=== PATIENT | male | born 1975 | race Caucasian/White ===

== ENCOUNTER 2016-06-07 12:30 | Emergency (ER) | payer SELFPAY ==
[2016-06-07 12:59] VITALS: BP 191/122; PULSE 100; RESP 18; TEMP 98.3
[2016-06-07] MEDS ORDERED: SODIUM CHLORIDE 0.9% 1,000 ML IV STA (13:11)
[2016-06-07] MEDS ORDERED: RX INFO: IV CONTRAST WAS GIVEN 1 EACH MISC MISCELLANE PRN (13:11)
[2016-06-07] MEDS ORDERED: ONDANSETRON 4 MG/2 ML VIAL IVP STA (13:11)
[2016-06-07] MEDS ORDERED: DICYCLOMINE 10 MG/ML 2 ML AMP IM STA (13:11)
[2016-06-07] MEDS ORDERED: FAMOTIDINE 20 MG/2 ML VIAL IV STA (13:12)
--- NOTE | 2016-06-07 13:15 | ED ---
General Adult HPI - General Chief complaint: Abdominal Pain Stated complaint: Abd Pain/Vomiting Time Seen by Provider: 06/07/16 12:59 Source: patient, RN notes reviewed Mode of arrival: ambulatory Limitations: no limitations - History of Present Illness Initial comments: Patient is a pleasant 40-year-old male presenting to the emergency department complaining of abdominal discomfort. Onset of symptoms was last night. Patient has abdominal discomfort. Patient has had occasional loose stools. Patient has had some episodes of vomiting. Patient has chronic abdominal problems similar to this. No fevers. - Related Data Home Medications Medication Instructions Recorded Confirmed Metoprolol Tartrate [Lopressor] 50 mg PO BID 10/02/13 12/15/15 ALPRAZolam [Xanax] 1 mg PO Q8H 07/10/15 12/15/15 oxyCODONE HCL 30 mg PO Q6HR PRN 07/10/15 12/15/15 Dextroamphetamine/Amphetamine 30 mg PO DAILY 11/03/15 12/15/15 [Adderall] Diphenox-Atrop 2.5-0.025 mg 1 tab PO DAILY PRN 11/03/15 12/15/15 [Lomotil] Pregabalin [Lyrica] 50 mg PO BID 11/03/15 12/15/15 Morphine Sulfate ER [Ms Contin 60 mg PO Q12HR 11/11/15 12/15/15 60Mg] Allergies Allergy/AdvReac Type Severity Reaction Status Date / Time Penicillins Allergy Unknown Verified 06/07/16 12:58 Childhood Review of Systems ROS Statement: Those systems with pertinent positive or pertinent negative responses have been documented in the HPI. ROS Other: All systems not noted in ROS Statement are negative. Constitutional: Denies: fever Eyes: Denies: eye pain ENT: Denies: ear pain Respiratory: Denies: dyspnea Cardiovascular: Denies: chest pain Endocrine: Denies: fatigue Gastrointestinal: Reports: abdominal pain, nausea, vomiting, diarrhea Genitourinary: Denies: dysuria Musculoskeletal: Denies: back pain Skin: Denies: rash Past Medical History Past Medical History: Hypertension Additional Past Medical History / Comment(s): Partial bowel obstruction secondary to adhesions, Crohn's, ileorectal anastomotic stricture, cervical pain -ruptured disc., ileus, enteritis History of Any Multi-Drug Resistant Organisms: None Reported Past Surgical History: Appendectomy, Bowel Resection, Hernia Repair Additional Past Surgical History / Comment(s): Lucio. bowel resection in 1993, lysis of adhesions, partial omentectomy and repair of incisional hernia August [address] Calzada, decompressive colonoscopy in May [address] Calzada, EGD and multiple colonoscopies, Epidural injections to neck- last one on 04/2015. Past Anesthesia/Blood Transfusion Reactions: No Reported Reaction Additional Past Anesthesia/Blood Transfusion Reaction / Comment(s): Pt has never recieved blood. Past Psychological History: Anxiety, Depression Additional Psychological History / Comment(s): PT lives with HS MOM AND A 12 yr old son. Pt is independent. He drives a car. He is NOT CURRENTLY WORKING. Smoking Status: Never smoker Past Alcohol Use History: Rare Past Drug Use History: Marijuana Additional Drug Use History / Comment(s): SMOKED MARJIUANA DAILY- USES FOR CHRONS AND NECK PAIN-LAST USED 06-02-15 - Past Family History Father Family Medical History: Myocardial Infarction ([place]) Additional Family Medical History / Comment(s): AT AGGE 54- HIS 4TH [place] Mother Family Medical History: Coronary Artery Disease (CAD), Hypertension Additional Family Medical History / Comment(s): MOM IS AGE 63, HAS STENTS General Exam Limitations: no limitations General appearance: alert, in no apparent distress Head exam: Present: atraumatic Eye exam: Present: normal appearance, PERRL ENT exam: Present: normal oropharynx Neck exam: Present: normal inspection Respiratory exam: Present: normal lung sounds bilaterally Cardiovascular Exam: Present: regular rate, normal rhythm GI/Abdominal exam: Present: soft, tenderness (Mild tenderness lower abdomen). Absent: distended, guarding, rebound, rigid Extremities exam: Present: normal inspection Neurological exam: Present: alert Psychiatric exam: Present: normal affect, normal mood Skin exam: Absent: rash Course Vital Signs 06/07/16 12:56 Temperature 98.3 F Pulse Rate 100 Respiratory 18 Rate Blood Pressure 191/122 O2 Sat by Pulse 97 Oximetry Medical Decision Making - Medical Decision Making Patient states there was a family emergency and will leave AGAINST MEDICAL ADVICE. Disposition Clinical Impression: Abdominal pain Disposition: Left Against Medical Advice
== END 2016-06-07 13:18 | disposition left against medical advice (07) ==
LOC: EC 12:30
DX: R10.9 Unspecified abdominal pain (principal); R11.10 Vomiting, unspecified; I10 Essential (primary) hypertension; F41.9 Anxiety disorder, unspecified; Z79.899 Other long term (current) drug therapy; Z79.891 Long term (current) use of opiate analgesic; Z88.0 Allergy status to penicillin
CPT/HCPCS: 99283

== ENCOUNTER 2016-08-12 16:26 | Inpatient (IN) | payer OTHER ==
[2016-08-12] MEDS ORDERED: ONDANSETRON 4 MG/2 ML VIAL IVP STA (17:54)
[2016-08-12] MEDS ORDERED: LABETALOL 5 MG/ML VIAL MDV IVP STA (17:54)
[2016-08-12] MEDS ORDERED: KETOROLAC 30 MG/ML 1 ML VIAL IVP STA (17:55)
[2016-08-12] MEDS ORDERED: DIAZEPAM 5 MG/ML 2 ML SYRINGE IVP STA (17:56)
--- NOTE | 2016-08-12 17:59 | ED ---
Abdominal Pain HPI - General Chief Complaint: Abdominal Pain Stated Complaint: Abd Pain/Vomiting/Anxiety Time Seen by Provider: 08/12/16 17:36 Source: patient, RN notes reviewed Mode of arrival: ambulatory Limitations: no limitations - History of Present Illness Initial Comments: Patient is a 40-year-old male presents emergency room for evaluation of abdominal pain and anxiety. Patient states he has a history of Crohn's Disease. Patient has a history of colon resection, appendectomy and hernia repair. Patient states he began having worsening abdominal pain along with vomiting since Wednesday. Patient states he is no longer able to a take his medications or eat anything due to vomiting. Patient states that he takes Percocet at home for pain. Patient states he hasn't been able to take any of his medications due to vomiting. Patient also states his blood pressure has increased due to not being able to take his blood pressure medication. Patient denies diarrhea or constipation. Patient states been having on and off chills. Patient denies headache. Patient also states he is feeling very anxious. Patient denies dizziness. Patient states pain in the left lower quadrant. Patient does have a history of kidney stones. Patient denies pain or burning during urination, trouble urinating or blood in urine. - Related Data Home Medications Medication Instructions Recorded Confirmed Metoprolol Tartrate [Lopressor] 50 mg PO BID 10/02/13 08/12/16 ALPRAZolam [Xanax] 1 mg PO BID PRN 07/10/15 08/12/16 oxyCODONE HCL 30 mg PO Q8H PRN 07/10/15 08/12/16 Dextroamphetamine/Amphetamine 30 mg PO QAM 11/03/15 08/12/16 [Adderall] Pregabalin [Lyrica] 50 mg PO BID 11/03/15 08/12/16 Albuterol Sulfate [Proair Hfa] 2 puff INHALATION RT-Q6H PRN 08/12/16 08/12/16 Allergies Allergy/AdvReac Type Severity Reaction Status Date / Time Penicillins Allergy Unknown Verified 08/12/16 18:24 Childhood Review of Systems ROS Statement: Those systems with pertinent positive or pertinent negative responses have been documented in the HPI. ROS Other: All systems not noted in ROS Statement are negative. Past Medical History Past Medical History: Hypertension Additional Past Medical History / Comment(s): Partial bowel obstruction secondary to adhesions, Crohn's, ileorectal anastomotic stricture, cervical pain -ruptured disc., ileus, enteritis History of Any Multi-Drug Resistant Organisms: None Reported Past Surgical History: Appendectomy, Bowel Resection, Hernia Repair Additional Past Surgical History / Comment(s): Lucio. bowel resection in 1993, lysis of adhesions, partial omentectomy and repair of incisional hernia August [address] Calzada, decompressive colonoscopy in May [address] Calzada, EGD and multiple colonoscopies, Epidural injections to neck- last one on 04/2015. Past Anesthesia/Blood Transfusion Reactions: No Reported Reaction Additional Past Anesthesia/Blood Transfusion Reaction / Comment(s): Pt has never recieved blood. Past Psychological History: Anxiety, Depression Additional Psychological History / Comment(s): PT lives with HS MOM AND A 12 yr old son. Pt is independent. He drives a car. He is NOT CURRENTLY WORKING. Smoking Status: Never smoker Past Alcohol Use History: Rare Past Drug Use History: Marijuana Additional Drug Use History / Comment(s): SMOKED MARJIUANA DAILY- USES FOR CHRONS AND NECK PAIN-LAST USED 06-02-15 - Past Family History Father Family Medical History: Myocardial Infarction ([place]) Additional Family Medical History / Comment(s): AT AGGE 54- HIS 4TH [place] Mother Family Medical History: Coronary Artery Disease (CAD), Hypertension Additional Family Medical History / Comment(s): MOM IS AGE 63, HAS STENTS General Exam - General Exam Comments Initial Comments: Sitting in exam room, no acute distress Limitations: no limitations General appearance: alert, in no apparent distress Head exam: Present: atraumatic, normocephalic, normal inspection Eye exam: Present: normal appearance ENT exam: Present: normal exam Neck exam: Present: normal inspection Respiratory exam: Present: normal lung sounds bilaterally. Absent: respiratory distress Cardiovascular Exam: Present: regular rate, normal rhythm, normal heart sounds GI/Abdominal exam: Present: soft, tenderness (Left lower quadrant), normal bowel sounds. Absent: distended, guarding, rebound, rigid Extremities exam: Present: normal inspection Back exam: Present: normal inspection Neurological exam: Present: alert, oriented X3, CN II-XII intact, normal gait Psychiatric exam: Present: normal affect, normal mood Skin exam: Present: warm, dry, intact, normal color. Absent: rash Course Vital Signs 08/12/16 08/12/16 08/12/16 16:47 19:15 19:40 Temperature 97.5 F L Pulse Rate 90 87 Respiratory 20 16 Rate Blood Pressure 185/110 156/89 169/88 O2 Sat by Pulse 98 95 Oximetry 08/12/16 08/12/16 20:10 20:58 Temperature Pulse Rate 86 86 Respiratory 16 16 Rate Blood Pressure 166/89 156/90 O2 Sat by Pulse 96 96 Oximetry Medical Decision Making - Medical Decision Making Patient is a 40-year-old male presents emergency room for evaluation of intractable abdominal pain, nausea and vomiting. Urinalysis suspicious for hematuria. Patient most likely passing kidney stone. Case discussed with Dr. Allan. Given patient's history of intractable abdominal pain and possible kidney stone, will admit patient with fluid hydration. Dr. Allan discussed case with Dr. Aldana who agreed to admit patient. - Lab Data Result diagrams: 08/12/16 19:10 08/12/16 19:10 Lab Results 08/12/16 08/12/16 08/12/16 Range/Units 19:10 19:10 19:35 WBC 7.6 (3.8-10.6) k/uL RBC 5.06 (4.30-5.90) m/uL Hgb 16.0 (13.0-17.5) gm/dL Hct 44.7 (39.0-53.0) % MCV 88.4 (80.0-100.0) fL MCH 31.6 (25.0-35.0) pg MCHC 35.7 (31.0-37.0) g/dL RDW 13.1 (11.5-15.5) % Plt Count 229 (150-450) k/uL Neutrophils % 70 % Lymphocytes % 19 % Monocytes % 6 % Eosinophils % 2 % Basophils % 0 % Neutrophils # 5.4 (1.3-7.7) k/uL Lymphocytes # 1.5 (1.0-4.8) k/uL Monocytes # 0.5 (0-1.0) k/uL Eosinophils # 0.1 (0-0.7) k/uL Basophils # 0.0 (0-0.2) k/uL Sodium 136 L (137-145) mmol/L Potassium 4.6 (3.5-5.1) mmol/L Chloride 98 (98-107) mmol/L Carbon Dioxide 24 (22-30) mmol/L Anion Gap 14 mmol/L BUN 10 (9-20) mg/dL Creatinine 0.64 L (0.66-1.25) mg/dL Est GFR (MDRD) Af Amer >60 (>60 ml/min/1.73 sqM) Est GFR (MDRD) Non-Af >60 (>60 ml/min/1.73 sqM) Glucose 206 H (74-99) mg/dL Calcium 9.8 (8.4-10.2) mg/dL Total Bilirubin 0.7 (0.2-1.3) mg/dL AST 72 H (17-59) U/L ALT 65 (21-72) U/L Alkaline Phosphatase 76 (38-126) U/L Total Protein 8.0 (6.3-8.2) g/dL Albumin 4.6 (3.5-5.0) g/dL Amylase 64 (30-110) U/L Lipase 108 (23-300) U/L Urine Color Light Yellow Urine Appearance Clear (Clear) Urine pH 5.5 (5.0-8.0) Ur Specific [place] 1.007 (1.001-1.035) Urine Protein Negative (Negative) Urine Glucose (UA) 2+ H (Negative) Urine Ketones Negative (Negative) Urine Blood Moderate H (Negative) Urine Nitrite Negative (Negative) Urine Bilirubin Negative (Negative) Urine Urobilinogen <2.0 (<2.0) mg/dL Ur Leukocyte Esterase Trace H (Negative) Urine RBC 152 H (0-5) /hpf Ur Squamous Epith Cells <1 (0-4) /hpf Urine Mucus Rare H (None) /hpf - Radiology Data Radiology results: report reviewed, image reviewed Disposition Clinical Impression: Hematuria, Intractable abdominal pain Disposition: ADMITTED IP TO THIS [facility] Condition: Stable Referrals: Dayton Tim DO [Primary Care Provider] - 1-2 days Decision Date: 08/12/16
[2016-08-12 19:23] LABS: Basophils % (A) 0 %; CHCM 36.3; Eosinophils # (A) 0.1 k/uL (0-0.7); Eosinophils % (A) 2 %; HCT 44.7 % (39.0-53.0); HDW 2.84; Luc # (Auto) 0.22; Luc % (Auto) 3; Lymphocytes # (A) 1.5 k/uL (1.0-4.8); Lymphocytes % (A) 19 %; MCH 31.6 pg (25.0-35.0); MCHC 35.7 g/dL (31.0-37.0); MCV 88.4 fL (80.0-100.0); Mean Platelet Volume 7.4; Monocytes # (A) 0.5 k/uL (0-1.0); Monocytes % (A) 6 %; Neutrophils # (A) 5.4 k/uL (1.3-7.7); Neutrophils % (A) 70 %; RBC 5.06 m/uL (4.30-5.90); RDW 13.1 % (11.5-15.5); WBC 7.6 k/uL (3.8-10.6); WBC (Perox) 7.56
[2016-08-12 19:30] LABS: ALT 65 U/L (21-72); AST 72 U/L (17-59); Alkaline Phosphatase 76 U/L (38-126); Amylase 64 U/L (30-110); Anion Gap 14 mmol/L; Blood Urea Nitrogen 10 mg/dL (9-20); Calcium 9.8 mg/dL (8.4-10.2); Carbon Dioxide 24 mmol/L (22-30); Chloride 98 mmol/L (98-107); Glucose 206 mg/dL (74-99); Non-African American GFR(MDRD) >60 (>60 ml/min/1.73 sqM); Potassium 4.6 mmol/L (3.5-5.1); Sodium 136 mmol/L (137-145); Total Bilirubin 0.7 mg/dL (0.2-1.3)
--- NOTE | 2016-08-12 19:46 | XR ---
EXAMINATION TYPE: XR KUB DATE OF EXAM: 08/12/2016 7:29 PM CLINICAL HISTORY: Left-sided abdominal pain and vomiting. TECHNIQUE: 2 upright KUB images of the abdomen are obtained COMPARISON: CT abdomen and pelvis November 11, 2015 FINDINGS: There is some paucity of bowel gas. Scattered gas is seen in non-distended stomach and sma ll bowel loops. Gas and fecal material is seen in non-distended colon. Surgical sutures are seen in the pelvis at level of the sigmoid rectal colon. There is no visceromegaly, pneumoperitoneum, or abn ormal calcification appreciated. The lung bases are clear. Bilateral accessory L1 ribs are redemonst rated. IMPRESSION: Overall nonspecific strongly favor nonobstructive bowel gas pattern.
[2016-08-12 20:01] LABS: Appearance,Urine Clear (Clear); Bilirubin,Urine Negative (Negative); Glucose,Urine (UA) 2+ (Negative); Ketones,Urine Negative (Negative); Leukocyte Esterase,Urine Trace (Negative); Mucus,Urine Rare /hpf; Nitrite,Urine Negative (Negative); PH, Urine 5.5 (5.0-8.0); Particle Count 1206; Protein,Urine Negative (Negative); RBC,Urine 152 /hpf (0-5); Specific Gravity,Urine 1.007 (1.001-1.035); Squamous Epithelial Cell,Urine <1 /hpf (0-4); UA Billing (MACRO vs. MICRO) MICRO; Urobilinogen,Urine <2.0 mg/dL (<2.0)
[2016-08-12] MEDS ORDERED: HYDROmorphone 1 MG/ML 1 ML SYRINGE IVP STA (20:47)
[2016-08-12] MEDS ORDERED: NALOXONE 0.4 MG/ML 1 ML VIAL IV PRN (20:48)
[2016-08-12] MEDS ORDERED: ONDANSETRON 4 MG/2 ML VIAL IVP PRN (20:48)
[2016-08-12] MEDS ORDERED: NON-FORMULARY DRUG (Oxycodone Hcl [Oxycodone Hcl] 30 MG) PO PRN (20:49)
[2016-08-12] MEDS ORDERED: ALBUTEROL NEBULIZED 2.5 MG/3 ML INHALATION PRN (20:49)
[2016-08-12] MEDS: oxyCODONE ER 15 MG TAB.ER.12H PO SCH (22:03)
[2016-08-12] MEDS: ALPRAZolam 0.5 MG TAB PO PRN (22:04)
[2016-08-12] MEDS: PREGABALIN 50 MG CAP PO SCH (22:04)
[2016-08-12] MEDS: METOPROLOL TARTRATE 50 MG TAB PO SCH (22:04)
[2016-08-13] MEDS: HYDROmorphone 1 MG/ML 1 ML SYRINGE IVP PRN ×5 (02:42→21:24)
[2016-08-13] MEDS: SODIUM CHLORIDE 0.9% 1,000 ML IV SCH ×3 (02:44→17:18)
[2016-08-13] MEDS: KETOROLAC 30 MG/ML 1 ML VIAL IVP PRN ×2 (07:30→15:48)
[2016-08-13] MEDS: PREGABALIN 50 MG CAP PO SCH ×2 (07:35→20:16)
[2016-08-13] MEDS: METOPROLOL TARTRATE 50 MG TAB PO SCH ×2 (07:35→20:16)
[2016-08-13] MEDS: ALPRAZolam 0.5 MG TAB PO PRN ×2 (07:39→21:24)
[2016-08-13] MEDS: oxyCODONE ER 15 MG TAB.ER.12H PO SCH ×2 (07:39→20:15)
[2016-08-13] MEDS ORDERED: NON-FORMULARY DRUG (Dextroamphetamine/Amphetamine [Adderall] 30 MG) PO SCH (09:00)
[2016-08-13] MEDS ORDERED: CYCLOBENZAPRINE 10 MG TAB PO PRN (19:09)
[2016-08-13] MEDS ORDERED: RX INFO: IV CONTRAST WAS GIVEN 1 EACH MISC MISCELLANE PRN (19:11)
[2016-08-13] MEDS ORDERED: IOHEXOL 350 MG/ML 25 ML BOTTLE (ORAL USE) PO PRN (19:11)
--- NOTE | 2016-08-13 20:04 | CT ---
EXAMINATION TYPE: CT abdomen w con DATE OF EXAM: 08/13/2016 7:55 PM COMPARISON: 11/11/2015 HISTORY: Left sided abdominal swelling x 1 week[address] History of Crohn's. CT DLP: 1607.20 mGycm Automated exposure control for dose reduction was used. TECHNIQUE: Helical acquisition of images was performed from the lung bases through the top of iliac crest to include entire abdomen. CONTRAST: Performed with Oral Contrast and with IV Contrast, patient injected with 100 mL of Omnipaque 300. FINDINGS: There is some interstitial mild edema in the posterior lung bases. There is no pleural effusion. Ther e is fatty infiltration of the liver. Bile ducts are not dilated. Gallbladder is contracted. Spleen a nd pancreas appear normal. There is no adrenal mass. Kidneys show satisfactory contrast opacification. There is no hydronephrosi s. There is no retroperitoneal adenopathy. I see no intestinal wall thickening. There are no dilated loops. There are surgical clips in the mid abdomen apparently from bowel surgery. I see no bony destr uctive process. There is no sign of a bowel obstruction. IMPRESSION: FATTY INFILTRATION OF THE LIVER. THERE IS SOME INTERSTITIAL EDEMA OR INFILTRATE IN THE LOWER LOBES WI THOUT CHANGE COMPARED TO OLD EXAM. PREVIOUS BOWEL SURGERY. NO EVIDENCE OF A BOWEL OBSTRUCTION. THE ENTIRE BOWEL IS NOT INCLUDED ON THIS EXAM. I DO NOT SEE EVIDENCE OF CROHN'S DISEASE. THERE IS OVERALL NO ADVERSE CHANGE COMPARED TO OLD EX AM.
[2016-08-13] MEDS: amLODIPine 5 MG TAB PO SCH (20:14)
[2016-08-13] MEDS: ENOXAPARIN 40 MG/0.4 ML SYRINGE SQ SCH (20:16)
[2016-08-13] MEDS: SYMBICORT 160-4.5 MCG INHALER INHALATION SCH (20:39)
[2016-08-14] MEDS: HYDROmorphone 1 MG/ML 1 ML SYRINGE IVP PRN ×7 (01:24→23:16)
--- NOTE | 2016-08-14 06:55 | HP ---
DATE OF ADMISSION: 08/12/2016 PRESENTING COMPLAINT: Abdominal pain. History of presenting complaint: A pleasant 40-year-old patient of Dr. Tim with a rather extensive medical history. The patient has history of Crohn disease diagnosed about 27 years ago seen by Dr. Downey. Does not take any take meds. The patient having some abdominal pain for 4 days and yesterday and the day prior to presentation, started having vomiting. No fever. The patient bowel movements are normally regular. The patient has had a near total colectomy done. Patient felt the left side of the abdomen was actually rather bloated. Earlier today, patient was given some soup and patient again threw up. Patient has got chronic pain. The patient other medical conditions include hypertension. REVIEW OF SYSTEMS: CONSTITUTIONAL: Tired. HEENT: Chronic neck pain. RESPIRATORY: None. CARDIOVASCULAR: None. GASTROINTESTINAL: As above. GENITOURINARY: None. MUSCULOSKELETAL: Chronic neck pain. Dermatologic: None. HEMATOLOGIC: None. LYMPHATICS: None. PSYCHIATRY: None. NEUROLOGICAL: None. PAST HISTORY: Hypertension. Crohn's disease, ileorectal anastomosis, cervical pain from ruptured disc. PAST SURGICAL HISTORY: Appendectomy, bowel resection as above. Multiple colonoscopies, epidural injections. Past psych history: Anxiety, depression. SOCIAL HISTORY: Lives with his mother. 12-year-old son. Patient not working. No smoking. Uses marijuana for chronic pain. FAMILY HISTORY: Apparently father at age of 54 from heart attack. HOME MEDICATIONS: 1. Percocet 10, 1 tablet t.i.d. p.r.n. 2. Prilosec 40 mg p.o. daily. 3. Flexeril 10 mg p.o. t.i.d. p.r.n. 4. Norvasc 5 mg p.o. daily. 5. Ventolin HFA 1 to 2 puffs q.i.d. p.r.n. 6. Dulera 200/5, 2 puffs b.i.d. 7. Flonase 1 to 2 sprays each nostril daily p.r.n. 8. Claritin 10 mg p.o. daily p.r.n. 9. Lyrica 50 mg p.o. b.i.d. 10. ( ) 30 mg p.o. daily. 11. Xanax 1 mg p.o. b.i.d. p.r.n. ALLERGIES TO PENICILLIN. On examination, vital signs on presentation: Temperature 97.5, pulse 90, respiration 20, blood pressure 185/110, pulse ox 98% on room air. Repeat blood pressure down to 156/( ). GENERAL APPEARANCE: Well built, lying in bed, tired -appearing. EYES: Pupils equal. Conjunctivae normal. Oral cavity normal. NECK: JVD not raised. Mass not palpable. RESPIRATORY: Effort normal. LUNGS: Clear. CARDIOVASCULAR: First and second sounds normal. No edema. ABDOMEN: Diffuse tenderness. No guarding or rigidity. Liver and spleen not palpable. The patient has a midline incision scar. Bowel sounds are present. LYMPHATIC: No lymph nodes palpable in the neck or axillae. PSYCHIATRY: Alert and oriented times three. Mood and affect normal. NEUROLOGICAL: Pupils equal. Cranial nerves grossly intact. Power and sensation grossly intact. INVESTIGATIONS: White count 7.6, hemoglobin 16, potassium 4.6, BUN 10, creatinine 0.64. UA showed moderate blood. Trace leukocyte esterase. ( ) 152. Abdominal x-ray nonspecific gas pattern. ASSESSMENT: 1. This is a patient with ileorectal anastomosis, underlying Crohn's disease with abdominal pain, nausea, vomiting. There is no fever. No white count, I doubt this is Crohn's disease flare-up though still in the differential. This could be a partial bowel obstruction for which patient has been throwing. 2. Chronic Crohn's disease. 3. Essential hypertension. 4. Chronic neck pain from herniated disc. 5. Anxiety, not otherwise specified. PLAN: Home medications are resumed. Patient was put on ice chips. We will consult Dr. Calzada. Get a CT scan of the abdomen with contrast. Follow. Copy to Dr. Tim.
[2016-08-14] MEDS: SODIUM CHLORIDE 0.9% 1,000 ML IV SCH ×2 (08:04→14:23)
[2016-08-14] MEDS: oxyCODONE ER 15 MG TAB.ER.12H PO SCH ×2 (08:11→21:20)
[2016-08-14] MEDS: METOPROLOL TARTRATE 50 MG TAB PO SCH ×2 (08:11→21:23)
[2016-08-14] MEDS: ALPRAZolam 0.5 MG TAB PO PRN ×2 (08:11→23:16)
[2016-08-14] MEDS: amLODIPine 5 MG TAB PO SCH (08:11)
[2016-08-14] MEDS: PREGABALIN 50 MG CAP PO SCH ×2 (08:12→21:24)
[2016-08-14] MEDS: ENOXAPARIN 40 MG/0.4 ML SYRINGE SQ SCH (08:12)
[2016-08-14] MEDS: SYMBICORT 160-4.5 MCG INHALER INHALATION SCH ×2 (09:24→21:17)
--- NOTE | 2016-08-14 16:29 | P.GSCN ---
History of Present Illness Consult date: 08/14/16 Reason for Consult: Abdominal pain Requesting physician: Iraj Alba History of present illness: Patient is a 40-year-old white male, patient of Dr. Tim in the outpatient setting, with past medical history significant for bowel obstructions, Crohn's disease, ileus, enteritis, bowel syndrome. Surgical history significant for appendectomy, bowel resection, and anastomosis dilatation. Patient has had multiple hospitalizations for abdominal pain in the past. Patient presented to the emergency department with complaints of left-sided abdominal pain associated with some left-sided abdominal pain swelling with pain radiating to his back associated with nausea and vomiting. Patient states that he did have some diarrhea at the beginning of the week which is getting better. Patient denies chills, fevers, shortness of breath, or chest pain. No history of sick contacts. Patient denies melena or hematochezia. KUB with evidence of nonobstructive bowel gas pattern. CT of the abdomen and pelvis without evidence of bowel obstruction. No evidence of Crohn's disease. Urinalysis with moderate amount of blood. Past Medical History Past Medical History: Hypertension Additional Past Medical History / Comment(s): Partial bowel obstruction secondary to adhesions, Crohn's, ileorectal anastomotic stricture, cervical pain -ruptured disc., ileus, enteritis History of Any Multi-Drug Resistant Organisms: None Reported Past Surgical History: Appendectomy, Bowel Resection, Hernia Repair Additional Past Surgical History / Comment(s): Lucio. bowel resection in 1993, lysis of adhesions, partial omentectomy and repair of incisional hernia August [address] Calzada, decompressive colonoscopy in May [address] Calzada, EGD and multiple colonoscopies, Epidural injections to neck- last one on 04/2015. Past Anesthesia/Blood Transfusion Reactions: No Reported Reaction Additional Past Anesthesia/Blood Transfusion Reaction / Comm: Pt has never recieved blood. Past Psychological History: Anxiety, Depression Additional Psychological History / Comment(s): PT lives with HS MOM AND A 12 yr old son. Pt is independent. He drives a car. He is NOT CURRENTLY WORKING. Smoking Status: Never smoker Past Alcohol Use History: Rare Past Drug Use History: Marijuana Additional Drug Use History / Comment(s): SMOKED MARJIUANA DAILY- USES FOR CHRONS AND NECK PAIN-LAST USED 06-02-15 - Past Family History Father Family Medical History: Myocardial Infarction ([place]) Additional Family Medical History / Comment(s): AT AGGE 54- HIS 4TH [place] Mother Family Medical History: Coronary Artery Disease (CAD), Hypertension Additional Family Medical History / Comment(s): MOM IS AGE 63, HAS STENTS Medications and Allergies Home Medications Medication Instructions Recorded Confirmed Type ALPRAZolam [Xanax] 1 mg PO BID PRN 07/10/15 08/12/16 History Dextroamphetamine/Amphetamine 30 mg PO QAM 11/03/15 08/12/16 History [Adderall] Pregabalin [Lyrica] 50 mg PO BID 11/03/15 08/12/16 History Albuterol Inhaler [Ventolin Hfa 1 - 2 puff INHALATION RT-QID PRN 08/13/16 History Inhaler] Cyclobenzaprine [Flexeril] 10 mg PO TID PRN 08/13/16 08/13/16 History Fluticasone Nasal [place] [Flonase 1 - 2 spr EA NOSTRIL DAILY PRN 08/13/16 History Nasal [place]] Loratadine [Claritin] 10 mg PO DAILY PRN 08/13/16 08/13/16 History Mometasone/Formoterol [Dulera 200 2 puff INHALATION RT-BID 08/13/16 08/13/16 History Mcg/5 Mcg Inhaler] Omeprazole [PriLOSEC] 40 mg PO DAILY 08/13/16 08/13/16 History amLODIPine [Norvasc] 5 mg PO DAILY 08/13/16 08/13/16 History oxyCODONE-APAP 10-325MG [Percocet 1 tab PO TID PRN 08/13/16 08/13/16 History 10-325 mg] Allergies Allergy/AdvReac Type Severity Reaction Status Date / Time Penicillins Allergy Unknown Verified 08/12/16 18:24 Childhood Surgical - Exam Vital Signs Temp Pulse Resp BP Pulse Ox 97.5 F L 90 20 185/110 98 08/12/16 16:47 08/12/16 16:47 08/12/16 16:47 08/12/16 16:47 08/12/16 16:47 GENERAL: Pt awake and alert, well-appearing, well-nourished, and in no acute distress. HEAD: Atraumatic, normocephalic. EYES: Pupils equal, round, and reactive to light, extraocular movements intact, sclera anicteric, conjunctiva are normal. ENT: Moist mucous membranes. LUNGS: Breath sounds clear to auscultation bilaterally. No wheezes, rales, or rhonchi. HEART: Heart S1, S2, no S3 or S4. Regular rate and rhythm. No murmurs, rubs or gallops. ABDOMEN: Soft, mild generalized tenderness, mildly distended, normoactive bowel sounds. No guarding, no rebound. No masses or organomegaly appreciated. EXTREMITIES: 2+ peripheral pulses. NEUROLOGICAL: Pt oriented x 3. Results - Labs 08/12/16 19:10 08/12/16 19:10 - Imaging Abdominal x-ray: report reviewed CT scan - pelvis: report reviewed US - abdomen: report reviewed Assessment and Plan Plan: Impression: 1. Nausea, vomiting, diarrhea with acute on chronic abdominal pain. CT abdomen and pelvis negative for bowel obstruction. No evidence of Crohn's disease. 2. Hematuria. Will obtain urine culture. Plan: 1. Will start patient on a clear liquid diet. Continue IV hydration. Continue supportive treatment and pain management. Repeat CBC and BMP in a.m. Continue to follow with medical service. The above impression and plan have been discussed and directed by Dr. Calzada. Graham HUTCHISON acting as scribe for Dr. Calzada.
--- NOTE | 2016-08-14 22:05 | PN ---
DATE OF SERVICE: 08/14/2016 PRESENTING COMPLAINT: Abdominal pain. INTERVAL HISTORY: This is a patient with Crohn disease with ileorectal anastomosis, presented with abdominal bloating, pain, nausea, vomiting. CT scan is not remarkable. The patient did not tolerate much liquids yesterday and surgical consult was done. Patient's CT scan is not too remarkable. It is not sure if this is really a Crohn disease flare-up, just could be simply gastroenteritis. At this point, no diarrhea is present. Review of systems done for constitutional, cardiovascular, GI, pulmonary; relevant findings as above. Current medications are reviewed that include IV saline. On examination, temperature 98.5, pulse 95, respirations 16, blood pressure 148/96, pulse ox 95% on room air. GENERAL APPEARANCE: Lying in bed, comfortable. EYES: Pupils equal. Conjunctivae normal. NECK: JVD not raised. RESPIRATORY: Effort normal. LUNGS: Fair air entry. CARDIOVASCULAR: First and second sounds normal. No edema. ABDOMEN: Less distended, soft. Mild tenderness. No guarding or rigidity. Bowel sounds are present. PSYCHIATRY: Alert and oriented x3. Mood and affect were normal. INVESTIGATIONS: CT scan, nonspecific. ASSESSMENT: 1. This is a patient with known Crohn disease with ileorectal anastomosis, presents with acute abdominal distention, nausea, vomiting. CT scan is unremarkable. Patient may have underlying acute maybe ileitis that is actually getting better. No obvious surgical abdomen at this point. 2. Chronic Crohn disease. 3. Essential hypertension. 4. Chronic neck pain from herniated disk. 5. Anxiety, not otherwise specified. PLAN: At this point continue IV fluids, get a GI opinion. Care was discussed with patient, encouraged to be out of bed. Patient has been put on clear liquids. See how he tolerates the same.
[2016-08-15] MEDS: KETOROLAC 30 MG/ML 1 ML VIAL IVP PRN (00:55)
[2016-08-15] MEDS: HYDROmorphone 1 MG/ML 1 ML SYRINGE IVP PRN ×6 (03:15→23:46)
[2016-08-15 07:30] LABS: Basophils % (A) 0 %; CH 32.3; CHCM 36.8; Eosinophils # (A) 0.4 k/uL (0-0.7); Eosinophils % (A) 5 %; HCT 44.6 % (39.0-53.0); HDW 2.81; HGB 15.4 gm/dL (13.0-17.5); Luc # (Auto) 0.22; Luc % (Auto) 3; Lymphocytes # (A) 2.4 k/uL (1.0-4.8); Lymphocytes % (A) 32 %; MCH 30.6 pg (25.0-35.0); MCHC 34.6 g/dL (31.0-37.0); MCV 88.2 fL (80.0-100.0); Mean Platelet Volume 7.7; Monocytes # (A) 0.6 k/uL (0-1.0); Monocytes % (A) 7 %; Neutrophils % (A) 53 %; RBC 5.05 m/uL (4.30-5.90); RDW 13.1 % (11.5-15.5); WBC 7.6 k/uL (3.8-10.6); WBC (Perox) 7.14
[2016-08-15] MEDS: oxyCODONE ER 15 MG TAB.ER.12H PO SCH ×2 (07:41→21:32)
[2016-08-15] MEDS: PREGABALIN 50 MG CAP PO SCH ×2 (07:42→21:33)
[2016-08-15] MEDS: amLODIPine 5 MG TAB PO SCH (07:42)
[2016-08-15] MEDS: METOPROLOL TARTRATE 50 MG TAB PO SCH ×2 (07:42→21:32)
[2016-08-15] MEDS: ENOXAPARIN 40 MG/0.4 ML SYRINGE SQ SCH (07:42)
[2016-08-15] MEDS: SODIUM CHLORIDE 0.9% 1,000 ML IV SCH ×2 (07:43→11:39)
[2016-08-15] MEDS: ALPRAZolam 0.5 MG TAB PO PRN ×2 (07:47→21:33)
[2016-08-15 09:10] LABS: Anion Gap 10 mmol/L; Blood Urea Nitrogen 10 mg/dL (9-20); Carbon Dioxide 25 mmol/L (22-30); Chloride 104 mmol/L (98-107); Glucose 101 mg/dL (74-99); Non-African American GFR(MDRD) >60 (>60 ml/min/1.73 sqM); Potassium 3.9 mmol/L (3.5-5.1); Sodium 139 mmol/L (137-145)
[2016-08-15] MEDS: SYMBICORT 160-4.5 MCG INHALER INHALATION SCH ×2 (09:30→19:50)
[2016-08-15 09:37] LABS: RBC Morphology Normal
--- NOTE | 2016-08-15 12:21 | P.PN ---
Progress Note - Text The patient states he had some flatus. He is requesting more to eat. He had a small liquid bowel movement this morning. On exam his vital signs are stable. His abdomen is soft. It. Patient will start on full liquid diet. Hopefully be discharged home the next 24-48 hours
--- NOTE | 2016-08-15 18:58 | PN ---
DATE OF SERVICE: 08/15/2016 HISTORY OF PRESENT ILLNESS: This 40-year-old gentleman who was admitted with significant abdominal pain. The patient has significant complicated history of Crohn's disease and surgery also. Dr. Calzada is following the patient closely. The blood sugars are also elevated. The patient also had hematuria in the urine. PAST MEDICAL HISTORY: Reviewed. REVIEW OF SYSTEMS: CARDIOVASCULAR: No angina, palpitations. RESPIRATORY: No cough. GI: As mentioned earlier. : No dysuria. NERVOUS SYSTEM: No numbness or weakness. Current medications are reviewed and include: 1. Ventolin 2.5 q.i.d. 2. Xanax 1 mg b.i.d. 3. Norvasc 5 mg. 4. Symbicort 160/4.5, 2 puffs b.i.d. 5. Flexeril. 6. Lovenox. 7. Dilaudid. 8. Toradol. 9. Lopressor. 10. TPN. 11. Narcan. 12. OxyContin. 13. P.r.n. medications. PHYSICAL EXAMINATION: Patient is alert and oriented x3. Pulse 69, blood pressure 152/72, respiration 18, temperature 97.7, pulse ox 96% on room air. HEENT: Conjunctivae normal. Oral mucosa moist. NECK: No jugular venous distention. No carotid bruit. No lymph node enlargement. CARDIOVASCULAR: S1 and S2, muffled. No S3, no S4. RESPIRATORY: Breath sounds diminished at the bases. A few scattered rhonchi, no crackles. ABDOMEN: Soft, obese, status post surgery. Mild diffuse distention. Mild diffuse tenderness also present. No guarding, no rigidity. No mass palpable. Bowel sounds diminished. LEGS: No edema, no swelling. NERVOUS SYSTEM: Higher function as mentioned. Moves all four limbs. No focal motor deficits. LYMPHATIC: No lymphadenopathy in the neck, axillae or groin. SKIN: No ulcer, rash or bleeding. Labs at this time shows CBC within normal limits. Otherwise, sodium is 136 and glucose is 206, AST is 72. UA noted. ASSESSMENT: 1. Severe abdominal pain for evaluation, possibly Crohn's disease acute exacerbation. 2. History of Crohn's disease with ileorectal anastomosis. 3. Chronic hypertension, essential. 4. Chronic neck pain, herniated disc. 5. Chronic pain syndrome. 6. Anxiety, not otherwise specified. 7. Increased random blood sugar. 8. History of multiple episodes of partial small bowel obstruction secondary to Crohn's disease. 9. History of subtotal colectomy. 10. History of gastroesophageal reflux disease. 11. History of esophageal stricture and dilatation. 12. Degenerative joint disease. 13. History of tetrahydrocannabinol. 14. History of asthma. 15. History of anxiety, not otherwise specified. 16. History of depression. 17. History of irritable bowel syndrome. 18. FULL CODE. RECOMMENDATIONS AND DISCUSSION: I recommend to continue the current medications, continue monitoring and symptomatic treatment. Otherwise at this time I recommend to continue with current medications, continue symptomatic treatment. Otherwise, repeat labs. Other than that, continue the current medications. I also recommend CRP and ESR also. See orders for further details. Prognosis guarded. Further recommendations to follow. Surgical input appreciated. Closely follow with Surgery. Discussed with the patient who understands and agrees.
[2016-08-16] MEDS: SODIUM CHLORIDE 0.9% 1,000 ML IV SCH ×3 (03:47→17:03)
[2016-08-16] MEDS: HYDROmorphone 1 MG/ML 1 ML SYRINGE IVP PRN ×5 (03:48→20:59)
[2016-08-16] MEDS: SYMBICORT 160-4.5 MCG INHALER INHALATION SCH ×2 (07:38→19:23)
[2016-08-16 08:19] LABS: Basophils % (A) 0 %; CH 32.3; CHCM 36.2; Eosinophils # (A) 0.3 k/uL (0-0.7); Eosinophils % (A) 4 %; HCT 45.9 % (39.0-53.0); HDW 2.72; HGB 16.1 gm/dL (13.0-17.5); Luc # (Auto) 0.23; Luc % (Auto) 4; Lymphocytes % (A) 30 %; MCH 31.3 pg (25.0-35.0); MCV 89.4 fL (80.0-100.0); Mean Platelet Volume 6.4; Monocytes # (A) 0.5 k/uL (0-1.0); Monocytes % (A) 8 %; Neutrophils # (A) 3.7 k/uL (1.3-7.7); Neutrophils % (A) 55 %; RBC 5.13 m/uL (4.30-5.90); RDW 13.1 % (11.5-15.5); WBC 6.8 k/uL (3.8-10.6); WBC (Perox) 7.18
[2016-08-16 08:31] LABS: Anion Gap 11 mmol/L; Blood Urea Nitrogen 7 mg/dL (9-20); Calcium 9.2 mg/dL (8.4-10.2); Carbon Dioxide 23 mmol/L (22-30); Chloride 106 mmol/L (98-107); Glucose 111 mg/dL (74-99); Non-African American GFR(MDRD) >60 (>60 ml/min/1.73 sqM); Sodium 140 mmol/L (137-145)
--- NOTE | 2016-08-16 08:38 | P.CONS ---
History of Present Illness - Reason for Consult Consult date: 08/15/16 - History of Present Illness 40-year-old male patient with a past medical history of Crohn's colitis status post total proctocolectomy with ileoanal anastomosis at [facility] in 1993 , exploratory laparotomy with lysis of adhesions and partial omentectomy for small bowel obstruction August 2014, asthma, GERD, hypertension and medicinal marijuana for chronic neck pain. Admitted with abdominal pain, nausea and vomiting that stated on Wednesday, 5 days [employer]. Pain is more pronounced across the mid abdomen greater on the left. Has been having nausea and emesis unable to keep his medications down resulting in BP control issues. Multiple small nonbloody loose stools essentially unchanged. No recent antibiotics. Denies fever, chills, gross hematochezia, melena, or hematemesis. CT abdomen and pelvis showed fatty infltration of the liver with no bowel obstruction present. Was at [facility] in May for abdominal pains. Had EGD and colonoscopy evaluation December 2014 at [facility] for acute gastrointestinal bleeding and epistaxis. Patient is admitted for intestinal obstruction and we are asked to see in consultation. Review of Systems Constitutional: Denied fever, chills or unintentional weight loss Neurologic: No headaches, double vision or other sensory or motor changes Cardiopulmonary: No chest pains, shortness of breath or palpitations. Has history of HTN Gastrointestinal: See present illness above Genitourinary: No hematuria, dysuria or frequency Musculoskeletal: History of neck pain Endocrine: No diabetes or thyroid disease Skin: No rashes Psychiatric: No anxiety or depression Past Medical History Past Medical History: Hypertension Additional Past Medical History / Comment(s): Partial bowel obstruction secondary to adhesions, Crohn's, ileorectal anastomotic stricture, cervical pain -ruptured disc., ileus, enteritis History of Any Multi-Drug Resistant Organisms: None Reported Past Surgical History: Appendectomy, Bowel Resection, Hernia Repair Additional Past Surgical History / Comment(s): Lucio. bowel resection in 1993, lysis of adhesions, partial omentectomy and repair of incisional hernia [address] Calzada, decompressive colonoscopy in May [address] Calzada, EGD and multiple colonoscopies, Epidural injections to neck- last one on 04/2015. Past Anesthesia/Blood Transfusion Reactions: No Reported Reaction Additional Past Anesthesia/Blood Transfusion Reaction / Comm: Pt has never recieved blood. Past Psychological History: Anxiety, Depression Additional Psychological History / Comment(s): PT lives with HS MOM AND A 12 yr old son. Pt is independent. He drives a car. He is NOT CURRENTLY WORKING. Smoking Status: Never smoker Past Alcohol Use History: Rare Past Drug Use History: Marijuana Additional Drug Use History / Comment(s): SMOKED MARJIUANA DAILY- USES FOR CHRONS AND NECK PAIN-LAST USED 06-02-15 - Past Family History Father Family Medical History: Myocardial Infarction ([place]) Additional Family Medical History / Comment(s): AT AGGE 54- HIS 4TH [place] Mother Family Medical History: Coronary Artery Disease (CAD), Hypertension Additional Family Medical History / Comment(s): MOM IS AGE 63, HAS STENTS Medications and Allergies Home Medications Medication Instructions Recorded Confirmed Type ALPRAZolam [Xanax] 1 mg PO BID PRN 07/10/15 08/12/16 History Dextroamphetamine/Amphetamine 30 mg PO QAM 11/03/15 08/12/16 History [Adderall] Pregabalin [Lyrica] 50 mg PO BID 11/03/15 08/12/16 History Albuterol Inhaler [Ventolin Hfa 1 - 2 puff INHALATION RT-QID PRN 08/13/16 History Inhaler] Cyclobenzaprine [Flexeril] 10 mg PO TID PRN 08/13/16 08/13/16 History Fluticasone Nasal [place] [Flonase 1 - 2 spr EA NOSTRIL DAILY PRN 08/13/16 History Nasal [place]] Loratadine [Claritin] 10 mg PO DAILY PRN 08/13/16 08/13/16 History Mometasone/Formoterol [Dulera 200 2 puff INHALATION RT-BID 08/13/16 08/13/16 History Mcg/5 Mcg Inhaler] Omeprazole [PriLOSEC] 40 mg PO DAILY 08/13/16 08/13/16 History amLODIPine [Norvasc] 5 mg PO DAILY 08/13/16 08/13/16 History oxyCODONE-APAP 10-325MG [Percocet 1 tab PO TID PRN 08/13/16 08/13/16 History 10-325 mg] Allergies Allergy/AdvReac Type Severity Reaction Status Date / Time Penicillins Allergy Unknown Verified 08/12/16 18:24 Childhood Physical Exam Vitals: Vital Signs Temp Pulse Resp BP Pulse Ox 08/15/16 07:36 74 16 08/15/16 07:00 97.7 F 69 18 154/72 96 08/15/16 00:00 74 16 08/14/16 21:10 98.2 F 74 16 186/90 98 08/14/16 15:58 98.5 F 95 16 149/96 08/14/16 15:27 67 16 Intake and Output 08/14/16 08/15/16 08/15/16 22:59 06:59 14:59 Intake Total 400 800 Balance 400 800 Intake: IV 400 Sodium Chloride 0.9% 1, 400 000 ml @ 100 mls/hr IV . Q10H LOUIE Rx#:[id number] Intake, IV Titration 800 Amount Sodium Chloride 0.9% 1, 800 000 ml @ 100 mls/hr IV . Q10H LOUIE Rx#:[id number] Other: Voiding Method Toilet Toilet Toilet # Voids 4 Weight 117.934 kg General: Appeared stated age, very pleasant in no acute distress Head and neck: Normocephalic and atraumatic, conjunctivae pink and sclerae not icteric, no masses in the neck or tracheal shifts. No adenopathy or thyromegaly Lungs: Clear to auscultation with no dullness to percussion Heart: Regular Ammann no abnormal sounds, murmurs, gallops or friction rubs Abdomen: Soft no masses or organomegalies or tenderness. Bowel sounds present. Mid-line scar from prior surgeries Extremities: No clubbing cyanosis or edema Neurologic: Alert and oriented 3. Cranial nerves grossly intact, no gross sensory or motor abnormalities. Results CBC & Chem 7: 08/15/16 06:47 08/15/16 06:47 Labs: Abnormal Lab Results - Last 24 Hours (Table) 08/15/16 Range/Units 06:47 Glucose 101 H (74-99) mg/dL Microbiology - Last 24 Hours (Table) 08/14/16 18:15 Urine Culture - Preliminary Urine,Clean Catch Assessment and Plan Plan: 40-year old male with abdominal pains, nausea and vomiting could be related to partial intestinal obstruction in light of his history. Resolving gastroenteritis is a possibility too. No suggestion on CT of recurrent IBD. Patient appears to be improving and has been allowed clear liquids which he is tolerating. Agree with current management. Will follow with you. Consider advancing diet based on his progress. No repeat endoscopy is recommended at this time.
[2016-08-16] MEDS: ALPRAZolam 0.5 MG TAB PO PRN ×2 (09:06→22:39)
[2016-08-16] MEDS: oxyCODONE ER 15 MG TAB.ER.12H PO SCH ×2 (09:06→20:57)
[2016-08-16] MEDS: PREGABALIN 50 MG CAP PO SCH ×2 (09:07→20:58)
[2016-08-16] MEDS: ENOXAPARIN 40 MG/0.4 ML SYRINGE SQ SCH (09:07)
[2016-08-16] MEDS: amLODIPine 5 MG TAB PO SCH (09:07)
[2016-08-16] MEDS: METOPROLOL TARTRATE 50 MG TAB PO SCH ×2 (09:07→20:57)
--- NOTE | 2016-08-16 10:25 | P.PN ---
Progress Note - Text The patient states he's had multiple bowel movements. He is requesting more solid food. On exam his vital signs are stable. His abdomen is soft. There is no significant tenderness. Resolving ileus. Patient will have his diet increased to regular diet. He'll be discharged home per medicine.
--- NOTE | 2016-08-16 17:57 | PN ---
DATE OF SERVICE: 08/16/2016 This is a 40-year-old gentleman who was admitted with severe abdominal pain, possibly Crohn's acute exacerbation, being treated symptomatically. The patient is being closely monitored at this time. Diet is being advanced. No chest pain or palpitation, no fever. On exam, alert and oriented x3. Pulse 74, blood pressure 136/99, respirations 18, temperature 97.2, pulse ox 94% on room air. HEENT: Conjunctivae normal. NECK: No jugular venous distension. CARDIOVASCULAR SYSTEM: S1, S2, muffled. RESPIRATORY: Breath sounds diminished at the bases. No rhonchi. No crackles. Abdomen is soft, nontender. No mass palpable. EXTREMITIES: Legs no edema. No swelling. NERVOUS SYSTEM: No focal deficits. Labs are AST is 72, sodium 140, CBC within normal limits. ASSESSMENT: 1. Severe abdominal pain for evaluation, possibly Crohn's disease acute exacerbation. 2. History of Crohn's disease with ileorectal anastomosis. 3. Chronic hypertension, essential. 4. Chronic neck pain, herniated disc and degenerative joint disease. 5. Chronic pain syndrome. 6. Anxiety, not otherwise specified. 7. Increased random blood sugar. 8. History of multiple episodes of partial small bowel obstruction secondary to Crohn's disease. 9. History of subtotal colectomy. 10. History of gastroesophageal reflux disease. 11. History of esophageal stricture and dilatation. 12. History of degenerative joint disease. 13. History of THC. 14. History of asthma, chronic intermittent. 15. History of anxiety, not otherwise specified. 16. History of depression, history of irritable bowel syndrome. 17. FULL CODE. RECOMMENDATION: Continue with the current medication and symptomatic treatment. Advance diet, increase ambulation. Continue with the rest of the medications. Prognosis guarded. Further recommendations to follow.
[2016-08-16] MEDS: KETOROLAC 30 MG/ML 1 ML VIAL IVP PRN (18:28)
[2016-08-17] MEDS: HYDROmorphone 1 MG/ML 1 ML SYRINGE IVP PRN ×3 (00:51→08:09)
[2016-08-17] MEDS: KETOROLAC 30 MG/ML 1 ML VIAL IVP PRN (02:12)
[2016-08-17 07:16] LABS: Glucose,Whole Blood 140 mg/dL (75-99)
[2016-08-17 07:47] LABS: Basophils % (A) 1 %; CH 32.3; Eosinophils # (A) 0.3 k/uL (0-0.7); Eosinophils % (A) 5 %; HCT 46.5 % (39.0-53.0); HDW 2.75; HGB 16.2 gm/dL (13.0-17.5); Luc # (Auto) 0.23; Luc % (Auto) 4; Lymphocytes # (A) 1.9 k/uL (1.0-4.8); Lymphocytes % (A) 30 %; MCH 31.3 pg (25.0-35.0); MCHC 34.8 g/dL (31.0-37.0); MCV 90.1 fL (80.0-100.0); Mean Platelet Volume 6.3; Monocytes # (A) 0.6 k/uL (0-1.0); Monocytes % (A) 10 %; Neutrophils # (A) 3.3 k/uL (1.3-7.7); Neutrophils % (A) 51 %; RBC 5.16 m/uL (4.30-5.90); RDW 13.2 % (11.5-15.5); WBC 6.5 k/uL (3.8-10.6); WBC (Perox) 6.84
[2016-08-17 07:58] LABS: Anion Gap 12 mmol/L; Blood Urea Nitrogen 12 mg/dL (9-20); Calcium 9.5 mg/dL (8.4-10.2); Carbon Dioxide 22 mmol/L (22-30); Chloride 105 mmol/L (98-107); Glucose 126 mg/dL (74-99); Non-African American GFR(MDRD) >60 (>60 ml/min/1.73 sqM); Potassium 4.2 mmol/L (3.5-5.1); Sodium 139 mmol/L (137-145)
[2016-08-17] MEDS: ENOXAPARIN 40 MG/0.4 ML SYRINGE SQ SCH (08:00)
[2016-08-17] MEDS: METOPROLOL TARTRATE 50 MG TAB PO SCH (08:01)
[2016-08-17] MEDS: oxyCODONE ER 15 MG TAB.ER.12H PO SCH (08:01)
[2016-08-17] MEDS: amLODIPine 5 MG TAB PO SCH (08:01)
[2016-08-17] MEDS: PREGABALIN 50 MG CAP PO SCH (08:02)
[2016-08-17] MEDS: ALPRAZolam 0.5 MG TAB PO PRN (08:02)
[2016-08-17 08:03] VITALS: BP 134/73; PULSE 76; RESP 16; TEMP 97.9
--- NOTE | 2016-08-17 14:17 | P.PN ---
Progress Note - Text The patient has tolerated his regular diet. He states he is ready to be discharged. On exam his vital signs are stable. His abdomen soft. His ileus has resolved. Patient will be discharged home. He'll follow-up as needed.
--- NOTE | 2016-08-18 10:38 | DS ---
DATE OF ADMISSION: 08/12/2016 DATE OF DISCHARGE: 08/17/2016 FINAL DIAGNOSES: 1. Severe abdominal pain and possible Crohn disease acute exacerbation. 2. History of Crohn disease with ileorectal anastomosis. 3. Chronic hypertension, essential. 4. Chronic neck pain, herniated disc and degenerative joint disease. 5. Chronic pain syndrome. 6. Anxiety, not otherwise specified. 7. Increased random blood sugar. 8. History of multiple episodes of partial small bowel obstructions secondary to Crohn disease. 9. History of subtotal colectomy. 10. History of gastroesophageal reflux disease. 11. History of esophageal stricture and dilatation. 12. History of degenerative joint disease. 13. History of THC. 14. History of asthma, chronic intermittent. 15. Anxiety, not otherwise specified. 16. Anxiety and depression, not otherwise specified. 17. History of irritable bowel syndrome. 18. FULL CODE. DISCHARGE DISPOSITION: The patient will be discharged in stable condition with guarded prognosis. Discharge cleared by multiple consultants. HISTORY OF PRESENT ILLNESS: This 40-year-old gentleman being followed by Dr. Tim in the outpatient setting was admitted with abdominal pain treated symptomatically and patient improved significantly. On exam, vitals are stable. CARDIOVASCULAR SYSTEM: S1, S2 muffled. ABDOMEN: Soft. NERVOUS SYSTEM: No focal deficits. CBC within normal limits. The patient will be discharged in stable condition with guarded prognosis. Diet is cardiac. Activity limited until followup. Follow up with Dr. Tim in 2 to 3 days. Follow up with surgery as advised. MEDICATIONS: 1. Xanax 1 mg p.o. b.i.d. p.r.n. 2. Ventolin HFA 1 to 2 puffs q.i.d. p.r.n. 3. Flexeril 10 mg t.i.d. p.r.n. 4. Dextroamphetamine/amphetamine 30 mg p.o. q.a.m. 5. Fluticasone nasal spray 1 to 2 sprays daily. 6. Claritin 10 mg p.o. daily. 7. Mometasone formoterol, Dulera, 2 puffs b.i.d. 8. Prilosec 40 mg p.o. daily. 9. Lyrica 50 mg p.o. b.i.d. 10. Norvasc 5 mg p.o. daily. 11. Oxycodone 10 mg p.o. t.i.d. p.r.n.
--- NOTE | 2016-08-18 12:01 | DS ---
DATE OF ADMISSION: 08/12/2016 DATE OF DISCHARGE: 08/17/2016 DATE OF SERVICE: 08/17/2016 FINAL DIAGNOSES: 1. Severe abdominal pain for evaluation, possibly Crohn disease, acute exacerbation. 2. History of Crohn disease with ileorectal anastomosis. 3. Chronic hypertension, essential. 4. Chronic neck pain, herniated disc and degenerative joint disease. 5. Chronic pain syndrome. 6. Anxiety, not otherwise specified. 7. Increased random blood sugar. 8. History of multiple episodes of partial small bowel obstruction secondary to Crohn disease. 9. History of subtotal colectomy. 10. History of gastroesophageal reflux disease. 11. History of esophageal stricture and dilatation. 12. History of degenerative joint disease. 13. History of THC. 14. History of asthma chronic intermittent. 15. History of depression. 16. History of irritable bowel syndrome. 17. FULL CODE. DISCHARGE DISPOSITION: The patient will be discharged in stable condition with guarded prognosis. HISTORY OF PRESENT ILLNESS: This 40-year-old gentleman with a past medical history of multiple medical problems admitted with abdominal pain. The patient also had features of Crohn's with acute exacerbation. Treated symptomatically. The patient improved significantly. Dr. Calzada saw the patient during the hospital stay. On exam, vitals are stable. CARDIOVASCULAR SYSTEM: S1, S2. ABDOMEN: Soft. NERVOUS SYSTEM: No focal deficits. DISCHARGE ADVICE: 1. Diet is cardiac. 2. Activity limited until followup. 3. Follow up with Dr. Tim in 2 to 3 days. 4. Follow up with Dr. Calzada as recommended. Medications are; 1. Xanax 1 mg p.o. b.i.d. p.r.n. 2. Ventolin 1 to 2 puffs q.6 p.r.n. 3. Flexeril 10 mg t.i.d. p.r.n. 4. Dextroamphetamine amphetamine 30 mg p.o. q.a.m. 5. Fluticasone nasal spray 1 to 2 sprays in each nostril. 6. Claritin 10 mg daily. 7. Mometasone formoterol, Dulera, 2 puffs b.i.d. 8. Prilosec 40 mg p.o. daily. 9. Lyrica 50 mg p.o. b.i.d. 10. Norvasc 5 mg p.o. daily. 11. Oxycodone 10 mg t.i.d. p.r.n. Once again, the patient will be discharged in stable condition with guarded prognosis. Attend the pain clinic with Dr. Adam for continued ongoing management of the chronic pain syndrome.
== END 2016-08-17 14:12 | disposition home or self-care (01) | DRG 387 ==
LOC: EC 16:26 → OBSVTOIN 20:40 → 5MS5E 20:40
PROVIDERS: ADMIT Hospitalist; ATTEND Hospitalist
DX: K50.90 Crohn's disease, unspecified, without complications (principal); K76.0 Fatty (change of) liver, not elsewhere classified; M50.20 Other cervical disc displacement, unspecified cervical region; I10 Essential (primary) hypertension; K58.0 Irritable bowel syndrome with diarrhea; J45.20 Mild intermittent asthma, uncomplicated; R73.09 Other abnormal glucose; R11.2 Nausea with vomiting, unspecified; R31.9 Hematuria, unspecified; M47.812 Spondylosis without myelopathy or radiculopathy, cervical region; R68.83 Chills (without fever); G89.4 Chronic pain syndrome; K21.9 Gastro-esophageal reflux disease without esophagitis; F41.9 Anxiety disorder, unspecified; F12.90 Cannabis use, unspecified, uncomplicated; F32.9 Major depressive disorder, single episode, unspecified; Z82.49 Family history of ischemic heart disease and other diseases of the circulatory system; Z88.0 Allergy status to penicillin; Z90.49 Acquired absence of other specified parts of digestive tract; Z79.899 Other long term (current) drug therapy; Z87.442 Personal history of urinary calculi; Z79.891 Long term (current) use of opiate analgesic; Z87.19 Personal history of other diseases of the digestive system; Z98.0 Intestinal bypass and anastomosis status
CPT/HCPCS: 36415; 74000; 74160; 80048; 80053; 81001; 82150; 83690; 84443; 85025; 85652; 86140; 87077; 87086; 87186; 94640; 96374; 96375; 99285

== ENCOUNTER 2016-10-14 12:54 | Inpatient (IN) | payer OTHER ==
[2016-10-14] MEDS ORDERED: HYDROmorphone 1 MG/ML 1 ML SYRINGE IVP STA (14:24)
[2016-10-14] MEDS ORDERED: SODIUM CHLORIDE 0.9% 1,000 ML IV ONE (14:24)
[2016-10-14] MEDS ORDERED: ONDANSETRON 4 MG/2 ML VIAL IVP STA (14:24)
--- NOTE | 2016-10-14 14:25 | ED ---
Abdominal Pain HPI - General Chief Complaint: Abdominal Pain Stated Complaint: Abd Pain Time Seen by Provider: 10/14/16 13:51 Source: patient, RN notes reviewed Mode of arrival: ambulatory Limitations: no limitations - History of Present Illness Initial Comments: Patient is a 41-year-old male states he was here for evaluation of abdominal pain, nausea and rectal bleeding. Patient has a history of Crohn's. Patient states he feels like he is having a Crohn's flareup. Patient states he had his large intestine removed as a result of Crohn's. Patient states he began with left lower quadrant abdominal pain and rectal bleeding about 4 days ago. Patient states he is passing bright red blood with also dark tarry stools. Patient states he went to see his primary care provider today, Dr. Beckwith and was sent here for direct admit. Patient states that because of the rectal bleeding they decided to have him come to the emergency room first to be evaluated before admission. Patient states he is very nauseous. Patient states he has not had anything to eat in 4 days. Patient denies recent travel outside the country. Patient denies fevers or chills. Patient denies pain or burning during urination, trouble urinating or blood in urine. Patient does admit he feels very weak. Patient denies headache or dizziness. Patient denies chest pain or shortness of breath. - Related Data Home Medications Medication Instructions Recorded Confirmed ALPRAZolam [Xanax] 1 mg PO BID PRN 07/10/15 10/14/16 Dextroamphetamine/Amphetamine 30 mg PO QAM 11/03/15 10/14/16 [Adderall] Albuterol Inhaler [Ventolin Hfa 1 - 2 puff INHALATION RT-QID PRN 08/13/16 Inhaler] Fluticasone Nasal [place] [Flonase 1 - 2 spr EA NOSTRIL DAILY PRN 08/13/16 Nasal [place]] Loratadine [Claritin] 10 mg PO DAILY PRN 08/13/16 10/14/16 amLODIPine [Norvasc] 5 mg PO DAILY 08/13/16 10/14/16 oxyCODONE-APAP 10-325MG [Percocet 1 tab PO TID PRN 08/13/16 10/14/16 10-325 mg] Pregabalin [Lyrica] 100 mg PO BID 10/14/16 10/14/16 Allergies Allergy/AdvReac Type Severity Reaction Status Date / Time Penicillins Allergy Unknown Verified 10/14/16 14:28 Childhood Review of Systems ROS Statement: Those systems with pertinent positive or pertinent negative responses have been documented in the HPI. ROS Other: All systems not noted in ROS Statement are negative. Past Medical History Past Medical History: GERD/Reflux, GI Bleed, Hypertension Additional Past Medical History / Comment(s): Partial bowel obstruction secondary to adhesions, Crohn's, ileorectal anastomotic stricture, cervical pain -ruptured disc., ileus, enteritis History of Any Multi-Drug Resistant Organisms: None Reported Past Surgical History: Appendectomy, Bowel Resection, Hernia Repair Additional Past Surgical History / Comment(s): Lucio. bowel resection in 1993, lysis of adhesions, partial omentectomy and repair of incisional hernia August [address] Calzada, decompressive colonoscopy in May [address] Calzada, EGD and multiple colonoscopies, Epidural injections to neck- last one on 04/2015. Past Anesthesia/Blood Transfusion Reactions: No Reported Reaction Additional Past Anesthesia/Blood Transfusion Reaction / Comment(s): Pt has never recieved blood. Past Psychological History: Anxiety, Depression Additional Psychological History / Comment(s): PT lives with HS MOM AND A 12 yr old son. Pt is independent. He drives a car. He is NOT CURRENTLY WORKING. Smoking Status: Never smoker Past Alcohol Use History: Rare Past Drug Use History: Marijuana Additional Drug Use History / Comment(s): SMOKED MARJIUANA DAILY- USES FOR CHRONS AND NECK PAIN-LAST USED 06-02-15 - Past Family History Father Family Medical History: Myocardial Infarction ([place]) Additional Family Medical History / Comment(s): AT [age]GGE 54- HIS 4TH [place] Mother Family Medical History: Coronary Artery Disease (CAD), Hypertension Additional Family Medical History / Comment(s): MOM IS AGE 63, HAS STENTS General Exam - General Exam Comments Initial Comments: sitting in exam room, no acute distress. Limitations: no limitations General appearance: alert, in no apparent distress Head exam: Present: atraumatic, normocephalic, normal inspection Eye exam: Present: normal appearance ENT exam: Present: normal exam Neck exam: Present: normal inspection Respiratory exam: Present: normal lung sounds bilaterally. Absent: respiratory distress Cardiovascular Exam: Present: regular rate, normal rhythm, normal heart sounds GI/Abdominal exam: Present: soft, tenderness (Left lower quadrant), normal bowel sounds. Absent: distended, guarding, rebound, rigid Rectal exam: Present: normal inspection, normal rectal tone, heme (+) stool Extremities exam: Present: normal inspection Back exam: Present: normal inspection Neurological exam: Present: alert, oriented X3, CN II-XII intact, normal gait Psychiatric exam: Present: normal affect, normal mood Skin exam: Present: warm, dry, intact, normal color. Absent: rash Course Vital Signs 10/14/16 10/14/16 13:39 14:48 Temperature 97.9 F 98.1 F Pulse Rate 73 83 Respiratory 20 16 Rate Blood Pressure 200/116 172/104 O2 Sat by Pulse 98 97 Oximetry Medical Decision Making - Medical Decision Making Patient is a 41-year-old male presents to the emergency room for evaluation of abdominal pain, rectal bleeding and nausea. Patient states he feels like he is having a Crohn's flareup. Patient was sent here by Dr. Beckwith. Case discussed Dr. Allan. Dr. Allan discussed case with Dr. Beckwith who agreed to admit patient. Patient was will be started on steroids, fluid hydration and pain medications. - Lab Data Result diagrams: 10/14/16 14:50 10/14/16 14:50 Lab Results 10/14/16 10/14/16 10/14/16 Range/Units 14:29 14:29 14:50 WBC (3.8-10.6) k/uL RBC (4.30-5.90) m/uL Hgb (13.0-17.5) gm/dL Hct (39.0-53.0) % MCV (80.0-100.0) fL MCH (25.0-35.0) pg MCHC (31.0-37.0) g/dL RDW (11.5-15.5) % Plt Count (150-450) k/uL Neutrophils % % Lymphocytes % % Monocytes % % Eosinophils % % Basophils % % Neutrophils # (1.3-7.7) k/uL Lymphocytes # (1.0-4.8) k/uL Monocytes # (0-1.0) k/uL Eosinophils # (0-0.7) k/uL Basophils # (0-0.2) k/uL Sodium 139 (137-145) mmol/L Potassium 4.4 (3.5-5.1) mmol/L Chloride 108 H (98-107) mmol/L Carbon Dioxide 19 L (22-30) mmol/L Anion Gap 12 mmol/L BUN 14 (9-20) mg/dL Creatinine 0.76 (0.66-1.25) mg/dL Est GFR (MDRD) Af Amer >60 (>60 ml/min/1.73 sqM) Est GFR (MDRD) Non-Af >60 (>60 ml/min/1.73 sqM) Glucose 133 H (74-99) mg/dL Plasma Lactic Acid Baldo (0.7-2.0) mmol/L Calcium 9.7 (8.4-10.2) mg/dL Total Bilirubin 0.8 (0.2-1.3) mg/dL AST 60 H (17-59) U/L ALT 68 (21-72) U/L Alkaline Phosphatase 87 (38-126) U/L Total Protein 8.0 (6.3-8.2) g/dL Albumin 4.7 (3.5-5.0) g/dL Amylase 89 (30-110) U/L Lipase 127 (23-300) U/L Urine Color Light Yellow Urine Appearance Clear (Clear) Urine pH 5.0 (5.0-8.0) Ur Specific [place] 1.010 (1.001-1.035) Urine Protein Negative (Negative) Urine Glucose (UA) Negative (Negative) Urine Ketones Negative (Negative) Urine Blood Negative (Negative) Urine Nitrite Negative (Negative) Urine Bilirubin Negative (Negative) Urine Urobilinogen <2.0 (<2.0) mg/dL Ur Leukocyte Esterase Negative (Negative) Stool Occult Blood Positive (Negative) 10/14/16 10/14/16 Range/Units 14:50 14:50 WBC 7.1 (3.8-10.6) k/uL RBC 5.24 (4.30-5.90) m/uL Hgb 16.4 (13.0-17.5) gm/dL Hct 46.5 (39.0-53.0) % MCV 88.8 (80.0-100.0) fL MCH 31.4 (25.0-35.0) pg MCHC 35.4 (31.0-37.0) g/dL RDW 12.8 (11.5-15.5) % Plt Count 225 (150-450) k/uL Neutrophils % 60 % Lymphocytes % 26 % Monocytes % 6 % Eosinophils % 3 % Basophils % 0 % Neutrophils # 4.3 (1.3-7.7) k/uL Lymphocytes # 1.9 (1.0-4.8) k/uL Monocytes # 0.4 (0-1.0) k/uL Eosinophils # 0.3 (0-0.7) k/uL Basophils # 0.0 (0-0.2) k/uL Sodium (137-145) mmol/L Potassium (3.5-5.1) mmol/L Chloride (98-107) mmol/L Carbon Dioxide (22-30) mmol/L Anion Gap mmol/L BUN (9-20) mg/dL Creatinine (0.66-1.25) mg/dL Est GFR (MDRD) Af Amer (>60 ml/min/1.73 sqM) Est GFR (MDRD) Non-Af (>60 ml/min/1.73 sqM) Glucose (74-99) mg/dL Plasma Lactic Acid Bal[place] 1.4 (0.7-2.0) mmol/L Calcium (8.4-10.2) mg/dL Total Bilirubin (0.2-1.3) mg/dL AST (17-59) U/L ALT (21-72) U/L Alkaline Phosphatase (38-126) U/L Total Protein (6.3-8.2) g/dL Albumin (3.5-5.0) g/dL Amylase (30-110) U/L Lipase (23-300) U/L Urine Color Urine Appearance (Clear) Urine pH (5.0-8.0) Ur Specific [place] (1.001-1.035) Urine Protein (Negative) Urine Glucose (UA) (Negative) Urine Ketones (Negative) Urine Blood (Negative) Urine Nitrite (Negative) Urine Bilirubin (Negative) Urine Urobilinogen (<2.0) mg/dL Ur Leukocyte Esterase (Negative) Stool Occult Blood (Negative) Disposition Clinical Impression: Exacerbation of Crohn's disease Disposition: ADMITTED IP TO THIS [facility] Condition: Stable Decision Date: 10/14/16
[2016-10-14 14:53] LABS: Appearance,Urine Clear (Clear); Bilirubin,Urine Negative (Negative); Glucose,Urine (UA) Negative (Negative); Ketones,Urine Negative (Negative); Leukocyte Esterase,Urine Negative (Negative); Nitrite,Urine Negative (Negative); Protein,Urine Negative (Negative); UA Billing (MACRO vs. MICRO) CHEM; Urobilinogen,Urine <2.0 mg/dL (<2.0)
[2016-10-14 15:15] LABS: Basophils % (A) 0 %; CH 32.2; CHCM 36.4; Eosinophils # (A) 0.3 k/uL (0-0.7); Eosinophils % (A) 3 %; HCT 46.5 % (39.0-53.0); HDW 2.88; HGB 16.4 gm/dL (13.0-17.5); Luc # (Auto) 0.25; Luc % (Auto) 4; Lymphocytes # (A) 1.9 k/uL (1.0-4.8); Lymphocytes % (A) 26 %; MCH 31.4 pg (25.0-35.0); MCHC 35.4 g/dL (31.0-37.0); MCV 88.8 fL (80.0-100.0); Mean Platelet Volume 6.6; Monocytes # (A) 0.4 k/uL (0-1.0); Monocytes % (A) 6 %; Neutrophils # (A) 4.3 k/uL (1.3-7.7); Neutrophils % (A) 60 %; RBC 5.24 m/uL (4.30-5.90); RDW 12.8 % (11.5-15.5); WBC 7.1 k/uL (3.8-10.6); WBC (Perox) 7.79
[2016-10-14 15:18] LABS: ALT 68 U/L (21-72); AST 60 U/L (17-59); Alkaline Phosphatase 87 U/L (38-126); Amylase 89 U/L (30-110); Anion Gap 12 mmol/L; Blood Urea Nitrogen 14 mg/dL (9-20); Calcium 9.7 mg/dL (8.4-10.2); Carbon Dioxide 19 mmol/L (22-30); Chloride 108 mmol/L (98-107); Glucose 133 mg/dL (74-99); Non-African American GFR(MDRD) >60 (>60 ml/min/1.73 sqM); Potassium 4.4 mmol/L (3.5-5.1); Sodium 139 mmol/L (137-145); Total Bilirubin 0.8 mg/dL (0.2-1.3)
[2016-10-14] MEDS ORDERED: NALOXONE 0.4 MG/ML 1 ML VIAL IV PRN (15:52)
[2016-10-14] MEDS ORDERED: ONDANSETRON 4 MG/2 ML VIAL IVP PRN (15:52)
[2016-10-14] MEDS ORDERED: methylPREDNISolone SOD SUCCI 125 MG/2 ML VIAL IV STA (16:05)
[2016-10-14] MEDS: SODIUM CHLORIDE 0.9% 1,000 ML IV SCH (16:09)
[2016-10-14] MEDS ORDERED: hydrALAZINE HCL 20 MG/ML 1 ML VIAL IVP STA ×2 (16:10→17:32)
[2016-10-14] MEDS: HYDROmorphone 1 MG/ML 1 ML SYRINGE IV PRN ×3 (17:38→23:32)
[2016-10-14 18:45] VITALS: BMI 34.5
[2016-10-14] MEDS ORDERED: LORATADINE 10 MG TAB PO PRN (18:45)
[2016-10-14] MEDS ORDERED: oxyCODONE-APAP 10-325MG 1 EACH TAB PO PRN (18:45)
[2016-10-14] MEDS ORDERED: ALBUTEROL NEBULIZED 2.5 MG/3 ML INHALATION PRN (18:45)
[2016-10-14] MEDS ORDERED: FLUTICASONE 50MCG/SPRAY NASAL 16GM EA NOSTRIL PRN (18:45)
[2016-10-14] MEDS: METOPROLOL TARTRATE 50 MG TAB PO SCH (20:24)
[2016-10-14] MEDS: PREGABALIN 100 MG CAP PO SCH (20:24)
[2016-10-14] MEDS: ALPRAZolam 0.5 MG TAB PO PRN (23:32)
[2016-10-14] MEDS: ACETAMINOPHEN TAB 325 MG TAB PO PRN (23:38)
[2016-10-15] MEDS: SODIUM CHLORIDE 0.9% 1,000 ML IV SCH ×2 (02:28→12:43)
[2016-10-15] MEDS: HYDROmorphone 1 MG/ML 1 ML SYRINGE IV PRN ×7 (02:28→21:26)
[2016-10-15] MEDS: METOPROLOL TARTRATE 50 MG TAB PO SCH ×2 (08:32→20:09)
[2016-10-15] MEDS: methylPREDNISolone SOD SUCCI 125 MG/2 ML VIAL IV SCH (08:33)
[2016-10-15] MEDS ORDERED: NON-FORMULARY DRUG (Dextroamphetamine/Amphetamine [Adderall] 30 MG) PO SCH (09:00)
[2016-10-15 09:29] LABS: Basophils % (A) 0 %; CH 32.3; CHCM 35.8; Eosinophils % (A) 0 %; HCT 43.9 % (39.0-53.0); HDW 2.75; HGB 15.2 gm/dL (13.0-17.5); Luc % (Auto) 2; Lymphocytes # (A) 1.9 k/uL (1.0-4.8); Lymphocytes % (A) 15 %; MCH 31.3 pg (25.0-35.0); MCHC 34.6 g/dL (31.0-37.0); MCV 90.5 fL (80.0-100.0); Mean Platelet Volume 6.9; Monocytes # (A) 0.6 k/uL (0-1.0); Monocytes % (A) 5 %; Neutrophils # (A) 10.2 k/uL (1.3-7.7); Neutrophils % (A) 79 %; RBC 4.85 m/uL (4.30-5.90); WBC (Perox) 13.25
[2016-10-15 09:37] LABS: ALT 50 U/L (21-72); AST 36 U/L (17-59); Alkaline Phosphatase 72 U/L (38-126); Anion Gap 12 mmol/L; Blood Urea Nitrogen 14 mg/dL (9-20); Calcium 9.3 mg/dL (8.4-10.2); Carbon Dioxide 20 mmol/L (22-30); Chloride 106 mmol/L (98-107); Glucose 245 mg/dL (74-99); Non-African American GFR(MDRD) >60 (>60 ml/min/1.73 sqM); Potassium 4.1 mmol/L (3.5-5.1); Sodium 138 mmol/L (137-145); Total Bilirubin 0.8 mg/dL (0.2-1.3); Total Protein 7.1 g/dL (6.3-8.2)
--- NOTE | 2016-10-15 10:36 | P.CONS ---
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 Admitted with generalized abdominal pain bright red rectal bleeding 5 days. Heme positive stool. Hemoglobin 16.4. White count 7.1. BUN 14. Creatinine 0.7. EGD/colonoscopy within the last few years at [facility] with no evidence of Crohn's. No fever. Denies hematemesis or melena. 2 small bowel movements last night blood-tinged. No aspirin and antiplatelet or NSAIDs. Does not follow-up regularly with a data systems analyst. No Biologics her maintenance medications for his history of Crohn's. Review of Systems Constitutional: Denies fever, chills, sweats, weight gain, or loss. HEENT: Negative for migraines, blurred vision or loss, earaches, drainage, tinnitus, oral mucosal lesions, dysphagia, or odynophagia. Cardiac: Negative for chest pain, arrhythmias, or palpitation. Respiratory: Negative for shortness of breath, hemoptysis, cough, or sputum production. Gastrointestinal: See HPI for pertinent findings. Genitourinary: Negative for hematuria, urgency, frequency, polyuria, dysuria, or penile discharge. Musculoskeletal: Negative for muscle aches, swelling, arthritis, and arthralgias. Neurologic: Negative for stroke or TIA. Endocrine: Negative for thyroid problems. Skin: Negative for rash or itching. Psychiatric: History of depression and anxiety All systems: negative (See HPI) Past Medical History Past Medical History: GERD/Reflux, GI Bleed, Hypertension Additional Past Medical History / Comment(s): Partial bowel obstruction secondary to adhesions, Crohn's, ileorectal anastomotic stricture, cervical pain -ruptured disc., ileus, enteritis History of Any Multi-Drug Resistant Organisms: None Reported Past Surgical History: Appendectomy, Bowel Resection, Hernia Repair Additional Past Surgical History / Comment(s): Lucio. bowel resection in 1993, lysis of adhesions, partial omentectomy and repair of incisional hernia August [address] Calzada, decompressive colonoscopy in May [address] Calzada, EGD and multiple colonoscopies, Epidural injections to neck- last one on 04/2015. Past Anesthesia/Blood Transfusion Reactions: No Reported Reaction Additional Past Anesthesia/Blood Transfusion Reaction / Comm: Pt has never recieved blood. Past Psychological History: Anxiety, Depression Additional Psychological History / Comment(s): PT lives with HS MOM AND A 12 yr old son. Pt is independent. He drives a car. He is NOT CURRENTLY WORKING. Smoking Status: Never smoker Past Alcohol Use History: Rare Past Drug Use History: Marijuana Additional Drug Use History / Comment(s): SMOKED MARJIUANA DAILY- USES FOR CHRONS AND NECK PAIN - Past Family History Father Family Medical History: Myocardial Infarction ([place]) Additional Family Medical History / Comment(s): AT AGGE 54- HIS 4TH [place] Mother Family Medical History: Coronary Artery Disease (CAD), Hypertension Additional Family Medical History / Comment(s): MOM IS AGE 63, HAS STENTS Medications and Allergies Home Medications Medication Instructions Recorded Confirmed Type ALPRAZolam [Xanax] 1 mg PO BID PRN 07/10/15 10/14/16 History Dextroamphetamine/Amphetamine 30 mg PO QAM 11/03/15 10/14/16 History [Adderall] Albuterol Inhaler [Ventolin Hfa 1 - 2 puff INHALATION RT-QID PRN 08/13/16 History Inhaler] Fluticasone Nasal [place] [Flonase 1 - 2 spr EA NOSTRIL DAILY PRN 08/13/16 History Nasal [place]] Loratadine [Claritin] 10 mg PO DAILY PRN 08/13/16 10/14/16 History oxyCODONE-APAP 10-325MG [Percocet 1 tab PO TID PRN 08/13/16 10/14/16 History 10-325 mg] Metoprolol Tartrate [Lopressor] 50 mg PO BID 10/14/16 10/14/16 History Pregabalin [Lyrica] 100 mg PO BID 10/14/16 10/14/16 History Allergies Allergy/AdvReac Type Severity Reaction Status Date / Time Penicillins Allergy Unknown Verified 10/14/16 14:28 Childhood Physical Exam Vitals: Vital Signs Temp Pulse Pulse Resp BP BP Pulse Ox 10/15/16 07:00 97.2 F L 75 16 121/55 92 L 10/14/16 23:00 98.2 F 87 16 156/90 93 L 10/14/16 19:22 97.6 F 94 18 174/104 92 L 10/14/16 18:16 98.1 F 84 18 158/89 96 10/14/16 18:14 18 158/89 10/14/16 17:50 84 16 160/90 10/14/16 17:12 82 16 153/106 96 10/14/16 14:48 98.1 F 83 16 172/104 97 10/14/16 13:39 97.9 F 73 20 200/116 98 Intake and Output 10/14/16 10/15/16 10/15/16 22:59 06:59 14:59 Intake Total 1300 240 Balance 1300 240 Intake: Amount of Fluid Infused ( 1100 ml) Oral 200 240 Other: # Voids 2 1 Weight 115.666 kg General appearance: The patient is alert, oriented, in no acute distress. HET: Head is normocephalic and atraumatic. Pupils are equal and reactive. Oropharynx is clear without lesions. Neck: Supple without lymphadenopathy. Trachea midline. Heart: S1 S2. Regular rate and rhythm. Lungs: No crackles or wheezes are heard. Abdomen: Soft, mild bilateral lower abdominal tenderness, nondistended with bowel sounds. No peritoneal signs. No palpable organomegaly or masses. Extremities: Normal skin color and turgor. No cyanosis, rash, ulceration, clubbing, or edema. Radial and pedal pulses are 2/4 bilaterally. Neurological: No focal deficits. Strength and sensation are grossly intact. Rectal: Mix of yellow stool and pink tinged mucus. No palpable masses. Internal hemorrhoid palpated. Results CBC & Chem 7: 10/15/16 08:36 10/15/16 08:36 Labs: Abnormal Lab Results - Last 24 Hours (Table) 10/14/16 Range/Units 14:50 Chloride 108 H (98-107) mmol/L Carbon Dioxide 19 L (22-30) mmol/L Glucose 133 H (74-99) mg/dL AST 60 H (17-59) U/L Assessment and Plan (1) Rectal bleeding Narrative/Plan: History of Crohn's colitis status post total proctocolectomy IPAA 1993 presents with bright red blood per rectum 5 days possible pouchitis. Status: Acute (2) Abdominal pain Status: Acute (3) Hx of Crohn's disease Status: Acute Plan: 1. Sed rate CRP. 2. Continue steroids. 3. We'll proceed with exam under anesthesia tomorrow to evaluate bleeding. 4. Clear liquid diet. Nothing by mouth after midnight. The data systems analyst has discussed the risks, benefits and alternative therapies for the above-mentioned procedure and for both sedation/analgesia as well as necessary blood product administration, if indicated, as they pertain to this patient. The patient has indicated understanding and acceptance of the risks and procedures discussed. Thank you for this kind referral and the opportunity to participate in the care of your patient. This consultation was discussed with Dr. Downey. The impression and plan of care have been directed as dictated.
[2016-10-15] MEDS: ALPRAZolam 0.5 MG TAB PO PRN ×2 (13:25→23:38)
--- NOTE | 2016-10-15 15:24 | P.HPIM ---
History of Present Illness H&P Date: 10/15/16 41-year-old male who presented on the day of admission to the emergency room with a chief complaint of developing abdominal pain associated with nausea. Patient additionally stated he had been noted to be having rectal bleeding bright red blood. Patient has a history of Crohn's disease. Patient stated he felt like he was having a flareup of his Crohn's disease. Patient stated he was experiencing left lower quadrant abdominal pain. He stated he been ongoing for 4 days. Patient stated that he did see his primary care provider on the day of admission was advised to come into the hospital to be admitted. Patient stated that he is new to Dr. Albrecht service started seeing him about 6 weeks ago. Patient's last admission was on August 17 at that time the patient was treated for abdominal pain suspect due to acute exacerbation of Crohn's disease last admission patient was seen by surgical service and conservative supportive treatment with no intervention at that time. At that time the patient had a CAT scan of the abdomen pelvis that showed no acute findings was no indication of a bowel obstruction with no evidence of any Crohn's disease this admission the patient is being seen by gastroenterology service. Review of Systems Essentially unremarkable except as mentioned in the present illness Past Medical History Past Medical History: GERD/Reflux, GI Bleed, Hypertension Additional Past Medical History / Comment(s): Partial bowel obstruction secondary to adhesions, Crohn's, ileorectal anastomotic stricture, cervical pain -ruptured disc., ileus, enteritis History of Any Multi-Drug Resistant Organisms: None Reported Past Surgical History: Appendectomy, Bowel Resection, Hernia Repair Additional Past Surgical History / Comment(s): Lucio. bowel resection in 1993, lysis of adhesions, partial omentectomy and repair of incisional hernia August [address] Calzada, decompressive colonoscopy in May [address] Calzada, EGD and multiple colonoscopies, Epidural injections to neck- last one on 04/2015. Past Anesthesia/Blood Transfusion Reactions: No Reported Reaction Additional Past Anesthesia/Blood Transfusion Reaction / Comment(s): Pt has never recieved blood. Past Psychological History: Anxiety, Depression Additional Psychological History / Comment(s): PT lives with HS MOM AND A 12 yr old son. Pt is independent. He drives a car. He is NOT CURRENTLY WORKING. Smoking Status: Never smoker Past Alcohol Use History: Rare Past Drug Use History: Marijuana Additional Drug Use History / Comment(s): SMOKED ZULMAA DAILY- USES FOR CHRONS AND NECK PAIN - Past Family History Father Family Medical History: Myocardial Infarction ([place]) Additional Family Medical History / Comment(s): AT AGGE 54- HIS 4TH [place] Mother Family Medical History: Coronary Artery Disease (CAD), Hypertension Additional Family Medical History / Comment(s): MOM IS AGE 63, HAS STENTS Medications and Allergies Home Medications Medication Instructions Recorded Confirmed Type ALPRAZolam [Xanax] 1 mg PO BID PRN 07/10/15 10/14/16 History Dextroamphetamine/Amphetamine 30 mg PO QAM 11/03/15 10/14/16 History [Adderall] Albuterol Inhaler [Ventolin Hfa 1 - 2 puff INHALATION RT-QID PRN 08/13/16 History Inhaler] Fluticasone Nasal [place] [Flonase 1 - 2 spr EA NOSTRIL DAILY PRN 08/13/16 History Nasal [place]] Loratadine [Claritin] 10 mg PO DAILY PRN 08/13/16 10/14/16 History oxyCODONE-APAP 10-325MG [Percocet 1 tab PO TID PRN 08/13/16 10/14/16 History 10-325 mg] Metoprolol Tartrate [Lopressor] 50 mg PO BID 10/14/16 10/14/16 History Pregabalin [Lyrica] 100 mg PO BID 10/14/16 10/14/16 History Allergies Allergy/AdvReac Type Severity Reaction Status Date / Time Penicillins Allergy Unknown Verified 10/14/16 14:28 Childhood Physical Exam Vitals: Vital Signs Temp Pulse Pulse Resp BP BP Pulse Ox 10/15/16 07:00 97.2 F L 75 16 121/55 92 L 10/14/16 23:00 98.2 F 87 16 156/90 93 L 10/14/16 19:22 97.6 F 94 18 174/104 92 L 10/14/16 18:16 98.1 F 84 18 158/89 96 10/14/16 18:14 18 158/89 10/14/16 17:50 84 16 160/90 10/14/16 17:12 82 16 153/106 96 Intake and Output 10/15/16 10/15/16 10/15/16 06:59 14:59 22:59 Intake Total 240 Balance 240 Intake: Oral 240 Other: # Voids 1 1 GENERAL APPEARANCE: 41-year-old male patient is alert, oriented, in no acute distress. Resting comfortably in the bed VITAL SIGNS: Reviewed HEENT: Head is normocephalic and atraumatic. Pupils are equal and reactive. The nares are patent. Oropharynx is clear without lesions. NECK: Supple without lymphadenopathy. Traches midline. HEART: S1, S2. Regular rate and rhythm. No murmur noted LUNGS: No crackles or wheezes are heard. Adequate air movement bilaterally on room air ABDOMEN: Soft, bilateral slight tenderness to the lower quadrant nondistended with good bowel sounds. No peritoneal signs. No palpable organomegaly or masses. EXTREMITIES: Normal skin color and turgor. No cyanosis, rash, ulceration, clubbing or edema. Radial pedal pulses are 2/4 bilaterally. NEUROLOGICAL: No focal deficits. Strength and sensation are grossly intact. Results CBC & Chem 7: 10/15/16 08:36 10/15/16 08:36 Labs: Abnormal Lab Results - Last 24 Hours (Table) 10/14/16 10/15/16 10/15/16 Range/Units 14:50 08:36 08:36 WBC 13.0 H (3.8-10.6) k/uL Neutrophils # 10.2 H (1.3-7.7) k/uL Chloride 108 H (98-107) mmol/L Carbon Dioxide 19 L 20 L (22-30) mmol/L Creatinine 0.62 L (0.66-1.25) mg/dL Glucose 133 H 245 H (74-99) mg/dL AST 60 H (17-59) U/L C-Reactive Protein (<10.0) mg/L 10/15/16 Range/Units 08:36 WBC (3.8-10.6) k/uL Neutrophils # (1.3-7.7) k/uL Chloride (98-107) mmol/L Carbon Dioxide (22-30) mmol/L Creatinine (0.66-1.25) mg/dL Glucose (74-99) mg/dL AST (17-59) U/L C-Reactive Protein 10.6 H (<10.0) mg/L Thrombosis Risk Factor Assmnt - Choose All That Apply Each Factor Represents 1 point: Age 41-60 years Thrombosis Risk Factor Assessment Total Risk Factor Score: 1 Thrombosis Risk Factor Assessment Level: Low Risk Assessment and Plan Plan: Impression Present on admission bilateral lower abdominal pain unclear etiology History of Crohn's colitis status post total proctectomy done in 1993 Present on admission history of bright red blood per rectum possible pouchitis Chronic neck pain degenerative disc disease Chronic pain syndrome Anxiety nonspecified History of multiple episodes of partial small bowel obstruction secondary to Crohn's disease Depressive disorder nonspecified History of irritable bowel syndrome Asthma chronic intermediate hypertension essential Leukocytosis suspect reactive Plan Resume home meds as appropriate Pain control Nothing by mouth after midnight per GIs recommendations Continue recommendations by GI service DVT and GI prophylaxis Dehydration Further recommendations pending The above dictated assessment and findings were discussed with dr albrecht . Impression and the plan of care have been dictated as directed. Viviane Valdez nurse practitioner acting as a scribe for dr albrecht
[2016-10-15] MEDS: ACETAMINOPHEN TAB 325 MG TAB PO PRN (17:32)
[2016-10-15] MEDS: PREGABALIN 100 MG CAP PO SCH (20:09)
[2016-10-15] MEDS: FAMOTIDINE 20 MG/2 ML VIAL IV SCH (20:10)
[2016-10-16] MEDS: HYDROmorphone 1 MG/ML 1 ML SYRINGE IV PRN ×4 (00:28→10:11)
[2016-10-16] MEDS: SODIUM CHLORIDE 0.9% 1,000 ML IV SCH ×2 (01:00→10:14)
[2016-10-16] MEDS ORDERED: NA PHOS,M-B/NA PHOS,DI-BA 133 ML ENEMA RECTAL ONE (06:00)
[2016-10-16 07:27] VITALS: BP 133/78; PULSE 57; RESP 16; TEMP 97
[2016-10-16] MEDS: methylPREDNISolone SOD SUCCI 125 MG/2 ML VIAL IV SCH (07:53)
[2016-10-16] MEDS: PREGABALIN 100 MG CAP PO SCH (07:53)
[2016-10-16] MEDS: FAMOTIDINE 20 MG/2 ML VIAL IV SCH (07:53)
[2016-10-16] MEDS: METOPROLOL TARTRATE 50 MG TAB PO SCH (07:54)
[2016-10-16] MEDS ORDERED: LIDOCAINE 1% INJ 10MG/ML (20 ML MDV) ONE (12:16)
[2016-10-16] MEDS ORDERED: PROPOFOL 10 MG/ML 20 ML VIAL IV ONE (12:16)
[2016-10-16] MEDS ORDERED: LACTATED RINGERS 1,000 ML IV ONE (12:23)
--- NOTE | 2016-10-16 12:45 | P.PCN ---
Date of Procedure: 10/16/16 Preoperative Diagnosis: Postoperative Diagnosis: Procedure(s) Performed: BRIEF HISTORY: Patient is a 41-year-old pleasant white male, scheduled for an ileoscopy as a part of evaluation of intermittent rectal bleeding for the last 3 days' duration. The patient has long-standing history of Crohn's disease for which she underwent total proctocolectomy with ileal pouch anal anastomosis in [facility] approximately 20 years ago. Lately has been having 6-7 loose watery bowel movements daily. He is presently on no medications for maintenance. He started having rectal bleeding for the last 3 days at least 5- 6 times daily and was bright red blood. His and scheduled for an ileoscopy to evaluate for pouchitis. PROCEDURE PERFORMED: Ileoscopy with biopsy PREOPERATIVE DIAGNOSIS: Intermittent rectal bleeding for 3 days' duration. IV sedation per Anesthesia. PROCEDURE: After informed consent was obtained, the patient, was brought into the endoscopy unit. IV sedation was administered by Anesthesia under continuous monitoring. Digital rectal examination was normal. Initially the Olympus CF- 160 flexible video colonoscope was then inserted in the anus and the ileal pouch was visualized immediately. The scope was advanced into the distal ileum to approximately 60 cm and at this time careful examination was performed as the scope was gradually being withdrawn. The vitreous portions of the distal ileum appeared completely normal. In the ileal pouch there were scattered small erosions identified but the intervening mucosa appeared normal. Biopsies were done from these areas of erosions. The patient tolerated the procedure well. IMPRESSION: Scattered erosions in the ileal pouch consistent with mild pouchitis Distal ileum appeared normal with no evidence of recurrent Crohn's disease. RECOMMENDATIONS: Findings of this examination were discussed with the patient. He was advised to follow with the biopsy results. He is presently on IV steroids which can be discontinued. He will be given mesalamine enemas at bedtime for 1 month. Implants: Indications for Procedure: Operative Findings: Description of Procedure:
--- NOTE | 2016-10-16 13:12 | P.DS ---
Providers Date of admission: 10/14/16 15:55 Expected date of discharge: 10/16/16 Attending physician: Ascencion Albrecht Consults: 10/14/16 22:54 Consult Physician Urgent Consulting Provider: Kate Downey Consult Reason/Comments: colonoscopy Do you want consulting provider notified?: Yes Primary care physician: [facility] Course: 41-year-old male presented on the day of admission with a chief history of having intermittent rectal pain onset 3 days prior. Patient has a history of Crohn's disease. Patient did undergo an total proctocolectomy with ileal pouch anal anastomosis in [facility] approximately 20 years ago. Lately has been having 6-7 loose watery bowel movements daily. He is presently on no medications for maintenance. He started having rectal bleeding for the last 3 days at least 5-6 times daily and was bright red blood. scheduled for an ileoscopy to evaluate for pouchitis. Which was done on October [address] Pizano. Findings showed Scattered erosions in the ileal pouch consistent with mild pouchitis Distal ileum appeared normal with no evidence of recurrent Crohn's disease. Recommendations by GI service were to follow up on biopsy results And to be started on mesalamine enemas at bedtime for 1 month. IV steroids to be discontinued Impression discharge diagnosis Present on admission intermittent rectal bleeding onset 3 days prior Long-standing history of Crohn's disease on no therapy History of undergoing total proctocolectomy with ileal pouch anal anastomosis in [facility] approximately 20 years ago. Present on admission bilateral lower abdominal pain unclear etiology History of Crohn's colitis status post total proctectomy done in 1993 Present on admission history of bright red blood per rectum possible pouchitis Chronic neck pain degenerative disc disease Chronic pain syndrome Anxiety nonspecified History of multiple episodes of partial small bowel obstruction secondary to Crohn's disease Depressive disorder nonspecified History of irritable bowel syndrome Asthma chronic intermediate hypertension essential Leukocytosis suspect reactive Ileoscopy with biopsy done on October 16 for intermittent rectal bleeding episodes it showed scattered erosive in the ileal pouch consistent with mild pouchitis with the distal ileum appeared normal with no evidence of reoccurring Crohn's disease . The above dictated assessment and findings were discussed with dr albrecht . Impression and the plan of care have been dictated as directed. Viviane Valdez nurse practitioner acting as a scribe for dr albrecht Patient Condition at Discharge: Stable Plan - Discharge Summary New Discharge Prescriptions: New Mesalamine [Rowasa] 4 gm RECTAL HS #30 ml Continue ALPRAZolam [Xanax] 1 mg PO BID PRN PRN Reason: Anxiety Dextroamphetamine/Amphetamine [Adderall] 30 mg PO QAM oxyCODONE-APAP 10-325MG [Percocet 10-325 mg] 1 tab PO TID PRN PRN Reason: Pain Albuterol Inhaler [Ventolin Hfa Inhaler] 1 - 2 puff INHALATION RT-QID PRN PRN Reason: Shortness Of Breath Fluticasone Nasal [place] [Flonase Nasal [place]] 1 - 2 spr EA NOSTRIL DAILY PRN PRN Reason: Allergy Symptoms Loratadine [Claritin] 10 mg PO DAILY PRN PRN Reason: Allergy Symptoms Pregabalin [Lyrica] 100 mg PO BID Metoprolol Tartrate [Lopressor] 50 mg PO BID Discharge Medication List ALPRAZolam [Xanax] 1 mg PO BID PRN 07/10/15 [History] Dextroamphetamine/Amphetamine [Adderall] 30 mg PO QAM 11/03/15 [History] Albuterol Inhaler [Ventolin Hfa Inhaler] 1 - 2 puff INHALATION RT-QID PRN [History] Fluticasone Nasal [place] [Flonase Nasal [place]] 1 - 2 spr EA NOSTRIL DAILY PRN [History] Loratadine [Claritin] 10 mg PO DAILY PRN 08/13/16 [History] oxyCODONE-APAP 10-325MG [Percocet 10-325 mg] 1 tab PO TID PRN 08/13/16 [History] Metoprolol Tartrate [Lopressor] 50 mg PO BID 10/14/16 [History] Pregabalin [Lyrica] 100 mg PO BID 10/14/16 [History] Mesalamine [[place]] 4 gm RECTAL HS #30 ml 10/16/16 [Rx] Follow up Appointment(s)/Referral(s): Ascencion Albrecht MD [Primary Care Provider] - 1-2 days Kate Downey MD [STAFF PHYSICIAN] - 1 Week Activity/Diet/Wound Care/Special Instructions: Follow-up with Dr. Pizano for the biopsy reports Discharge Disposition: HOME SELF-CARE
[2016-10-16] MEDS: ALPRAZolam 0.5 MG TAB PO PRN (13:19)
[2016-10-16] MEDS ORDERED: MESALAMINE 4 GM/60 ML ENEMA RECTAL SCH (21:00)
[2016-10-16] MEDS ORDERED: FAMOTIDINE 20 MG TAB PO SCH (21:00)
== END 2016-10-16 15:32 | disposition home or self-care (01) | DRG 394 ==
LOC: EC 12:54 → 4MS4W 15:55
PROVIDERS: ADMIT Family Medicine; ATTEND Family Medicine
PROC: 0DBB8ZX Excision of Ileum, Via Natural or Artificial Opening Endoscopic, Diagnostic (ICD-10-PCS; principal; 2016-10-16 12:25)
DX: K91.850 Pouchitis (principal); K50.90 Crohn's disease, unspecified, without complications; I10 Essential (primary) hypertension; F32.9 Major depressive disorder, single episode, unspecified; E86.0 Dehydration; F41.9 Anxiety disorder, unspecified; G89.4 Chronic pain syndrome; K21.9 Gastro-esophageal reflux disease without esophagitis; F12.90 Cannabis use, unspecified, uncomplicated; M50.30 Other cervical disc degeneration, unspecified cervical region; J45.20 Mild intermittent asthma, uncomplicated; Z79.899 Other long term (current) drug therapy; Z88.0 Allergy status to penicillin; Z82.49 Family history of ischemic heart disease and other diseases of the circulatory system
CPT/HCPCS: 36415; 44382; 80053; 81003; 82150; 82272; 83605; 83690; 85025; 85652; 86140; 88305; 96361; 96374; 96375; 96376; 99284

== ENCOUNTER 2016-10-29 15:28 | Emergency (ER) | payer OTHER ==
[2016-10-29 15:34] VITALS: PULSE 89
[2016-10-29] MEDS ORDERED: SODIUM CHLORIDE 0.9% 1,000 ML IV STA ×2 (16:12)
[2016-10-29] MEDS ORDERED: ONDANSETRON 4 MG/2 ML VIAL IVP STA (16:12)
[2016-10-29] MEDS ORDERED: HYDROmorphone 1 MG/ML 1 ML SYRINGE IVP STA (16:18)
--- NOTE | 2016-10-29 16:22 | ED ---
Abdominal Pain HPI - General Chief Complaint: Abdominal Pain Stated Complaint: Abd Pain Time Seen by Provider: 10/29/16 16:10 Source: patient, RN notes reviewed, old records reviewed Mode of arrival: ambulatory Limitations: no limitations - History of Present Illness Initial Comments: This is a 41-year-old male presenting to the emergency Department chief complaint of diffuse abdominal pain for the past 4 days. Patient reports that he has history of Crohn's disease. He reports that he was recently admitted to the hospital needed a biopsy which showed no significant changes in within his chest. Patient's surgical history includes total colectomy in 1993, with 2 hernia repairs and this surgical scar revision in 2014. Patient reports that he 's had diffuse diarrhea and vomiting. Patient reports that he's noticed some blood within his vomit and diarrhea intermittently. Patient states that he called his primary care physician Dr. Jauregui who told him to come to the emergency department. Patient states that he usually takes Percocet for pain. Patient reports is not able to hold down any of his medications. Patient states that the pain occasionally will radiate to his back.Patient denies any recent fever, chills, shortness of breath, chest pain, back pain, numbness or tingling, dysuria or hematuria, headaches or visual changes, or any other current symptoms - Related Data Home Medications Medication Instructions Recorded Confirmed ALPRAZolam [Xanax] 1 mg PO BID PRN 07/10/15 10/29/16 Dextroamphetamine/Amphetamine 30 mg PO QAM 11/03/15 10/29/16 [Adderall] Albuterol Inhaler [Ventolin Hfa 1 - 2 puff INHALATION RT-QID PRN 08/13/16 Inhaler] Fluticasone Nasal [place] [Flonase 1 - 2 spr EA NOSTRIL DAILY PRN 08/13/16 Nasal [place]] Loratadine [Claritin] 10 mg PO DAILY PRN 08/13/16 10/29/16 oxyCODONE-APAP 10-325MG [Percocet 1 tab PO TID PRN 08/13/16 10/29/16 10-325 mg] Metoprolol Tartrate [Lopressor] 50 mg PO BID 10/14/16 10/29/16 Pregabalin [Lyrica] 100 mg PO BID 10/14/16 10/29/16 Previous Rx's Medication Instructions Recorded Mesalamine [Rowasa] 4 gm RECTAL HS #30 ml 10/16/16 HYDROcodone/APAP 5-325MG [[place] 1 tab PO Q6HR PRN #8 tab 10/29/16 5-325] Allergies Allergy/AdvReac Type Severity Reaction Status Date / Time Penicillins Allergy Unknown Verified 10/29/16 16:22 Childhood Review of Systems ROS Statement: Those systems with pertinent positive or pertinent negative responses have been documented in the HPI. ROS Other: All systems not noted in ROS Statement are negative. Past Medical History Past Medical History: GERD/Reflux, GI Bleed, Hypertension Additional Past Medical History / Comment(s): Partial bowel obstruction secondary to adhesions, Crohn's, ileorectal anastomotic stricture, cervical pain -ruptured disc., ileus, enteritis History of Any Multi-Drug Resistant Organisms: None Reported Past Surgical History: Appendectomy, Bowel Resection, Hernia Repair Additional Past Surgical History / Comment(s): Lucio. bowel resection in 1993, lysis of adhesions, partial omentectomy and repair of incisional hernia August [address] Calzada, decompressive colonoscopy in May [address] Calzada, EGD and multiple colonoscopies, Epidural injections to neck- last one on 04/2015. Past Anesthesia/Blood Transfusion Reactions: No Reported Reaction Additional Past Anesthesia/Blood Transfusion Reaction / Comment(s): Pt has never recieved blood. Past Psychological History: Anxiety, Depression Smoking Status: Never smoker Past Alcohol Use History: Rare Past Drug Use History: Marijuana - Past Family History Father Family Medical History: Myocardial Infarction ([place]) Additional Family Medical History / Comment(s): AT [age]GGE 54- HIS 4TH [place] Mother Family Medical History: Coronary Artery Disease (CAD), Hypertension Additional Family Medical History / Comment(s): MOM IS AGE 63, HAS STENTS General Exam - General Exam Comments Initial Comments: Is a 41-year-old male. No acute distress. Limitations: no limitations General appearance: alert, in no apparent distress Head exam: Present: atraumatic, normocephalic, normal inspection Eye exam: Present: normal appearance, PERRL, EOMI. Absent: scleral icterus, conjunctival injection, periorbital swelling ENT exam: Present: normal exam, mucous membranes moist Neck exam: Present: normal inspection. Absent: tenderness, meningismus, lymphadenopathy Respiratory exam: Present: normal lung sounds bilaterally. Absent: respiratory distress, wheezes, rales, rhonchi, stridor Cardiovascular Exam: Present: regular rate, normal rhythm, normal heart sounds. Absent: systolic murmur, diastolic murmur, rubs, gallop, clicks GI/Abdominal exam: Present: soft, normal bowel sounds. Absent: distended, tenderness, guarding, rebound, rigid Extremities exam: Present: normal inspection, full ROM, normal capillary refill. Absent: tenderness, pedal edema, joint swelling, calf tenderness Back exam: Present: normal inspection Neurological exam: Present: alert, oriented X3, CN II-XII intact Psychiatric exam: Present: normal affect, normal mood Skin exam: Present: warm, dry, intact, normal color. Absent: rash Course Vital Signs 10/29/16 10/29/16 15:32 18:21 Temperature 99.1 F 99.0 F Pulse Rate 89 89 Respiratory 20 17 Rate Blood Pressure 181/116 162/91 O2 Sat by Pulse 97 95 Oximetry Medical Decision Making - Medical Decision Making This is a 41-year-old male presenting to the emergency Department chief complaint of diffuse abdominal pain for the past 4 days. Patient reports that he has history of Crohn's disease. He reports that he was recently admitted to the hospital needed a biopsy which showed no significant changes in within his chest. Patient's surgical history includes total colectomy in 1993, with 2 hernia repairs and this surgical scar revision in 2014. Patient reports that he 's had diffuse diarrhea and vomiting. Patient reports that he's noticed some blood within his vomit and diarrhea intermittently. Patient states that he called his primary care physician Dr. Jauregui who told him to come to the emergency department. Patient states that he usually takes Percocet for pain. Patient reports is not able to hold down any of his medications. His lab work was reviewed and negative for any acute process. Patient is likely having an acute exacerbation of Crohn's. Fecal occult was negative. Discussed the case with . We'll have the patient follow-up with Dr. Jauregui. Patient discharged with pain medication. - Lab Data Result diagrams: 10/29/16 16:20 10/29/16 16:20 Lab Results 10/29/16 10/29/16 10/29/16 Range/Units 16:20 16:20 16:20 WBC 8.5 (3.8-10.6) k/uL RBC 5.61 (4.30-5.90) m/uL Hgb 17.3 (13.0-17.5) gm/dL Hct 50.1 (39.0-53.0) % MCV 89.2 (80.0-100.0) fL MCH 30.8 (25.0-35.0) pg MCHC 34.5 (31.0-37.0) g/dL RDW 13.5 (11.5-15.5) % Plt Count 283 (150-450) k/uL Neutrophils % 63 % Lymphocytes % 26 % Monocytes % 6 % Eosinophils % 3 % Basophils % 0 % Neutrophils # 5.4 (1.3-7.7) k/uL Lymphocytes # 2.2 (1.0-4.8) k/uL Monocytes # 0.5 (0-1.0) k/uL Eosinophils # 0.3 (0-0.7) k/uL Basophils # 0.0 (0-0.2) k/uL Sodium 139 (137-145) mmol/L Potassium 4.4 (3.5-5.1) mmol/L Chloride 101 (98-107) mmol/L Carbon Dioxide 25 (22-30) mmol/L Anion Gap 13 mmol/L BUN 13 (9-20) mg/dL Creatinine 0.69 (0.66-1.25) mg/dL Est GFR (MDRD) Af Amer >60 (>60 ml/min/1.73 sqM) Est GFR (MDRD) Non-Af >60 (>60 ml/min/1.73 sqM) Glucose 169 H (74-99) mg/dL Calcium 10.0 (8.4-10.2) mg/dL Total Bilirubin 0.8 (0.2-1.3) mg/dL AST 37 (17-59) U/L ALT 54 (21-72) U/L Alkaline Phosphatase 88 (38-126) U/L Total Protein 8.4 H (6.3-8.2) g/dL Albumin 4.8 (3.5-5.0) g/dL Amylase 65 (30-110) U/L Lipase 113 (23-300) U/L Urine Color Light Yellow Urine Appearance Clear (Clear) Urine pH 5.5 (5.0-8.0) Ur Specific [place] 1.011 (1.001-1.035) Urine Protein Negative (Negative) Urine Glucose (UA) Negative (Negative) Urine Ketones Negative (Negative) Urine Blood Negative (Negative) Urine Nitrite Negative (Negative) Urine Bilirubin Negative (Negative) Urine Urobilinogen <2.0 (<2.0) mg/dL Ur Leukocyte Esterase Negative (Negative) Stool Occult Blood (Negative) 10/29/16 Range/Units 17:00 WBC (3.8-10.6) k/uL RBC (4.30-5.90) m/uL Hgb (13.0-17.5) gm/dL Hct (39.0-53.0) % MCV (80.0-100.0) fL MCH (25.0-35.0) pg MCHC (31.0-37.0) g/dL RDW (11.5-15.5) % Plt Count (150-450) k/uL Neutrophils % % Lymphocytes % % Monocytes % % Eosinophils % % Basophils % % Neutrophils # (1.3-7.7) k/uL Lymphocytes # (1.0-4.8) k/uL Monocytes # (0-1.0) k/uL Eosinophils # (0-0.7) k/uL Basophils # (0-0.2) k/uL Sodium (137-145) mmol/L Potassium (3.5-5.1) mmol/L Chloride (98-107) mmol/L Carbon Dioxide (22-30) mmol/L Anion Gap mmol/L BUN (9-20) mg/dL Creatinine (0.66-1.25) mg/dL Est GFR (MDRD) Af Amer (>60 ml/min/1.73 sqM) Est GFR (MDRD) Non-Af (>60 ml/min/1.73 sqM) Glucose (74-99) mg/dL Calcium (8.4-10.2) mg/dL Total Bilirubin (0.2-1.3) mg/dL AST (17-59) U/L ALT (21-72) U/L Alkaline Phosphatase (38-126) U/L Total Protein (6.3-8.2) g/dL Albumin (3.5-5.0) g/dL Amylase (30-110) U/L Lipase (23-300) U/L Urine Color Urine Appearance (Clear) Urine pH (5.0-8.0) Ur Specific [place] (1.001-1.035) Urine Protein (Negative) Urine Glucose (UA) (Negative) Urine Ketones (Negative) Urine Blood (Negative) Urine Nitrite (Negative) Urine Bilirubin (Negative) Urine Urobilinogen (<2.0) mg/dL Ur Leukocyte Esterase (Negative) Stool Occult Blood Negative (Negative) - Radiology Data Radiology results: report reviewed An obstructive bowel gas pattern. Disposition Clinical Impression: Abdominal pain, Crohns disease Disposition: HOME SELF-CARE Condition: Good Instructions: Abdominal Pain (ED) Additional Instructions: Follow-up tomorrow morning with her primary care provider. Rest, increase fluids. Return to the emergency department if any alarming signs or symptoms occur. Prescriptions: HYDROcodone/APAP 5-325MG [[place] 5-325] 1 tab PO Q6HR PRN #8 tab PRN Reason: Pain Referrals: Ascencion Beckwith MD [Primary Care Provider] - 1-2 days Time of Disposition: 18:06
[2016-10-29 16:48] LABS: Appearance,Urine Clear (Clear); Basophils % (A) 0 %; Bilirubin,Urine Negative (Negative); CH 32.3; CHCM 36.3; Eosinophils # (A) 0.3 k/uL (0-0.7); Eosinophils % (A) 3 %; Glucose,Urine (UA) Negative (Negative); HCT 50.1 % (39.0-53.0); HDW 2.69; HGB 17.3 gm/dL (13.0-17.5); Ketones,Urine Negative (Negative); Leukocyte Esterase,Urine Negative (Negative); Luc # (Auto) 0.18; Luc % (Auto) 2; Lymphocytes # (A) 2.2 k/uL (1.0-4.8); Lymphocytes % (A) 26 %; MCH 30.8 pg (25.0-35.0); MCHC 34.5 g/dL (31.0-37.0); MCV 89.2 fL (80.0-100.0); Mean Platelet Volume 6.7; Monocytes # (A) 0.5 k/uL (0-1.0); Monocytes % (A) 6 %; Neutrophils # (A) 5.4 k/uL (1.3-7.7); Neutrophils % (A) 63 %; Nitrite,Urine Negative (Negative); PH, Urine 5.5 (5.0-8.0); Protein,Urine Negative (Negative); RBC 5.61 m/uL (4.30-5.90); RDW 13.5 % (11.5-15.5); Specific Gravity,Urine 1.011 (1.001-1.035); UA Billing (MACRO vs. MICRO) CHEM; Urobilinogen,Urine <2.0 mg/dL (<2.0); WBC 8.5 k/uL (3.8-10.6); WBC (Perox) 8.27
[2016-10-29 16:59] LABS: ALT 54 U/L (21-72); AST 37 U/L (17-59); Alkaline Phosphatase 88 U/L (38-126); Amylase 65 U/L (30-110); Anion Gap 13 mmol/L; Blood Urea Nitrogen 13 mg/dL (9-20); Carbon Dioxide 25 mmol/L (22-30); Chloride 101 mmol/L (98-107); Glucose 169 mg/dL (74-99); Non-African American GFR(MDRD) >60 (>60 ml/min/1.73 sqM); Potassium 4.4 mmol/L (3.5-5.1); Sodium 139 mmol/L (137-145); Total Bilirubin 0.8 mg/dL (0.2-1.3); Total Protein 8.4 g/dL (6.3-8.2)
--- NOTE | 2016-10-29 17:00 | XR ---
EXAMINATION TYPE: XR KUB DATE OF EXAM: 10/29/2016 4:54 PM CLINICAL HISTORY: Vomiting and abdominal pain for 5 days TECHNIQUE: 2 upright KUB images of the abdomen are obtained. COMPARISON: CT abdomen August 13, 2016. Abdominal x-ray August 12, 2016.. FINDINGS: Paucity of bowel gas is redemonstrated. Visualized gas is seen in nondistended small and la rge bowel loops throughout the abdomen and pelvis. Air-fluid level is seen in mildly prominent stomac h. Surgical sutures at level of rectum are redemonstrated. No pneumoperitoneum is appreciated. Visual ized osseous structures are intact. IMPRESSION: Overall nonspecific but favor nonobstructive bowel gas pattern.
[2016-10-29] MEDS ORDERED: METOCLOPRAMIDE 5 MG/ML 2 ML VIAL IVP STA (18:19)
[2016-10-29] MEDS ORDERED: KETOROLAC 30 MG/ML 1 ML VIAL IVP STA (18:19)
[2016-10-29] MEDS ORDERED: diphenhydrAMINE 50 MG/ML 1 ML VIAL IVP STA (18:19)
[2016-10-29 18:23] VITALS: BP 162/91; RESP 17; TEMP 99
== END 2016-10-29 18:39 | disposition home or self-care (01) ==
LOC: EC 15:28
DX: K50.90 Crohn's disease, unspecified, without complications (principal); I10 Essential (primary) hypertension; F32.9 Major depressive disorder, single episode, unspecified; F41.9 Anxiety disorder, unspecified; Z79.899 Other long term (current) drug therapy; Z88.0 Allergy status to penicillin; Z98.890 Other specified postprocedural states
CPT/HCPCS: 36415; 80053; 82150; 83690; 85025; 82272; 81003; 74000; 99284; 96374; 96375 ×4; 96361 ×2; J1200; J2765; J2405; J1885; J1170

== ENCOUNTER → 2016-11-25 | Outpatient (CLI) | payer OTHER ==
--- NOTE | 2016-11-25 20:07 | MR ---
EXAMINATION TYPE: MR cspine/lspine wo con DATE OF EXAM: 11/25/2016 COMPARISON: 02/11/2011 HISTORY: 41-year-old male with neck pain and low back pain, cervicalgia lumbago TECHNIQUE: Multiplanar, multisequence imaging of the cervical spine followed by the lumbar spine is p erformed without IV contrast. FINDINGS: CERVICAL SPINE: No craniocervical junction abnormality, predental space widening, or prevertebral soft tissue swellin g. There is normal alignment of the cervical spine. Mild diffuse low marrow signal intensity likely representing red marrow hyperplasia. This can be seen in setting of anemia, obesity, smoking, and chronic disease. A fatty matrix hemangioma is seen withi n the C6 vertebral body. There is minimal posterior disc bulge at C3-C4, C4-C5, C5-C6 and larger left paracentral disc protrus ion at C6/C7 as seen previously. At C2-C3, there is mild facet degenerative change without canal or foraminal stenosis. At C3-C4, there is mild bilateral facet and uncovertebral joint degenerative change without significa nt canal or foraminal stenosis. At C4-C5, minimal posterior bulging disc and mild uncovertebral joint and facet degenerative change w ithout significant canal or foraminal stenosis. At C5-C6, mild diffuse disc bulge with facet degenerative change. No significant canal or foraminal s tenosis. At C6/C7, there is posterior disc bulge with superimposed left paracentral protrusion. This contribut es to a moderate spinal canal stenosis with abutment of both the dorsal and ventral cord worsened fro m prior. No jeremy cord compression. There is uncovertebral joint and facet degenerative change partic ularly towards the left which results in a moderate left and mild right neuroforaminal stenosis, also worsened from prior. At C7-T1, no significant canal or foraminal stenosis. Normal T2 cord signal intensity. Incidental 8 mm T2 hyperintense nodule within the left lobe of the thyroid gland. Otherwise, no preve rtebral or paravertebral soft tissue abnormality seen. LUMBAR SPINE: There is a transitional lumbosacral segment again noted as a sacralized L5. Vertebral body heights are preserved and alignment is maintained. Conus medullaris is normal. Mild diffuse low marrow signal is seen within the cervical spine. There is some [place]ic type II fatty endplate change anteriorly at both L3-L4 and L4-L5. Mild disc desiccation at L3-L4 and mild bulging disc. Facet arthropathy particularly at L4-L5. At T12-L1, no spinal canal or neuroforaminal stenosis. At L1-L2, no spinal canal or neuroforaminal stenosis. At L2-L3, no spinal canal or foraminal stenosis. At L2-L4, there is mild diffuse disc bulge and facet degenerative change. Changes minimally narrow th e inferior right neural foramen. No significant spinal canal stenosis. At L4-L5, there is facet degenerative change without significant spinal canal or neural foraminal mira nosis. At L5-S1, no significant spinal canal or neuroforaminal stenosis. No prevertebral or paravertebral soft tissue abnormality seen. COMBINED IMPRESSION: CERVICAL SPINE: 1. Degenerative disc disease particularly at C6-C7 with diffuse disc bulge and superimposed left para central disc herniation. As compared 2011, there is worsening, now moderate spinal canal stenosis wit h abutment of both the dorsum and ventral cord but no jeremy cord compression. 2. Scattered uncovertebral joint and facet arthropathy. There is also worsening moderate left and mil d right neuroforaminal stenosis at C6-C7. LUMBAR SPINE: 1. Transitional lumbosacral segment with a sacralized L5. 2. Mild degenerative disc disease at L3-L4 with associated fatty Mod[place] type II endplate change. Addit ional mild facet arthropathy lower lumbar spine. 3. Changes result in minimal inferior right-sided foraminal narrowing at L3-L4. 4. No significant spinal canal or neuroforaminal stenosis.
== END | disposition home or self-care (01) ==
LOC: RADMRIMAIN 10:21
PROVIDERS: ATTEND Psychiatry & Neurology Neurology
DX: M48.02 Spinal stenosis, cervical region (principal); M99.71 Connective tissue and disc stenosis of intervertebral foramina of cervical region; M99.73 Connective tissue and disc stenosis of intervertebral foramina of lumbar region; M50.223 Other cervical disc displacement at C6-C7 level; M50.323 Other cervical disc degeneration at C6-C7 level; M51.36 Other intervertebral disc degeneration, lumbar region; M46.82 Other specified inflammatory spondylopathies, cervical region; M46.86 Other specified inflammatory spondylopathies, lumbar region
CPT/HCPCS: 72141; 72148

== ENCOUNTER 2017-04-04 16:37 | Emergency (ER) | payer OTHER ==
[2017-04-04] MEDS ORDERED: ONDANSETRON 4 MG/2 ML VIAL IVP STA (17:18)
[2017-04-04] MEDS ORDERED: SODIUM CHLORIDE 0.9% 1,000 ML IV STA (17:18)
[2017-04-04] MEDS ORDERED: FAMOTIDINE 20 MG/2 ML VIAL IV STA (17:19)
[2017-04-04] MEDS ORDERED: RX INFO: IV CONTRAST WAS GIVEN 1 EACH MISC MISCELLANE PRN (17:19)
--- NOTE | 2017-04-04 17:27 | ED ---
General Adult HPI - General Chief complaint: Abdominal Pain Stated complaint: Abd Pain/Vomiting Time Seen by Provider: 04/04/17 17:10 Source: patient, RN notes reviewed Mode of arrival: ambulatory Limitations: no limitations - History of Present Illness Initial comments: 41 yo male presents to the ER with cc of upper abdominal pain. Patient does have chronic abdominal pain. Patient states it's more lower this is. He is also had nausea vomiting with this. There is no radiation of the pain. He states about 8 or 9 out of 10. Patient denies any diarrhea with this. He states that he has not been passing gas is normal. He was concerned due to the pains without that he should be evaluated. Patient denies any other symptoms at this time. Patient denies any recent fever, chills, shortness of breath, chest pain, back pain, numbness or tingling, dysuria or hematuria, constipation or diarrhea, headaches or visual changes, or any other current symptoms. - Related Data Home Medications Medication Instructions Recorded Confirmed ALPRAZolam [Xanax] 1 mg PO BID 07/10/15 04/04/17 Metoprolol Tartrate [Lopressor] 50 mg PO BID 10/14/16 04/04/17 Pregabalin [Lyrica] 100 mg PO BID 10/14/16 04/04/17 HYDROcodone/APAP 7.5-325MG [[place] 1 tab PO QID PRN 04/04/17 04/04/17 7.5-325] Previous Rx's Medication Instructions Recorded Ondansetron Odt [Zofran ODT] 4 mg PO Q8HR PRN #20 tab 04/04/17 Allergies Allergy/AdvReac Type Severity Reaction Status Date / Time Penicillins Allergy Unknown Verified 04/04/17 16:49 Childhood Review of Systems ROS Statement: Those systems with pertinent positive or pertinent negative responses have been documented in the HPI. ROS Other: All systems not noted in ROS Statement are negative. Past Medical History Past Medical History: GERD/Reflux, GI Bleed, Hypertension Additional Past Medical History / Comment(s): Partial bowel obstruction secondary to adhesions, Crohn's, ileorectal anastomotic stricture, cervical pain -ruptured disc., ileus, enteritis History of Any Multi-Drug Resistant Organisms: None Reported Past Surgical History: Appendectomy, Bowel Resection, Hernia Repair Additional Past Surgical History / Comment(s): Lucio. bowel resection in 1993, lysis of adhesions, partial omentectomy and repair of incisional hernia August [address] Calzada, decompressive colonoscopy in May [address] Calzada, EGD and multiple colonoscopies, Epidural injections to neck- last one on 04/2015. Past Anesthesia/Blood Transfusion Reactions: No Reported Reaction Additional Past Anesthesia/Blood Transfusion Reaction / Comment(s): Pt has never recieved blood. Past Psychological History: Anxiety, Depression Smoking Status: Never smoker Past Alcohol Use History: Rare Past Drug Use History: Marijuana - Past Family History Father Family Medical History: Myocardial Infarction ([place]) Additional Family Medical History / Comment(s): AT AGGE 54- HIS 4TH [place] Mother Family Medical History: Coronary Artery Disease (CAD), Hypertension Additional Family Medical History / Comment(s): MOM IS AGE 63, HAS STENTS General Exam - General Exam Comments Initial Comments: General: The patient is awake and alert, in no distress, and does not appear acutely ill. Eye: Pupils are equal, round and reactive to light, extra-ocular movements are intact; there is normal conjunctiva bilaterally. No signs of icterus. Ears, nose, mouth and throat: There are moist mucous membranes. Neck: The neck is supple, there is no tenderness. Cardiovascular: There is a regular rate and rhythm. No murmur, rub or gallop is appreciated. Respiratory: Lungs are clear to auscultation, respirations are non-labored, breath sounds are equal. No wheezes, stridor, rales, or rhonchi. Gastrointestinal: Soft, non-distended, non-tender abdomen without masses or organomegaly noted. There is no rebound or guarding present. No CVA tenderness. Bowel sounds are unremarkable. Back: There is no tenderness to palpation in the midline. There is no obvious deformity. No rashes noted. Musculoskeletal: Normal ROM, no tenderness, There is no pedal edema. There is no calf tenderness or swelling. Sensation intact. Pulses equal bilaterally 2+. Neurological: CN II-XII intact, There are no obvious motor or sensory deficits. Coordination appears grossly intact. Speech is normal. Skin: Skin is warm and dry and no rashes or lesions are noted. Psychiatric: Cooperative, appropriate mood & affect, normal judgment. Limitations: no limitations Course Vital Signs 04/04/17 16:41 Temperature 97.1 F L Pulse Rate 104 H Respiratory 20 Rate Blood Pressure 198/108 O2 Sat by Pulse 98 Oximetry Medical Decision Making - Medical Decision Making 41-year-old male presents emergency Department chief complaint abdominal pain. This and patient's lab work is reviewed. This time CAT scan is showing an ileus. At this time patient was informed with the results. He stated he understood he does agreement with the plan. All questions have been answered. He will be discharged. - Lab Data Result diagrams: 04/04/17 17:26 04/04/17 17:26 Lab Results 04/04/17 04/04/17 Range/Units 17:26 17:26 WBC 12.1 H (3.8-10.6) k/uL RBC 6.02 H (4.30-5.90) m/uL Hgb 17.8 H (13.0-17.5) gm/dL Hct 53.8 H (39.0-53.0) % MCV 89.3 (80.0-100.0) fL MCH 29.6 (25.0-35.0) pg MCHC 33.2 (31.0-37.0) g/dL RDW 14.6 (11.5-15.5) % Plt Count 296 (150-450) k/uL Neutrophils % 70 % Lymphocytes % 19 % Monocytes % 7 % Eosinophils % 2 % Basophils % 0 % Neutrophils # 8.4 H (1.3-7.7) k/uL Lymphocytes # 2.3 (1.0-4.8) k/uL Monocytes # 0.9 (0-1.0) k/uL Eosinophils # 0.3 (0-0.7) k/uL Basophils # 0.1 (0-0.2) k/uL Sodium 139 (137-145) mmol/L Potassium 4.4 (3.5-5.1) mmol/L Chloride 104 (98-107) mmol/L Carbon Dioxide 22 (22-30) mmol/L Anion Gap 13 mmol/L BUN 13 (9-20) mg/dL Creatinine 0.75 (0.66-1.25) mg/dL Est GFR (MDRD) Af Amer >60 (>60 ml/min/1.73 sqM) Est GFR (MDRD) Non-Af >60 (>60 ml/min/1.73 sqM) Glucose 120 H (74-99) mg/dL Calcium 10.1 (8.4-10.2) mg/dL Total Bilirubin 0.7 (0.2-1.3) mg/dL AST 28 (17-59) U/L ALT 45 (21-72) U/L Alkaline Phosphatase 94 (38-126) U/L Total Protein 8.5 H (6.3-8.2) g/dL Albumin 4.6 (3.5-5.0) g/dL Amylase 111 H (30-110) U/L Lipase 245 (23-300) U/L Disposition Clinical Impression: Ileus, Nausea Disposition: HOME SELF-CARE Condition: Stable Instructions: Ileus (ED) Additional Instructions: Please use medication as discussed. Please follow up with family doctor if symptoms have not improved over the next two days. Please return to the emergency room if your symptoms increase or worsen or for any other concerns. Prescriptions: Ondansetron Odt [Zofran ODT] 4 mg PO Q8HR PRN #20 tab PRN Reason: Nausea Referrals: Ascencion Beckwith MD [Primary Care Provider] - 1-2 days Time of Disposition: 18:49
[2017-04-04 17:34] LABS: Basophils # (A) 0.1 k/uL (0-0.2); Basophils % (A) 0 %; CH 30.4; CHCM 34.2; Eosinophils # (A) 0.3 k/uL (0-0.7); Eosinophils % (A) 2 %; HCT 53.8 % (39.0-53.0); HDW 2.61; HGB 17.8 gm/dL (13.0-17.5); Luc # (Auto) 0.14; Luc % (Auto) 1; Lymphocytes # (A) 2.3 k/uL (1.0-4.8); Lymphocytes % (A) 19 %; MCH 29.6 pg (25.0-35.0); MCHC 33.2 g/dL (31.0-37.0); MCV 89.3 fL (80.0-100.0); Mean Platelet Volume 7.2; Monocytes # (A) 0.9 k/uL (0-1.0); Monocytes % (A) 7 %; Neutrophils # (A) 8.4 k/uL (1.3-7.7); Neutrophils % (A) 70 %; RBC 6.02 m/uL (4.30-5.90); RDW 14.6 % (11.5-15.5); WBC 12.1 k/uL (3.8-10.6); WBC (Perox) 12.24
[2017-04-04 17:45] LABS: ALT 45 U/L (21-72); AST 28 U/L (17-59); Alkaline Phosphatase 94 U/L (38-126); Amylase 111 U/L (30-110); Anion Gap 13 mmol/L; Blood Urea Nitrogen 13 mg/dL (9-20); Calcium 10.1 mg/dL (8.4-10.2); Carbon Dioxide 22 mmol/L (22-30); Chloride 104 mmol/L (98-107); Glucose 120 mg/dL (74-99); Non-African American GFR(MDRD) >60 (>60 ml/min/1.73 sqM); Potassium 4.4 mmol/L (3.5-5.1); Sodium 139 mmol/L (137-145); Total Bilirubin 0.7 mg/dL (0.2-1.3); Total Protein 8.5 g/dL (6.3-8.2)
--- NOTE | 2017-04-04 18:22 | CT ---
EXAMINATION TYPE: CT abdomen pelvis w con DATE OF EXAM: 04/04/2017 COMPARISON: NONE HISTORY: nausea/vomiting. hx Crohns/bowel resection CT DLP: 1557.6 mGycm Automated exposure control for dose reduction was used. TECHNIQUE: Helical acquisition of images was performed from the lung bases through the pelvis. CONTRAST: Performed without Oral Contrast and with IV Contrast, patient injected with 100 mL of Omnipaque 300. FINDINGS: Lung bases are clear of consolidation. There is some groundglass interstitial density at the lung bas es. There is no pleural effusion. Liver spleen pancreas gallbladder appear normal. Bile ducts are not dilated. There is no adrenal mass . Kidneys show satisfactory contrast opacification. There is no hydronephrosis. There are surgical cl ips involving multiple loops of bowel. There are multiple distended fluid-filled loops of bowel. Ther e are small bowel loops with fluid in the left mid abdomen that measure up to 3.4 cm in diameter. The re is apparent resection of the colon. Bladder distends smoothly. I see no pelvic mass. There is no a scites. There is no retroperitoneal adenopathy. I see no bony destructive process. IMPRESSION: THERE IS APPARENT TOTAL COLECTOMY. DISTENDED FLUID-FILLED LOOPS OF SMALL BOWEL CONSISTENT WITH ILEUS. I DO NOT SEE EVIDENCE FOR MECHANICAL OBSTRUCTION. THE SMALL BOWEL FLUID DISTENTION IS NEW COMPARED T O OLD EXAM.
[2017-04-04 18:57] VITALS: BP 170/90; PULSE 90; RESP 18; TEMP 98.4
== END 2017-04-04 18:57 | disposition home or self-care (01) ==
LOC: EC 16:37
DX: K56.7 Ileus, unspecified (principal); R11.0 Nausea; I10 Essential (primary) hypertension; F32.9 Major depressive disorder, single episode, unspecified; F41.9 Anxiety disorder, unspecified; Z79.899 Other long term (current) drug therapy; Z88.0 Allergy status to penicillin; Z90.49 Acquired absence of other specified parts of digestive tract
CPT/HCPCS: 36415; 80053; 82150; 83690; 85025; 74177; 99284; 96374; 96375; 96361; J2405; Q9967

== ENCOUNTER 2018-02-06 12:16 | Emergency (ER) | payer OTHER ==
[2018-02-06 12:19] VITALS: RESP 18; TEMP 98.6
[2018-02-06] MEDS ORDERED: PROPARACAINE 0.5% OPHTH DROPS 15 ML BTL RIGHT EYE STA (12:26)
[2018-02-06 13:11] VITALS: BP 173/98; PULSE 87
[2018-02-06] MEDS ORDERED: MOXIFLOXACIN HCL 0.5% DROPS 3 ML BTL RIGHT EYE ONE (13:11)
[2018-02-06] MEDS ORDERED: acetaZOLAMIDE 250 MG TAB PO STA (13:31)
--- NOTE | 2018-02-06 13:45 | ED ---
General Adult HPI - General Chief complaint: Eye Problems Stated complaint: Something in eye Time Seen by Provider: 02/06/18 12:24 Source: patient, RN notes reviewed Mode of arrival: wheelchair Limitations: no limitations - History of Present Illness Initial comments: Patient 42-year-old male presented to the emergency room today with chief complaint of increased redness and irritation to the right eye. He does admit that yesterday he felt that something had gone into the right eye. He states that he rolled the right eye can't get something out He states he was irrigated throughout the day he tried to sleep. Patient states he woke up this morning with increased redness and irritation from the right eye. He has been to blurred vision out of his eye. Admits to photosensitivity. Patient denies any other complaints or symptoms. He states his tetanus is up-to-date. - Related Data Previous Rx's Medication Instructions Recorded Moxifloxacin [Vigamox 0.3%] 1 drop RIGHT EYE QID 10 Days ml 02/06/18 acetaZOLAMIDE [Diamox] 250 mg PO BID #3 tablet 02/06/18 Allergies Allergy/AdvReac Type Severity Reaction Status Date / Time Penicillins Allergy Unknown Verified 02/06/18 12:20 Childhood Review of Systems ROS Statement: Those systems with pertinent positive or pertinent negative responses have been documented in the HPI. ROS Other: All systems not noted in ROS Statement are negative. Past Medical History Past Medical History: GERD/Reflux, GI Bleed, Hypertension Additional Past Medical History / Comment(s): Partial bowel obstruction secondary to adhesions, Crohn's, ileorectal anastomotic stricture, cervical pain -ruptured disc., ileus, enteritis History of Any Multi-Drug Resistant Organisms: None Reported Past Surgical History: Appendectomy, Bowel Resection, Hernia Repair Additional Past Surgical History / Comment(s): Lucio. bowel resection in 1993, lysis of adhesions, partial omentectomy and repair of incisional hernia August [address] Calzada, decompressive colonoscopy in May [address] Calzada, EGD and multiple colonoscopies, Epidural injections to neck- last one on 04/2015. Past Anesthesia/Blood Transfusion Reactions: No Reported Reaction Additional Past Anesthesia/Blood Transfusion Reaction / Comment(s): Pt has never recieved blood. Past Psychological History: Anxiety, Depression Smoking Status: Never smoker Past Alcohol Use History: Rare Past Drug Use History: Marijuana - Past Family History Father Family Medical History: Myocardial Infarction ([place]) Additional Family Medical History / Comment(s): AT AGGE 54- HIS 4TH [place] Mother Family Medical History: Coronary Artery Disease (CAD), Hypertension Additional Family Medical History / Comment(s): MOM IS AGE 63, HAS STENTS General Exam - General Exam Comments Initial Comments: General: The patient is awake and alert, in no distress, and does not appear acutely ill. Eye: Pupils are round reactive. Vision does have increased redness to the right temporal with watery discharge. Extraocular eye movements are intact. Pressure on the right was 42. Pressure on the left is 16. Visual acuity on the right was 20/200. Visual acuity on the left 20/30. Bilateral visual acuity was 20/70. Neck: The neck is supple, there is no tenderness or JVD. Musculoskeletal: Normal ROM, no tenderness. Sensation intact. Strength 5/5. Pulses equal bilaterally 2+. Neurological: A&O x 3. CN II-XII intact, There are no obvious motor or sensory deficits. Coordination appears grossly intact. Speech is normal. Skin: Skin is warm and dry and no rashes or lesions are noted. Psychiatric: Cooperative, appropriate mood & affect, normal judgment. Limitations: no limitations Course Vital Signs 02/06/18 02/06/18 12:18 13:11 Temperature 98.6 F Pulse Rate 89 87 Respiratory 18 18 Rate Blood Pressure 174/114 173/98 O2 Sat by Pulse 99 99 Oximetry Medical Decision Making - Medical Decision Making Case was discussed and seen) physician Dr. Junior. Slit-lamp exam performed. The emergency room no evidence for a Snellen flare. Patient's pressure in the right is elevated compared to left. Slit lamp exam does reveal a corneal ulcer at the 6 o'clock position. Patient did have relief with proparacaine drops. Case was discussed with heavy duty diesel mechanic economic forecaster Dr. Beebe he will see the patient in his office at 5:30 PM today. He recommends starting Vigamox drops and Diamox. Patient given first doses here in the emergency room and will be given prescriptions to continue. Disposition Clinical Impression: Corneal ulcer, Increased pressure in the eye Disposition: HOME SELF-CARE Condition: Good Additional Instructions: Please proceed to heavy duty diesel mechanic Dr. Beebe office for appointment at 5:30 PM today. Please use medications as prescribed and return here to the emergency room for any other concerns. Prescriptions: acetaZOLAMIDE [Diamox] 250 mg PO BID #3 tablet Moxifloxacin [Vigamox 0.3%] 1 drop RIGHT EYE QID 10 Days ml Is patient prescribed a controlled substance at d/c from ED?: No Referrals: Ascencion Beckwith MD [Primary Care Provider] - 1-2 days Gene Angeles MD [STAFF PHYSICIAN] - 1-2 days Time of Disposition: 13:49
[2018-02-06] MEDS ORDERED: acetaZOLAMIDE 250 MG TAB PO SCH (21:00)
== END 2018-02-06 14:00 | disposition home or self-care (01) ==
LOC: EC 12:16
DX: H16.001 Unspecified corneal ulcer, right eye (principal); Z88.0 Allergy status to penicillin
CPT/HCPCS: 99283

== ENCOUNTER 2018-08-30 12:44 | Inpatient (IN) | payer OTHER ==
--- NOTE | 2018-08-30 13:25 | ED ---
General Adult HPI - General Chief complaint: Shortness of Breath Stated complaint: WILLI Time Seen by Provider: 08/30/18 13:12 Source: patient, RN notes reviewed Mode of arrival: ambulatory Limitations: no limitations - History of Present Illness Initial comments: 42-year-old male presents for evaluation of dyspnea. Symptoms have progressed over the past 4 days. He does report some chest tightness associated with his dyspnea. No history of CAD, no history of COPD or asthma. No history of congestive heart failure. He does report he is had a positional component to his dyspnea as well as exertional dyspnea. Positive orthopnea. Patient also reports bilateral lower extremity swelling. Denies melena or rectal bleeding. Denies fever or chills. Denies cough. Denies abdominal pain nausea vomiting. - Related Data Home Medications Medication Instructions Recorded Confirmed No Known Home Medications 08/30/18 08/30/18 Allergies Allergy/AdvReac Type Severity Reaction Status Date / Time Penicillins Allergy Unknown Verified 08/30/18 13:58 Childhood Review of Systems ROS Statement: Those systems with pertinent positive or pertinent negative responses have been documented in the HPI. ROS Other: All systems not noted in ROS Statement are negative. Past Medical History Past Medical History: GERD/Reflux, GI Bleed, Hypertension Additional Past Medical History / Comment(s): Partial bowel obstruction secondary to adhesions, Crohn's, ileorectal anastomotic stricture, cervical pain-ruptured disc., ileus, enteritis History of Any Multi-Drug Resistant Organisms: None Reported Past Surgical History: Appendectomy, Bowel Resection, Hernia Repair Additional Past Surgical History / Comment(s): Lucio. bowel resection in 1993, lysis of adhesions, partial omentectomy and repair of incisional hernia August [address] Calzada, decompressive colonoscopy in May [address] Calzada, EGD and multiple colonoscopies, Epidural injections to neck- last one on 04/2015. Past Anesthesia/Blood Transfusion Reactions: No Reported Reaction Additional Past Anesthesia/Blood Transfusion Reaction / Comment(s): Pt has never recieved blood. Past Psychological History: Anxiety, Depression Smoking Status: Never smoker Past Alcohol Use History: Rare Past Drug Use History: None Reported - Past Family History Father Family Medical History: Myocardial Infarction ([place]) Additional Family Medical History / Comment(s): AT AGGE 54- HIS 4TH [place] Mother Family Medical History: Coronary Artery Disease (CAD), Hypertension Additional Family Medical History / Comment(s): MOM IS AGE 63, HAS STENTS General Exam Limitations: no limitations General appearance: alert, in no apparent distress Head exam: Present: atraumatic, normocephalic Eye exam: Present: normal appearance, PERRL ENT exam: Present: normal exam Respiratory exam: Present: rales, decreased breath sounds. Absent: respiratory distress Cardiovascular Exam: Present: regular rate, normal rhythm GI/Abdominal exam: Present: soft. Absent: distended, tenderness, guarding, rebound Extremities exam: Present: normal capillary refill, pedal edema (2+ pitting edema bilaterally), other (Ulcer, base of the great toe, no surrounding cellulitis or erythema) Neurological exam: Present: alert, oriented X3 Psychiatric exam: Present: normal affect, normal mood Skin exam: Present: warm, dry. Absent: cyanosis Course Vital Signs 08/30/18 13:05 Temperature 98.4 F Pulse Rate 110 H Respiratory 20 Rate Blood Pressure 153/103 O2 Sat by Pulse 96 Oximetry EKG Findings - EKG Comments: EKG Findings:: EKG: Sinus tachycardia, left atrial enlargement, left axis deviation, T-wave inversion in lateral precordium, and fluids. No ST segment elevation. Rate 109, OR interval 156, QRS duration 102, QTC 476. Medical Decision Making - Medical Decision Making 42-year-old male presenting with dyspnea, orthopnea, symptoms initially began with lower extremity swelling which progressed to dyspnea. He has had some associated chest tightness minimal pain. No history of CAD. Previous history of hypertension. Patient states he is not a current drinker. No history of tobacco use. No history diabetes. On exam patient has bilateral lower extr emity edema, he has decreased air entry and rales on lung exam. Chest x-ray shows concern for pulmonary vascular congestion and CHF. Echo was obtained, preliminary report indicates reduce the left with right heart strain. There is concern for pulmonary embolism, CT angiography is obtained which shows bilateral pleural effusion, central pulmonary vascular congestion, cardiomegaly, no pulmonary embolism. Patient has normal CBC, normal CMP, troponin minimally elevated 0.039, BNP is elevated 2470. Case is discussed with cardiology, Dr. Downey, recommends treatment with beta john, lisinopril, Lasix. Patient was initially placed on high-dose heparin drip awaiting CT angiography results, this is reduced to low-dose heparin. Urinalysis, urine drug screen, alcohol level are pending. Case discussed with admitting physician Dr. Beckwith - Lab Data Result diagrams: 08/30/18 14:17 08/30/18 14:17 Lab Results 08/30/18 08/30/18 08/30/18 Range/Units 14:17 14:17 14:17 WBC 10.6 (3.8-10.6) k/uL RBC 5.31 (4.30-5.90) m/uL Hgb 15.4 (13.0-17.5) gm/dL Hct 47.4 (39.0-53.0) % MCV 89.2 (80.0-100.0) fL MCH 29.0 (25.0-35.0) pg MCHC 32.5 (31.0-37.0) g/dL RDW 13.8 (11.5-15.5) % Plt Count 280 (150-450) k/uL Neutrophils % 68 % Lymphocytes % 20 % Monocytes % 8 % Eosinophils % 2 % Basophils % 0 % Neutrophils # 7.2 (1.3-7.7) k/uL Lymphocytes # 2.1 (1.0-4.8) k/uL Monocytes # 0.9 (0-1.0) k/uL Eosinophils # 0.2 (0-0.7) k/uL Basophils # 0.0 (0-0.2) k/uL PT (9.0-12.0) sec INR (<1.2) APTT (22.0-30.0) sec D-Dimer (<0.60) mg/L FEU Sodium 138 (137-145) mmol/L Potassium 4.3 (3.5-5.1) mmol/L Chloride 105 (98-107) mmol/L Carbon Dioxide 24 (22-30) mmol/L Anion Gap 9 mmol/L BUN 16 (9-20) mg/dL Creatinine 0.90 (0.66-1.25) mg/dL Est GFR (CKD-EPI)AfAm >90 (>60 ml/min/1.73 sqM) Est GFR (CKD-EPI)NonAf >90 (>60 ml/min/1.73 sqM) Glucose 177 H (74-99) mg/dL Calcium 9.3 (8.4-10.2) mg/dL Magnesium 2.0 (1.6-2.3) mg/dL Total Bilirubin 0.7 (0.2-1.3) mg/dL AST 26 (17-59) U/L ALT 30 (21-72) U/L Alkaline Phosphatase 75 (38-126) U/L Troponin I (0.000-0.034) ng/mL NT-Pro-B Natriuret Pep 2470 pg/mL Total Protein 6.5 (6.3-8.2) g/dL Albumin 3.6 (3.5-5.0) g/dL TSH 1.690 (0.465-4.680) mIU/L 08/30/18 08/30/18 Range/Units 14:17 14:17 WBC (3.8-10.6) k/uL RBC (4.30-5.90) m/uL Hgb (13.0-17.5) gm/dL Hct (39.0-53.0) % MCV (80.0-100.0) fL MCH (25.0-35.0) pg MCHC (31.0-37.0) g/dL RDW (11.5-15.5) % Plt Count (150-450) k/uL Neutrophils % % Lymphocytes % % Monocytes % % Eosinophils % % Basophils % % Neutrophils # (1.3-7.7) k/uL Lymphocytes # (1.0-4.8) k/uL Monocytes # (0-1.0) k/uL Eosinophils # (0-0.7) k/uL Basophils # (0-0.2) k/uL PT 11.0 (9.0-12.0) sec INR 1.0 (<1.2) APTT 24.6 (22.0-30.0) sec D-Dimer 0.53 (<0.60) mg/L FEU Sodium (137-145) mmol/L Potassium (3.5-5.1) mmol/L Chloride (98-107) mmol/L Carbon Dioxide (22-30) mmol/L Anion Gap mmol/L BUN (9-20) mg/dL Creatinine (0.66-1.25) mg/dL Est GFR (CKD-EPI)AfAm (>60 ml/min/1.73 sqM) Est GFR (CKD-EPI)NonAf (>60 ml/min/1.73 sqM) Glucose (74-99) mg/dL Calcium (8.4-10.2) mg/dL Magnesium (1.6-2.3) mg/dL Total Bilirubin (0.2-1.3) mg/dL AST (17-59) U/L ALT (21-72) U/L Alkaline Phosphatase (38-126) U/L Troponin I 0.039 H* (0.000-0.034) ng/mL NT-Pro-B Natriuret Pep pg/mL Total Protein (6.3-8.2) g/dL Albumin (3.5-5.0) g/dL TSH (0.465-4.680) mIU/L Critical Care Time Critical Care Time: Yes Total Critical Care Time: 35 Disposition Clinical Impression: Congestive heart failure Disposition: ADMITTED IP TO THIS [facility] Condition: Serious Is patient prescribed a controlled substance at d/c from ED?: No Referrals: Ascencion Beckwith MD [Primary Care Provider] - 1-2 days Decision to Admit Reason: Admit from EC Decision Date: 08/30/18 Decision Time: 16:31
[2018-08-30 14:36] LABS: Basophils % (A) 0 %; Eosinophils # (A) 0.2 k/uL (0-0.7); Eosinophils % (A) 2 %; HCT 47.4 % (39.0-53.0); HGB 15.4 gm/dL (13.0-17.5); Lymphocytes # (A) 2.1 k/uL (1.0-4.8); Lymphocytes % (A) 20 %; MCHC 32.5 g/dL (31.0-37.0); MCV 89.2 fL (80.0-100.0); Mean Platelet Volume 6.9; Monocytes # (A) 0.9 k/uL (0-1.0); Monocytes % (A) 8 %; Neutrophils # (A) 7.2 k/uL (1.3-7.7); Neutrophils % (A) 68 %; Platelet Count 280 k/uL (150-450); RBC 5.31 m/uL (4.30-5.90); RDW 13.8 % (11.5-15.5); WBC 10.6 k/uL (3.8-10.6)
--- NOTE | 2018-08-30 14:42 | XR ---
EXAMINATION TYPE: XR chest 2V DATE OF EXAM: 08/30/2018 COMPARISON: 03/19/2015 HISTORY: Difficulty breathing TECHNIQUE: Frontal and lateral views of the chest are obtained. FINDINGS: Interstitial prominence is seen throughout, new from the prior. There is no focal air spac e opacity, pleural effusion, or pneumothorax seen. The cardiac silhouette size is mildly enlarged. The osseous structures are intact. IMPRESSION: No focal consolidation, however there is diffuse interstitial prominence that is new fro m the prior that may be on the basis of atypical pneumonia or mild interstitial pulmonary edema.
[2018-08-30 14:50] LABS: D-Dimer 0.53 mg/L FEU (<0.60); Partial Thromboplastin Time 24.6 sec (22.0-30.0)
[2018-08-30] MEDS ORDERED: HEPARIN SODIUM,PORCINE 5,000 UNIT/ML 1 ML VIAL IV PRN ×2 (14:50→16:15)
[2018-08-30] MEDS ORDERED: HEPARIN SODIUM,PORCINE 10,000 UNIT/ML 1 ML VIAL IV ONE (14:50)
[2018-08-30] MEDS ORDERED: HEPARIN SOD,PORK IN 0.45% NACL 25,000 UNIT in 0.45% NACL 1 250ML.BAG IV SCH ×2 (15:00→16:15)
[2018-08-30 15:11] LABS: ALT 30 U/L (21-72); AST 26 U/L (17-59); Albumin 3.6 g/dL (3.5-5.0); Alkaline Phosphatase 75 U/L (38-126); Anion Gap 9 mmol/L; Blood Urea Nitrogen 16 mg/dL (9-20); Calcium 9.3 mg/dL (8.4-10.2); Carbon Dioxide 24 mmol/L (22-30); Chloride 105 mmol/L (98-107); Glucose 177 mg/dL (74-99); Potassium 4.3 mmol/L (3.5-5.1); Sodium 138 mmol/L (137-145); Total Bilirubin 0.7 mg/dL (0.2-1.3); Total Protein 6.5 g/dL (6.3-8.2)
--- NOTE | 2018-08-30 16:09 | CT ---
EXAMINATION TYPE: CT angio chest DATE OF EXAM: 08/30/2018 COMPARISON: NONE HISTORY: Difficulty breathing CT DLP: 539.7 mGycm. Automated Exposure Control for Dose Reduction was Utilized. CONTRAST: CTA scan of the thorax is performed with IV Contrast, patient injected with 100 mL of Isovue 370, pul monary embolism protocol. MIP Images are created on CT scanner and reviewed. FINDINGS: LUNGS: There is a large right pleural effusion and moderate left pleural effusion that are layering. There is associated bibasilar compressive atelectasis. Diffuse ground glass opacities are seen throug hout the lungs with interlobular septal thickening. Peribronchial cuffing is also seen bilaterally. MEDIASTINUM: The heart is markedly enlarged. Benign calcified hilar granulomas are seen. There is sat isfactory enhancement of the pulmonary artery and its branches, there is no CT evidence for pulmonary embolism. There are no greater than 1 cm hilar or mediastinal lymph nodes. 1 cm short axis prevascu lar lymph nodes and ill-defined prominent subcarinal lymph node as well as 1 cm short axis right para tracheal lymph node are seen. Trace amount of pericardial fluid. Reflux of contrast into the inferior vena cava and hepatic veins is seen. Minimal periportal edema is present. OTHER: Upper abdomen is suboptimally evaluated. Benign splenic granulomas are seen. Minimal periporta l edema. IMPRESSION: 1. No evidence of pulmonary embolus. 2. Large right and moderate left pleural effusion as well as diffuse interstitial pulmonary edema are seen with evidence of right heart failure and cardiomegaly. Findings all are likely on the basis of decompensated heart failure. 3. Subsegmental multifocal atelectasis limiting evaluation for underlying pulmonary nodule/mass.
[2018-08-30] MEDS ORDERED: LISINOPRIL 5 MG TAB PO STA (16:13)
[2018-08-30] MEDS ORDERED: METOPROLOL TARTRATE 25 MG TAB PO STA (16:13)
[2018-08-30] MEDS ORDERED: FUROSEMIDE 10 MG/ML 2 ML VIAL IV STA (16:14)
[2018-08-30] MEDS ORDERED: NALOXONE 0.4 MG/ML 1 ML VIAL IV PRN (16:25)
[2018-08-30] MEDS ORDERED: FUROSEMIDE 10 MG/ML 4 ML VIAL IV STA (16:36)
[2018-08-30] MEDS ORDERED: NITROGLYCERIN OINT 1 INCH/GM PACKET TOPICAL STA (16:36)
[2018-08-30 16:53] LABS: Appearance,Urine Clear (Clear); Bilirubin,Urine Negative (Negative); Blood,Urine Negative (Negative); Color,Urine Yellow; Glucose,Urine (UA) Negative (Negative); Ketones,Urine Negative (Negative); Leukocyte Esterase,Urine Negative (Negative); Nitrite,Urine Negative (Negative); Protein,Urine Negative (Negative); Specific Gravity,Urine 1.011 (1.001-1.035); Urobilinogen,Urine <2.0 mg/dL (<2.0)
[2018-08-30 17:02] LABS: Amphetamine Screen,Urine Detected (NotDetected); Barbiturate Screen,Urine Not Detected (NotDetected); Benzodiazepines Screen,Urine Detected (NotDetected); Cocaine Screen,Urine Not Detected (NotDetected); Methadone Screen, Urine Not Detected (NotDetected); Opiate Screen,Urine Not Detected (NotDetected); Oxycodone Screen, Urine Not Detected (NotDetected); Phencyclidine Screen,Urine Not Detected (NotDetected); Tricyclic Antidepressant,Urine Not Detected (NotDetected); Urn Cannabinoid Scrn Not Detected (NotDetected)
--- NOTE | 2018-08-30 18:00 | CONS ---
CONSULTATION CHIEF COMPLAINT: Shortness of breath and leg edema. 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 He is found to be in new onset congestive heart failure and Cardiology has been consulted for the same. His blood pressures are extremely elevated at 160/130. EKG shows sinus tachycardia with evidence of biatrial enlargement. The patient had an echo and I am told that he has severe LV dysfunction. He has mild troponin elevation. Had a CT scan of the chest, which apparently did not reveal any pulmonary embolism. He is currently on IV heparin. The patient's clinical presentation is consistent with hypertensive heart disease with congestive heart failure secondary to dilated cardiomyopathy. FAMILY HISTORY: Significant for premature coronary artery disease. His father suddenly and mother has CAD. Plan at this stage is to optimally and aggressively control his blood pressure with beta blockers, MIKO inhibitors and treat his heart failure with IV diuretics. I am also going to put an inch of nitro paste on him. Will obtain further sets of troponins and see if there is any pattern to them and decide on further course of action. PAST MEDICAL HISTORY: Significant for hypertension. There is prior history of drug abuse, but he has stopped using the drugs in a long time. MEDICATIONS: He was not taking any. ALLERGIES: As charted. FAMILY HISTORY: Significant for CAD. SOCIAL HISTORY: Denies current smoking, EtOH abuse, or drug abuse. REVIEW OF SYSTEMS: HEENT is unremarkable. Cardiac as described above. Respiratory as described above. GI negative. negative. ALLERGY/IMMUNOLOGY: Negative. SKIN: Negative. MUSCULOSKELETAL: Significant for arthritis. PSYCHOSOCIAL: Negative. ENDOCRINE: Negative. DERM: Negative. CONSTITUTIONAL negative. Oncological negative. Rest of the system review is not relevant. EXAM: Patient is comfortable. Heart rate is around 90 to 100 beats per minute. Blood pressure is 160/130, respiratory rate 18, there is no jugular venous distention. Carotid upstroke is normal. There is no bruit. Chest exam reveals good air entry bilaterally. Heart exam reveals first and second heart sounds. No gallop. No murmur. No rub. Abdomen is soft, nontender. Exam of extremities revealed bilateral pitting edema. Peripheral pulses are palpable. LAB: Show that hemoglobin is 15.4, creatinine is 0.9. BNP is 2470. TSH is normal. ASSESSMENT: 1. Acute onset congestive heart failure secondary to LV systolic dysfunction. 2. Dilated cardiomyopathy with severe LV dysfunction. 3. Hypertensive heart disease. PLAN: The patient will have optimal blood pressure control with beta blockers, MIKO inhibitors. We will assess the need for IV heparin in the morning after we have had some sets of troponins and once the blood pressure is well controlled, heart failure is well controlled, we may consider invasive angiography to rule out ischemic heart disease. MMODL / IJN: [id number] /
--- NOTE | 2018-08-30 22:42 | HP ---
HISTORY AND PHYSICAL CHIEF COMPLAINT: Gol[age]ey[age]-old white male was admitted with shortness of breath for the last 4 days with tightness in the chest. No prior history of any difficulties with heart failure or chest pain or orthopnea or PND. He had some bilateral lower extremity edema. No melena or rectal bleeding. No fever or chills. No cough or congestion. Echo in the ER showed a low ejection fraction of 20% to 25% with pleural effusions. A CT scan negative for pulmonary embolus. ALLERGIES: PENICILLIN. HOME MEDICATIONS: None. REVIEW OF SYSTEMS: Fourteen-point review of systems negative except for mentioned in HPI. PAST MEDICAL HISTORY: 1. GERD. 2. GI bleed. 3. Hypertension. 4. Partial bowel obstruction due to Crohn's. 5. Ileorectal anastomotic stricture. 6. Cervical ruptured disc. 7. Ileus. 8. Enteritis. PAST SURGICAL HISTORY: 1. Appendectomy. 2. Bowel surgery. 3. Hernia repair. 4. Major bowel resection in 1993, lysis of adhesions. 5. Partial omentectomy in 2014. 6. Decompressive colonoscopy in May [address] Calzada. 7. Epidural injections 04/2005. 8. Anxiety. 9. Depression. FAMILY HISTORY: Father with myocardial infarction, at age 54. It was his fourth DE. Mother with hypertension, coronary artery disease, 63, had stents. PHYSICAL EXAMINATION: White male. No acute distress. Ambulating. BMI is over 30. CARDIOVASCULAR: S1, S2. LUNGS: Decreased breath sounds at the bases HEMATOLOGY: Two plus edema bilaterally. NEUROLOGIC: Alert and oriented x3. PSYCH: Fair mood and affect. ABDOMEN: Soft. Pulse rate is 110. Temperature 98.4, respiratory rate 18-22, blood pressure 153/103, oxygen saturation 96%. EKG reviewed. Labs were reviewed. Echo reviewed. ASSESSMENT: 1. Congestive heart failure. 2. Cardiomyopathy. 3. Pleural effusion secondary to congestive heart failure. Please see further orders and cardiology consult, pulmonary consult. MMODL / IJN: [id number] /
[2018-08-31] MEDS: NITROGLYCERIN SL TABS 0.4 MG TAB SUBLINGUAL STA ×3 (01:32→03:44)
[2018-08-31] MEDS: ACETAMINOPHEN TAB 325 MG TAB PO PRN ×2 (01:59→13:12)
[2018-08-31 02:35] LABS: Hemoglobin A1C 6.1 % (4.0-6.0)
[2018-08-31 06:59] LABS: Basophils # (A) 0.1 k/uL (0-0.2); Basophils % (A) 1 %; Eosinophils # (A) 0.2 k/uL (0-0.7); Eosinophils % (A) 2 %; HCT 46.4 % (39.0-53.0); Lymphocytes # (A) 2.8 k/uL (1.0-4.8); Lymphocytes % (A) 27 %; MCHC 32.3 g/dL (31.0-37.0); MCV 89.7 fL (80.0-100.0); Mean Platelet Volume 6.8; Monocytes # (A) 0.7 k/uL (0-1.0); Monocytes % (A) 7 %; Neutrophils % (A) 60 %; Platelet Count 271 k/uL (150-450); RBC 5.18 m/uL (4.30-5.90); RDW 13.9 % (11.5-15.5); WBC 10.1 k/uL (3.8-10.6)
[2018-08-31] MEDS: LISINOPRIL 5 MG TAB PO SCH (08:34)
[2018-08-31] MEDS ORDERED: FUROSEMIDE 10 MG/ML 2 ML VIAL IV SCH (09:00)
[2018-08-31] MEDS ORDERED: METOPROLOL TARTRATE 25 MG TAB PO SCH (09:00)
[2018-08-31 09:54] VITALS: BMI 30.2
--- NOTE | 2018-08-31 10:10 | PN ---
PROGRESS NOTE Zhang is a 42-year-old gentleman whom I evaluated for the first time yesterday in the emergency room when he presented with new onset congestive heart failure. He has severe LV systolic dysfunction. EKG shows sinus tachycardia with biatrial enlargement. He is being treated with IV diuretics. His blood pressures are much better controlled this morning. His troponins are in the castillo zone at 0.03, 0.03 and 0.038. BNP was elevated. His clinical presentation was consistent with dilated cardiomyopathy secondary to long-standing uncontrolled hypertension. This morning he still appears somewhat short of breath at rest. Still has significant leg edema. I will increase his diuretic dose to 40 mg q.8, change his metoprolol to Coreg 3.25 b.i.d. and increase the dose of MIKO inhibitors as tolerated. I am going to stop the IV heparin and start him on the subcu heparin. When heart failure is better controlled and he is more stable, I will do cardiac catheterization on him to rule out ischemic heart disease. Depending upon how he progresses and how his LV function improves down the road, he is someone who may may need device therapy. PHYSICAL EXAM: Today, he is comfortable at rest. Heart rate is 100 beats per minute, blood pressure is 130/78, respiratory rate is 18, O2 sat is 95% on 2 L. There is no jugular venous distention. Carotid upstroke is diminished. There is no bruit. Chest exam reveals diminished air entry at the bases. Heart exam reveals first and second heart sounds and a systolic murmur at the left lower sternal border. Abdomen is soft. Exam of extremities reveals bilateral pitting edema. LABS: This morning include hemoglobin of 15, platelet count of 270. I do not have renal functions on him. ASSESSMENT: 1. Acute onset systolic heart failure. 2. Mild troponin elevation of unclear clinical significance. 3. Severe uncontrolled hypertension. PLAN: I will increase the dose of Lasix. Check the electrolytes on patient and decide on further course of action based on how he progresses from here. MMODL / IJN: [id number] /
--- NOTE | 2018-08-31 10:26 | ECHOF ---
Referral Reason:jonas MEASUREMENTS -------- HEIGHT: 182.9 cm WEIGHT: 108.9 kg BP: 153/103 RVIDd: 4.1 cm (< 3.3) IVSd: 1.5 cm (0.6 - 1.1) LVIDd: 5.4 cm (3.9 - 5.3) LVPWd: 1.4 cm (0.6 - 1.1) IVSs: 1.6 cm LVIDs: 5.0 cm LVPWs: 1.8 cm LA Diam: 4.2 cm (2.7 - 3.8) LAESV Index (A-L): 20.23 ml/m Ao Diam: 3.3 cm (2.0 - 3.7) AV Cusp: 2.3 cm (1.5 - 2.6) MV EXCURSION: 20.824 mm (> 18.000) MV EF SLOPE: 203 mm/s (70 - 150) EPSS: 1.5 cm RAP: 15.00 mmHg RVSP: 55.35 mmHg FINDINGS -------- Resting tachycardia (HR>100bpm). This was a technically good study. The left ventricular size is normal. There is moderate concentric left ventricular hypertrophy. O verall left ventricular systolic function is severely impaired with, an EF between 20 - 25 %. The right ventricle is moderately enlarged. The left atrium is mildly dilated. The right atrium is normal in size. Aortic valve is trileaflet and is mildly thickened. The mitral valve leaflets are mildly thickened. Mild mitral regurgitation is present. Moderate tricuspid regurgitation present. There is moderate to severe pulmonary hypertension. The right ventricular systolic pressure, as measured by Doppler, is 55.35mmHg. There is no pulmonic regurgitation present. The aortic root size is normal. The inferior vena cava is dilated with poor inspiratory collapse which is consistent with estimated r ight atrial pressure of 15 mmHg. There is a small pericardial effusion located near the left ventricle. CONCLUSIONS -------- 1. Resting tachycardia (HR>100bpm). 2. This was a technically good study. 3. The left ventricular size is normal. 4. There is moderate concentric left ventricular hypertrophy. 5. Overall left ventricular systolic function is severely impaired with, an EF between 20 - 25 %. 6. The right ventricle is moderately enlarged. 7. The left atrium is mildly dilated. 8. The right atrium is normal in size. 9. Aortic valve is trileaflet and is mildly thickened. 10. The mitral valve leaflets are mildly thickened. 11. Mild mitral regurgitation is present. 12. Moderate tricuspid regurgitation present. 13. There is moderate to severe pulmonary hypertension. 14. The right ventricular systolic pressure, as measured by Doppler, is 55.35mmHg. 15. There is no pulmonic regurgitation present. 16. The aortic root size is normal. 17. The inferior vena cava is dilated with poor inspiratory collapse which is consistent with estimat ed right atrial pressure of 15 mmHg. 18. There is a small pericardial effusion located near the left ventricle. RADIO[employer] PRODUCTION OPERATOR: Shanika Latif RDCS
--- NOTE | 2018-08-31 12:04 | CDI ---
Documentation Clarification Form Date: 08/31/2018 11:33:50 AM From: Christine Zapata RN, CCDS Admit Date: 08/30/2018 4:25:00 PM Patient Name: Zhang Marin Visit Number: [id number] Discharge Date: ATTENTION: The Clinical Documentation Specialists (CDI) and [facility] Coding Staff appreciate your assistance in clarifying documentation. Please respond to the clarification below the line at the bottom and electronically sign. The CDI & [facility] Coding staff will review the response and follow-up if needed. Please note: Queries are made part of the Legal Health Record. If you have any questions, please contact the author of this message via ITS. Dr. Ascencion Beckwith The patient presented with complaints of shortness of breath, dyspnea over past 4 days. History/Risk Factors: Hypertension, GERD, Crohn's, Family history of CAD Clinical Indicators: 42-year-old male reports some chest tightness associated with dyspnea, positional and exertional. Positive orthopnea. Patient also reports bilateral lower extremity swelling with 2+ pitting edema. Lab findings: Radiology findings: Vital Signs: 153/103 110 20 172/137 111 24, [id number] 113 22, 181/124 Treatment: Nitro bid oint Lopressor PO (now dc) Coreg PO Zestril PO Lasix IV Consults: Dr. Downey (Cardiology) The patient's clinical presentation is consistent with hypertensive heart disease with congestive heart failure secondary to dilated cardiomyopathy. 08/31/18 ... dilated cardiomyopathy secondary to long-standing uncontrolled hypertension. In your professional opinion, can you please further clarify severe, uncontrolled hypertension? Hypertension Urgency Hypertensive Emergency Other, please specify Unable to determine (Last Revision: August 2017) MTDD
[2018-08-31] MEDS: FUROSEMIDE 10 MG/ML 4 ML VIAL IV SCH ×2 (13:12→20:30)
[2018-08-31] MEDS: SPIRONOLACTONE 25 MG TAB PO SCH (13:13)
--- NOTE | 2018-08-31 15:38 | XR ---
EXAMINATION TYPE: XR foot complete LT DATE OF EXAM: 08/31/2018 COMPARISON: NONE HISTORY: Pain and swelling TECHNIQUE: Three views are submitted. FINDINGS: The osseous structures are intact. There is no acute fracture or dislocation. There is arthropathy . Diffuse soft tissue edema first digit. No destructive changes. Spurring involving the calcaneus not ed. IMPRESSION: 1. Diffuse soft tissue edema. Small ulceration under the base of the first toe plantar surface sugges vanessa. No destructive changes seen to confirm osteomyelitis.
[2018-08-31] MEDS ORDERED: ceFAZolin 2 GM in SODIUM CHLORIDE 0.9% 100 ML IVPB SCH (17:15)
[2018-08-31] MEDS: CARVEDILOL 3.125 MG TAB PO SCH (17:21)
--- NOTE | 2018-08-31 17:36 | P.PN ---
Subjective Progress Note Date: 08/31/18 This is a 42-year-old gentleman admitted with acute congestive heart failure, cardiomyopathy, pleural effusion, left great toe nonhealing wound and multiple other medical issues. EF 20-25%. Troponin 0.03, 0.03, 0.038. Drug screen tested positive for amphetamines, methamphetamines, benzodiazepines. Complaining of leg spasms possibly secondary to withdrawal. Evaluated by cardiology with recommendations noted. Cardiology discussing cardiac catheterization once heart failure improves. Continued to have significant shortness of breath this morning, beta john adjusted to Coreg, Lasix and MIKO inhibitor increased. Heparin drip being discontinued and converted to heparin subcu. Objective - Vital Signs Vital signs: Vital Signs Temp 97.4 F L 08/31/18 08:00 Pulse 100 08/31/18 14:35 Resp 20 08/31/18 14:35 BP 129/72 08/31/18 14:35 Pulse Ox 92 L 08/31/18 14:35 Intake & Output 08/30/18 08/31/18 08/31/18 18:59 06:59 18:59 Intake Total 93.618 1196.438 Balance 93.618 1196.438 Weight 104.553 kg 101 kg 101 kg Intake: Intake, IV Titration 93.618 118.438 Amount Heparin Sod,Pork in 0.45% 93.618 118.438 NaCl 25,000 unit In 0.45 % NaCl 1 250ml.bag @ 9. 186 UNITS/KG/HR 10 mls/hr IV .Q24H [facility] Rx#: [id number] Oral 1078 Other: Voiding Method Toilet # Voids 0 - Exam PHYSICAL EXAM: VITAL SIGNS: As above GENERAL: Sitting up in bed, no acute distress HEENT: Conjunctivae normal. eyes normal. Oral mucosa moist NECK: No JVD. No thyroid enlargement. No LNs CARDIOVASCULAR: S1, S2 regular. Systolic murmur, no rubs, no gallops. RESPIRATION: Breath sounds diminished in the bases. No rhonchi or crackles. ABDOMEN: Soft, nontender . No guarding. no masses palpable. No guarding or rigidity.Bowel sounds heard. LEGS: Bilateral lower extremity edema. PSYCHIATRY: Alert and oriented -3, mood and affect normal. NERVOUS SYSTEM: Cranial N 2-12 grossly normal. Moves all 4 limbs. Diffuse weakness No focal deficits. Skin: Left foot great toe, nonhealing wound on posterior aspect, nondraining, positive edema. Mild "cut appearance" on posterior right great toe posterior. - Labs CBC & Chem 7: 08/31/18 06:41 08/30/18 14:17 Labs: Abnormal Lab Results - Last 24 Hours (Table) 08/30/18 08/30/18 08/30/18 Range/Units 14:17 16:40 22:33 APTT 49.2 H (22.0-30.0) sec Hemoglobin A1c (4.0-6.0) % Troponin I 0.039 H* (0.000-0.034) ng/mL Ur Amphetamines Screen Detected H (NotDetected) U Methamphetamines Scrn Detected H (NotDetected) U Benzodiazepines Scrn Detected H (NotDetected) 08/30/18 08/31/18 08/31/18 Range/Units 22:33 06:41 06:41 APTT 35.7 H (22.0-30.0) sec Hemoglobin A1c 6.1 H (4.0-6.0) % Troponin I 0.038 H* (0.000-0.034) ng/mL Ur Amphetamines Screen (NotDetected) U Methamphetamines Scrn (NotDetected) U Benzodiazepines Scrn (NotDetected) Assessment and Plan Assessment: -Acute CHF exacerbation, systolic dysfunction, EF 20-25%, new-onset. Etiology unclear, possibly related to drug abuse. -Cardiomyopathy -Mild troponin elevation -Pleural effusions secondary to congestive heart failure -Left great toe nonhealing wound, rule out osteomyelitis. Hemoglobin A1c 6.1. -Hypertension Plan: Continue on current medication regime ,monitoring and symptomatic treatment. Continue on IV heparin drip protocol. X-ray of left foot, sed rate ordered. Infectious disease consulted for evaluation and wound care of left foot. Follow closely with cardiology. Further recommendations to follow. Prognosis guarded. The impression and plan of care has been dictated as directed. : I performed a history and examination of this patient, discussed the same with the dictator. I agree with the dictator's note ,documented as a scribe. Any additional findings or plans will be noted.
[2018-08-31] MEDS: ceFAZolin IN SWFI 2 GM/20 ML SYRINGE IVP SCH (18:59)
[2018-08-31] MEDS: HEPARIN SODIUM,PORCINE 5,000 UNIT/ML 1 ML VIAL SQ SCH (21:17)
[2018-09-01] MEDS: ACETAMINOPHEN TAB 325 MG TAB PO PRN ×3 (00:14→17:42)
[2018-09-01] MEDS: ceFAZolin IN SWFI 2 GM/20 ML SYRINGE IVP SCH ×4 (00:14→23:14)
--- NOTE | 2018-09-01 00:19 | CONS ---
CONSULTATION DATE OF SERVICE: 08/31/2018. REASON FOR CONSULTATION: Bilateral big toe plantar wounds. HISTORY OF PRESENT ILLNESS: The patient is a 42-year-old, male presenting to the ER at [facility] with chief complaints of increasing shortness of breath and chest pain has been mostly tightness. Denies significant cough or sputum production. No nausea, vomiting, or abdominal pain. With these symptoms, the patient has been evaluated by the ER physician. The patient did have a CT angiogram that has been negative for PE, large right left pleural effusion with diffuse interstitial pulmonary edema for which the patient currently being managed by the Cardiology team. The patient also noticed to have a bilateral big toe wounds most marked on the left foot that prompted this infectious disease consultation. Patient did mention that he did have a callus on the plantar aspect of his left big toe that he cut it off afterwards. He has this wound that has been there for more than a month now. The patient did have occasional dull aching pain 2 to 3 out of 10, and no radiation. The patient says it is worse at the end of the day after work and sometime it smells like raw meat with some drainage. The patient did have a swelling of his left big toe more with some erythema, but denies any high-grade fever rigors and chills. No abdominal pain or any diarrhea. The patient did have x-rays of his foot and left foot completed, which shows diffuse soft tissue edema with small laceration on the base of the 4th toe plantar surface . No destructive changes to suggest osteomyelitis. Infectious disease has been consulted for further recommendations regarding local wound care and antibiotic therapy. REVIEW OF SYSTEMS: Positive points have been mentioned in HPI. Other systems negative. PAST MEDICAL HISTORY: Hypertension, GI bleed, CAD, gastroesophageal reflux disease, history of Crohn's disease. PAST SURGICAL HISTORY: Appendectomy, bowel resection, hernia repair. SOCIAL HISTORY: No history of smoking. Rarely drinks. No drug use. FAMILY HISTORY: Father history of ND, at age of 54; mother history of coronary artery disease and hypertension. ALLERGIES: TO PENICILLIN childhood reaction. No clear history of anaphylaxis. MEDICATION: Medications include the patient is currently on Aldactone, Narcan, Zestril, heparin, Lasix, Coreg and Tylenol. PHYSICAL EXAMINATION: Blood pressure is 144/97 with a pulse of 99, temperature 98.4. He is 96% on room air. General description is a middle-aged male lying in bed in no distress. No tachypnea or accessory muscle of respiration use. HEENT: Shows no pallor or scleral icterus. Oral mucosa membranes is dry. No pharyngeal erythema or thrush. Neck: Trachea central. No thyromegaly. Lungs unlabored breathing. Clear to auscultation anteriorly. Heart S1, S2. Regular rate and rhythm. Abdomen soft. No tenderness. Extremities: No edema of the feet. Examination of the left big toe and the plantar aspect did have a chronic ulceration with some callus formation around the surrounding area with swelling and minimal redness to the dorsum of the left big toe. No foul smelling drainage. The wound base was clean. Culture was obtained. He did have similar wound on the plantar aspect of right big toe, however, not as severe deep breath left big toe. Neurological: Patient is awake, alert, oriented times three. Mood and affect normal. LABS: Hemoglobin is 15, white count 10.1, BUN of 16, creatinine 0.90. Electrolytes have been normal. Troponin has been elevated. UA is negative. Urine drug screen positive for amphetamines and benzos. DIAGNOSTIC IMPRESSION/PLAN: 1. Patient with chronic nonhealing wound on the plantar aspect of his left big toe with associated swelling and minimal redness of the dorsum of the left big toe. The left big toe is swollen and right big toe with concern for possible underlying deep infection or osteomyelitis, likely from a gram-positive skin andrew as this wound has been chronic there for more than a month. 2. Patient with wound on the plantar aspect of the right big toe with deep. No slough tissue or any cellulitis. 3. PENICILLIN ALLERGY that will limit the number of antibiotics that can be safe to use. PLAN: 1. We will obtain a bone scan left big toe to rule out underlying osteomyelitis. 2. Wound culture has been obtained, those will be followed to guide antibiotic therapy. 3. We will check CRP and sed rate. 4. We empirically add cefazolin 2 g q.8 hours. 5. We will follow up on clinical condition and culture to further adjust medication if needed. Thank you for this consultation. We will follow this patient along with you. MMODL / IJN: [id number] /
[2018-09-01] MEDS: FUROSEMIDE 10 MG/ML 4 ML VIAL IV SCH ×3 (04:30→20:05)
[2018-09-01] MEDS: CARVEDILOL 3.125 MG TAB PO SCH ×2 (06:44→17:42)
[2018-09-01 07:15] LABS: Basophils # (A) 0.1 k/uL (0-0.2); Basophils % (A) 1 %; Eosinophils # (A) 0.3 k/uL (0-0.7); Eosinophils % (A) 2 %; HCT 53.4 % (39.0-53.0); HGB 17.4 gm/dL (13.0-17.5); Lymphocytes # (A) 2.3 k/uL (1.0-4.8); Lymphocytes % (A) 19 %; MCH 28.8 pg (25.0-35.0); MCHC 32.7 g/dL (31.0-37.0); MCV 88.2 fL (80.0-100.0); Mean Platelet Volume 6.7; Monocytes % (A) 8 %; Neutrophils # (A) 8.6 k/uL (1.3-7.7); Neutrophils % (A) 69 %; Platelet Count 343 k/uL (150-450); RBC 6.05 m/uL (4.30-5.90); RDW 13.7 % (11.5-15.5); WBC 12.5 k/uL (3.8-10.6)
[2018-09-01 07:37] LABS: ALT 39 U/L (21-72); AST 32 U/L (17-59); Albumin 4.4 g/dL (3.5-5.0); Alkaline Phosphatase 95 U/L (38-126); Anion Gap 12 mmol/L; Blood Urea Nitrogen 19 mg/dL (9-20); Carbon Dioxide 29 mmol/L (22-30); Chloride 99 mmol/L (98-107); Glucose 131 mg/dL (74-99); Potassium 4.3 mmol/L (3.5-5.1); Sodium 140 mmol/L (137-145); Total Bilirubin 0.9 mg/dL (0.2-1.3)
[2018-09-01] MEDS: HEPARIN SODIUM,PORCINE 5,000 UNIT/ML 1 ML VIAL SQ SCH ×2 (08:29→20:05)
[2018-09-01] MEDS: SPIRONOLACTONE 25 MG TAB PO SCH (08:29)
[2018-09-01] MEDS: LISINOPRIL 5 MG TAB PO SCH (08:29)
[2018-09-01 09:02] LABS: C Reactive Protein 16.1 mg/L (<10.0)
[2018-09-01] MEDS ORDERED: ATORVASTATIN 80 MG TAB PO STA (09:51)
[2018-09-01] MEDS ORDERED: ALPRAZolam 0.5 MG TAB PO PRN (09:51)
[2018-09-01] MEDS ORDERED: SODIUM CHLORIDE 0.9% 1,000 ML in EMPTY BAG 1 BAG IV ONE (09:51)
[2018-09-01] MEDS ORDERED: ALPRAZolam 0.25 MG TAB PO PRN (09:51)
[2018-09-01] MEDS ORDERED: NITROGLYCERIN SL TABS 0.4 MG TAB SUBLINGUAL PRN (09:51)
[2018-09-01] MEDS ORDERED: ASPIRIN 325 MG TAB PO STA (09:51)
--- NOTE | 2018-09-01 10:36 | XR ---
EXAMINATION TYPE: XR chest 1V portable DATE OF EXAM: 09/01/2018 COMPARISON: 08/30/2018 HISTORY: Chest pain TECHNIQUE: Single frontal view of the chest is obtained. FINDINGS: Patchy right lower lobe infiltrate noted. Chronic elevation right hemidiaphragm. The cardiac silhouette size is within normal limits. The osseous structures are intact. IMPRESSION: 1. Patchy right lower lobe infiltrate noted. Chronic elevation right hemidiaphragm.
--- NOTE | 2018-09-01 11:36 | NM ---
EXAMINATION TYPE: NM bone 3 phase DATE OF EXAM: 09/01/2018 COMPARISON: X-ray 08/31/2018 HISTORY: Wound left great toe Triple phase bone scintigraphy was performed following the injection of 21.3 mCi Tc 99m MDP. Immedia te images and 3.5 hours post injection images acquired. FINDINGS: There is increased perfusion to the left great toe. There is increased soft tissue uptake. There is increased uptake in the distal phalanx of the left toe. Abnormal uptake involving the right first digit also incidentally noted which is nonspecific. IMPRESSION: 1. Cellulitis left first digit with findings suggestive of osteomyelitis distal phalanx left first di git.
[2018-09-01] MEDS ORDERED: IV FLUID CONTINUATION 950 ML IV ONE (13:30)
[2018-09-01] MEDS ORDERED: fentaNYL (PF) 50 MCG/ML 2 ML AMP IV ONE (13:47)
[2018-09-01] MEDS ORDERED: MIDAZOLAM 2 MG/2 ML VIAL IV ONE (13:47)
[2018-09-01] MEDS ORDERED: LIDOCAINE 1% INJ 10MG/ML (20 ML MDV) SQ ONE (13:51)
[2018-09-01] MEDS ORDERED: IOPAMIDOL-370 100ML BTL INJ ONE (14:03)
[2018-09-01] MEDS ORDERED: IOPAMIDOL-370 50ML BTL INJ ONE (14:03)
--- NOTE | 2018-09-01 14:07 | P.PN ---
Subjective Progress Note Date: 09/01/18 This is a 42-year-old gentleman with history of hypertension who presented to the hospital initially with symptoms of shortness of breath with associated leg edema. He had not been feeling well for at least 2 weeks, actually upon speaking with him he states that he has not been feeling well for several mo nths. He was found to be in congestive heart failure and was treated with IV Lasix. The patient had an echocardiogram with Doppler study performed which revealed an ejection fraction of 20-25%, moderate tricuspid regurg and moderate to severe pulmonary hypertension. He has diuresed well over the past couple of days. It was explained to the patient that he would need a cardiac catheterization to rule out underlying coronary artery disease, the risks and the benefits were explained to the patient, and he is willing to proceed. This will be performed today by Dr. Downey. Objective - Vital Signs Vital signs: Vital Signs Temp 97.9 F 09/01/18 12:00 Pulse 100 09/01/18 12:00 Resp 20 09/01/18 12:00 BP 135/89 09/01/18 12:00 Pulse Ox 96 09/01/18 12:00 Intake & Output 08/31/18 09/01/18 09/01/18 18:59 06:59 18:59 Intake Total 1418.438 750 Output Total 2600 700 Balance 1418.438 -1850 -700 Weight 101 kg 96.7 kg Intake: Intake, IV Titration 118.438 Amount Heparin Sod,Pork in 0.45% 118.438 NaCl 25,000 unit In 0.45 % NaCl 1 250ml.bag @ 9. 186 UNITS/KG/HR 10 mls/hr IV .Q24H [facility] Rx#: [id number] Oral 1300 750 Output: Urine 2600 700 Other: Voiding Method Toilet Toilet # Voids 2 - Exam PHYSICAL EXAMINATION: GENERAL: 42-year-old gentleman in no acute distress at the time of my examination HEENT: Head is atraumatic, normocephalic. Pupils equal, round. Sclera anicteric. Conjunctiva are clear. Mucous membranes of the mouth are moist. Neck is supple. There is no elevated jugular venous pressure. No carotid bruit is heard. HEART EXAMINATION: Heart S1, S2 normal. No murmur or gallop heard. CHEST EXAMINATION: Lungs are clear to auscultation and precussion. No chest wall tenderness is noted on palpation or with deep breathing. ABDOMEN: Soft, nontender. Bowel sounds are heard. No organomegaly noted. EXTREMITIES: 2+ peripheral pulses with no evidence of peripheral edema and no calf tenderness noted. NEUROLOGIC patient is awake, alert and oriented 3. . - Labs CBC & Chem 7: 09/01/18 06:52 09/01/18 06:52 Labs: Abnormal Lab Results - Last 24 Hours (Table) 09/01/18 09/01/18 Range/Units 06:52 06:52 WBC 12.5 H (3.8-10.6) k/uL RBC 6.05 H (4.30-5.90) m/uL Hct 53.4 H (39.0-53.0) % Neutrophils # 8.6 H (1.3-7.7) k/uL Glucose 131 H (74-99) mg/dL C-Reactive Protein 16.1 H (<10.0) mg/L Microbiology - Last 24 Hours (Table) 08/31/18 17:12 Gram Stain - Preliminary Toe - Left First Wound Culture - Preliminary Assessment and Plan Plan: Assessment and plan #1 systolic congestive heart failure acute on chronic #2 hypertension Plan Patient will undergo cardiac catheterization today, risks and benefits were explained to him in detail, further recommendations will be made depending on the findings. DNP note has been reviewed, I agree with a documented findings and plan of care. Patient was seen and examined.
[2018-09-01] MEDS ORDERED: RX INFO: IV CONTRAST WAS GIVEN 1 EACH MISC MISCELLANE PRN (14:16)
--- NOTE | 2018-09-01 15:03 | P.CNPUL ---
History of Present Illness Consult date: 08/31/18 (Late entry note) Reason for consult: dyspnea, pleural effusion, obstructive sleep apnea Chief complaint: Increasing shortness of breath History of present illness: This is a 42-year-old male who was admitted into the hospital with increased shortness of breath off acute of chronic duration she is been short of breath for relatively long time but it comes to appointment that in last 3 or 4 days breathing has been difficult he has component orthopnea and PND came into the hospital for further evaluation and echocardiogram revealed ejection fraction only 20-25% he was hypertensive on arrival his chest computed tomography scan was negative for pulmonary embolism but however did reveal bilateral moderate right pleural effusion and a small left pleural effusion Review of Systems All systems: negative Past Medical History Past Medical History: GERD/Reflux, GI Bleed, Hypertension Additional Past Medical History / Comment(s): Partial bowel obstruction secondary to adhesions, Crohn's, ileorectal anastomotic stricture, cervical pain-ruptured disc., ileus, enteritis History of Any Multi-Drug Resistant Organisms: None Reported Past Surgical History: Appendectomy, Bowel Resection, Hernia Repair Additional Past Surgical History / Comment(s): Lucio. bowel resection in 1993, lysis of adhesions, partial omentectomy and repair of incisional hernia August [address] Calzada, decompressive colonoscopy in May [address] Calzada, EGD and multiple colonoscopies, Epidural injections to neck- last one on 04/2015. Past Anesthesia/Blood Transfusion Reactions: No Reported Reaction Additional Past Anesthesia/Blood Transfusion Reaction / Comment(s): Pt has never recieved blood. Past Psychological History: Anxiety, Depression Additional Psychological History / Comment(s): PT lives with HS MOM AND A 12 yr old son. Pt is independent. He drives a car. He is NOT CURRENTLY WORKING. Smoking Status: Never smoker Past Alcohol Use History: Rare Past Drug Use History: None Reported Additional Drug Use History / Comment(s): SMOKED MARJIUANA DAILY- USES FOR CHRONS AND NECK PAIN - Past Family History Father Family Medical History: Myocardial Infarction ([place]) Additional Family Medical History / Comment(s): AT [age]GGE 54- HIS 4TH [place] Mother Family Medical History: Coronary Artery Disease (CAD), Hypertension Additional Family Medical History / Comment(s): MOM IS AGE 63, HAS STENTS Medications and Allergies Home Medications Medication Instructions Recorded Confirmed Type No Known Home Medications 08/30/18 08/30/18 History Allergies Allergy/AdvReac Type Severity Reaction Status Date / Time Penicillins Allergy Unknown Verified 08/30/18 13:58 Childhood Physical Exam Vitals: Vital Signs Temp Pulse Resp BP BP BP Pulse Ox 09/01/18 12:00 97.9 F 100 20 135/89 96 09/01/18 08:20 98.3 F 103 H 20 151/103 96 09/01/18 04:00 98.5 F 106 H 20 157/99 96 09/01/18 00:00 98.3 F 102 H 20 146/89 95 08/31/18 20:00 98.4 F 99 20 144/97 96 Intake and Output 08/31/18 09/01/18 09/01/18 22:59 06:59 14:59 Intake Total 372 600 100 Output Total 2600 700 Balance 372 -2000 -600 Intake: IV 100 Oral 372 600 Output: Urine 2600 700 Other: Voiding Method Toilet Toilet Toilet # Voids 2 2 Weight 96.7 kg - Constitutional General appearance: average body habitus, mild distress - EENT Eyes: anicteric sclerae, PERRLA, normal appearance ENT: normal oropharynx - Neck Neck: normal ROM Carotids: bilateral: upstroke diminished, bruit absent Thyroid: bilateral: normal size - Respiratory Respiratory: bilateral: CTA, diminished, rales, negative: dullness, rhonchi, wheezing, prolonged expiration, prolonged inspiration - Cardiovascular Rhythm: regular Heart sounds: normal: S1, S2 - Gastrointestinal General gastrointestinal: decreased bowel sounds, soft - Neurologic Neurologic: CNII-XII intact - Musculoskeletal Musculoskeletal: gait normal, generalized weakness, strength equal bilaterally - Psychiatric Psychiatric: A&O x's 3, appropriate affect, intact judgment & insight Nonhealing wound in the left toe Results - Laboratory Findings CBC and BMP: 09/01/18 06:52 09/01/18 06:52 PT/INR, D-dimer PT 11.0 sec (9.0-12.0) 08/30/18 14:17 INR 1.0 (<1.2) 08/30/18 14:17 D-Dimer 0.53 mg/L FEU (<0.60) 08/30/18 14:17 Abnormal lab findings: Abnormal Labs 08/30/18 08/30/18 08/30/18 14:17 14:17 16:40 WBC RBC Hct Neutrophils # APTT Glucose 177 H Hemoglobin A1c Troponin I 0.039 H* C-Reactive Protein Ur Amphetamines Screen Detected H U Methamphetamines Scrn Detected H U Benzodiazepines Scrn Detected H 08/30/18 08/30/18 08/31/18 22:33 22:33 06:41 WBC RBC Hct Neutrophils # APTT 49.2 H 35.7 H Glucose Hemoglobin A1c 6.1 H Troponin I C-Reactive Protein Ur Amphetamines Screen U Methamphetamines Scrn U Benzodiazepines Scrn 08/31/18 09/01/18 09/01/18 06:41 06:52 06:52 WBC 12.5 H RBC 6.05 H Hct 53.4 H Neutrophils # 8.6 H APTT Glucose 131 H Hemoglobin A1c Troponin I 0.038 H* C-Reactive Protein 16.1 H Ur Amphetamines Screen U Methamphetamines Scrn U Benzodiazepines Scrn - Diagnostic Findings Chest x-ray: report reviewed, image reviewed CT scan - chest: report reviewed, image reviewed (Finding as noted above) Assessment and Plan Assessment: Acute exacerbation of heart failure acute on chronic systolic heart failure Shortness of breath related to above Bilateral pleural effusion right more than left Hypertension hypertensive cardiovascular disease Doubt pneumonia Left toe nonhealing infection agree with infectious disease evaluation Plan: Optimize cardiac therapy Will observe pleural effusion No plans for thoracentesis Patient will get a sleep study on outpatient Broad-spectrum antibiotics for big toe left side Time with Patient: Greater than 30
--- NOTE | 2018-09-01 15:07 | P.PN ---
Subjective Progress Note Date: 09/01/18 Principal diagnosis: Bilateral pleural effusion, nonhealing left big toe infection, cardiomyopathy ischemic, sleep disorder breathing and sleep apnea 09/01/2018, patient seen and evaluated during the rounds shortness of breath is stable but is still present on exertion and activity, today's x-ray reviewed pleural effusion has improved significantly, patient has history of snoring and sleep apnea This is a 42-year-old male who was admitted into the hospital with increased sh ortness of breath off acute of chronic duration she is been short of breath for relatively long time but it comes to appointment that in last 3 or 4 days breathing has been difficult he has component orthopnea and PND came into the hospital for further evaluation and echocardiogram revealed ejection fraction only 20-25% he was hypertensive on arrival his chest computed tomography scan was negative for pulmonary embolism but however did reveal bilateral moderate right pleural effusion and a small left pleural effusion Objective - Vital Signs Vital signs: Vital Signs Temp 97.9 F 09/01/18 12:00 Pulse 100 09/01/18 12:00 Resp 20 09/01/18 12:00 BP 135/89 09/01/18 12:00 Pulse Ox 96 09/01/18 12:00 Intake & Output 08/31/18 09/01/18 09/01/18 18:59 06:59 18:59 Intake Total 1418.438 750 100 Output Total 2600 700 Balance 1418.438 -1850 -600 Weight 101 kg 96.7 kg Intake: IV 100 Intake, IV Titration 118.438 Amount Heparin Sod,Pork in 0.45% 118.438 NaCl 25,000 unit In 0.45 % NaCl 1 250ml.bag @ 9. 186 UNITS/KG/HR 10 mls/hr IV .Q24H [facility] Rx#: [id number] Oral 1300 750 Output: Urine 2600 700 Other: Voiding Method Toilet Toilet # Voids 2 - Exam - Constitutional General appearance: average body habitus, mild distress - EENT Eyes: anicteric sclerae, PERRLA, normal appearance ENT: normal oropharynx - Neck Neck: normal ROM Carotids: bilateral: upstroke diminished, bruit absent Thyroid: bilateral: normal size - Respiratory Respiratory: bilateral: CTA, diminished, rales, negative: dullness, rhonchi, wheezing, prolonged expiration, prolonged inspiration - Cardiovascular Rhythm: regular Heart sounds: normal: S1, S2 - Gastrointestinal General gastrointestinal: decreased bowel sounds, soft - Neurologic Neurologic: CNII-XII intact - Musculoskeletal Musculoskeletal: gait normal, generalized weakness, strength equal bilaterally - Psychiatric Psychiatric: A&O x's 3, appropriate affect, intact judgment & insight Nonhealing wound in the left toe - Labs CBC & Chem 7: 09/01/18 06:52 09/01/18 06:52 Labs: Abnormal Lab Results - Last 24 Hours (Table) 09/01/18 09/01/18 Range/Units 06:52 06:52 WBC 12.5 H (3.8-10.6) k/uL RBC 6.05 H (4.30-5.90) m/uL Hct 53.4 H (39.0-53.0) % Neutrophils # 8.6 H (1.3-7.7) k/uL Glucose 131 H (74-99) mg/dL C-Reactive Protein 16.1 H (<10.0) mg/L Microbiology - Last 24 Hours (Table) 08/31/18 17:12 Gram Stain - Preliminary Toe - Left First Wound Culture - Preliminary Assessment and Plan Assessment: Acute exacerbation of heart failure acute on chronic systolic heart failure Shortness of breath related to above Bilateral pleural effusion right more than left Hypertension hypertensive cardiovascular disease Doubt pneumonia Sleep disorder breathing and sleep apnea Left toe nonhealing infection agree with infectious disease evaluation Plan: Optimize cardiac therapy Will observe pleural effusion No plans for thoracentesis Patient will get a sleep study on outpatient Broad-spectrum antibiotics for big toe left side Time with Patient: Greater than 30
--- NOTE | 2018-09-01 17:22 | P.GSCN ---
History of Present Illness Consult date: 09/01/18 Reason for Consult: Ulcers bilateral great toes Requesting physician: Ascencion Beckwith History of present illness: This patient has had progressive ulcerations mainly the left great toe for weeks. He has a neuropathy which he states is related to some neck issue. He is a nondiabetic and a nonsmoker. Review of Systems All systems: negative - Constitutional Denies fever, Denies weight loss - EENT Eyes: denies blurred vision Ears, nose, mouth and throat: Denies dysphagia - Cardiovascular Reports decreased exercise tolerance, Reports dyspnea on exertion, Denies chest pain, Denies orthopnea, Denies paroxysmal nocturnal dyspnea, Denies shortness of breath - Respiratory Reports dyspnea, Denies cough - Gastrointestinal Reports as per HPI - Genitourinary Denies dysuria, Denies hematuria - Integumentary Denies rash, Denies unusual bruising - Neurological Denies headaches, Denies syncope - Hematologic/Lymphatic Denies easy bleeding, Denies easy bruising Past Medical History Past Medical History: GERD/Reflux, GI Bleed, Hypertension Additional Past Medical History / Comment(s): Partial bowel obstruction secondary to adhesions, Crohn's, ileorectal anastomotic stricture, cervical pain-ruptured disc., ileus, enteritis History of Any Multi-Drug Resistant Organisms: None Reported Past Surgical History: Appendectomy, Bowel Resection, Hernia Repair Additional Past Surgical History / Comment(s): Lucio. bowel resection in 1993, lysis of adhesions, partial omentectomy and repair of incisional hernia August [address] Calzada, decompressive colonoscopy in May [address] Calzada, EGD and multiple colonoscopies, Epidural injections to neck- last one on 04/2015. Past Anesthesia/Blood Transfusion Reactions: No Reported Reaction Additional Past Anesthesia/Blood Transfusion Reaction / Comm: Pt has never re cieved blood. Past Psychological History: Anxiety, Depression Additional Psychological History / Comment(s): PT lives with HS MOM AND A 12 yr old son. Pt is independent. He drives a car. He is NOT CURRENTLY WORKING. Smoking Status: Never smoker Past Alcohol Use History: Rare Past Drug Use History: None Reported Additional Drug Use History / Comment(s): SMOKED MARJIUANA DAILY- USES FOR CHRONS AND NECK PAIN - Past Family History Father Family Medical History: Myocardial Infarction ([place]) Additional Family Medical History / Comment(s): AT [age]GGE 54- HIS 4TH [place] Mother Family Medical History: Coronary Artery Disease (CAD), Hypertension Additional Family Medical History / Comment(s): MOM IS AGE 63, HAS STENTS Medications and Allergies Home Medications Medication Instructions Recorded Confirmed Type No Known Home Medications 08/30/18 08/30/18 History Allergies Allergy/AdvReac Type Severity Reaction Status Date / Time Penicillins Allergy Unknown Verified 08/30/18 13:58 Childhood Surgical - Exam Osteopathic Statement: *. No significant issues noted on an osteopathic s tructural exam other than those noted in the History and Physical/Consult. Vital Signs Temp Pulse Resp BP Pulse Ox 98.4 F 110 H 20 153/103 96 08/30/18 13:05 08/30/18 13:05 08/30/18 13:05 08/30/18 13:05 08/30/18 13:05 - General well developed, well nourished, no distress - Eyes normal ocular movement, no icteric - ENT no hearing loss, no congestion - Neck no masses, trachea midline - Respiratory Decreased breath sounds right base normal respiratory effort, clear to auscultation - Abdomen Abdomen: soft, non tender, no guarding, no rigid, no rebound - Integumentary 1.3 x 1.2 cm ulcer at the base of the plantar aspect of the right great toe. There are rolled skin edges and a necrotic base. no rash, no abnormal pigmentation - Neurologic no disoriented, no combative - Psychiatric oriented to time, oriented to person, oriented to place, speech is normal, memory intact Results - Labs 09/01/18 06:52 09/01/18 06:52 Abnormal Lab Results - Last 24 Hours (Table) 09/01/18 09/01/18 Range/Units 06:52 06:52 WBC 12.5 H (3.8-10.6) k/uL RBC 6.05 H (4.30-5.90) m/uL Hct 53.4 H (39.0-53.0) % Neutrophils # 8.6 H (1.3-7.7) k/uL Glucose 131 H (74-99) mg/dL C-Reactive Protein 16.1 H (<10.0) mg/L Microbiology - Last 24 Hours (Table) 08/31/18 17:12 Gram Stain - Preliminary Toe - Left First Wound Culture - Preliminary Diabetes panel 09/01/18 Range/Units 06:52 Sodium 140 (137-145) mmol/L Potassium 4.3 (3.5-5.1) mmol/L Chloride 99 (98-107) mmol/L Carbon Dioxide 29 (22-30) mmol/L BUN 19 (9-20) mg/dL Creatinine 1.16 (0.66-1.25) mg/dL Glucose 131 H (74-99) mg/dL Calcium 10.0 (8.4-10.2) mg/dL AST 32 (17-59) U/L ALT 39 (21-72) U/L Alkaline Phosphatase 95 (38-126) U/L Total Protein 8.0 (6.3-8.2) g/dL Albumin 4.4 (3.5-5.0) g/dL Calcium panel 09/01/18 Range/Units 06:52 Calcium 10.0 (8.4-10.2) mg/dL Albumin 4.4 (3.5-5.0) g/dL Pituitary panel 09/01/18 Range/Units 06:52 Sodium 140 (137-145) mmol/L Potassium 4.3 (3.5-5.1) mmol/L Chloride 99 (98-107) mmol/L Carbon Dioxide 29 (22-30) mmol/L BUN 19 (9-20) mg/dL Creatinine 1.16 (0.66-1.25) mg/dL Glucose 131 H (74-99) mg/dL Calcium 10.0 (8.4-10.2) mg/dL Adrenal panel 09/01/18 Range/Units 06:52 Sodium 140 (137-145) mmol/L Potassium 4.3 (3.5-5.1) mmol/L Chloride 99 (98-107) mmol/L Carbon Dioxide 29 (22-30) mmol/L BUN 19 (9-20) mg/dL Creatinine 1.16 (0.66-1.25) mg/dL Glucose 131 H (74-99) mg/dL Calcium 10.0 (8.4-10.2) mg/dL Total Bilirubin 0.9 (0.2-1.3) mg/dL AST 32 (17-59) U/L ALT 39 (21-72) U/L Alkaline Phosphatase 95 (38-126) U/L Total Protein 8.0 (6.3-8.2) g/dL Albumin 4.4 (3.5-5.0) g/dL Assessment and Plan (1) Neuropathic ulcer of toe of left foot with fat layer exposed Current Visit: Yes Status: Acute Code(s): L97.522 - NON-PRS CHRONIC ULCER OTH PRT LEFT FOOT W FAT LAYER EXPOSED SNOMED Code(s): 13197783 (2) Osteomyelitis of toe of left foot Current Visit: Yes Status: Acute Code(s): M86.9 - OSTEOMYELITIS, UNSPECIFIED SNOMED Code(s): 2026585576452131 Plan: This patient has a chronic neuropathic ulcer on the plantar left great toe. He has a fairly mild decrease of an ulcer on the right great toe. The patient has bounding bilateral pedal pulses. Recommendation: I discussed with the patient need for debridement. We will then recommend Santyl as a wound treatment. I will leave antibiotics to internal medicine. His bone scan suggests osteomyelitis. Physically the bone does not appear to be dramatically involved. With progressive debridements and the use of Santyl we will either get a granulating bed or at some point we may require amputation of the great toe. From this point forward he must be absolutely nonweightbearing on that left foot. I have discussed this with him. If he does not comply he will certainly require amputation of the left great toe. I appreciate 3 ports position was care.
--- NOTE | 2018-09-01 17:32 | PCM.SQDEBR ---
Subcutaneous Debridement - Subcutaneous Debridement Subcutaneous Debridement: Date of service: 09/01/2018 Surgeon: [place] Pre-and postop diagnosis: Neuropathic ulcer left great toe Type of debridement: Excisional surgical subcutaneous Chief complaint: ulcer of plantar left great toe Anesthesia: None required due to neuropathy Signs of infection: Nonviable tissue Other material in the wound that is expected to inhibit healing or promote adjacent tissue breakdown: As noted below Degree of epithelialization: % Method and instrument: Surgical debridement with scalpel Character of the wound after debridement: Clean bloody subcutaneous bed with smooth surrounding skin edges Description of necrotic material present: Rolled skin edges, nonviable soft tissue Description of tissue removed: Same Pre-debridement measurement: 1.6 x 1.5 cm and 0.1 cm in depth Postoperative debridement measurement: 2.2 x 2.1 cm and 0.3 cm in depth Specimens none sent Control of bleeding:Bleeding was easily controlled with saline moistened gauze and light pressure Post debridement dressing: Aquasol silver Patient tolerated procedure well
--- NOTE | 2018-09-01 17:56 | PN ---
PROGRESS NOTE DATE OF SERVICE: 09/01/2018. REASON FOR FOLLOWUP: Left big toe wound and a question of osteomyelitis. INTERVAL HISTORY: The patient is currently afebrile. The patient is breathing comfortably. Denies having any chest pain. No cough. No abdominal pain. No pain to the left big toe wound area. PHYSICAL EXAMINATION: Blood pressure is 124/83 with a pulse of 87. Temperature is 97.6. He is 95% on room air. General description is a middle-aged male lying in bed in no distress. Respiratory system: Unlabored breathing, clear to auscultation anteriorly. Heart S1, S2. Regular rate and rhythm. Abdomen soft, no tenderness. Left big toe is currently dressed up. No obvious drainage on the dressing. LABS: Hemoglobin 13.4, white count 12.5, . CRP 16.1. The bone scan has been suspicious for osteomyelitis. Wound cultures currently pending. DIAGNOSTIC IMPRESSION AND PLAN: Patient with chronic non-healing wound to the left big toe plantar aspect with cellulitis, now with evidence of secondary osteomyelitis. We will wait for the wound culture to finalize. The patient likely will need a PICC line, IV antibiotic therapy with underlying osteomyelitis. Local wound care with Aquacel Silver packing of the wound and re-evaluate the patient tomorrow. Continue supportive care. MMODL / IJN: [id number] /
--- NOTE | 2018-09-01 18:35 | P.PN ---
Subjective Progress Note Date: 09/01/18 This is a 42-year-old gentleman admitted with acute congestive heart failure, cardiomyopathy, pleural effusion, left great toe nonhealing wound and multiple other medical issues. EF 20-25%. Troponin 0.03, 0.03, 0.038. Drug screen tested positive for amphetamines, methamphetamines, benzodiazepines. Complaining of leg spasms possibly secondary to withdrawal. Evaluated by cardiology with recommendations noted. Cardiology discussing cardiac catheterization once heart failure improves. Continued to have significant shortness of breath this morning, beta john adjusted to Coreg, Lasix and MIKO inhibitor increased. Heparin drip being discontinued and converted to heparin subcu. 09/01/2018 diuresing well on Lasix IVP with 24-hour I&O reflecting a negative fluid balance. Breathing significantly improved and patient is scheduled for cardiac catheterization today. Maintained on IV antibiotics as per infectious disease. Bone scan suggestive of osteomyelitis. Wound cultures pending. Vascular surgery consulted for potential debridement .Denies pain of left toe wound site. Afebrile. Chest x-ray noted. Evaluated by pulmonary, no plans for thoracentesis. Objective - Vital Signs Vital signs: Vital Signs Temp 97.6 F 09/01/18 15:10 Pulse 94 09/01/18 18:03 Resp 20 09/01/18 18:03 BP 120/76 09/01/18 18:03 Pulse Ox 93 L 09/01/18 18:03 Intake & Output 08/31/18 09/01/18 09/01/18 18:59 06:59 18:59 Intake Total 1418.438 750 460 Output Total 2600 2300 Balance 1418.438 -1850 -1840 Weight 101 kg 96.7 kg Intake: IV 100 Intake, IV Titration 118.438 Amount Heparin Sod,Pork in 0.45% 118.438 NaCl 25,000 unit In 0.45 % NaCl 1 250ml.bag @ 9. 186 UNITS/KG/HR 10 mls/hr IV .Q24H LOUIE Rx#: [id number] Oral 1300 750 360 Output: Urine 2600 2300 Other: Voiding Method Toilet Urinal # Voids 2 - Exam PHYSICAL EXAM: VITAL SIGNS: As above GENERAL: Sitting up in bed, no acute distress HEENT: Conjunctivae normal. eyes normal. Oral mucosa moist NECK: No JVD. No thyroid enlargement. No LNs CARDIOVASCULAR: S1, S2 regular. Systolic murmur, no rubs, no gallops. RESPIRATION: Unlabored, Breath sounds diminished in the bases. No rhonchi or crackles. ABDOMEN: Soft, nontender . No guarding. no masses palpable. No guarding or rigidity.Bowel sounds heard. LEGS: No edema, no swelling, PSYCHIATRY: Alert and oriented -3, mood and affect normal. NERVOUS SYSTEM: Cranial N 2-12 grossly normal. Moves all 4 limbs. Diffuse weakness, No focal deficits. Skin: Left foot great toe, dressing clean dry and intact. - Labs CBC & Chem 7: 09/01/18 06:52 09/01/18 06:52 Labs: Abnormal Lab Results - Last 24 Hours (Table) 09/01/18 09/01/18 Range/Units 06:52 06:52 WBC 12.5 H (3.8-10.6) k/uL RBC 6.05 H (4.30-5.90) m/uL Hct 53.4 H (39.0-53.0) % Neutrophils # 8.6 H (1.3-7.7) k/uL Glucose 131 H (74-99) mg/dL C-Reactive Protein 16.1 H (<10.0) mg/L Microbiology - Last 24 Hours (Table) 08/31/18 17:12 Gram Stain - Preliminary Toe - Left First Wound Culture - Preliminary Assessment and Plan Assessment: -Acute CHF exacerbation, systolic dysfunction, EF 20-25%, new-onset. Etiology unclear, possibly related to drug abuse. -Cardiomyopathy -Mild troponin elevation -Pleural effusions secondary to congestive heart failure, right greater than left -Left great toe nonhealing wound, bone scan and suggests osteomyelitis. Hemoglobin A1c 6.1. -Hypertension -Probably obstructive sleep apnea, recommend outpatient sleep study. Plan: Continue on current medication regime ,monitoring and symptomatic treatment. Cardiac catheterization pending. Antibiotics as per infectious disease. Potential debridement by vascular surgery. Probably will need a PICC line,.staff to check with infectious disease and arrange for PICC line placement tomorrow if needed. Drug abuse cessation rediscussed. Outpatient sleep study rediscussed .Prognosis guarded. The impression and plan of care has been dictated as directed. : I performed a history and examination of this patient, discussed the same with the dictator. I agree with the dictator's note ,documented as a scribe. Any additional findings or plans will be noted.
--- NOTE | 2018-09-01 19:41 | CC ---
CARDIAC CATHETERIZATION REPORT CARDIAC CATHETERIZATION: INDICATION: Cardiomyopathy with congestive heart failure. PROCEDURE NOTE: After obtaining informed consent, left heart catheterization and coronary angiogram were performed via the right femoral artery using standard [place] catheters. Patient tolerated the procedure well without any obvious immediate complications. He received moderate conscious sedation. Total sedation time was 12 minutes. Patient underwent a femoral angiogram and Angio-Seal was deployed for hemostasis. FINDINGS: HEMODYNAMICS: Left ventricular end-diastolic pressure is 16 mm. There is no significant gradient across the aortic valve. LEFT VENTRICULOGRAM: Left angiogram was performed in PEREZ position and shows a dilated left ventricle with severe LV dysfunction with an ejection fraction of 25-30 percent. There is 1 to 2+ mitral regurgitation noted. ANGIOGRAPHIC DATA: LEFT MAIN CORONARY ARTERY: Left main coronary artery is a normal-sized vessel and is free of stenosis. Divides into left anterior descending coronary artery and circumflex coronary artery. LEFT ANTERIOR DESCENDING CORONARY ARTERY: LAD and its branches, circumflex coronary artery and its branches are free of significant stenosis. RIGHT CORONARY ARTERY: Right coronary artery is a dominant vessel and is free of significant disease. CONCLUSIONS: 1. Dilated cardiomyopathy with severe LV dysfunction. 2. Normal coronaries. PLAN: I reviewed angiographic data with the patient and told him that his cardiomyopathy probably related to uncontrolled hypertension. We will treat him with optimal medical therapy, reassess the LV function over the next several months. If he continues to have LV systolic dysfunction, he may need prophylactic AICD. HAMMAD / BRYAN: [id number] /
[2018-09-02] MEDS: ACETAMINOPHEN TAB 325 MG TAB PO PRN ×3 (00:24→23:22)
[2018-09-02] MEDS: FUROSEMIDE 10 MG/ML 4 ML VIAL IV SCH ×3 (03:19→20:07)
[2018-09-02] MEDS: CARVEDILOL 3.125 MG TAB PO SCH ×2 (06:26→17:01)
[2018-09-02 07:25] LABS: Basophils # (A) 0.1 k/uL (0-0.2); Basophils % (A) 1 %; Eosinophils # (A) 0.3 k/uL (0-0.7); Eosinophils % (A) 3 %; HCT 54.5 % (39.0-53.0); HGB 17.6 gm/dL (13.0-17.5); Lymphocytes # (A) 2.3 k/uL (1.0-4.8); Lymphocytes % (A) 21 %; MCH 28.8 pg (25.0-35.0); MCHC 32.3 g/dL (31.0-37.0); MCV 88.9 fL (80.0-100.0); Mean Platelet Volume 6.9; Monocytes # (A) 0.9 k/uL (0-1.0); Monocytes % (A) 8 %; Neutrophils # (A) 7.1 k/uL (1.3-7.7); Neutrophils % (A) 64 %; Platelet Count 343 k/uL (150-450); RBC 6.13 m/uL (4.30-5.90); RDW 13.7 % (11.5-15.5)
[2018-09-02 07:52] LABS: Calcium 9.7 mg/dL (8.4-10.2)
[2018-09-02] MEDS: LISINOPRIL 5 MG TAB PO SCH (08:34)
[2018-09-02] MEDS: HEPARIN SODIUM,PORCINE 5,000 UNIT/ML 1 ML VIAL SQ SCH ×2 (08:34→20:07)
[2018-09-02] MEDS: SPIRONOLACTONE 25 MG TAB PO SCH (08:34)
[2018-09-02] MEDS: ceFAZolin IN SWFI 2 GM/20 ML SYRINGE IVP SCH ×3 (09:03→23:20)
--- NOTE | 2018-09-02 10:33 | P.PN ---
Subjective Progress Note Date: 09/02/18 Principal diagnosis: Bilateral pleural effusion, nonhealing left big toe infection, cardiomyopathy ischemic, sleep disorder breathing and sleep apnea 09/02/2018, patient seen and evaluated examined during the rounds clinically doing much better shortness of breath improved he is status post cardiac cath angiogram for his heart failure noted to have normal coronaries dilated car diomyopathy is noted, patient is currently waiting for a PICC line for long-term antibiotics for foot infection 09/01/2018, patient seen and evaluated during the rounds shortness of breath is stable but is still present on exertion and activity, today's x-ray reviewed pleural effusion has improved significantly, patient has history of snoring and sleep apnea This is a 42-year-old male who was admitted into the hospital with increased shortness of breath off acute of chronic duration she is been short of breath for relatively long time but it comes to appointment that in last 3 or 4 days breathing has been difficult he has component orthopnea and PND came into the hospital for further evaluation and echocardiogram revealed ejection fraction only 20-25% he was hypertensive on arrival his chest computed tomography scan was negative for pulmonary embolism but however did reveal bilateral moderate right pleural effusion and a small left pleural effusion Objective - Vital Signs Vital signs: Vital Signs Temp 98.5 F 09/02/18 08:00 Pulse 103 H 09/02/18 08:00 Resp 16 09/02/18 08:00 BP 141/89 09/02/18 08:00 Pulse Ox 94 L 09/02/18 08:00 Intake & Output 09/01/18 09/02/18 09/02/18 18:59 06:59 18:59 Intake Total 460 400 Output Total 2300 Balance -1840 400 Intake: IV 100 160 Sodium Chloride 0.9% 1, 160 000 ml In Empty Bag 1 bag @ 20 mls/hr IV .Q24H ONE Rx#:[id number] Oral 360 240 Output: Urine 2300 Other: Voiding Method Urinal Urinal Toilet Urinal # Voids 1 # Bowel Movements 1 - Exam - Constitutional General appearance: average body habitus, mild distress - EENT Eyes: anicteric sclerae, PERRLA, normal appearance ENT: normal oropharynx - Neck Neck: normal ROM Carotids: bilateral: upstroke diminished, bruit absent Thyroid: bilateral: normal size - Respiratory Respiratory: bilateral: CTA, diminished, rales, negative: dullness, rhonchi, wheezing, prolonged expiration, prolonged inspiration - Cardiovascular Rhythm: regular Heart sounds: normal: S1, S2 - Gastrointestinal General gastrointestinal: decreased bowel sounds, soft - Neurologic Neurologic: CNII-XII intact - Musculoskeletal Musculoskeletal: gait normal, generalized weakness, strength equal bilaterally - Psychiatric Psychiatric: A&O x's 3, appropriate affect, intact judgment & insight Nonhealing wound in the left toe - Labs CBC & Chem 7: 09/02/18 06:44 09/02/18 06:44 Labs: Abnormal Lab Results - Last 24 Hours (Table) 09/02/18 09/02/18 Range/Units 06:44 06:44 WBC 11.0 H (3.8-10.6) k/uL RBC 6.13 H (4.30-5.90) m/uL Hgb 17.6 H (13.0-17.5) gm/dL Hct 54.5 H (39.0-53.0) % BUN 26 H (9-20) mg/dL Creatinine 1.26 H (0.66-1.25) mg/dL Glucose 156 H (74-99) mg/dL Microbiology - Last 24 Hours (Table) 08/31/18 17:12 Gram Stain - Preliminary Toe - Left First Wound Culture - Preliminary Presumptive Staph aureus Assessment and Plan Assessment: Acute exacerbation of heart failure acute on chronic systolic heart failure Shortness of breath related to above Bilateral pleural effusion right more than left Hypertension hypertensive cardiovascular disease Doubt pneumonia Sleep disorder breathing and sleep apnea Left toe nonhealing infection agree with infectious disease evaluation Cardiomyopathy nonischemic in nature Plan: Optimize cardiac therapy Will observe pleural effusion No plans for thoracentesis Patient will get a sleep study on outpatient Broad-spectrum antibiotics for big toe left side, PICC line with 6 weeks of antibiotics Time with Patient: Greater than 30
--- NOTE | 2018-09-02 13:00 | P.PN ---
Subjective Progress Note Date: 09/02/18 This is a 42-year-old gentleman with history of hypertension who presented to the hospital initially with symptoms of shortness of breath with associated leg edema. He had not been feeling well for at least 2 weeks, actually upon speaking with him he states that he has not been feeling well for several mo nths. He was found to be in congestive heart failure and was treated with IV Lasix. The patient had an echocardiogram with Doppler study performed which revealed an ejection fraction of 20-25%, moderate tricuspid regurg and moderate to severe pulmonary hypertension. He has diuresed well over the past couple of days. It was explained to the patient that he would need a cardiac catheterization to rule out underlying coronary artery disease, the risks and the benefits were explained to the patient, and he is willing to proceed. This will be performed today by Dr. Downey. 09/02/2018 Patient underwent a cardiac catheterization yesterday which revealed normal coronary arteries with a dilated cardiomyopathy and severe LV dysfunction. He was seen and examined this morning, complaining of a headache, denied any chest pain or difficulty in breathing. 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 Patient does have evidence of secondary osteomyelitis. He will require antibiotic therapy. Blood pressure 128/80 with a heart rate in the 90s, 95% on room air. White blood cell count 11.0, hemoglobin 17.6, platelet count 343. Sodium 137, potassium 4.0, BUN 26 and creatinine 1.2. Objective - Vital Signs Vital signs: Vital Signs Temp 98.3 F 09/02/18 11:50 Pulse 105 H 09/02/18 11:50 Resp 20 09/02/18 11:50 BP 143/92 09/02/18 11:50 Pulse Ox 96 09/02/18 11:50 Intake & Output 09/01/18 09/02/18 09/02/18 18:59 06:59 18:59 Intake Total 460 400 Output Total 2300 Balance -1840 400 Intake: IV 100 160 Sodium Chloride 0.9% 1, 160 000 ml In Empty Bag 1 bag @ 20 mls/hr IV .Q24H ONE Rx#:[id number] Oral 360 240 Output: Urine 2300 Other: Voiding Method Urinal Urinal Toilet Urinal # Voids 1 # Bowel Movements 1 - Exam PHYSICAL EXAMINATION: GENERAL: 42-year-old gentleman in no acute distress at the time of my examination HEENT: Head is atraumatic, normocephalic. Pupils equal, round. Sclera anicteric. Conjunctiva are clear. Mucous membranes of the mouth are moist. Neck is supple. There is no elevated jugular venous pressure. No carotid bruit is heard. HEART EXAMINATION: Heart S1, S2 normal. No murmur or gallop heard. CHEST EXAMINATION: Lungs are clear to auscultation and precussion. No chest wall tenderness is noted on palpation or with deep breathing. ABDOMEN: Soft, nontender. Bowel sounds are heard. No organomegaly noted. EXTREMITIES: 2+ peripheral pulses with no evidence of peripheral edema and no calf tenderness noted. Right groin is soft, no evidence of any hematoma. Dressing in place to the right great NEUROLOGIC patient is awake, alert and oriented 3. . - Labs CBC & Chem 7: 09/02/18 06:44 09/02/18 06:44 Labs: Abnormal Lab Results - Last 24 Hours (Table) 09/02/18 09/02/18 Range/Units 06:44 06:44 WBC 11.0 H (3.8-10.6) k/uL RBC 6.13 H (4.30-5.90) m/uL Hgb 17.6 H (13.0-17.5) gm/dL Hct 54.5 H (39.0-53.0) % BUN 26 H (9-20) mg/dL Creatinine 1.26 H (0.66-1.25) mg/dL Glucose 156 H (74-99) mg/dL Microbiology - Last 24 Hours (Table) 08/31/18 17:12 Gram Stain - Preliminary Toe - Left First Wound Culture - Preliminary Presumptive Staph aureus Assessment and Plan Plan: Assessment and plan #1 systolic congestive heart failure acute on chronic #2 hypertension #3 status post cardiac catheterization which revealed normal coronary arteries with severely impaired left ventricular systolic function. #4 osteomyelitis Plan Discontinue the IV Lasix and start the patient on oral diuretics. Discontinue aspirin. Continue Coreg, lisinopril, and Aldactone. Antibiotics as per ID. DNP note has been reviewed, I agree with a documented findings and plan of care. Patient was seen and examined.
--- NOTE | 2018-09-02 16:12 | PN ---
PROGRESS NOTE DATE OF SERVICE: 09/02/2018 REASON FOR VISIT: Left big toe osteomyelitis. INTERVAL HISTORY: The patient is currently afebrile. The patient id breathing comfortably. Denies having any chest pain, shortness of breath. No cough. Denies any chest pain. No nausea or vomiting. No diarrhea. PHYSICAL EXAMINATION: Blood pressure 143/92 with a pulse of 105, temperature 98.3. She is 96% on room air. General description is a middle-aged male lying in bed in no distress. Respiratory system: Unlabored breathing. Clear to auscultation anteriorly heart S1, S2. Regular rate and rhythm. Abdomen soft, no tenderness. Left big toe currently dressed up. No obvious drainage on the dressing. LABS: Hemoglobin 13.1, white count 11,000. Wound culture with presumptive Staph aureus with sensitivities pending. DIAGNOSTIC IMPRESSION AND PLAN: Patient with left big toe osteomyelitis. Local culture with Staph aureus, sensitivities pending. Bone scan was suspicious for osteomyelitis. The patient will need a PICC line for outpatient IV antibiotic therapy for a total of 6 weeks. The patient categorically denies ever using any IV drugs and knows the risk of injecting anything other than his prescribed medication as that can lead to . We are waiting for the sensitivity to determine discharge antibiotic. That was discussed in detail with the patient's nurse. Continue supportive care. MMODL / IJN: [id number] / MTDD
[2018-09-02] MEDS: COLLAGENASE 250 UNIT/GM OINTMENT 30 GM TUBE TOPICAL SCH (16:59)
--- NOTE | 2018-09-02 21:33 | P.PN ---
Subjective Progress Note Date: 09/02/18 This is a 42-year-old gentleman admitted with acute congestive heart failure, cardiomyopathy, pleural effusion, left great toe nonhealing wound and multiple other medical issues. EF 20-25%. Troponin 0.03, 0.03, 0.038. Drug screen tested positive for amphetamines, methamphetamines, benzodiazepines. Complaining of leg spasms possibly secondary to withdrawal. Evaluated by cardiology with recommendations noted. Cardiology discussing cardiac catheterization once heart failure improves. Continued to have significant shortness of breath this morning, beta john adjusted to Coreg, Lasix and MIKO inhibitor increased. Heparin drip being discontinued and converted to heparin subcu. 09/01/2018 diuresing well on Lasix IVP with 24-hour I&O reflecting a negative fluid balance. Breathing significantly improved and patient is scheduled for cardiac catheterization today. Maintained on IV antibiotics as per infectious disease. Bone scan suggestive of osteomyelitis. Wound cultures pending. Vascular surgery consulted for potential debridement .Denies pain of left toe wound site. Afebrile. Chest x-ray noted. Evaluated by pulmonary, no plans for thoracentesis. 09/02/2018 yesterday he underwent cardiac catheterization reporting normal coronary arteries with dilated cardiomyopathy, severe LV dysfunction, EF 25-30%, 1-2+ mitral regurgitation. Cardiomyopathy attributed to uncontrolled hyperten geoff as per cardiology. Maximizing medical treatment. Denies chest pain, palpitations or increased shortness of breath. Patient also underwent debridement of left great toe ulcer with vascular surgery. Tolerated procedure well. Cultures reporting staph aureus, sensitivities pending. Maintained on IV antibiotics as per infectious disease. Afebrile. Objective - Vital Signs Vital signs: Vital Signs Temp 98.3 F 09/02/18 11:50 Pulse 105 H 09/02/18 11:50 Resp 20 09/02/18 11:50 BP 143/92 09/02/18 11:50 Pulse Ox 96 09/02/18 11:50 Intake & Output 09/01/18 09/02/18 09/02/18 18:59 06:59 18:59 Intake Total 460 400 Output Total 2300 Balance -1840 400 Intake: IV 100 160 Sodium Chloride 0.9% 1, 160 000 ml In Empty Bag 1 bag @ 20 mls/hr IV .Q24H ONE Rx#:[id number] Oral 360 240 Output: Urine 2300 Other: Voiding Method Urinal Urinal Toilet Urinal # Voids 1 # Bowel Movements 1 - Exam PHYSICAL EXAM: VITAL SIGNS: As above GENERAL: Sitting up in bed, no acute distress HEENT: Conjunctivae normal. eyes normal. Oral mucosa moist NECK: No JVD. No thyroid enlargement. No LNs CARDIOVASCULAR: S1, S2 regular. Systolic murmur, no rubs, no gallops. RESPIRATION: Unlabored, Breath sounds diminished in the bases. No rhonchi or crackles. ABDOMEN: Soft, nontender . No guarding. no masses palpable. No guarding or rigidity.Bowel sounds heard. LEGS: No edema, no swelling, PSYCHIATRY: Alert and oriented -3, mood and affect normal. NERVOUS SYSTEM: Cranial N 2-12 grossly normal. Moves all 4 limbs. Diffuse weakness, No focal deficits. Skin: Left foot great toe, dressing clean dry and intact. - Labs CBC & Chem 7: 09/02/18 06:44 09/02/18 06:44 Labs: Abnormal Lab Results - Last 24 Hours (Table) 09/02/18 09/02/18 Range/Units 06:44 06:44 WBC 11.0 H (3.8-10.6) k/uL RBC 6.13 H (4.30-5.90) m/uL Hgb 17.6 H (13.0-17.5) gm/dL Hct 54.5 H (39.0-53.0) % BUN 26 H (9-20) mg/dL Creatinine 1.26 H (0.66-1.25) mg/dL Glucose 156 H (74-99) mg/dL Microbiology - Last 24 Hours (Table) 08/31/18 17:12 Gram Stain - Preliminary Toe - Left First Wound Culture - Preliminary Presumptive Staph aureus Assessment and Plan Assessment: -Acute on chronic CHF exacerbation, systolic dysfunction, EF 20-25%, new-onset. Etiology unclear, possibly related to dilated cardiomyopathy, possibly drug ab use. Maximizing medical therapy -Cardiomyopathy, dilated secondary to uncontrolled hypertension -Status post cardiac catheterization reporting normal coronaries with severely impaired LV function, EF 20-25% -Mild troponin elevation -Pleural effusions secondary to congestive heart failure, right greater than left -Left great toe neuropathic ulcer, bone scan and suggests osteomyelitis. Status post excisional debridement. Hemoglobin A1c 6.1. -Hypertension -Probably obstructive sleep apnea, recommend outpatient sleep study. -Acute renal failure Plan: Continue on current medication regime ,monitoring and symptomatic treatment. Diuretics adjusted to oral .Antibiotics as per infectious disease. Culture sensitivities pending. Potential PICC line as per ID. Social work assisting with subacute rehab at discharge .Drug abuse cessation rediscussed. Outpatient sleep study rediscussed .Prognosis guarded. The impression and plan of care has been dictated as directed. : I performed a history and examination of this patient, discussed the same with the dictator. I agree with the dictator's note ,documented as a scribe. Any additional findings or plans will be noted.
[2018-09-03] MEDS: FUROSEMIDE 10 MG/ML 4 ML VIAL IV SCH ×3 (03:20→19:56)
[2018-09-03] MEDS: CARVEDILOL 3.125 MG TAB PO SCH (06:28)
[2018-09-03] MEDS: ACETAMINOPHEN TAB 325 MG TAB PO PRN ×2 (06:39→19:56)
[2018-09-03] MEDS: ceFAZolin IN SWFI 2 GM/20 ML SYRINGE IVP SCH ×3 (08:07→23:05)
[2018-09-03 08:12] LABS: Anion Gap 14 mmol/L; Blood Urea Nitrogen 25 mg/dL (9-20); Carbon Dioxide 23 mmol/L (22-30); Chloride 100 mmol/L (98-107); Glucose 191 mg/dL (74-99); Potassium 4.4 mmol/L (3.5-5.1); Sodium 137 mmol/L (137-145)
[2018-09-03 08:25] LABS: Basophils # (A) 0.1 k/uL (0-0.2); Basophils % (A) 1 %; Eosinophils # (A) 0.3 k/uL (0-0.7); Eosinophils % (A) 2 %; HGB 18.7 gm/dL (13.0-17.5); Lymphocytes # (A) 2.5 k/uL (1.0-4.8); Lymphocytes % (A) 19 %; MCH 29.4 pg (25.0-35.0); MCHC 32.7 g/dL (31.0-37.0); Mean Platelet Volume 6.6; Monocytes % (A) 8 %; Neutrophils # (A) 8.5 k/uL (1.3-7.7); Neutrophils % (A) 66 %; Platelet Count 341 k/uL (150-450); RBC 6.35 m/uL (4.30-5.90); RDW 13.6 % (11.5-15.5); WBC 12.8 k/uL (3.8-10.6)
[2018-09-03 08:28] LABS: HCT 57.2 % (39.0-53.0)
[2018-09-03] MEDS: HEPARIN SODIUM,PORCINE 5,000 UNIT/ML 1 ML VIAL SQ SCH ×2 (10:00→19:56)
[2018-09-03] MEDS: LISINOPRIL 5 MG TAB PO SCH (10:01)
[2018-09-03] MEDS: SPIRONOLACTONE 25 MG TAB PO SCH (10:01)
--- NOTE | 2018-09-03 11:13 | PN ---
PROGRESS NOTE He is followed up for cardiomyopathy, polysubstance abuse, osteomyelitis in the foot, status post debridement with Dr. Quinn. He remains on Kefzol 2 grams IV piggyback q.[address] Zavala. Awaiting cultures for possible PICC line placement. Cardiology is treating him for cardiomyopathy of unclear etiology, possible drug- related or viral related. He will follow up as outpatient for this. He has a bone scan shows osteomyelitis. PICC line for 6 weeks. He denies any IV drug use. Waiting for sensitivity. Possible discharge once that is back. He has polycythemia showed up on the blood work today, which is worsening for which Dr. Sandoval will be consulted, [employer] senior [employer]. Cardiology has seen the patient. He underwent a cardiac catheterization, showed normal cardiac arteries, dilated cardiomyopathy, severe LV dysfunction. Complaining of a headache, possibly due to nitroglycerin or drug withdrawal. Blood pressures have been stable. White count is normal. Hemoglobin is 17.6 up to 18.6 today. BUN and creatinine are normal. White count 11.1. Vital signs reviewed. ASSESSMENT: 1. Systolic congestive heart failure acute on chronic. 2. Hypertension. 3. Status post cardiac catheterization. 4. Osteomyelitis. He is switched off IV Lasix and he is on oral diuretics, Coreg, lisinopril, Aldactone. Antibiotics per Infectious Disease. Once antibiotics are reviewed and completed and Hematology sees him for polycythemia, he can be discharged on IV antibiotics once they are arranged by Dr. Zavala. MMODL / MICHELN: [id number] /
--- NOTE | 2018-09-03 11:22 | DS ---
DISCHARGE SUMMARY ADDENDUM: Hypertension secondary to polysubstance abuse as an outpatient is the most likely cause versus essential hypertension unable to determine at this time. MMODL / IJN: [id number] /
--- NOTE | 2018-09-03 11:26 | P.PN ---
Subjective Progress Note Date: 09/03/18 This is a 42-year-old gentleman with history of hypertension who presented to the hospital initially with symptoms of shortness of breath with associated leg edema. He had not been feeling well for at least 2 weeks, actually upon speaking with him he states that he has not been feeling well for several mo nths. He was found to be in congestive heart failure and was treated with IV Lasix. The patient had an echocardiogram with Doppler study performed which revealed an ejection fraction of 20-25%, moderate tricuspid regurg and moderate to severe pulmonary hypertension. He has diuresed well over the past couple of days. It was explained to the patient that he would need a cardiac catheterization to rule out underlying coronary artery disease, the risks and the benefits were explained to the patient, and he is willing to proceed. This will be performed today by Dr. Downey. 09/02/2018 Patient underwent a cardiac catheterization yesterday which revealed normal coronary arteries with a dilated cardiomyopathy and severe LV dysfunction. He was seen and examined this morning, complaining of a headache, denied any chest pain or difficulty in breathing. 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 Patient does have evidence of secondary osteomyelitis. He will require antibiotic therapy. Blood pressure 128/80 with a heart rate in the 90s, 95% on room air. White blood cell count 11.0, hemoglobin 17.6, platelet count 343. Sodium 137, potassium 4.0, BUN 26 and creatinine 1.2. 09/03/2018 Patient was seen and examined this morning, still awaiting cultures for PICC line placement. I pressure 122/80 with a heart rate in the 90s, 92% on room air. White blood cell count 12.8, hemoglobin 18.7, platelet count 341. Sodium 137, potassium 4.4, BUN 25 and creatinine 1.0. Objective - Vital Signs Vital signs: Vital Signs Temp 98.6 F 09/03/18 08:05 Pulse 108 H 09/03/18 08:05 Resp 18 09/03/18 08:05 BP 123/80 09/03/18 08:05 Pulse Ox 92 L 09/03/18 08:05 Intake & Output 09/02/18 09/03/18 09/03/18 18:59 06:59 18:59 Intake Total 1000 Balance 1000 Weight 94.7 kg Intake: IV 160 Sodium Chloride 0.9% 1, 160 000 ml In Empty Bag 1 bag @ 20 mls/hr IV .Q24H ONE Rx#:[id number] Oral 840 Other: Voiding Method Toilet Toilet Urinal Urinal # Voids 1 1 # Bowel Movements 1 1 - Exam PHYSICAL EXAMINATION: GENERAL: 42-year-old gentleman in no acute distress at the time of my examination HEENT: Head is atraumatic, normocephalic. Pupils equal, round. Sclera anicteric. Conjunctiva are clear. Mucous membranes of the mouth are moist. Neck is supple. There is no elevated jugular venous pressure. No carotid bruit is heard. HEART EXAMINATION: Heart S1, S2 normal. No murmur or gallop heard. CHEST EXAMINATION: Lungs are clear to auscultation and precussion. No chest wall tenderness is noted on palpation or with deep breathing. ABDOMEN: Soft, nontender. Bowel sounds are heard. No organomegaly noted. EXTREMITIES: 2+ peripheral pulses with no evidence of peripheral edema and no calf tenderness noted. Right groin is soft, no evidence of any hematoma. Dressing in place to the right great NEUROLOGIC patient is awake, alert and oriented 3. . - Labs CBC & Chem 7: 09/03/18 07:17 09/03/18 07:17 Labs: Abnormal Lab Results - Last 24 Hours (Table) 09/03/18 09/03/18 Range/Units 07:17 07:17 WBC 12.8 H (3.8-10.6) k/uL RBC 6.35 H (4.30-5.90) m/uL Hgb 18.7 H (13.0-17.5) gm/dL Hct 57.2 H* (39.0-53.0) % Neutrophils # 8.5 H (1.3-7.7) k/uL BUN 25 H (9-20) mg/dL Glucose 191 H (74-99) mg/dL Microbiology - Last 24 Hours (Table) 08/31/18 17:12 Gram Stain - Final Toe - Left First Wound Culture - Final Staphylococcus aureus Assessment and Plan Plan: Assessment and plan #1 systolic congestive heart failure acute on chronic #2 hypertension #3 status post cardiac catheterization which revealed normal coronary arteries with severely impaired left ventricular systolic function. #4 osteomyelitis Plan We will increase the patient's dose of Coreg for more optimal blood pressure and heart rate control. Await cultures for PICC line placement. DNP note has been reviewed, I agree with a documented findings and plan of care. Patient was seen and examined.
--- NOTE | 2018-09-03 12:24 | P.PN ---
Subjective Progress Note Date: 09/03/18 09/03/2017: Patient seen and examined covering for Dr. Gomes. The patient denies chest pain and shortness of breath. He denies cough, fevers, chills. He states he does not know if he has obstructive sleep apnea. The patient has no needs or complaints at this time. He is lying in bed on room air. O2 saturations 94%. Objective - Vital Signs Vital signs: Vital Signs Temp 98.6 F 09/03/18 08:05 Pulse 108 H 09/03/18 08:05 Resp 18 09/03/18 08:05 BP 123/80 09/03/18 08:05 Pulse Ox 92 L 09/03/18 08:05 Intake & Output 09/02/18 09/03/18 09/03/18 18:59 06:59 18:59 Intake Total 1000 230 Balance 1000 230 Weight 94.7 kg Intake: IV 160 Sodium Chloride 0.9% 1, 160 000 ml In Empty Bag 1 bag @ 20 mls/hr IV .Q24H ONE Rx#:[id number] Oral 840 230 Other: Voiding Method Toilet Toilet Urinal Urinal # Voids 1 1 # Bowel Movements 1 1 - Exam Gen.: Patient is alert and oriented 3, no acute distress Cardiovascular: Regular rate and rhythm, S1/S2 Lungs: Diminished breath sounds bilaterally otherwise clear Abdomen: Soft nontender nondistended positive bowel sounds Extremities: No edema - Labs CBC & Chem 7: 09/03/18 07:17 09/03/18 07:17 Labs: Abnormal Lab Results - Last 24 Hours (Table) 09/03/18 09/03/18 Range/Units 07:17 07:17 WBC 12.8 H (3.8-10.6) k/uL RBC 6.35 H (4.30-5.90) m/uL Hgb 18.7 H (13.0-17.5) gm/dL Hct 57.2 H* (39.0-53.0) % Neutrophils # 8.5 H (1.3-7.7) k/uL BUN 25 H (9-20) mg/dL Glucose 191 H (74-99) mg/dL Microbiology - Last 24 Hours (Table) 08/31/18 17:12 Gram Stain - Final Toe - Left First Wound Culture - Final Staphylococcus aureus Assessment and Plan Assessment: Acute exacerbation of heart failure acute on chronic systolic heart failure, EF 20-25% Shortness of breath related to above Bilateral pleural effusion right more than left Hypertension and hypertensive cardiovascular disease Doubt pneumonia Sleep disorder breathing and sleep apnea Left toe nonhealing infection agree with infectious disease evaluation Cardiomyopathy nonischemic in nature Plan: Optimize cardiac therapy - cardiology increasing Coreg for BP and HR control Will observe pleural effusion - continue diuresis, outpatient CXR in 1 week to assess effusions No plans for thoracentesis Patient will get a sleep study on outpatient Broad-spectrum antibiotics for big toe left side, PICC line with 6 weeks of antibiotics Respiratory status is stable. Ok to DC from pulmonary standpoint. Follow up with Dr. Gomes in 1 week.
[2018-09-03] MEDS: COLLAGENASE 250 UNIT/GM OINTMENT 30 GM TUBE TOPICAL SCH (13:10)
--- NOTE | 2018-09-03 15:55 | P.PN ---
Progress Note - Text Consult dictated Impression: Secondary chronic erythrocytosis ; present for years and likely 2nd to chronic hypoxemia Hematologic disorders not suspected Rec: 1- Your management 2- Monitor only, no intervention required, no phlebotomy advised D/W patient, thank you
--- NOTE | 2018-09-03 16:58 | CONS ---
CONSULTATION REASON FOR CONSULTATION: Erythrocytosis. HISTORY OF ILLNESS: Zhang is a 42-year-old gentleman who was hospitalized with shortness of breath. He was found to have acute on chronic congestive heart failure with systolic dysfunction, ejection fraction found to be 25%. Coronary angiography did not reveal significant coronary disease. He was found to have obstructive sleep apnea as well as bilateral pleural effusion. No definitive pulmonary disease. The patient who is a lifetime nonsmoker denies any use of alcohol. Denies any actual prior lung disease or industrial and mining exposure. The patient had no prior hematologic process. His hemoglobin was 15.0 upon admission that had risen to 18.7 today with a hematocrit of 57.2. Reviewing of the patient hematology study and chronic medical record revealed chronic erythrocytosis his hemoglobin was 20.3 in June of 2015, was 18.8 in November of 2014, 18.0 in April 2014. The patient reported being told intermittently of having "too much blood", but he denies being evaluated by Hematology. When the patient was seen today he reported feeling better with decreased shortness of breath, no specific discomfort. PAST MEDICAL HISTORY: Past medical history including hypertension, history of GI bleed and history of GERD as well as Crohn disease. PAST SURGICAL HISTORY: Past surgical history including partial small bowel obstruction, cervical fusion. SOCIAL HISTORY: The patient denies any smoking. FAMILY HISTORY: Family history is unremarkable for hematologic disorder. PHYSICAL EXAMINATION: On examination, the patient was alert and oriented and drowsy but arousable. Skin is warm and dry. Hair distribution is normal for age and gender. No pathologic lymphadenopathy. Trachea was in midline. Chest was clear with good air exchange bilaterally. Heart sounds are normal. Abdomen was soft. No organomegaly or tenderness. Mild peripheral edema was noted. Neurologic examination showed no focal motor or sensory deficits. Cranial nerves II through XII unremarkable. IMPRESSION: 1. Erythrocytosis, chronic and isolated, present as far back as 2013 and rather intermittent. This is suspected to be chronic due to hypoxemia, possibly related to congestive heart failure as well as obstructive sleep apnea. 2. Primary hematologic disorder is not suspected. 3. Suspected obstructive sleep apnea. 4. Nonischemic systolic cardiomyopathy. RECOMMENDATIONS: 1. Discussed chronicity of erythrocytosis with the patient today. 2. No specific hematology studies needed. 3. No therapeutic intervention, I would not recommend phlebotomy at this point. 4. Agree with current management and consider management of obstructive sleep apnea. We will follow the patient along with you. Thank you for asking us the privilege to participate in the care of Zhang. HAMMAD / BRYAN: [id number] /
[2018-09-03] MEDS: CARVEDILOL 6.25 MG TAB PO SCH (17:34)
[2018-09-04] MEDS: FUROSEMIDE 10 MG/ML 4 ML VIAL IV SCH ×3 (03:29→21:33)
[2018-09-04] MEDS: CARVEDILOL 6.25 MG TAB PO SCH ×2 (06:26→17:26)
[2018-09-04] MEDS: ACETAMINOPHEN TAB 325 MG TAB PO PRN (06:26)
[2018-09-04 07:03] LABS: Anion Gap 13 mmol/L; Blood Urea Nitrogen 29 mg/dL (9-20); Carbon Dioxide 22 mmol/L (22-30); Chloride 100 mmol/L (98-107); Glucose 138 mg/dL (74-99); Magnesium 2.2 mg/dL (1.6-2.3); Potassium 4.8 mmol/L (3.5-5.1); Sodium 135 mmol/L (137-145)
[2018-09-04 07:27] LABS: MCH 28.8 pg (25.0-35.0); MCHC 32.7 g/dL (31.0-37.0); MCV 88.1 fL (80.0-100.0); Mean Platelet Volume 7.4; Platelet Count 383 k/uL (150-450); RBC 6.61 m/uL (4.30-5.90); RDW 15.1 % (11.5-15.5); WBC 12.5 k/uL (3.8-10.6)
[2018-09-04 07:32] LABS: HCT 58.2 % (39.0-53.0)
[2018-09-04 08:23] LABS: Eosinophils # (M) 0.38 k/uL (0-0.7); Lymphocytes # (M) 2.75 k/uL (1.0-4.8); Neutrophils # (M) 7.38 k/uL (1.3-7.7); Neutrophils % (M) 59 %; Nucleated Red Blood Cells 0 /100 WBC (0-0); Total Cells Counted 100
[2018-09-04] MEDS: LISINOPRIL 5 MG TAB PO SCH (08:58)
[2018-09-04] MEDS: SPIRONOLACTONE 25 MG TAB PO SCH (08:59)
[2018-09-04] MEDS: HEPARIN SODIUM,PORCINE 5,000 UNIT/ML 1 ML VIAL SQ SCH ×2 (08:59→21:33)
[2018-09-04] MEDS: ceFAZolin IN SWFI 2 GM/20 ML SYRINGE IVP SCH ×2 (09:01→17:27)
--- NOTE | 2018-09-04 10:53 | P.PN ---
Subjective Progress Note Date: 09/04/18 This is a 42-year-old gentleman with history of hypertension who presented to the hospital initially with symptoms of shortness of breath with associated leg edema. He had not been feeling well for at least 2 weeks, actually upon speaking with him he states that he has not been feeling well for several mo nths. He was found to be in congestive heart failure and was treated with IV Lasix. The patient had an echocardiogram with Doppler study performed which revealed an ejection fraction of 20-25%, moderate tricuspid regurg and moderate to severe pulmonary hypertension. He has diuresed well over the past couple of days. It was explained to the patient that he would need a cardiac catheterization to rule out underlying coronary artery disease, the risks and the benefits were explained to the patient, and he is willing to proceed. This will be performed today by Dr. Downey. 09/02/2018 Patient underwent a cardiac catheterization yesterday which revealed normal coronary arteries with a dilated cardiomyopathy and severe LV dysfunction. He was seen and examined this morning, complaining of a headache, denied any chest pain or difficulty in breathing. 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 Patient does have evidence of secondary osteomyelitis. He will require antibiotic therapy. Blood pressure 128/80 with a heart rate in the 90s, 95% on room air. White blood cell count 11.0, hemoglobin 17.6, platelet count 343. Sodium 137, potassium 4.0, BUN 26 and creatinine 1.2. 09/03/2018 Patient was seen and examined this morning, still awaiting cultures for PICC line placement. I pressure 122/80 with a heart rate in the 90s, 92% on room air. White blood cell count 12.8, hemoglobin 18.7, platelet count 341. Sodium 137, potassium 4.4, BUN 25 and creatinine 1.0. 09/04/2018Patient seen and examined this morning, no new complaints. I pressure 136/70 with a heart rate in the 90s, 97% on room air. White blood cell count 12.5, hemoglobin 19, platelet count 383. Sodium 135, potassium 4.8, BUN 29 and creatinine 1.1. Wound culture came back positive for moderate gram-positive cocci and rare gram-positive bacilli. Objective - Vital Signs Vital signs: Vital Signs Temp 98.3 F 09/04/18 03:45 Pulse 100 09/04/18 03:45 Resp 18 09/04/18 03:45 BP 136/77 09/04/18 03:45 Pulse Ox 97 09/04/18 03:45 Intake & Output 09/03/18 09/04/18 09/04/18 18:59 06:59 18:59 Intake Total 452 240 Output Total 400 Balance 52 240 Weight 94.6 kg Intake: Oral 452 240 Output: Urine 400 Other: Voiding Method Toilet Urinal # Voids 1 2 # Bowel Movements 0 - Exam PHYSICAL EXAMINATION: GENERAL: 42-year-old gentleman in no acute distress at the time of my examination HEENT: Head is atraumatic, normocephalic. Pupils equal, round. Sclera anicteric. Conjunctiva are clear. Mucous membranes of the mouth are moist. Neck is supple. There is no elevated jugular venous pressure. No carotid bruit is heard. HEART EXAMINATION: Heart S1, S2 normal. No murmur or gallop heard. CHEST EXAMINATION: Lungs are clear to auscultation and precussion. No chest wall tenderness is noted on palpation or with deep breathing. ABDOMEN: Soft, nontender. Bowel sounds are heard. No organomegaly noted. EXTREMITIES: 2+ peripheral pulses with no evidence of peripheral edema and no calf tenderness noted. Right groin is soft, no evidence of any hematoma. Dressing in place to the right great NEUROLOGIC patient is awake, alert and oriented 3. . - Labs CBC & Chem 7: 09/04/18 06:23 09/04/18 06:23 Labs: Abnormal Lab Results - Last 24 Hours (Table) 09/04/18 09/04/18 Range/Units 06:23 06:23 WBC 12.5 H (3.8-10.6) k/uL RBC 6.61 H (4.30-5.90) m/uL Hgb 19.0 H (13.0-17.5) gm/dL Hct 58.2 H* (39.0-53.0) % Monocytes # (Manual) 2.00 H (0-1.0) k/uL Sodium 135 L (137-145) mmol/L BUN 29 H (9-20) mg/dL Glucose 138 H (74-99) mg/dL Assessment and Plan Plan: Assessment and plan #1 systolic congestive heart failure acute on chronic #2 hypertension #3 status post cardiac catheterization which revealed normal coronary arteries with severely impaired left ventricular systolic function. #4 osteomyelitis Plan Cardiology's perspective, we'll continue current medications. Patient is waiting for PICC line placement tomorrow. DNP note has been reviewed, I agree with a documented findings and plan of care. Patient was seen and examined.
--- NOTE | 2018-09-04 12:26 | PN ---
PROGRESS NOTE SUBJECTIVE: This is a white male with osteomyelitis of the toe. He has got a PICC line. Awaiting for IV antibiotics. Cultures and set up IV antibiotics as an outpatient for 6 weeks. He has been recovering from polysubstance abuse and symptoms are very lethargic the last 2 days. Vitals are good. CARDIOVASCULAR: S1, S2. LUNGS: Clear. GI: Soft. HEMATOLOGY: Negative Homans. ASSESSMENT: 1. Osteomyelitis of the great toe. 2. Cardiomyopathy. 3. Systolic congestive heart failure. 4. Polysubstance abuse. Continue current medicines. Await for cultures. PICC line with IV antibiotics. Discharge in the morning. MMODL / IJN: [id number] /
[2018-09-04] MEDS: COLLAGENASE 250 UNIT/GM OINTMENT 30 GM TUBE TOPICAL SCH (17:26)
--- NOTE | 2018-09-04 18:44 | PN ---
PROGRESS NOTE DATE OF SERVICE: September 04, 2018. He is lying flat in bed. He denies any chest pain or shortness of breath today. On physical examination, his respiratory rate is 16, pulse rate 92, temperature 98.1, blood pressure 127/85, O2 saturation on room air is 97%. HEENT reveals pupils equal. Chest is clear. Cardiovascular system is S1, S2. Abdomen is soft. There is no edema. White count is 12.6, hemoglobin of 19, hematocrit of 58.2. Sodium 135, potassium 4.8, chloride 100, bicarb 22. IMPRESSION: At this time is: 1. Acute exacerbation of congestive heart failure with congestive cardiomyopathy. 2. Polycythemia secondary to chronic hypoxemia is likely. 3. Bilateral pleural effusions. 4. Obesity. Continue to optimize his fluid status. Continue antibiotics for toe infection. His prognosis is fair. MMMARIAMAL / IJN: [id number] /
[2018-09-05] MEDS: ceFAZolin IN SWFI 2 GM/20 ML SYRINGE IVP SCH ×4 (00:30→21:46)
[2018-09-05] MEDS: FUROSEMIDE 10 MG/ML 4 ML VIAL IV SCH ×2 (03:16→11:10)
[2018-09-05 06:35] LABS: Anion Gap 11 mmol/L; Blood Urea Nitrogen 31 mg/dL (9-20); Calcium 10.1 mg/dL (8.4-10.2); Carbon Dioxide 24 mmol/L (22-30); Chloride 99 mmol/L (98-107); Glucose 168 mg/dL (74-99); Potassium 4.6 mmol/L (3.5-5.1); Sodium 134 mmol/L (137-145)
[2018-09-05 06:39] LABS: Basophils # (A) 0.1 k/uL (0-0.2); Basophils % (A) 1 %; Eosinophils # (A) 0.3 k/uL (0-0.7); Eosinophils % (A) 2 %; HGB 18.6 gm/dL (13.0-17.5); Lymphocytes # (A) 3.6 k/uL (1.0-4.8); Lymphocytes % (A) 29 %; MCH 29.2 pg (25.0-35.0); MCHC 33.1 g/dL (31.0-37.0); MCV 88.2 fL (80.0-100.0); Mean Platelet Volume 7.2; Monocytes # (A) 1.1 k/uL (0-1.0); Monocytes % (A) 9 %; Neutrophils # (A) 6.7 k/uL (1.3-7.7); Neutrophils % (A) 53 %; Platelet Count 331 k/uL (150-450); RBC 6.39 m/uL (4.30-5.90); RDW 14.6 % (11.5-15.5); WBC 12.6 k/uL (3.8-10.6)
[2018-09-05 06:42] LABS: HCT 56.3 % (39.0-53.0)
[2018-09-05] MEDS: HEPARIN SODIUM,PORCINE 5,000 UNIT/ML 1 ML VIAL SQ SCH ×2 (08:54→21:46)
[2018-09-05] MEDS: LISINOPRIL 5 MG TAB PO SCH (08:57)
[2018-09-05] MEDS: SPIRONOLACTONE 25 MG TAB PO SCH (08:57)
[2018-09-05] MEDS: CARVEDILOL 6.25 MG TAB PO SCH (08:57)
--- NOTE | 2018-09-05 09:24 | P.PN ---
Subjective Progress Note Date: 09/05/18 Principal diagnosis: Bilateral pleural effusion, nonhealing left big toe infection, cardiomyopathy ischemic, sleep disorder breathing and sleep apnea 09/02/2018, patient seen and evaluated examined during the rounds clinically doing much better shortness of breath improved he is status post cardiac cath angiogram for his heart failure noted to have normal coronaries dilated car diomyopathy is noted, patient is currently waiting for a PICC line for long-term antibiotics for foot infection 09/01/2018, patient seen and evaluated during the rounds shortness of breath is stable but is still present on exertion and activity, today's x-ray reviewed pleural effusion has improved significantly, patient has history of snoring and sleep apnea This is a 42-year-old male who was admitted into the hospital with increased shortness of breath off acute of chronic duration she is been short of breath for relatively long time but it comes to appointment that in last 3 or 4 days breathing has been difficult he has component orthopnea and PND came into the hospital for further evaluation and echocardiogram revealed ejection fraction only 20-25% he was hypertensive on arrival his chest computed tomography scan was negative for pulmonary embolism but however did reveal bilateral moderate right pleural effusion and a small left pleural effusion Objective - Vital Signs Vital signs: Vital Signs Temp 98.4 F 09/05/18 03:50 Pulse 101 H 09/05/18 03:50 Resp 18 09/05/18 03:50 BP 124/86 09/05/18 03:50 Pulse Ox 98 09/05/18 03:50 Intake & Output 09/04/18 09/05/18 09/05/18 18:59 06:59 18:59 Intake Total 720 740 222 Output Total 450 Balance 270 740 222 Weight 96.4 kg Intake: IV 20 0.9 20 Oral 720 720 222 Output: Urine 450 Other: Voiding Method Toilet Toilet Urinal Urinal # Voids 2 - Exam - Constitutional General appearance: average body habitus, mild distress - EENT Eyes: anicteric sclerae, PERRLA, normal appearance ENT: normal oropharynx - Neck Neck: normal ROM Carotids: bilateral: upstroke diminished, bruit absent Thyroid: bilateral: normal size - Respiratory Respiratory: bilateral: CTA, diminished, rales, negative: dullness, rhonchi, wheezing, prolonged expiration, prolonged inspiration - Cardiovascular Rhythm: regular Heart sounds: normal: S1, S2 - Gastrointestinal General gastrointestinal: decreased bowel sounds, soft - Neurologic Neurologic: CNII-XII intact - Musculoskeletal Musculoskeletal: gait normal, generalized weakness, strength equal bilaterally - Psychiatric Psychiatric: A&O x's 3, appropriate affect, intact judgment & insight Nonhealing wound in the left toe - Labs CBC & Chem 7: 09/05/18 06:02 09/05/18 06:02 Labs: Abnormal Lab Results - Last 24 Hours (Table) 09/05/18 09/05/18 Range/Units 06:02 06:02 WBC 12.6 H (3.8-10.6) k/uL RBC 6.39 H (4.30-5.90) m/uL Hgb 18.6 H (13.0-17.5) gm/dL Hct 56.3 H (39.0-53.0) % Monocytes # 1.1 H (0-1.0) k/uL Sodium 134 L (137-145) mmol/L BUN 31 H (9-20) mg/dL Glucose 168 H (74-99) mg/dL Assessment and Plan Assessment: Acute exacerbation of heart failure acute on chronic systolic heart failure Shortness of breath related to above Bilateral pleural effusion right more than left Hypertension hypertensive cardiovascular disease Doubt pneumonia Sleep disorder breathing and sleep apnea Left toe nonhealing infection agree with infectious disease evaluation Cardiomyopathy nonischemic in nature Plan: Optimize cardiac therapy Will observe pleural effusion No plans for thoracentesis Patient will get a sleep study on outpatient Broad-spectrum antibiotics for big toe left side, status post PICC line with 6 weeks of antibiotics Agree with discharge planning Time with Patient: Greater than 30
--- NOTE | 2018-09-05 11:43 | P.PN ---
Subjective Progress Note Date: 09/05/18 This is a 42-year-old gentleman with history of hypertension who presented to the hospital initially with symptoms of shortness of breath with associated leg edema. He had not been feeling well for at least 2 weeks, actually upon speaking with him he states that he has not been feeling well for several mo nths. He was found to be in congestive heart failure and was treated with IV Lasix. The patient had an echocardiogram with Doppler study performed which revealed an ejection fraction of 20-25%, moderate tricuspid regurg and moderate to severe pulmonary hypertension. He has diuresed well over the past couple of days. It was explained to the patient that he would need a cardiac catheterization to rule out underlying coronary artery disease, the risks and the benefits were explained to the patient, and he is willing to proceed. This will be performed today by Dr. Downey. 09/02/2018 Patient underwent a cardiac catheterization yesterday which revealed normal coronary arteries with a dilated cardiomyopathy and severe LV dysfunction. He was seen and examined this morning, complaining of a headache, denied any chest pain or difficulty in breathing. 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 Patient does have evidence of secondary osteomyelitis. He will require antibiotic therapy. Blood pressure 128/80 with a heart rate in the 90s, 95% on room air. White blood cell count 11.0, hemoglobin 17.6, platelet count 343. Sodium 137, potassium 4.0, BUN 26 and creatinine 1.2. 09/03/2018 Patient was seen and examined this morning, still awaiting cultures for PICC line placement. I pressure 122/80 with a heart rate in the 90s, 92% on room air. White blood cell count 12.8, hemoglobin 18.7, platelet count 341. Sodium 137, potassium 4.4, BUN 25 and creatinine 1.0. 09/04/2018 Patient seen and examined this morning, no new complaints. Blood pressure 136/70 with a heart rate in the 90s, 97% on room air. White blood cell count 12.5, hemoglobin 19, platelet count 383. Sodium 135, potassium 4.8, BUN 29 and creatinine 1.1. Wound culture came back positive for moderate gram-positive cocci and rare gram-positive bacilli. 09/05/2018 Patient was seen and examined this morning, he is scheduled to undergo PICC line placement today and the plan is for him to be discharged home later in the afternoon. Blood pressure 124/80 with a heart rate in the 90s, 98% on room air. We will increase the dose of Coreg to 12-1/2 mg one tablet by mouth twice a day today. Objective - Vital Signs Vital signs: Vital Signs Temp 98.4 F 09/05/18 03:50 Pulse 101 H 09/05/18 03:50 Resp 18 09/05/18 03:50 BP 124/86 09/05/18 03:50 Pulse Ox 98 09/05/18 03:50 Intake & Output 09/04/18 09/05/18 09/05/18 18:59 06:59 18:59 Intake Total 720 740 222 Output Total 450 Balance 270 740 222 Weight 96.4 kg Intake: IV 20 0.9 20 Oral 720 720 222 Output: Urine 450 Other: Voiding Method Toilet Toilet Urinal Urinal # Voids 2 - Exam PHYSICAL EXAMINATION: GENERAL: 42-year-old gentleman in no acute distress at the time of my examination HEENT: Head is atraumatic, normocephalic. Pupils equal, round. Sclera anicteric. Conjunctiva are clear. Mucous membranes of the mouth are moist. Neck is supple. There is no elevated jugular venous pressure. No carotid bruit is heard. HEART EXAMINATION: Heart S1, S2 normal. No murmur or gallop heard. CHEST EXAMINATION: Lungs are clear to auscultation and precussion. No chest wall tenderness is noted on palpation or with deep breathing. ABDOMEN: Soft, nontender. Bowel sounds are heard. No organomegaly noted. EXTREMITIES: 2+ peripheral pulses with no evidence of peripheral edema and no calf tenderness noted. Right groin is soft, no evidence of any hematoma. Dressing in place to the right great NEUROLOGIC patient is awake, alert and oriented 3. . - Labs CBC & Chem 7: 09/05/18 06:02 09/05/18 06:02 Labs: Abnormal Lab Results - Last 24 Hours (Table) 09/05/18 09/05/18 Range/Units 06:02 06:02 WBC 12.6 H (3.8-10.6) k/uL RBC 6.39 H (4.30-5.90) m/uL Hgb 18.6 H (13.0-17.5) gm/dL Hct 56.3 H (39.0-53.0) % Monocytes # 1.1 H (0-1.0) k/uL Sodium 134 L (137-145) mmol/L BUN 31 H (9-20) mg/dL Glucose 168 H (74-99) mg/dL Assessment and Plan Plan: Assessment and plan #1 systolic congestive heart failure acute on chronic #2 hypertension #3 status post cardiac catheterization which revealed normal coronary arteries with severely impaired left ventricular systolic function. #4 osteomyelitis Plan From cardiology's perspective, we will increase the Coreg to 12-1/2 mg one tablet by mouth twice a day for more optimal blood pressure and heart rate control. Continue the rest of the patient's medications. He is scheduled today to have a PICC line placed and following that he should be discharged home, we will make a follow-up appointment in the office post discharge. DNP note has been reviewed, I agree with a documented findings and plan of care. Patient was seen and examined.
[2018-09-05] MEDS: FUROSEMIDE 40 MG TAB PO SCH (12:07)
--- NOTE | 2018-09-05 12:39 | P.PN ---
Progress Note - Text Progress Note Date: 09/04/18 DATE OF SERVICE: 09/04/2018 REASON FOR VISIT: Left big toe osteomyelitis MSSA . INTERVAL HISTORY: The patient denies any fever or chills. The patient is breathing comfortably. Denies having any chest pain, shortness of breath. No cough. Denies any chest pain. No nausea or vomiting. No diarrhea. PHYSICAL EXAMINATION: Blood pressure 145/90 with a pulse of 90, temperature 98.3. She is 96% on room air. General description is a middle-aged male lying in bed in no distress. Respiratory system: Unlabored breathing. Clear to auscultation anteriorly heart S1, S2. Regular rate and rhythm. Abdomen soft, no tenderness. Left big toe currently dressed up. No obvious drainage on the dressing. LABS: Wound culture with MSSA. DIAGNOSTIC IMPRESSION AND PLAN: Patient with left big toe osteomyelitis. Local culture with MSSA. Bone scan was suspicious for osteomyelitis. The patient will need a PICC line for outpatient IV antibiotic therapy for a total of 6 weeks. With weekly monitoring of CBC BMP and a sed rate.
[2018-09-05] MEDS ORDERED: LIDOCAINE 1% INJ 10MG/ML (20 ML MDV) SQ ONE (15:44)
--- NOTE | 2018-09-05 16:04 | P.PN ---
Subjective Progress Note Date: 09/05/18 This is a 42-year-old gentleman admitted with acute congestive heart failure, cardiomyopathy, pleural effusion, left great toe nonhealing wound and multiple other medical issues. EF 20-25%. Troponin 0.03, 0.03, 0.038. Drug screen tested positive for amphetamines, methamphetamines, benzodiazepines. Complaining of leg spasms possibly secondary to withdrawal. Evaluated by cardiology with recommendations noted. Cardiology discussing cardiac catheterization once heart failure improves. Continued to have significant shortness of breath this morning, beta john adjusted to Coreg, Lasix and MIKO inhibitor increased. Heparin drip being discontinued and converted to heparin subcu. 09/01/2018 diuresing well on Lasix IVP with 24-hour I&O reflecting a negative fluid balance. Breathing significantly improved and patient is scheduled for cardiac catheterization today. Maintained on IV antibiotics as per infectious disease. Bone scan suggestive of osteomyelitis. Wound cultures pending. Vascular surgery consulted for potential debridement .Denies pain of left toe wound site. Afebrile. Chest x-ray noted. Evaluated by pulmonary, no plans for thoracentesis. 09/02/2018 yesterday he underwent cardiac catheterization reporting normal coronary arteries with dilated cardiomyopathy, severe LV dysfunction, EF 25-30%, 1-2+ mitral regurgitation. Cardiomyopathy attributed to uncontrolled hyperten geoff as per cardiology. Maximizing medical treatment. Denies chest pain, palpitations or increased shortness of breath. Patient also underwent debridement of left great toe ulcer with vascular surgery. Tolerated procedure well. Cultures reporting staph aureus, sensitivities pending. Maintained on IV antibiotics as per infectious disease. Afebrile. 09/05/2018 PICC line placement pending. Pain controlled. Afebrile, WBC 12.6. Maintained on cefazolin as per ID. anticipate discharge home later today. Objective - Vital Signs Vital signs: Vital Signs Temp 97.6 F 09/05/18 08:10 Pulse 94 09/05/18 11:05 Resp 16 09/05/18 11:05 BP 125/75 09/05/18 11:05 Pulse Ox 95 09/05/18 11:05 Intake & Output 09/04/18 09/05/18 09/05/18 18:59 06:59 18:59 Intake Total 038 561 1926 Output Total 450 Balance 101 701 6659 Weight 96.4 kg Intake: IV 20 0.9 20 Oral 622 381 9771 Output: Urine 450 Other: Voiding Method Toilet Toilet Toilet Urinal Urinal Urinal # Voids 2 - Exam PHYSICAL EXAM: VITAL SIGNS: As above GENERAL: Sitting up in bed, no acute distress HEENT: Conjunctivae normal. eyes normal. Oral mucosa moist NECK: No JVD. No thyroid enlargement. No LNs CARDIOVASCULAR: S1, S2 regular. Systolic murmur, no rubs, no gallops. RESPIRATION: Unlabored, Breath sounds diminished in the bases. No rhonchi or crackles. ABDOMEN: Soft, nontender . no masses palpable. No guarding or rigidity.Bowel sounds heard. LEGS: No edema, no swelling, PSYCHIATRY: Alert and oriented -3, mood and affect normal. NERVOUS SYSTEM: Cranial N 2-12 grossly normal. Moves all 4 limbs. Diffuse weakness, No focal deficits. Skin: Left foot great toe, dressing clean dry and intact. - Labs CBC & Chem 7: 09/05/18 06:02 09/05/18 06:02 Labs: Abnormal Lab Results - Last 24 Hours (Table) 09/05/18 09/05/18 Range/Units 06:02 06:02 WBC 12.6 H (3.8-10.6) k/uL RBC 6.39 H (4.30-5.90) m/uL Hgb 18.6 H (13.0-17.5) gm/dL Hct 56.3 H (39.0-53.0) % Monocytes # 1.1 H (0-1.0) k/uL Sodium 134 L (137-145) mmol/L BUN 31 H (9-20) mg/dL Glucose 168 H (74-99) mg/dL Assessment and Plan Assessment: -Acute on chronic CHF exacerbation, systolic dysfunction, EF 20-25%, new-onset. Etiology unclear, possibly related to dilated cardiomyopathy, possibly drug abuse. Maximizing medical therapy -Cardiomyopathy, dilated secondary to uncontrolled hypertension -Status post cardiac catheterization reporting normal coronaries with severely impaired LV function, EF 20-25% -Mild troponin elevation -Pleural effusions secondary to congestive heart failure, right greater than lef t -Left great toe neuropathic ulcer, bone scan and suggests osteomyelitis. Status post excisional debridement. Hemoglobin A1c 6.1. -Hypertension -Probably obstructive sleep apnea, recommend outpatient sleep study. -Acute renal failure Plan: Continue on current medication regime ,monitoring and symptomatic treatment. PICC line placement pending.Drug abuse cessation rediscussed. Declining subacute rehab. Nonweightbearing on the affected extremity , case management ordering offloading boot/walker .Outpatient sleep study rediscussed .Prognosis guarded. Discharge planning in progress for today or in a.m. The impression and plan of care has been dictated as directed. : I performed a history and examination of this patient, discussed the same with the dictator. I agree with the dictator's note ,documented as a scribe. Any additional findings or plans will be noted.
--- NOTE | 2018-09-05 16:05 | IR ---
EXAMINATION TYPE: IR cvc insert >=5 years DATE OF EXAM: 09/05/2018 COMPARISON: NONE CLINICAL HISTORY: Nonhealing wound Needs long-term intravenous access for antibiotics. PROCEDURE: After informed consent, the skin overlying the left basilic vein was localized with ultrasound and no vanessa to be compressible and patent. An ultrasound image was obtained and submitted on the patient's c henderson. The overlying skin was prepped and draped and Lidocaine was used for local anesthesia. A skin mitch was made with a scalpel. Access was gained to the vein under ultrasound guidance with a 21 gau ge needle and a 0.018 inch wire was advanced. Access site was dilated with Peel-Away sheath and cath eter tailored to the appropriate length and advanced such that the distal tip is at the cavoatrial ju nction. Spot image was obtained verifying placement. Catheter was fixed to the skin and a sterile d ressing was placed following hemostasis. Catheter was aspirated and flushed with saline. Patient wa s discharged in stable condition without complication. Maximal barrier technique is utilized. Ultras ound image is documented on the chart. Ultrasound used with sterile technique. Fluoro time and fluoroscopic images submitted to document procedure: 43 intraoperative images documen t the procedure, 0.2 minutes fluoroscopy time IMPRESSION: STATUS POST ULTRASOUND AND FLUOROSCOPIC GUIDED PICC LINE PLACEMENT, READY FOR USE. THIS PROCEDURE WAS PERFORMED BY THE UNDERSIGNED.
[2018-09-05] MEDS: CARVEDILOL 12.5 MG TAB PO SCH (18:06)
[2018-09-05] MEDS: COLLAGENASE 250 UNIT/GM OINTMENT 30 GM TUBE TOPICAL SCH (18:10)
--- NOTE | 2018-09-05 20:26 | P.PN ---
Progress Note - Text Progress Note Date: 09/05/18 DATE OF SERVICE: 09/05/2018 REASON FOR VISIT: Left big toe osteomyelitis MSSA . INTERVAL HISTORY: The patient is afebrile. The patient is breathing comfortably. The patient denies having any chest pain, shortness of breath. No cough. Denies any chest pain. No nausea or vomiting. No diarrhea. Currently waiting for PICC line placement and outpatient IV antibiotic regimen PHYSICAL EXAMINATION: Blood pressure 122/80 with a pulse of 90, temperature 98.3. he is 96% on room air. General description is a middle-aged male lying in bed in no distress. Respiratory system: Unlabored breathing. Clear to auscultation anteriorly heart S1, S2. Regular rate and rhythm. Abdomen soft, no tenderness. Left big toe wound with obvious drainage on the dressing. LABS: Wound culture with MSSA. DIAGNOSTIC IMPRESSION AND PLAN: Patient with left big toe osteomyelitis. Local culture with MSSA. Bone scan was suspicious for osteomyelitis. The patient to get a PICC line today for outpatient IV antibiotic therapy for a total of 6 weeks. With weekly monitoring of CBC BMP and a sed rate. Prescription was provided to the therapeutic case manager who is working on discharge
[2018-09-06 05:13] VITALS: BP 131/93; PULSE 76; RESP 17; TEMP 98.5
[2018-09-06] MEDS: FUROSEMIDE 40 MG TAB PO SCH (08:47)
[2018-09-06] MEDS: HEPARIN SODIUM,PORCINE 5,000 UNIT/ML 1 ML VIAL SQ SCH (08:47)
[2018-09-06] MEDS: CARVEDILOL 12.5 MG TAB PO SCH (08:47)
[2018-09-06] MEDS: SPIRONOLACTONE 25 MG TAB PO SCH (08:47)
[2018-09-06] MEDS: ceFAZolin IN SWFI 2 GM/20 ML SYRINGE IVP SCH (08:47)
[2018-09-06] MEDS: LISINOPRIL 5 MG TAB PO SCH (08:47)
--- NOTE | 2018-09-06 12:32 | P.DS ---
Providers Date of admission: 08/30/18 16:25 Expected date of discharge: 09/06/18 Attending physician: Ascencion Beckwith Consults: 08/30/18 16:25 Consult Physician Urgent Consulting Provider: Papo Downey Consult Reason/Comments: New CHF Do you want consulting provider notified?: Yes 08/30/18 22:03 Consult Physician Routine Consulting Provider: Roque Gomes Consult Reason/Comments: pleuraL EFFUSION Do you want consulting provider notified?: Yes 08/31/18 15:09 Consult Physician Routine Consulting Provider: Aidee Zavala Consult Reason/Comments: L great toe wound Do you want consulting provider notified?: Yes 09/01/18 12:51 Consult Physician Routine Consulting Provider: Denton Quinn Consult Reason/Comments: wound debridement Do you want consulting provider notified?: Yes 09/03/18 10:29 Consult Physician Routine Consulting Provider: Jair Sandoval Consult Reason/Comments: polycythemia Do you want consulting provider notified?: Yes Primary care physician: Ascencion Beckwith [facility] Course: Final Diagnoses: -Acute on chronic CHF exacerbation, systolic dysfunction, EF 20-25%, new-onset. Etiology unclear, possibly related to dilated cardiomyopathy,Maximizing medical therapy -Cardiomyopathy, dilated secondary to uncontrolled hypertension. -Status post cardiac catheterization reporting normal coronaries with severely impaired LV function, EF 20-25% -Left great toe- neuropathic ulcer, bone scan suggests osteomyelitis, MSSA. Status post excisional debridement. Hemoglobin A1c 6.1. -Mild troponin elevation -Pleural effusions secondary to congestive heart failure, right greater than left -Hypertension -Probably obstructive sleep apnea, recommend outpatient sleep study. -Acute renal failure - Hospital course:This is a 42-year-old gentleman admitted with acute congestive heart failure, cardiomyopathy, pleural effusion, left great toe nonhealing wound and multiple other medical issues. EF 20-25%. Troponin 0.03, 0.03, 0.038. Drug screen tested positive for amphetamines, methamphetamines, benzodiazepines. Complaining of leg spasms possibly secondary to withdrawal. Evaluated by cardiology with recommendations noted. Cardiology discussing cardiac c atheterization once heart failure improves. Continued to have significant shortness of breath this morning, beta john adjusted to Coreg, Lasix and MIKO inhibitor increased. Heparin drip being discontinued and converted to heparin subcu. 09/01/2018 diuresing well on Lasix IVP with 24-hour I&O reflecting a negative fluid balance. Breathing significantly improved and patient is scheduled for cardiac catheterization today. Maintained on IV antibiotics as per infectious disease. Bone scan suggestive of osteomyelitis. Wound cultures pending. Vascular surgery consulted for potential debridement .Denies pain of left toe wound site. Afebrile. Chest x-ray noted. Evaluated by pulmonary, no plans for thoracentesis. 09/02/2018 yesterday he underwent cardiac catheterization reporting normal co ronary arteries with dilated cardiomyopathy, severe LV dysfunction, EF 25-30%, 1-2+ mitral regurgitation. Cardiomyopathy attributed to uncontrolled hypertension as per cardiology. Maximizing medical treatment. Denies chest pain, palpitations or increased shortness of breath. Patient also underwent debridement of left great toe ulcer with vascular surgery. Tolerated procedure well. Cultures reporting staph aureus, sensitivities pending. Maintained on IV antibiotics as per infectious disease. Afebrile. Cultures reporting MSSA .PICC line placed, pain controlled.Declined rehab. Nonweightbearing on the affected extremity , case management to arranging offloading boot/walker .Outpatient sleep study rediscussed . Cleared by all Consults for discharge. Patient is being discharged home in a stable condition with guarded prognosis. EXAM: GENERAL: Alert and oriented 3, no acute distress CARDIOVASCULAR: S1, S2 regular. Systolic murmur, no rubs, no gallops. RESPIRATION: Unlabored, Breath sounds diminished in the bases. No rhonchi or crackles. ABDOMEN: Soft, nontender . no masses palpable. No guarding or rigidity.Bowel sounds heard. NERVOUS SYSTEM: No focal deficits. Skin: Left foot great toe, dressing clean dry and intact. The impression and plan of care has been dictated as directed. : I performed a history and examination of this patient, discussed the same with the dictator. I agree with the dictator's note ,documented as a scribe. Any additional findings or plans will be noted. Time taken: 35 minutes Patient Condition at Discharge: Stable Plan - Discharge Summary Discharge Rx Participant: Yes New Discharge Prescriptions: New ceFAZolin [Kefzol] 2 gm IVP Q8HR #120 vial Spironolactone [Aldactone] 25 mg PO DAILY #30 tab Carvedilol [Coreg*] 12.5 mg PO BID-W/MEALS #60 tab Furosemide [Lasix] 40 mg PO DAILY #30 tab Collagenase [Santyl] 1 applic TOPICAL DAILY applic Lisinopril [Zestril] 5 mg PO DAILY #30 tab Discharge Medication List Carvedilol [Coreg*] 12.5 mg PO BID-W/MEALS #60 tab 09/05/18 [Rx] Collagenase [Santyl] 1 applic TOPICAL DAILY applic 09/05/18 [Rx] Furosemide [Lasix] 40 mg PO DAILY #30 tab 09/05/18 [Rx] Lisinopril [Zestril] 5 mg PO DAILY #30 tab 09/05/18 [Rx] Spironolactone [Aldactone] 25 mg PO DAILY #30 tab 09/05/18 [Rx] ceFAZolin [Kefzol] 2 gm IVP Q8HR #120 vial 09/05/18 [Rx] Follow up Appointment(s)/Referral(s): Ascencion Beckwith MD [Primary Care Provider] - 3 Days (Please call office to make follow up appointment after discharge. ) [facility], [NON-STAFF] - [facility],. [NON-STAFF] - 09/14/18 (Dr Quinn ) Aidee Zavala MD [STAFF PHYSICIAN] - 09/13/18 1:30 pm Papo Downey MD [STAFF PHYSICIAN] - 09/12/18 1:00 pm Cinthya Tracy [NON-STAFF] - Ambulatory/Diagnostic Orders: Complete Blood Count w/diff [LAB.AMB] Time Frame: 3 Days, Location: None Selected Patient Instructions/Handouts: *Surgery [facility] - After Heart Catheterization - Weapons Officer Instructions, Spironolactone (By mouth), Lisinopril (By mouth), Cefazolin (By injection), Carvedilol (By mouth), Heart Failure (DC), Low-Sodium Diet (DC), Acute Wounds (DC) Activity/Diet/Wound Care/Special Instructions: PICC line pending, weekly CBC, BMP, sed rate with results to PCP and infectious disease Dr. Zavala. Sita dressing changes daily to left great toe. Needs to be non weight-bearing to left foot. Patient to follow with Dr. Quinn in wound care center on Wednesdays. Active infusion [phone] pts ABX will be delivered to his home 09-06-18 around noon-pt to be dc'd from hospital after his 08:00 dose of ABX Pts to go to [place] to get his boot. Discharge Disposition: HOME WITH HOME HEALTH SERVICES
== END 2018-09-06 09:25 | disposition home health service (06) | DRG 264 ==
LOC: EC 12:44 → 3SCARD 16:25 → 3NMEDONC 09-06 04:45
PROVIDERS: ADMIT Family Medicine; ATTEND Family Medicine
PROC: 0JBR0ZZ Excision of Left Foot Subcutaneous Tissue and Fascia, Open Approach (ICD-10-PCS; 2018-09-01)
PROC: B2111ZZ Fluoroscopy of Multiple Coronary Arteries using Low Osmolar Contrast (ICD-10-PCS; 2018-09-01)
PROC: B2151ZZ Fluoroscopy of Left Heart using Low Osmolar Contrast (ICD-10-PCS; 2018-09-01)
PROC: 4A023N7 Measurement of Cardiac Sampling and Pressure, Left Heart, Percutaneous Approach (ICD-10-PCS; principal; 2018-09-01 13:30)
PROC: 02HV33Z Insertion of Infusion Device into Superior Vena Cava, Percutaneous Approach (ICD-10-PCS; 2018-09-05)
DX: I11.0 Hypertensive heart disease with heart failure (principal); N17.9 Acute kidney failure, unspecified; K50.90 Crohn's disease, unspecified, without complications; M86.9 Osteomyelitis, unspecified; L03.90 Cellulitis, unspecified; I42.0 Dilated cardiomyopathy; I27.20 Pulmonary hypertension, unspecified; I08.1 Rheumatic disorders of both mitral and tricuspid valves; G62.9 Polyneuropathy, unspecified; D75.1 Secondary polycythemia; L97.522 Non-pressure chronic ulcer of other part of left foot with fat layer exposed; I50.23 Acute on chronic systolic (congestive) heart failure; K21.9 Gastro-esophageal reflux disease without esophagitis; F41.9 Anxiety disorder, unspecified; F32.9 Major depressive disorder, single episode, unspecified; R00.0 Tachycardia, unspecified; R74.8 Abnormal levels of other serum enzymes; G47.33 Obstructive sleep apnea (adult) (pediatric); F15.10 Other stimulant abuse, uncomplicated; R51 Headache; R09.02 Hypoxemia; E66.9 Obesity, unspecified; Z68.28 Body mass index [BMI] 28.0-28.9, adult; B95.61 Methicillin susceptible Staphylococcus aureus infection as the cause of diseases classified elsewhere; R25.2 Cramp and spasm; Z90.49 Acquired absence of other specified parts of digestive tract; Z88.0 Allergy status to penicillin; Z82.49 Family history of ischemic heart disease and other diseases of the circulatory system
CPT/HCPCS: 36415; 36573; 71045; 71046; 71275; 78315; 80048; 80053; 80306; 80320; 81003; 83036; 83735; 83880; 84443; 84484; 85025; 85379; 85610; 85652; 85730; 86140; 87070; 87077; 87186; 87205; 93005; 93306; 93458; 96365; 96366; 96375; 96376; 99291

== ENCOUNTER 2019-02-04 20:52 | Inpatient (IN) | payer OTHER ==
[2019-02-04] MEDS ORDERED: ASPIRIN 81 MG PO STA (21:18)
--- NOTE | 2019-02-04 21:27 | ED ---
General Adult HPI - General Chief complaint: Chest Pain Stated complaint: Chest pain,sob Time Seen by Provider: 02/04/19 21:05 Source: patient Mode of arrival: ambulatory Limitations: no limitations - History of Present Illness Initial comments: Dictation was produced using [employer] dictation software. please excuse any grammatical, word or spelling errors. Chief Complaint: 43-year-old male with past medical history of chronic CHF, cardiomyopathy, neuropathic ulcer presents with chest pain and shortness of breath. History of Present Illness: She is a 43-year-old male presents with chest pain and shortness of breath. Patient states his symptoms have been ongoing for approximately 3 days. [id number] patient has a lot of comorbidities. Patient has history of cardiomyopathy with reduced ejection fraction. He had a cardiac cath performed in August of this year showing no significant coronary artery disease. He also complains today of chest pain. He states the pain is left lower chest pain. He states that sharp. States it radiates to his jaw. Does not radiate down his extremities. He does report some diaphoresis along with his chest pain. Reports that his symptoms have been persistent for the last 3 d ays. Denies any radiation to the back. No upper extremity paresthesias. Patient also has shortness of breath. He states that it's worse when lying flat. He also does complain of lower extremity swelling. He was is still his symptoms are consistent with his congestive heart failure. Denies any fever, chills or night sweats. Denies exacerbation of chest pain with deep inspiration. The ROS documented in this emergency department record has been reviewed and confirmed by me. Those systems with pertinent positive or negative responses have been documented in the HPI. All other systems are other negative and/or noncontributory. PHYSICAL EXAM: General Impression: Alert and oriented x3, not in acute distress, malodorous HEENT: Normocephalic atraumatic, extra-ocular movements intact, pupils equal and reactive to light bilaterally, mucous membranes moist. Cardiovascular: Heart regular rate and rhythm, S1&S2 audible, no murmurs, rubs or gallops Chest: Lungs clear to auscultation bilaterally, no rhonchi, no wheeze, no rales Abdomen: Bowel sounds present, abdomen soft, non-tender, non-distended, no organomegaly, midline abdominal scar, no tympany to percussion Musculoskeletal: Pulses present and equal in all extremities, plus pitting edema bilaterally Motor: no focal deficits noted Neurological: CN II-XII grossly intact, no focal motor or sensory deficits noted Skin: Bilateral plantar surface foot ulcers, ulcers were probed without any tracking to the bones, no surrounding erythema Psych: Normal affect and mood ED course: 43-year-old male presents with chest pain, shortness of breath signs upon arrival shows heart rate of 112, respiratory signs within acceptable limits . Patient's well-appearing at bedside. EKG shows sinus tachycardia. Chart was reviewed patient had a cardiac catheterization performed in August of this year showing no significant coronary artery stenosis.A cardiogram was reviewed from August of this year showing ejection fraction of 20-25%. Laboratory evaluation obtained. CBC unremarkable. Coag panel negative. D- dimer 0.33, metabolic panel shows hyper by CO2 31 no other metabolic abnormalities. Prematurity peptide elevated at 2850. She has slightly elevated troponin at 0.027. His prematurity peptide is elevated from his usual. Tropon in is likely secondary to week. Chest x-ray is suggestive of cardiomegaly with mild pulmonary congestion no overt heart failure. Patient reevaluated at bedside after administration of 40 mg of IV Lasix. Patient not showing any signs of respiratory distress. Patient's shortness of breath likely secondary to mild acute decompensated heart failure. No concerns for myocardial infarction at this time given benign EKG and negative troponins. He also has recent negative cardiac catheterization. Discussed patient case with Dr. Garibay/Gee salas who is on-call for Dr. Ascencion Beckwith was willing to accept patients care. He request that patient be admitted to Dr. Ascencion Beckwith. Cardiology to be on consult. Patient is given aspirin. At this point is unclear what is causing patient's chest pain. Patient however is otherwise well-appearing at bedside currently. EKG interpretation: Ventricular rate 110, sinus tachycardia, AR interval 150, QS 104, QTC 487. No AR prolongation, no QTC prolongation, no ST or T-wave changes noted. EKG compared to 08/30/2018 showing no changes. Overall, this EKG is unremarkable - Related Data Home Medications Medication Instructions Recorded Confirmed No Known Home Medications 02/04/19 02/04/19 Allergies Allergy/AdvReac Type Severity Reaction Status Date / Time Penicillins Allergy Unknown Verified 02/04/19 21:24 Childhood Review of Systems ROS Statement: Those systems with pertinent positive or pertinent negative responses have been documented in the HPI. ROS Other: All systems not noted in ROS Statement are negative. Past Medical History Past Medical History: GERD/Reflux, GI Bleed, Hypertension Additional Past Medical History / Comment(s): Partial bowel obstruction secondary to adhesions, Crohn's, ileorectal anastomotic stricture, cervical pain-ruptured disc., ileus, enteritis History of Any Multi-Drug Resistant Organisms: None Reported Past Surgical History: Appendectomy, Bowel Resection, Hernia Repair Additional Past Surgical History / Comment(s): Lucio. bowel resection in 1993, lysis of adhesions, partial omentectomy and repair of incisional hernia August [address] Calzada, decompressive colonoscopy in May [address] Calzada, EGD and multiple colonoscopies, Epidural injections to neck- last one on 04/2015. Past Anesthesia/Blood Transfusion Reactions: No Reported Reaction Additional Past Anesthesia/Blood Transfusion Reaction / Comment(s): Pt has never recieved blood. 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 ] Respiratory 20 Rate Blood Pressure 157/110 O2 Sat by Pulse 98 Oximetry Medical Decision Making - Lab Data Result diagrams: 02/04/19 21:27 02/04/19 21:27 Lab Results 02/04/19 02/04/19 02/04/19 Range/Units 21:27 21:27 21:27 WBC 9.3 (3.8-10.6) k/uL RBC 5.13 (4.30-5.90) m/uL Hgb 15.3 (13.0-17.5) gm/dL Hct 46.7 (39.0-53.0) % MCV 91.1 (80.0-100.0) fL MCH 29.9 (25.0-35.0) pg MCHC 32.8 (31.0-37.0) g/dL RDW 13.9 (11.5-15.5) % Plt Count 291 (150-450) k/uL Neutrophils % 68 % Lymphocytes % 18 % Monocytes % 7 % Eosinophils % 2 % Basophils % 3 % Neutrophils # 6.4 (1.3-7.7) k/uL Lymphocytes # 1.7 (1.0-4.8) k/uL Monocytes # 0.6 (0-1.0) k/uL Eosinophils # 0.2 (0-0.7) k/uL Basophils # 0.3 H (0-0.2) k/uL PT 11.4 (9.0-12.0) sec INR 1.1 (<1.2) APTT 25.1 (22.0-30.0) sec D-Dimer 0.33 (<0.60) mg/L FEU Sodium 138 (137-145) mmol/L Potassium 4.0 (3.5-5.1) mmol/L Chloride 103 (98-107) mmol/L Carbon Dioxide 24 (22-30) mmol/L Anion Gap 11 mmol/L BUN 18 (9-20) mg/dL Creatinine 1.13 (0.66-1.25) mg/dL Est GFR (CKD-EPI)AfAm >90 (>60 ml/min/1.73 sqM) Est GFR (CKD-EPI)NonAf 80 (>60 ml/min/1.73 sqM) Glucose 231 H (74-99) mg/dL Calcium 9.5 (8.4-10.2) mg/dL Magnesium 1.9 (1.6-2.3) mg/dL Total Bilirubin 1.0 (0.2-1.3) mg/dL AST 30 (17-59) U/L ALT 34 (21-72) U/L Alkaline Phosphatase 81 (38-126) U/L Troponin I (0.000-0.034) ng/mL NT-Pro-B Natriuret Pep pg/mL Total Protein 6.9 (6.3-8.2) g/dL Albumin 3.7 (3.5-5.0) g/dL Lipase 43 (23-300) U/L 02/04/19 02/04/19 Range/Units 21:27 21:27 WBC (3.8-10.6) k/uL RBC (4.30-5.90) m/uL Hgb (13.0-17.5) gm/dL Hct (39.0-53.0) % MCV (80.0-100.0) fL MCH (25.0-35.0) pg MCHC (31.0-37.0) g/dL RDW (11.5-15.5) % Plt Count (150-450) k/uL Neutrophils % % Lymphocytes % % Monocytes % % Eosinophils % % Basophils % % Neutrophils # (1.3-7.7) k/uL Lymphocytes # (1.0-4.8) k/uL Monocytes # (0-1.0) k/uL Eosinophils # (0-0.7) k/uL Basophils # (0-0.2) k/uL PT (9.0-12.0) sec INR (<1.2) APTT (22.0-30.0) sec D-Dimer (<0.60) mg/L FEU Sodium (137-145) mmol/L Potassium (3.5-5.1) mmol/L Chloride (98-107) mmol/L Carbon Dioxide (22-30) mmol/L Anion Gap mmol/L BUN (9-20) mg/dL Creatinine (0.66-1.25) mg/dL Est GFR (CKD-EPI)AfAm (>60 ml/min/1.73 sqM) Est GFR (CKD-EPI)NonAf (>60 ml/min/1.73 sqM) Glucose (74-99) mg/dL Calcium (8.4-10.2) mg/dL Magnesium (1.6-2.3) mg/dL Total Bilirubin (0.2-1.3) mg/dL AST (17-59) U/L ALT (21-72) U/L Alkaline Phosphatase (38-126) U/L Troponin I 0.027 (0.000-0.034) ng/mL NT-Pro-B Natriuret Pep 2850 pg/mL Total Protein (6.3-8.2) g/dL Albumin (3.5-5.0) g/dL Lipase (23-300) U/L Disposition Clinical Impression: Dyspnea, Chest pain Disposition: ADMITTED IP TO THIS HOSP Condition: Fair Referrals: Ascencion Beckwith MD [Primary Care Provider] - 1-2 days Decision Time: 22:35
[2019-02-04 21:43] LABS: Basophils # (A) 0.3 k/uL (0-0.2); Basophils % (A) 3 %; Eosinophils # (A) 0.2 k/uL (0-0.7); Eosinophils % (A) 2 %; HCT 46.7 % (39.0-53.0); HGB 15.3 gm/dL (13.0-17.5); Lymphocytes # (A) 1.7 k/uL (1.0-4.8); Lymphocytes % (A) 18 %; MCH 29.9 pg (25.0-35.0); MCHC 32.8 g/dL (31.0-37.0); MCV 91.1 fL (80.0-100.0); Monocytes # (A) 0.6 k/uL (0-1.0); Monocytes % (A) 7 %; Neutrophils # (A) 6.4 k/uL (1.3-7.7); Neutrophils % (A) 68 %; Platelet Count 291 k/uL (150-450); RBC 5.13 m/uL (4.30-5.90); RDW 13.9 % (11.5-15.5); WBC 9.3 k/uL (3.8-10.6)
[2019-02-04 21:53] LABS: ALT 34 U/L (21-72); AST 30 U/L (17-59); African American GFR (CKD) >90 (>60 ml/min/1.73 sqM); Albumin 3.7 g/dL (3.5-5.0); Alkaline Phosphatase 81 U/L (38-126); Anion Gap 11 mmol/L; Blood Urea Nitrogen 18 mg/dL (9-20); Calcium 9.5 mg/dL (8.4-10.2); Carbon Dioxide 24 mmol/L (22-30); Chloride 103 mmol/L (98-107); Glucose 231 mg/dL (74-99); Magnesium 1.9 mg/dL (1.6-2.3); Sodium 138 mmol/L (137-145); Total Protein 6.9 g/dL (6.3-8.2)
[2019-02-04 21:58] LABS: D-Dimer 0.33 mg/L FEU (<0.60); INR 1.1 (<1.2); Partial Thromboplastin Time 25.1 sec (22.0-30.0); Prothrombin Time 11.4 sec (9.0-12.0)
--- NOTE | 2019-02-04 22:12 | XR ---
EXAMINATION TYPE: XR foot complete bilateral DATE OF EXAM: 02/04/2019 COMPARISON: Left foot 08/31/2018 HISTORY: Foot wounds. TECHNIQUE: 3 views each foot FINDINGS: Metatarsals appear intact. I see no fracture nor dislocation. There is no evidence of bony destructive process. There are bilateral Achilles calcaneal spurs. There are small opacities projecte d at the skin surface of the fourth toe of the right foot. Our probably not foreign bodies in the sof t tissues. IMPRESSION: Calcaneal plantar spurring. No fracture. No sign of osteomyelitis. Moderate right-sided p lantar calcaneal spurring.
--- NOTE | 2019-02-04 22:13 | XR ---
EXAMINATION TYPE: XR chest 2V DATE OF EXAM: 02/04/2019 COMPARISON: 09/01/2018 HISTORY: Chest pain TECHNIQUE: Frontal and lateral views of the chest are obtained. FINDINGS: Heart is enlarged. There is no heart failure. There is coarsening of interstitial markings . There is no pleural effusion. Bony thorax is intact. IMPRESSION: Cardiomegaly with mild pulmonary congestion. No overt heart failure. Inspiration improve d compared to old exam.
[2019-02-04] MEDS ORDERED: FUROSEMIDE 10 MG/ML 4 ML VIAL IV STA (22:21)
[2019-02-04] MEDS ORDERED: hydrALAZINE HCL 20 MG/ML 1 ML VIAL IVP STA (22:52)
[2019-02-05] MEDS ORDERED: hydrALAZINE HCL 20 MG/ML 1 ML VIAL IVP STA (00:46)
[2019-02-05] MEDS: SODIUM CHLORIDE 0.9% 1,000 ML IV SCH ×2 (03:09→06:21)
--- NOTE | 2019-02-05 08:12 | P.CRDCN ---
History of Present Illness Consult date: 02/05/19 History of present illness: This is a 43-year-old gentleman with history of nonischemic cardiomyopathy and neuropathy who comes to the hospital this time with complaints of increasing shortness of breath and some chest discomfort. Patient claims that he was short of breath with activities and also was waking up at night with shortness of breath. Patient stopped taking all his medication about 2 months ago because of difficulty getting medications. He was found to be tachycardic. Chest x-ray showed mild evidence of CHF. His pro-BNP is elevated. Patient is admitted here for further evaluation. He was started on Lasix IV and patient seemed to be diuresing well. He also complained of pedal swelling. No dizziness or syncope. Patient is currently being initiated on Coreg, lisinopril and Aldactone along with the Lasix. Echocardiogram is being repeated. Further recommendations depend upon the clinical course. Patient is also having severe cramps this m orning. He is going to be treated with magnesium and potassium supplement Review of Systems As per the chart Past Medical History Past Medical History: Asthma, Heart Failure, GERD/Reflux, GI Bleed, Hypertension Additional Past Medical History / Comment(s): Partial bowel obstruction secondary to adhesions, Crohn's, ileorectal anastomotic stricture, cervical pain-ruptured disc., ileus, enteritis History of Any Multi-Drug Resistant Organisms: None Reported Past Surgical History: Appendectomy, Bowel Resection, Hernia Repair Additional Past Surgical History / Comment(s): Lucio. bowel resection in 1993, lysis of adhesions, partial omentectomy and repair of incisional hernia August [address] Calzada, decompressive colonoscopy in May [address] Calzada, EGD and multiple colonoscopies, Epidural injections to neck- last one on 04/2015. Past Anesthesia/Blood Transfusion Reactions: No Reported Reaction Additional Past Anesthesia/Blood Transfusion Reaction / Comment(s): Pt has never recieved blood. Past Psychological History: Anxiety, Depression Additional Psychological History / Comment(s): PT lives with HS MOM AND A 12 yr old son. Pt is independent. He drives a car. He is NOT CURRENTLY WORKING. Smoking Status: Never smoker Past Alcohol Use History: Rare Past Drug Use History: None Reported - Past Family History Father Family Medical History: Myocardial Infarction ([place]) Additional Family Medical History / Comment(s): AT [birth year]GGE 54- HIS 4TH [place] Mother Family Medical History: Coronary Artery Disease (CAD), Hypertension Additional Family Medical History / Comment(s): MOM IS AGE 63, HAS STENTS Medications and Allergies Home Medications Medication Instructions Recorded Confirmed Type No Known Home Medications 02/04/19 02/04/19 History Allergies Allergy/AdvReac Type Severity Reaction Status Date / Time Penicillins Allergy Unknown Verified 02/05/19 02:07 Childhood Physical Exam Vitals: Vital Signs Temp Pulse Pulse Resp BP BP Pulse Ox 02/05/19 04:00 98.2 F 96 16 120/76 96 02/05/19 02:07 97.9 F 99 15 149/91 97 02/05/19 01:47 96 23 129/90 100 02/05/19 01:40 100 25 H 134/103 02/05/19 01:00 100 30 H 143/109 02/05/19 00:40 99 18 151/106 02/05/19 00:20 102 H 20 146/101 02/05/19 00:00 99 22 170/128 02/04/19 23:00 110 H 24 165/124 02/04/19 22:40 111 H 24 141/130 99 02/04/19 22:22 108 H 23 161/124 99 02/04/19 20:59 108 H 02/04/19 20:57 97.9 F 112 H 20 157/110 98 Intake and Output 02/04/19 02/05/19 02/05/19 22:59 06:59 14:59 Intake Total 0 Balance 0 Intake: Oral 0 Other: Weight 103.873 kg 99.337 kg GENERAL EXAM: Patient is alert and oriented and doesn't appear to be in any acute distress HEENT: Normocephalic. Normal reaction of pupils, equal size, normal range of extraocular motion. No erythema or exudates in the throat. NECK: No masses, no nuchal rigidity. CHEST: No chest wall deformity. LUNGS: Equal air entry with no crackles or wheeze. HEART: S1 and S2 normal with no audible mumurs or gallops. Regular rhythm, femorals equal on both sides.. ABDOMEN: No hepatosplenomegaly, normal bowel sounds, no guarding or rigidity. SKIN: No rashes CENTRAL NERVOUS SYSTEM: No focal deficits. EXTREMITIES: Resolving edema Results 02/04/19 21:27 02/04/19 21:27 Cardiac Enzymes 02/04/19 02/04/19 Range/Units 21:27 21:27 AST 30 (17-59) U/L Troponin I 0.027 (0.000-0.034) ng/mL Coagulation 02/04/19 Range/Units 21:27 PT 11.4 (9.0-12.0) sec APTT 25.1 (22.0-30.0) sec CBC 02/04/19 Range/Units 21:27 WBC 9.3 (3.8-10.6) k/uL RBC 5.13 (4.30-5.90) m/uL Hgb 15.3 (13.0-17.5) gm/dL Hct 46.7 (39.0-53.0) % Plt Count 291 (150-450) k/uL Comprehensive Metabolic Panel 02/04/19 Range/Units 21:27 Sodium 138 (137-145) mmol/L Potassium 4.0 (3.5-5.1) mmol/L Chloride 103 (98-107) mmol/L Carbon Dioxide 24 (22-30) mmol/L BUN 18 (9-20) mg/dL Creatinine 1.13 (0.66-1.25) mg/dL Glucose 231 H (74-99) mg/dL Calcium 9.5 (8.4-10.2) mg/dL AST 30 (17-59) U/L ALT 34 (21-72) U/L Alkaline Phosphatase 81 (38-126) U/L Total Protein 6.9 (6.3-8.2) g/dL Albumin 3.7 (3.5-5.0) g/dL Current Medications Generic Name Dose Route Start Last Admin Trade Name Freq PRN Reason Stop Dose Admin Carvedilol 3.125 mg 02/05/19 17:30 Coreg PO BID-W/MEALS LOUIE Furosemide 40 mg 02/05/19 14:00 Lasix PO Q8H LOUIE Sodium Chloride 1,000 mls @ 20 mls/hr 02/04/19 22:45 02/05/19 06:21 Saline 0.9% IV Not Given .Q24H LOUIE Magnesium Sulfate/Dextrose 1 100 mls @ 100 mls/hr 02/05/19 08:15 gm/ IV Solution IVPB 02/05/19 09:14 ONCE ONE Lisinopril 5 mg 02/05/19 09:00 Zestril PO DAILY LOUIE Spironolactone 25 mg 02/05/19 09:00 Aldactone PO DAILY LOUIE Intake and Output 02/04/19 02/05/19 02/05/19 22:59 06:59 14:59 Intake Total 0 Balance 0 Intake: Oral 0 Other: Weight 103.873 kg 99.337 kg 02/04/19 21:27 02/04/19 21:27 EKG Interpretations (text) Sinus tachycardia Assessment and Plan (1) Acute on chronic systolic heart failure Current Visit: Yes Status: Acute Code(s): I50.23 - ACUTE ON CHRONIC SYSTOLIC (CONGESTIVE) HEART FAILURE SNOMED Code(s): 017615041 (2) Nonischemic cardiomyopathy Current Visit: Yes Status: Acute Code(s): I42.8 - OTHER CARDIOMYOPATHIES SNOMED Code(s): 89789260 (3) Hx of Crohn's disease Current Visit: No Status: Acute Code(s): Z87.19 - PERSONAL HISTORY OF OTHER DISEASES OF THE DIGESTIVE SYSTEM SNOMED Code(s): 024618216916445 (4) Hypertension Current Visit: No Status: Acute Code(s): I10 - ESSENTIAL (PRIMARY) HYPERTENSION SNOMED Code(s): 35406435 Plan: We'll initiate back on combination of beta john, MIKO inhibitor, Aldactone, and also diuretic . Will get echocardiogram. Further recommendations depend upon the clinical course
[2019-02-05] MEDS ORDERED: MAGNESIUM SULFATE-D5W PMX 1 GM in DEXTROSE/WATER 1 100ML.BAG IVPB ONE (08:15)
[2019-02-05] MEDS: LISINOPRIL 5 MG TAB PO SCH (08:52)
[2019-02-05] MEDS: SPIRONOLACTONE 25 MG TAB PO SCH (08:52)
[2019-02-05] MEDS ORDERED: MORPHINE SULFATE 2 MG/ML SYRINGE IVP STA (09:43)
[2019-02-05] MEDS ORDERED: MORPHINE SULFATE 2 MG/ML SYRINGE IVP ONE (10:30)
[2019-02-05 11:44] LABS: Glucose,Whole Blood 229 mg/dL (75-99)
[2019-02-05 11:49] VITALS: BMI 29.7
[2019-02-05] MEDS: INSULIN ASPART (NovoLOG) 100 UNIT/ML VIAL SQ SCH ×3 (12:28→20:19)
[2019-02-05] MEDS: CARVEDILOL 3.125 MG TAB PO SCH (12:28)
[2019-02-05 12:34] LABS: Magnesium 2.3 mg/dL (1.6-2.3); Potassium 3.8 mmol/L (3.5-5.1)
[2019-02-05] MEDS: MORPHINE SULFATE 2 MG/ML SYRINGE IVP PRN ×2 (13:29→20:28)
[2019-02-05] MEDS ORDERED: FUROSEMIDE 40 MG TAB PO SCH ×2 (14:00)
[2019-02-05] MEDS ORDERED: Potassium Replacement Protocol 1 EACH MISC MISCELLANE PRN (14:31)
[2019-02-05] MEDS ORDERED: POTASSIUM CHLORIDE ER 20 MEQ TAB.ER PO SCH (15:00)
[2019-02-05] MEDS: ACETAMINOPHEN TAB 325 MG TAB PO PRN (15:08)
[2019-02-05 16:39] LABS: Glucose,Whole Blood 180 mg/dL (75-99)
[2019-02-05 20:17] LABS: Glucose,Whole Blood 108 mg/dL (75-99)
[2019-02-05] MEDS: FAMOTIDINE 20 MG TAB PO SCH (20:27)
[2019-02-05] MEDS: HEPARIN SODIUM,PORCINE 5,000 UNIT/ML 1 ML VIAL SQ SCH (20:27)
--- NOTE | 2019-02-05 21:48 | HP ---
HISTORY AND PHYSICAL Zhang Marin is a 43-year-old male who presented to the ED at [facility] with increasing shortness of breath for about 3-4 days duration. This has been associated with swelling of his lower extremities. He had no fever or chills. He had some chest tightness as well. He subsequently was seen in the ER and admitted for further evaluation, and management. He has a known history of hypertension, but ran out of his medications about 2-3 months ago and has not seen a physician apparently recently as well. He had a cardiac cath performed in August of 2018, which showed no significant evidence of coronary artery disease. He at that time was found to have a reduced ejection fraction with cardiomyopathy. PAST MEDICAL HISTORY: Positive for congestive heart failure, congestive cardiomyopathy, history of loud snoring, likely unrelated to obstructive sleep apnea, history of GI bleed, gastroesophageal reflux disease, history of partial small bowel obstruction secondary to Crohn's with ileorectal anastomotic stricture, history of ileus, enteritis, history of adhesions in the abdominal cavity, history of bowel resection, hernia repair, omentectomy, history of epidural injections to his neck, history of anxiety, history of depression. The patient has a history of chronic wounds to both his feet. FAMILY HISTORY: Positive for [place] in his father who at age 54. Mother had a history of coronary artery disease and hypertension. MEDICATIONS: Prior to admission were none. PHYSICAL EXAMINATION: He was lying in bed. His blood pressure was 157/110, respiratory rate of 20, pulse rate of 112, temperature 97.9. HEENT reveals pupils are equal. There is redundant tissue in the posterior pharynx. Chest reveals decreased breath sounds. Scattered basal crackles. Cardiovascular system reveals an S1, S2. Abdomen is soft. There is 1+ pedal edema. The patient has a surgical dressing over both big toes in the lower extremity. LABS: Reveal a white count of 9.3, hemoglobin of 15.3, 0.3 1000 basophils, 0.2 1000 eosinophils. Sodium is 138, potassium 4, chloride 103, bicarb 24, BUN 18, creatinine of 1.13. NT proBNP 2870. Troponin 0.027. Glucose is 180. IMPRESSION: At this time: 1. Accelerated hypertension. 2. Obstructive sleep apnea, likely. 3. Elevated troponin which may be due to cardiac etiology. 4. Chronic foot infection. 5. Borderline diabetes mellitus with elevated blood sugars. 6. Obesity. 7. Noncompliance in patient. At this point in time, would keep the patient on IV Lasix, beta john, MIKO inhibitor keep his pain under control. Increase activity level. Continue local wound care and have ID and Cardiology further evaluate the patient. Patient will be kept on GI/DVT prophylaxis. MMODL / IJN: [id number] /
[2019-02-06] MEDS: MORPHINE SULFATE 2 MG/ML SYRINGE IVP PRN ×5 (01:22→23:37)
[2019-02-06] MEDS: ACETAMINOPHEN TAB 325 MG TAB PO PRN (03:26)
[2019-02-06] MEDS ORDERED: FUROSEMIDE 10 MG/ML 4 ML VIAL IV SCH ×2 (04:00)
[2019-02-06 06:50] LABS: Glucose,Whole Blood 112 mg/dL (75-99)
[2019-02-06 07:06] LABS: African American GFR (CKD) >90 (>60 ml/min/1.73 sqM); Anion Gap 11 mmol/L; Blood Urea Nitrogen 16 mg/dL (9-20); Calcium 9.1 mg/dL (8.4-10.2); Carbon Dioxide 26 mmol/L (22-30); Chloride 99 mmol/L (98-107); Glucose 164 mg/dL (74-99); Potassium 3.9 mmol/L (3.5-5.1); Sodium 136 mmol/L (137-145)
[2019-02-06] MEDS: INSULIN ASPART (NovoLOG) 100 UNIT/ML VIAL SQ SCH ×4 (08:50→22:14)
[2019-02-06] MEDS: FAMOTIDINE 20 MG TAB PO SCH (08:54)
[2019-02-06] MEDS: FUROSEMIDE 40 MG TAB PO SCH ×2 (08:54→16:34)
[2019-02-06] MEDS: SPIRONOLACTONE 25 MG TAB PO SCH (08:54)
[2019-02-06] MEDS: CARVEDILOL 3.125 MG TAB PO SCH ×2 (08:54→16:34)
[2019-02-06] MEDS: HEPARIN SODIUM,PORCINE 5,000 UNIT/ML 1 ML VIAL SQ SCH ×2 (08:54→22:14)
[2019-02-06] MEDS: LISINOPRIL 5 MG TAB PO SCH (08:54)
--- NOTE | 2019-02-06 10:12 | P.PN ---
Subjective This is a pleasant 43-year-old male past medical history significant for nonischemic dilated cardiomyopathy, hypertension, dyslipidemia, bowel resection, daily marijuana dependence and history of opiate abuse in the past. He is currently being treated for an acute exacerbation of chronic systolic heart failure. The patient states he has been noncompliant and has not been taking his heart failure medications for the previous 3 months. Yesterday he was started on carvedilol 3.125 mg twice a day, Lasix 40 mg IV 3 times a day, lisinopril 5 mg daily and Aldactone 25 mg daily. He is seen and examined laying flat resting comfortably in bed in no acute distress. He states overall his shortness of breath has improved and he has been urinating frequently. He denies chest discomfort, dizziness or palpitations. Blood pressure 115/80 heart rate 102 afebrile maintaining oxygen saturation on room air. Laboratory data reviewed, sodium 136, potassium 3.9, creatinine 0.92. GENERAL: Well-appearing, well-nourished and in no acute distress. NECK: Supple without JVD or thyromegaly. LUNGS: Breath sounds clear to auscultation bilaterally. Respiration equal and unlabored. No wheezes, rales or rhonchi. HEART: Regular rate and rhythm without murmurs, rubs or gallops. S1 and S2 heard. EXTREMITIES: Normal range of motion, no edema. No clubbing or cyanosis. Peripheral pulses intact. ASSESSMENT Acute on chronic systolic heart failure Nonischemic cardiomyopathy Hypertension History of Crohn's disease status post bowel resection Chronic daily marijuana use History of noncompliance PLAN Transition to oral diuretics. Echocardiogram has been ordered and will be reviewed. Continue carvedilol, lisinopril and Aldactone as previously ordered. Medication compliance discussed in detail. Patient verbalizes understanding. If no improvement in LV on maximum medical therapy may require ICD implantation. Nurse Practitioner note has been reviewed, I agree with a documented findings and plan of care. Patient was seen and examined. Objective - Vital Signs Vital signs: Vital Signs Temp 98.2 F 02/06/19 08:00 Pulse 102 H 02/06/19 08:00 Resp 18 02/06/19 08:00 BP 115/80 02/06/19 08:00 Pulse Ox 96 02/06/19 08:00 Intake & Output 02/05/19 02/06/19 02/06/19 18:59 06:59 18:59 Intake Total 140 420 Balance 140 420 Weight 99.337 kg Intake: Oral 140 420 Other: Voiding Method Toilet Toilet Toilet # Voids 1 - Labs CBC & Chem 7: 02/04/19 21:27 02/06/19 05:44 Labs: Abnormal Lab Results - Last 24 Hours (Table) 02/05/19 02/05/19 02/05/19 Range/Units 11:42 16:38 20:16 Sodium (137-145) mmol/L Glucose (74-99) mg/dL POC Glucose (mg/dL) 229 H 180 H 108 H (75-99) mg/dL 02/06/19 02/06/19 Range/Units 05:44 06:47 Sodium 136 L (137-145) mmol/L Glucose 164 H (74-99) mg/dL POC Glucose (mg/dL) 112 H (75-99) mg/dL
[2019-02-06 11:40] LABS: Glucose,Whole Blood 183 mg/dL (75-99)
[2019-02-06 11:42] LABS: Hemoglobin A1C 6.4 % (4.0-6.0)
--- NOTE | 2019-02-06 14:55 | P.PN ---
Subjective Progress Note Date: 02/06/19 This is a 43-year-old gentleman admitted with acute on chronic systolic heart failure, bilateral feet infection with small ulcers, hypertension and multiple other medical issues. Coreg initiated yesterday with MIKO inhibitor, Aldactone, Lasix IV push. Blood pressure better controlled today. Lasix converted to oral. ICD implantation being discussed if no improvement in LV with medical therapy maximized. Creatinine 0.92. Potassium 3.9, sodium 136. Afebrile. Evaluated by infectious disease, cultures obtained. Feet, pulse can ordered. Objective - Vital Signs Vital signs: Vital Signs Temp 98.2 F 02/06/19 08:00 Pulse 99 02/06/19 12:00 Resp 18 02/06/19 12:00 BP 136/99 02/06/19 11:31 Pulse Ox 99 02/06/19 11:31 Intake & Output 02/05/19 02/06/19 02/06/19 18:59 06:59 18:59 Intake Total 140 420 Balance 140 420 Weight 99.337 kg Intake: Oral 140 420 Other: Voiding Method Toilet Toilet Toilet # Voids 1 3 - Exam PHYSICAL EXAM: VITAL SIGNS: As above GENERAL: Sitting up in bed, no acute distress HEENT: Conjunctivae normal. eyes normal. Oral mucosa moist NECK: Supple, No JVD. No thyroid enlargement. No LNs CARDIOVASCULAR: S1, S2 regular.. No murmur RESPIRATION: Bilateral Breath sounds diminished in the bases. No rhonchi, crackles or wheezes ABDOMEN: Soft, nontender . No guarding. no masses palpable. No ascites, No hepatosplenomegaly.Bowel sounds heard. LEGS: Decreasing edema. Left foot sole with small ulcer, right great toe with small ulcer; minimal drainage PSYCHIATRY: Alert and oriented X3, mood and affect normal. NERVOUS SYSTEM: Cranial N 2-12 grossly normal. Moves all 4 limbs. Diffuse weakness No focal deficits. Strength and sensation grossly intact.. Skin: no lesions, no rash Lymphatic system. No LN neck axilla or groin. - Labs CBC & Chem 7: 02/04/19 21:27 02/06/19 05:44 Labs: Abnormal Lab Results - Last 24 Hours (Table) 02/05/19 02/05/19 02/05/19 Range/Units 11:45 16:38 20:16 Sodium (137-145) mmol/L Glucose (74-99) mg/dL POC Glucose (mg/dL) 180 H 108 H (75-99) mg/dL Hemoglobin A1c 6.4 H (4.0-6.0) % 02/06/19 02/06/19 02/06/19 Range/Units 05:44 06:47 11:38 Sodium 136 L (137-145) mmol/L Glucose 164 H (74-99) mg/dL POC Glucose (mg/dL) 112 H 183 H (75-99) mg/dL Hemoglobin A1c (4.0-6.0) % Assessment and Plan Assessment: -Accelerated hypertension -Acute on chronic systolic heart failure -Nonischemic cardiomyopathy -Elevated troponin -Chronic foot infection, rule out osteomyelitis, small ulcers/wounds on bilat eral feet -Diabetes mellitus, borderline, hemoglobin A1c 6.4. -Obesity, BMI 29.7 -Chronic daily marijuana use -Crohn's disease status post bowel resection -Noncompliant Plan: Continue on current medication regime ,monitoring and symptomatic treatment. Evaluated by cardiology, recommendations noted and appreciated. Diuretics have been converted from IV push to oral. Echo performed, results pending. Bone scan ordered. Cultures obtained from feet. Follow closely with infectious disease. The impression and plan of care has been dictated as directed. : I performed a history and examination of this patient, discussed the same with the dictator. I agree with the dictator's note ,documented as a scribe. Any additional findings or plans will be noted.
--- NOTE | 2019-02-06 15:50 | ECHOF ---
Referral Reason:Chest pain and cardiomyopathy MEASUREMENTS -------- HEIGHT: 180.3 cm WEIGHT: 99.3 kg BP: 104/71 RVIDd: 4.3 cm (< 3.3) IVSd: 1.3 cm (0.6 - 1.1) LVIDd: 5.7 cm (3.9 - 5.3) LVPWd: 1.5 cm (0.6 - 1.1) IVSs: 1.4 cm LVIDs: 5.2 cm LVPWs: 1.7 cm LAESV Index (A-L): 31.46 ml/m Ao Diam: 2.6 cm (2.0 - 3.7) AV Cusp: 1.8 cm (1.5 - 2.6) LA Diam: 4.6 cm (2.7 - 3.8) MV EXCURSION: 18.655 mm (> 18.000) MV EF SLOPE: 203 mm/s (70 - 150) EPSS: 1.6 cm MV E Barry: 0.82 m/s MV DecT: 195 ms MV A Barry: 0.17 m/s MV E/A Ratio: 4.92 RAP: 5.00 mmHg RVSP: 42.41 mmHg TAPSE: 13.36 mm FINDINGS -------- Sinus rhythm. This was a technically adequate study. The left ventricular size is normal. There is moderate concentric left ventricular hypertrophy. T here is severe global hypokinesis of LV . Overall left ventricular systolic function is severely im paired with, an EF between 20 - 25 %. Both the mean atrial pressure as well as the LV end diastolic pressure is elevated 21.37. Increased LAP Grade 3 Diastolic Dysfunction. The right ventricle is mild to moderately enlarged. RV Systolic Dysfunction LA is midly dilated 29-33ml/m2. The right atrial size is normal. Lumason used Interatrial and interventricular septum intact. The aortic valve is trileaflet, and appears structurally normal. No aortic stenosis or regurgitation. The mitral valve is normal. Mild mitral regurgitation is present. The tricuspid valve appears structurally normal. Mild tricuspid regurgitation present. There is m ild pulmonary hypertension. The right ventricular systolic pressure, as measured by Doppler, is 42. 41mmHg. Trace/mild (physiologic) pulmonic regurgitation. The aortic root size is normal. IVC Not well visulized. There is no pericardial effusion. CONCLUSIONS -------- 1. Sinus rhythm. 2. This was a technically adequate study. 3. The left ventricular size is normal. 4. There is moderate concentric left ventricular hypertrophy. 5. There is severe global hypokinesis of LV . 6. Overall left ventricular systolic function is severely impaired with, an EF between 20 - 25 %. 7. Both the mean atrial pressure as well as the LV end diastolic pressure is elevated 21.37. 8. Increased LAP Grade 3 Diastolic Dysfunction. 9. The right ventricle is mild to moderately enlarged. 10. LA is midly dilated 29-33ml/m2. 11. Lumason used 12. The aortic valve is trileaflet, and appears structurally normal. No aortic stenosis or regurgitat ion. 13. The mitral valve is normal. 14. Mild mitral regurgitation is present. 15. The tricuspid valve appears structurally normal. 16. Mild tricuspid regurgitation present. 17. There is mild pulmonary hypertension. 18. Trace/mild (physiologic) pulmonic regurgitation. 19. The aortic root size is normal. 20. IVC Not well visulized. 21. There is no pericardial effusion. TENNIS NET MAKER: Candy Dockery, EMILIOCS
[2019-02-06 16:25] LABS: Glucose,Whole Blood 118 mg/dL (75-99)
[2019-02-06 20:00] LABS: Glucose,Whole Blood 179 mg/dL (75-99)
[2019-02-06] MEDS: SODIUM CHLORIDE 0.9% 1,000 ML IV SCH (22:16)
--- NOTE | 2019-02-06 23:47 | P.CONS ---
History of Present Illness - Reason for Consult Consult date: 02/06/19 Bilateral foot wound Requesting physician: Chandana Jacobson - Chief Complaint Increasing shortness of breath and nonhealing bilateral foot wound - History of Present Illness Patient is a 43-year-old male with past medical history significant for left big toe plantar wound with evidence of secondary osteomyelitis culture were positive for MSSA back in August 2018 that was treated with 6 weeks of IV antibiotics patient did have significant improvement to his toe wound however the patient was lost to follow-up he was supposed to be seen at the [facility] care center but the patient been the only once, the patient to have a history of a nonischemic myopathy with low EF and is presenting to the ER this time with a chief complaints of increasing shortness of breath, no significant chest pain or any fever patient has been admitted hospital for management of his underlying cardiac condition he was noticed to have nonhealing wounds/infectious disease was consulted for further management, patient did have a chronic left big toe plantar wound as mentioned previously with an episode of ostial myelitis to the toe however x-ray this admission did not show any evidence of osteomyelitis patient also have developed another wound on the plantar aspect of his right foot at the base of third metatarsal for the last few weeks patient currently denies pain to any of these to wound area he did have some swelling and minimal redness but no sniffing foul-smelling drainage and has not been on any systemic antibiotic therapy Review of Systems Positive points has been mentioned in HPI rest of the systems are negative Past Medical History Past Medical History: Asthma, Heart Failure, GERD/Reflux, GI Bleed, Hypertension Additional Past Medical History / Comment(s): Partial bowel obstruction secondary to adhesions, Crohn's, ileorectal anastomotic stricture, cervical pain-ruptured disc., ileus, enteritis History of Any Multi-Drug Resistant Organisms: None Reported Past Surgical History: Appendectomy, Bowel Resection, Hernia Repair Additional Past Surgical History / Comment(s): Lucio. bowel resection in 1993, lysis of adhesions, partial omentectomy and repair of incisional hernia August [address] Calzada, decompressive colonoscopy in May [address] Calzada, EGD and multiple colonoscopies, Epidural injections to neck- last one on 04/2015. Past Anesthesia/Blood Transfusion Reactions: No Reported Reaction Additional Past Anesthesia/Blood Transfusion Reaction / Comm: Pt has never recieved blood. Past Psychological History: Anxiety, Depression Additional Psychological History / Comment(s): PT lives with HS MOM AND A 12 yr old son. Pt is independent. He drives a car. He is NOT CURRENTLY WORKING. Smoking Status: Never smoker Past Alcohol Use History: Rare Past Drug Use History: None Reported - Past Family History Father Family Medical History: Myocardial Infarction (IA) Additional Family Medical History / Comment(s): AT [age]GGE 54- HIS 4TH [place] Mother Family Medical History: Coronary Artery Disease (CAD), Hypertension Additional Family Medical History / Comment(s): MOM IS AGE 63, HAS STENTS Medications and Allergies Home Medications Medication Instructions Recorded Confirmed Type No Known Home Medications 02/04/19 02/04/19 History Allergies Allergy/AdvReac Type Severity Reaction Status Date / Time Penicillins Allergy Unknown Verified 02/05/19 02:07 Childhood Physical Exam Vitals: Vital Signs Temp Pulse Resp BP Pulse Ox 02/06/19 08:00 98.2 F 102 H 18 115/80 96 02/06/19 04:00 94 18 104/71 97 02/05/19 23:36 98.2 F 97 18 129/87 96 02/05/19 19:59 98.4 F 98 18 108/71 95 02/05/19 16:00 98.5 F 103 H 18 138/101 94 L 02/05/19 12:00 98.0 F 100 16 99 02/05/19 11:47 162/98 Intake and Output 02/05/19 02/06/19 02/06/19 22:59 06:59 14:59 Intake Total 140 420 Balance 140 420 Intake: Oral 140 420 Other: Voiding Method Toilet Toilet Toilet GENERAL DESCRIPTION: Middle-aged male lying in bed, no distress. No tachypnea or accessory muscle of respiration use. HEENT: Shows Pallor , no scleral icterus. Oral mucous membrane is dry. No pharyngeal erythema or thrush NECK: Trachea central, no thyromegaly. LUNGS: Unlabored breathing. Decreased breath sound the bases. No wheeze or crackle. HEART: S1, S2, regular rate and rhythm. No loud murmur ABDOMEN: Soft, no tenderness , guarding or rigidity, no organomegaly EXTREMITIES: Left big toe plantar wound with swelling of his left big toe, the wound base and no significant slough or any purulent drainage, the patient also have a wound on the plantar aspect of her right foot at the base of third metatarsal with some callus no slough tissue some surrounding swelling no redness no drainage SKIN: No rash, no masses palpable. NEUROLOGICAL: The patient is awake, alert, oriented x3, mood and affect normal. Results CBC & Chem 7: 02/04/19 21:27 02/06/19 05:44 Labs: Abnormal Lab Results - Last 24 Hours (Table) 02/05/19 02/05/19 02/05/19 Range/Units 11:42 16:38 20:16 Sodium (137-145) mmol/L Glucose (74-99) mg/dL POC Glucose (mg/dL) 229 H 180 H 108 H (75-99) mg/dL 02/06/19 02/06/19 Range/Units 05:44 06:47 Sodium 136 L (137-145) mmol/L Glucose 164 H (74-99) mg/dL POC Glucose (mg/dL) 112 H (75-99) mg/dL Assessment and Plan Assessment: 1-patient with a left big toe plantar wound with some swelling in this patient who did have history of osteomyelitis secondary to MSSA that was treated with 60 course of IV antibiotic therapy patient unfortunately has been last to follow because of noncompliance and did not follow up with the wound care either now with persistent nonhealing of this wound and swelling of his stool is suspicious for ostoeomyelitis however no bony changes were seen on the initial plain x-rays and the patient not running any fever and did not have elevated white count 2-right foot plantar wound likely from callus currently with no signs of any inflammatory changes Plan: 1-wound culture has been obtained from the left big toe 2-blood cultures will be obtained as well as we'll check a CRP and a sed rate 3-and the patient did have elevated CRP and sed rate available scan will be ordered to rule out any evidence of osteomyelitis, especially at the left big toe 4-local wound care with Aquacel silver dressing to be changed every 48 hour we will follow on clinical condition and culture to further adjust medication if needed Thank you for this consultation will follow this patient along with you Time with Patient: Greater than 30
[2019-02-07] MEDS: MORPHINE SULFATE 2 MG/ML SYRINGE IVP PRN ×4 (05:11→20:38)
[2019-02-07 06:40] LABS: Glucose,Whole Blood 127 mg/dL (75-99)
[2019-02-07 07:22] LABS: Anisocytosis Slight; Basophils # (A) 0.2 k/uL (0-0.2); Basophils % (A) 2 %; Eosinophils # (A) 0.3 k/uL (0-0.7); Eosinophils % (A) 4 %; HCT 53.9 % (39.0-53.0); HGB 18.2 gm/dL (13.0-17.5); Lymphocytes # (A) 1.7 k/uL (1.0-4.8); Lymphocytes % (A) 20 %; MCHC 33.8 g/dL (31.0-37.0); MCV 88.9 fL (80.0-100.0); Mean Platelet Volume 6.9; Monocytes # (A) 0.9 k/uL (0-1.0); Monocytes % (A) 11 %; Neutrophils # (A) 5.2 k/uL (1.3-7.7); Neutrophils % (A) 60 %; Platelet Count 325 k/uL (150-450); RBC 6.06 m/uL (4.30-5.90); RDW 16.7 % (11.5-15.5); WBC 8.6 k/uL (3.8-10.6)
--- NOTE | 2019-02-07 08:33 | P.PN ---
Subjective This is a pleasant 43-year-old male past medical history significant for nonischemic dilated cardiomyopathy, hypertension, dyslipidemia, bowel resection, daily marijuana dependence and history of opiate abuse in the past. He is currently being treated for an acute exacerbation of chronic systolic heart failure. The patient states he has been noncompliant and has not been taking his heart failure medications for the previous 3 months. He is seen and examined laying flat in bed in no acute distress. He denies chest pain, shortness of breath, dizziness or palpitations. Blood pressure 155/104 herat rate 90 afebrile and maintaining oxygen saturation on room air. Echocardiogram reviewed, EF 20-25%, severe global hypokinesia, moderate LVH, grade 3 diastolic dysfunction, mild to moderately enlarged RV, mild MR, mild TR and mild pulmonary hypertension with RVSP 42 mmHg. GENERAL: Well-appearing, well-nourished and in no acute distress. NECK: Supple without JVD or thyromegaly. LUNGS: Breath sounds clear to auscultation bilaterally. Respiration equal and unlabored. No wheezes, rales or rhonchi. HEART: Regular rate and rhythm without murmurs, rubs or gallops. S1 and S2 heard. EXTREMITIES: Normal range of motion, no edema. No clubbing or cyanosis. Peripheral pulses intact. ASSESSMENT Acute on chronic systolic heart failure Nonischemic cardiomyopathy Hypertension History of Crohn's disease status post bowel resection Chronic daily marijuana use History of noncompliance PLAN Increase coreg to 6.25 mg BID and decrease lasix to daily dosing. Stable for discharge from a cardiac perspective. Medication compliance discussed in detail. Patient verbalizes understanding. If no improvement in LV on maximum medical therapy may require ICD implantation. Follow up appointment will be made in the office. We will continue to follow as needed, please feel free to call with question or concerns. Nurse Practitioner note has been reviewed, I agree with a documented findings and plan of care. Patient was seen and examined. Objective - Vital Signs Vital signs: Vital Signs Temp 97.9 F 02/07/19 07:40 Pulse 90 02/07/19 07:40 Resp 18 02/07/19 07:40 BP 155/104 02/07/19 07:40 Pulse Ox 96 02/07/19 07:40 Intake & Output 02/06/19 02/07/19 02/07/19 18:59 06:59 18:59 Intake Total 420 240 420 Balance 420 240 420 Intake: Oral 420 240 420 Other: Voiding Method Toilet Toilet # Voids 3 - Labs CBC & Chem 7: 02/07/19 06:39 02/06/19 05:44 Labs: Abnormal Lab Results - Last 24 Hours (Table) 02/05/19 02/06/19 02/06/19 Range/Units 11:45 11:38 16:24 RBC (4.30-5.90) m/uL Hgb (13.0-17.5) gm/dL Hct (39.0-53.0) % RDW (11.5-15.5) % POC Glucose (mg/dL) 183 H 118 H (75-99) mg/dL Hemoglobin A1c 6.4 H (4.0-6.0) % C-Reactive Protein (<10.0) mg/L 02/06/19 02/07/19 02/07/19 Range/Units 19:58 06:38 06:39 RBC 6.06 H (4.30-5.90) m/uL Hgb 18.2 H (13.0-17.5) gm/dL Hct 53.9 H (39.0-53.0) % RDW 16.7 H (11.5-15.5) % POC Glucose (mg/dL) 179 H 127 H (75-99) mg/dL Hemoglobin A1c (4.0-6.0) % C-Reactive Protein (<10.0) mg/L 02/07/19 Range/Units 06:39 RBC (4.30-5.90) m/uL Hgb (13.0-17.5) gm/dL Hct (39.0-53.0) % RDW (11.5-15.5) % POC Glucose (mg/dL) (75-99) mg/dL Hemoglobin A1c (4.0-6.0) % C-Reactive Protein 13.0 H (<10.0) mg/L Microbiology - Last 24 Hours (Table) 02/06/19 13:08 Gram Stain - Preliminary Toe - Left First Wound Culture - Preliminary 02/06/19 13:08 Anaerobic Culture - Preliminary Toe - Left First
[2019-02-07] MEDS: INSULIN ASPART (NovoLOG) 100 UNIT/ML VIAL SQ SCH ×4 (08:43→20:35)
[2019-02-07] MEDS: FAMOTIDINE 20 MG TAB PO SCH ×2 (08:52→20:35)
[2019-02-07] MEDS: SPIRONOLACTONE 25 MG TAB PO SCH (08:52)
[2019-02-07] MEDS: LISINOPRIL 5 MG TAB PO SCH (08:52)
[2019-02-07] MEDS: HEPARIN SODIUM,PORCINE 5,000 UNIT/ML 1 ML VIAL SQ SCH ×2 (08:53→20:35)
[2019-02-07] MEDS: FUROSEMIDE 40 MG TAB PO SCH (08:53)
[2019-02-07] MEDS ORDERED: RX INFO: IV CONTRAST WAS GIVEN 1 EACH MISC MISCELLANE PRN (10:21)
[2019-02-07] MEDS ORDERED: SODIUM CHLORIDE 0.9% 1,000 ML IV SCH (10:30)
--- NOTE | 2019-02-07 10:30 | P.PCN ---
Date of Procedure: 02/07/19 Operative Findings: CARDIAC CATHETERIZATION PERFORMING PHYSICIAN: Agustin Narayan MD, RPVI PROCEDURE PERFORMED: 1. Selective right and left coronary angiogram 2. Left heart catheterization INDICATION: This is a pleasant 43-year-old gentleman with known history of CAD and prior coronary artery that is grafting as well as a stenting with the last heart catheterization was performed in August 2018 revealing severe in-stent restenosis involving the distal left main as well as proximal left circumflex as well as chronic total occlusion of the RCA as well as patent JAIMES to LAD. At that point the patient underwent stenting of the left main to left circumflex with a good angiographic results. This time he was admitted to the hospital with a chest pain or shortness of neri ath and ruled in for acute non-ST patient myocardial infarction. He was seen by Dr. Olguin who recommended proceeding with a heart catheterization. COMPLICATION: Right common femoral artery APPROACH: Right common femoral artery LEVEL OF SEDATION: Moderate with a sedation length of 25 minutes PROCEDURE DESCRIPTION: After obtaining an informed consent, the patient was brought to cardiac landscaping and groundskeeping laborer. Local anesthesia was performed using lidocaine subcutaneously. The right common femoral artery was cannulated using Seldinger technique, the guidewire passed easily, following that we advanced a 6 Sammarinese sheath dilator assembly, the wire and dilator were removed and sheath was flushed. Selective right and left coronary angiogram using a 6-Sammarinese JR4 and JL catheters. The JAIMES into LAD angiogram was performed using JR4 catheter. The procedure was completed there was no complication. SELECTIVE CORONARY ANGIOGRAM: The right coronary artery: Is chronically occluded in the midportion. Left main: The distal left main is a stented and the stent is patent. The left circumflex: The proximal left circumflex is a stented and the stent is patent. The left anterior descending artery: The proximal LAD appears to have a lesion in the range of 70%. I can see competitive flow from the JAIMES. CORONARY BYPASSES ANGIOGRAM: The JAIMES into LAD CONCLUSION: #1 patent stent in the distal left main to proximal left circumflex #2 patent JAIMES into LAD #3 chronic total occlusion of the RCA POSTPROCEDURE MANAGEMENT: #1 maximize medical treatment #2 follow-up with the patient
[2019-02-07 10:33] LABS: Erythrocyte Sedimentation Rate 12 mm/hr (0-15)
[2019-02-07 11:42] LABS: Glucose,Whole Blood 167 mg/dL (75-99)
--- NOTE | 2019-02-07 15:40 | CDI ---
Documentation Clarification Form Date: 02/07/2019 3:04:52 PM From: Christine Zapata RN, CCDS Admit Date: 02/06/2019 2:09:00 PM Patient Name: Zhang Marin Visit Number: [id number] Discharge Date: ATTENTION: The Clinical Documentation Specialists (CDI) and [facility] Coding Staff appreciate your assistance in clarifying documentation. Please respond to the clarification below the line at the bottom and electronically sign. The CDI & [facility] Coding staff will review the response and follow-up if needed. Please note: Queries are made part of the Legal Health Record. If you have any questions, please contact the author of this message via ITS. Dr. Ascencion Beckwith The patient presented with the following: Increasing shortness of breath, swelling of his lower extremities and chest tightness. History/Risk Factors: Congestive heart failure, Hypertension, Crohn's, Obstructive sleep apnea Clinical Indicators: 43-year-old male with known history of hypertension, but ran out of his medications about 2-3 months ago now presents with shortness of breath and chest tightness. Lab findings: Troponin 0.027 BNP 2850 Chest x-ray: cardiomegaly with mild pulmonary congestion no overt heart failure. EKG: Shows sinus tachycardia rate 110 Vital Signs: 157/110 112 20, 161/124 108 23, 141/130 111 24 170/128 99 22 ECHO: Severely impaired with an EF 20-25 % Treatment: Monitor VS Lasix IV Corag PO Apresoline IVP Aldactone PO Accelerated Hypertension is document in the H/P and progress note but does not adequately reflect the patient condition. Please specify the accelerated hypertension with the treatment provided meet the criteria for : Hypertensive Urgency Hypertensive Emergency Hypertensive Crisis Other (please specify in the medical record) Clinically unable to further specify Unknown (Last Revision: August 2017) MTDD
--- NOTE | 2019-02-07 15:55 | NM ---
EXAMINATION TYPE: NM bone 3 phase DATE OF EXAM: 02/07/2019 COMPARISON: 09/01/2018 HISTORY: Osteomyelitis Triple phase bone scintigraphy was performed following the injection of 24.3 mCi Tc 99m MDP. Immedia te images and 3 hours post injection images acquired. FINDINGS: There is increased perfusion to the left great toe. There is increased soft tissue uptake. There is increased uptake in the distal phalanx of the left to e. Abnormal uptake involving the right first digit also incidentally noted which is nonspecific but like ly post arthritic. Abnormal uptake involving the region of the distal fibula on the right is nonspeci fic correlate for history of recent trauma. IMPRESSION: 1. Cellulitis left first digit with findings suggestive of osteomyelitis distal phalanx left first di git. Findings similar to the prior exam. 2. There appears to be abnormal uptake involving the right distal fibula. X-ray correlation recommend ed
[2019-02-07] MEDS: CARVEDILOL 6.25 MG TAB PO SCH (17:27)
[2019-02-07] MEDS: CARVEDILOL 3.125 MG TAB PO SCH (17:32)
--- NOTE | 2019-02-07 19:27 | PN ---
PROGRESS NOTE DATE OF SERVICE: 02/07/2019 REASON FOR FOLLOWUP: Left big toe wound and question of osteomyelitis. INTERVAL HISTORY: The patient is currently afebrile. The patient has been breathing comfortably. The patient denies having any chest pain or cough. No nausea, vomiting, abdominal pain or pain to the bilateral foot wound area. PHYSICAL EXAMINATION: Blood pressure 148/98 with a pulse of 107, temperature 98.3. He is 98% on room air. General description is a middle-aged male lying in bed in no distress. RESPIRATORY SYSTEM: Unlabored breathing. Clear to auscultation anteriorly. HEART: S1, S2. Regular rate and rhythm. ABDOMEN: Soft. No tenderness. Left big toe is currently dressed up. No obvious drainage on the dressing. LABS: Hemoglobin 18.2, white count of 8.6. His sed rate was 12; however, CRP is elevated at 13. DIAGNOSTIC IMPRESSION AND PLAN: Patient with a chronic nonhealing wound to the left big toe with a plantar wound with secondary cellulitis. Now with a bone scan suspicious for osteomyelitis, which was ordered because of elevated CRP and culture showing Staph aureus. Cefazolin 2 grams q.8 hours has been added, which was sensitivity. Blood culture has been negative. Patient will likely need a PICC line for outpatient IV antibiotic therapy. Local wound care with an Aquacel dressing and keep the area off pressure. MMODL / IJN: [id number] /
[2019-02-07 20:30] LABS: Glucose,Whole Blood 165 mg/dL (75-99)
[2019-02-07] MEDS: SODIUM CHLORIDE 0.9% 1,000 ML IV SCH (23:05)
[2019-02-08] MEDS: MORPHINE SULFATE 2 MG/ML SYRINGE IVP PRN ×5 (00:18→22:21)
[2019-02-08 07:14] LABS: Glucose,Whole Blood 129 mg/dL (75-99)
[2019-02-08 08:11] LABS: African American GFR (CKD) >90 (>60 ml/min/1.73 sqM); Anion Gap 14 mmol/L; Blood Urea Nitrogen 21 mg/dL (9-20); Calcium 9.5 mg/dL (8.4-10.2); Carbon Dioxide 15 mmol/L (22-30); Chloride 106 mmol/L (98-107); Glucose 136 mg/dL (74-99); Potassium 5.4 mmol/L (3.5-5.1); Sodium 135 mmol/L (137-145)
[2019-02-08 08:20] LABS: Basophils # (A) 0.1 k/uL (0-0.2); Basophils % (A) 2 %; Eosinophils # (A) 0.4 k/uL (0-0.7); Eosinophils % (A) 4 %; HCT 56.8 % (39.0-53.0); HGB 18.7 gm/dL (13.0-17.5); Hypochromasia Slight; Lymphocytes # (A) 1.9 k/uL (1.0-4.8); Lymphocytes % (A) 21 %; MCH 29.9 pg (25.0-35.0); MCHC 32.9 g/dL (31.0-37.0); MCV 90.9 fL (80.0-100.0); Mean Platelet Volume 7.1; Monocytes % (A) 10 %; Neutrophils # (A) 5.5 k/uL (1.3-7.7); Neutrophils % (A) 59 %; Platelet Count 294 k/uL (150-450); RBC 6.25 m/uL (4.30-5.90); RDW 15.9 % (11.5-15.5); WBC 9.3 k/uL (3.8-10.6)
[2019-02-08] MEDS: INSULIN ASPART (NovoLOG) 100 UNIT/ML VIAL SQ SCH ×4 (10:06→22:19)
[2019-02-08] MEDS: CARVEDILOL 6.25 MG TAB PO SCH ×2 (10:43→16:56)
[2019-02-08] MEDS: LISINOPRIL 5 MG TAB PO SCH (10:43)
[2019-02-08] MEDS: FAMOTIDINE 20 MG TAB PO SCH ×2 (10:43→22:19)
[2019-02-08] MEDS: SPIRONOLACTONE 25 MG TAB PO SCH (10:43)
[2019-02-08] MEDS: FUROSEMIDE 40 MG TAB PO SCH (10:43)
[2019-02-08] MEDS: HEPARIN SODIUM,PORCINE 5,000 UNIT/ML 1 ML VIAL SQ SCH ×2 (11:00→22:19)
[2019-02-08 12:04] LABS: Glucose,Whole Blood 148 mg/dL (75-99)
--- NOTE | 2019-02-08 15:26 | PN ---
PROGRESS NOTE DATE OF SERVICE: 02/08/2019 REASON FOR FOLLOWUP: Left big toe MSSA osteomyelitis. INTERVAL HISTORY: The patient is currently afebrile. Patient has been breathing comfortably. The patient denies having any chest pain or any cough. No nausea, no vomiting. No abdominal pain. No pain with bilateral leg wound area. PHYSICAL EXAMINATION: Blood pressure is 129/91 with a pulse of 109, temperature 98, he is 98% on room air. General description is a middle-aged male, lying in bed in no distress. RESPIRATORY SYSTEM: Unlabored breathing, clear to auscultation anteriorly. HEART: S1, S2. Regular rate and rhythm. ABDOMEN: Soft. Bilateral foot wounds with no obvious drainage on the dressing. LABS: Hemoglobin is 18.7, white count is 9.3 with a BUN of 21, creatinine 0.89. DIAGNOSTIC IMPRESSION AND PLAN: Patient with left big toe osteomyelitis. Culture with MSSA, being recurrent episodes. Patient will get a PICC line as he will need cefazolin 2 g q.8 for at least 6 weeks. Local wound care with Aquacel dressing and offloading shoes. Monitor clinical course closely. Continue supportive care. MMODL / IJN: [id number] /
[2019-02-08 16:59] LABS: Glucose,Whole Blood 158 mg/dL (75-99)
--- NOTE | 2019-02-08 19:12 | P.PN ---
Subjective Progress Note Date: 02/08/19 This is a 43-year-old gentleman admitted with acute on chronic systolic heart failure, bilateral feet infection with small ulcers, hypertension and multiple other medical issues. Coreg initiated yesterday with MIKO inhibitor, Aldactone, Lasix IV push. Blood pressure better controlled today. Lasix converted to oral. ICD implantation being discussed if no improvement in LV with medical therapy maximized. Creatinine 0.92. Potassium 3.9, sodium 136. Afebrile. Evaluated by infectious disease, cultures obtained. Feet, pulse can ordered. 02/07/2019 patient lying flat in bed, with no respiratory distress, no shortness of breath. Denies chest pain, palpitations. Denies lightheadedness dizziness or focal deficits. Vital signs stable. Afebrile . Echo reporting severe global hypokinesia, EF 2025%, moderate left ventricular hypertrophy, mild pulmonary hypertension .evaluated by cardiology, maximizing medical therapy. Elevated CRP, cultures reporting staph aureus, blood cultures negative Ma intained on IV antibiotics of Cefizox 1 as per infectious disease. Bone scan in progress Objective - Vital Signs Vital signs: Vital Signs Temp 98.3 F 02/07/19 11:13 Pulse 107 H 02/07/19 15:59 Resp 18 02/07/19 15:59 BP 148/98 02/07/19 15:59 Pulse Ox 98 02/07/19 15:59 Intake & Output 02/06/19 02/07/19 02/07/19 18:59 06:59 18:59 Intake Total 420 240 420 Balance 420 240 420 Weight 99.337 kg Intake: Oral 420 240 420 Other: Voiding Method Toilet Toilet Toilet # Voids 3 1 - Exam PHYSICAL EXAM: VITAL SIGNS: As above GENERAL: Sitting up in bed, no acute distress HEENT: Conjunctivae normal. eyes normal. Oral mucosa moist NECK: Supple, No JVD. No thyroid enlargement. No LNs CARDIOVASCULAR: S1, S2 regular.. No murmur RESPIRATION: Bilateral Breath sounds diminished in the bases. No rhonchi, crackles or wheezes ABDOMEN: Soft, nontender . No guarding. no masses palpable. No ascites, No hepatosplenomegaly.Bowel sounds heard. LEGS: Decreasing edema. Bilateral feet dressings clean dry and intact PSYCHIATRY: Alert and oriented X3, mood and affect normal. NERVOUS SYSTEM: Cranial N 2-12 grossly normal. Moves all 4 limbs. Diffuse we akness No focal deficits. Strength and sensation grossly intact.. Skin: no rash Lymphatic system. No LN neck axilla or groin. - Labs CBC & Chem 7: 02/08/19 07:13 02/08/19 07:13 Labs: Abnormal Lab Results - Last 24 Hours (Table) 02/06/19 02/07/19 02/07/19 Range/Units 19:58 06:38 06:39 RBC 6.06 H (4.30-5.90) m/uL Hgb 18.2 H (13.0-17.5) gm/dL Hct 53.9 H (39.0-53.0) % RDW 16.7 H (11.5-15.5) % POC Glucose (mg/dL) 179 H 127 H (75-99) mg/dL C-Reactive Protein (<10.0) mg/L 02/07/19 02/07/19 Range/Units 06:39 11:41 RBC (4.30-5.90) m/uL Hgb (13.0-17.5) gm/dL Hct (39.0-53.0) % RDW (11.5-15.5) % POC Glucose (mg/dL) 167 H (75-99) mg/dL C-Reactive Protein 13.0 H (<10.0) mg/L Microbiology - Last 24 Hours (Table) 02/06/19 13:08 Gram Stain - Preliminary Toe - Left First Wound Culture - Preliminary Presumptive Staph aureus 02/06/19 13:08 Anaerobic Culture - Preliminary Toe - Left First Assessment and Plan Assessment: -Hypertensive emergency -Acute on chronic systolic heart failure -Nonischemic cardiomyopathy -Elevated troponin, cardiology following. -Chronic foot infection, nonhealing left great toe with plantar wound, with cellulitis ,rule out osteomyelitis,bone scan pending, cultures reporting staph aureus -Diabetes mellitus, borderline, hemoglobin A1c 6.4. -Obesity, BMI 29.7 -Chronic daily marijuana use -Crohn's disease status post bowel resection -Noncompliant Plan: Continue on current medication regime ,monitoring and symptomatic treatment. Oral Diuretics decreased, Coreg increased as per cardiology. Bone scan in progress. Cultures pending. IV antibiotics/Wound Care as per infectious disease. The impression and plan of care has been dictated as directed. : I performed a history and examination of this patient, discussed the same with the dictator. I agree with the dictator's note ,documented as a scribe. Any additional findings or plans will be noted.
[2019-02-08 20:48] LABS: Glucose,Whole Blood 183 mg/dL (75-99)
[2019-02-09] MEDS: SODIUM CHLORIDE 0.9% 1,000 ML IV SCH (00:11)
[2019-02-09 07:01] LABS: Glucose,Whole Blood 155 mg/dL (75-99)
[2019-02-09] MEDS: LISINOPRIL 5 MG TAB PO SCH (08:32)
[2019-02-09] MEDS: FUROSEMIDE 40 MG TAB PO SCH (08:32)
[2019-02-09] MEDS: CARVEDILOL 6.25 MG TAB PO SCH (08:32)
[2019-02-09] MEDS: INSULIN ASPART (NovoLOG) 100 UNIT/ML VIAL SQ SCH ×2 (08:32→12:39)
[2019-02-09] MEDS: FAMOTIDINE 20 MG TAB PO SCH (08:32)
[2019-02-09] MEDS: SPIRONOLACTONE 25 MG TAB PO SCH (08:33)
[2019-02-09] MEDS: MORPHINE SULFATE 2 MG/ML SYRINGE IVP PRN ×2 (08:36→12:44)
[2019-02-09] MEDS ORDERED: LIDOCAINE 1% INJ 10MG/ML (20 ML MDV) ONE (10:23)
[2019-02-09] MEDS ORDERED: LIDOCAINE 1% INJ 10MG/ML (20 ML MDV) SQ ONE (10:27)
--- NOTE | 2019-02-09 11:32 | CDI ---
Documentation Clarification Form Date: 02/09/2019 11:01:45 AM From: Christine Zapata RN, CCDS Admit Date: 02/06/2019 2:09:00 PM Patient Name: Zhang Marin Visit Number: [id number] Discharge Date: ATTENTION: The Clinical Documentation Specialists (CDI) and [facility] Coding Staff appreciate your assistance in clarifying documentation. Please respond to the clarification below the line at the bottom and electronically sign. The CDI & [facility] Coding staff will review the response and follow-up if needed. Please note: Queries are made part of the Legal Health Record. If you have any questions, please contact the author of this message via ITS. Dr. Aidee Zavala Osteomyelitis has been documented in the progress on 02/08/19 and additional clarification for acuity is needed. History/Risk Factors: CHF, Hypertension, GERD, Crohn's Clinical Indicators: 43-year-old male with chronic left big toe plantar wounds previously osteomyelitis treated with 60 course of IV, now with swelling is suspicious for osteomyelitis. The patient with left big toe osteomyelitis. Culture with MSSA, being recurrent episodes. Labs: WBC 9.3 CRP 13.0 Bone Scan: suspicious for osteomyelitis Treatment: PICC Line Cefazolin IV Local wound care with Aquacel dressing and keep the area off pressure In your professional opinion, please further specify the following related to the Left big toe MSSA osteomyelitis: Acuity Acute Chronic Subacute Unable to Determine Associated condition (if applicable): Major osseous defect (specify site) Other (please specify): (Last Revision: February 2017) MTDD
[2019-02-09 11:55] LABS: Glucose,Whole Blood 169 mg/dL (75-99)
[2019-02-09] MEDS: HEPARIN SODIUM,PORCINE 5,000 UNIT/ML 1 ML VIAL SQ SCH (12:06)
--- NOTE | 2019-02-09 12:52 | IR ---
EXAMINATION TYPE: IR cvc insert >=5 years DATE OF EXAM: 02/09/2019 COMPARISON: NONE CLINICAL HISTORY: Infection Needs long-term intravenous access for antibiotics. PROCEDURE: After informed consent, the skin overlying the left brachial vein was localized with ultrasound and n oted to be compressible and patent. An ultrasound image was obtained and submitted on the patient's chart. The overlying skin was prepped and draped and Lidocaine was used for local anesthesia. A ski n imtch was made with a scalpel. Access was gained to the vein under ultrasound guidance with a 21 ga uge needle and a 0.018 inch wire was advanced. Access site was dilated with Peel-Away sheath and cat heter tailored to the appropriate length and advanced such that the distal tip is at the cavoatrial j unction. Spot image was obtained verifying placement. Catheter was fixed to the skin with suture an d a sterile dressing was placed following hemostasis. Catheter was aspirated and flushed with saline . Patient was discharged in stable condition without complication. Maximal barrier technique is util ized. Ultrasound image is documented on the chart. Ultrasound used with sterile technique. Fluoro time and fluoroscopic images submitted to document procedure: 0.1 minutes fluoroscopy time, 13 intraoperative C-arm images. IMPRESSION: STATUS POST ULTRASOUND AND FLUOROSCOPIC GUIDED PICC LINE PLACEMENT, READY FOR USE. THIS PROCEDURE WAS PERFORMED BY THE UNDERSIGNED.
[2019-02-09 14:53] VITALS: BP 127/82; PULSE 85; RESP 15; TEMP 97.3
--- NOTE | 2019-02-09 19:48 | PN ---
PROGRESS NOTE DATE OF SERVICE: 02/09/2019. REASON FOR FOLLOWUP: Left big toe acute osteomyelitis MSSA. INTERVAL HISTORY: The patient is currently afebrile. The patient has been breathing comfortably. Denies any chest pain or cough. No nausea, no vomiting. No abdominal pain or pain to the left foot wound area. PHYSICAL EXAMINATION: Blood pressure 127/82 with a pulse of 85, temperature 97.3. He is 97% on room air. General description is a middle aged male up in the bed in no distress. Respiratory system: Unlabored breathing. Clear to auscultation anteriorly. Heart S1, S2. Regular rate and rhythm. Abdomen soft, no tenderness. LABS: Wound culture now finalized with MSSA Group B strep and anaerobic gram-positive cocci. DIAGNOSTIC IMPRESSION AND PLAN: Patient with left big toe acute osteomyelitis. Cultures now showing evidence of anaerobes in addition to the MSSA and Group B strep. We will add Flagyl 500 mg p.o. every 8 hours to his antibiotic regime of cefazolin 2 g q.8 hours and will monitor his clinical course closely. MMODL / IJN: [id number] /
--- NOTE | 2019-02-09 20:06 | P.PN ---
Subjective Progress Note Date: 02/08/19 This is a 43-year-old gentleman admitted with acute on chronic systolic heart failure, bilateral feet infection with small ulcers, hypertension and multiple other medical issues. Coreg initiated yesterday with MIKO inhibitor, Aldactone, Lasix IV push. Blood pressure better controlled today. Lasix converted to oral. ICD implantation being discussed if no improvement in LV with medical therapy maximized. Creatinine 0.92. Potassium 3.9, sodium 136. Afebrile. Evaluated by infectious disease, cultures obtained. Feet, pulse can ordered. 02/07/2019 patient lying flat in bed, with no respiratory distress, no shortness of breath. Denies chest pain, palpitations. Denies lightheadedness dizziness or focal deficits. Vital signs stable. Afebrile . Echo reporting severe global hypokinesia, EF 2025%, moderate left ventricular hypertrophy, mild pulmonary hypertension .evaluated by cardiology, maximizing medical therapy. Elevated CRP, cultures reporting staph aureus, blood cultures negative Ma intained on IV antibiotics of Cefizox 1 as per infectious disease. Bone scan in progress 02/08/2019 maintained on IV antibiotics/local wound care as per infectious disease for osteomyelitis of left great toe, culture reporting MSSA .denies pain. Vital signs stable. Afebrile. Good diet intake with no abdominal pain, no nausea no vomiting no diarrhea. Denies chest pain, palpitations or shortness of breath. Objective - Vital Signs Vital signs: Vital Signs Temp 98 F 02/08/19 14:34 Pulse 109 H 02/08/19 14:34 Resp 12 02/08/19 14:34 BP 129/91 02/08/19 14:34 Pulse Ox 98 02/08/19 14:34 Intake & Output 02/08/19 02/08/19 02/09/19 06:59 18:59 06:59 Intake Total 240 Balance 240 Weight 99.5 kg Intake: Oral 240 Other: Voiding Method Toilet # Voids 2 3 - Exam PHYSICAL EXAM: VITAL SIGNS: As above GENERAL: Sitting up in bed, no acute distress HEENT: Conjunctivae normal. eyes normal. Oral mucosa moist NECK: Supple, No JVD. No thyroid enlargement. No LNs CARDIOVASCULAR: S1, S2 regular.. No murmur RESPIRATION: Bilateral Breath sounds diminished in the bases. No rhonchi, crackles or wheezes ABDOMEN: Soft, nontender . No guarding. no masses palpable. Bowel sounds heard. LEGS: Decreasing edema. Bilateral feet dressings clean dry and intact PSYCHIATRY: Alert and oriented X3, mood and affect normal. NERVOUS SYSTEM: Cranial N 2-12 grossly normal. Moves all 4 limbs. No focal deficits. Skin: no rash Microbiology 02/06/19 13:08 Toe - Left First Gram Stain - Preliminary 02/06/19 13:08 Toe - Left First Wound Culture - Preliminary Staphylococcus aureus Strep agalactiae - (group b) Gram Neg Bacilli 02/07/19 06:39 Blood Blood Culture - Preliminary No Growth after 24 hours 02/06/19 13:08 Toe - Left First Anaerobic Culture - Preliminary - Labs CBC & Chem 7: 02/08/19 07:13 02/08/19 19:23 Labs: Abnormal Lab Results - Last 24 Hours (Table) 02/07/19 02/08/19 02/08/19 Range/Units 20:18 06:58 07:13 RBC 6.25 H (4.30-5.90) m/uL Hgb 18.7 H (13.0-17.5) gm/dL Hct 56.8 H (39.0-53.0) % RDW 15.9 H (11.5-15.5) % Sodium (137-145) mmol/L Potassium (3.5-5.1) mmol/L Carbon Dioxide (22-30) mmol/L BUN (9-20) mg/dL Glucose (74-99) mg/dL POC Glucose (mg/dL) 165 H 129 H (75-99) mg/dL 02/08/19 02/08/19 02/08/19 Range/Units 07:13 11:52 16:47 RBC (4.30-5.90) m/uL Hgb (13.0-17.5) gm/dL Hct (39.0-53.0) % RDW (11.5-15.5) % Sodium 135 L (137-145) mmol/L Potassium 5.4 H (3.5-5.1) mmol/L Carbon Dioxide 15 L (22-30) mmol/L BUN 21 H (9-20) mg/dL Glucose 136 H (74-99) mg/dL POC Glucose (mg/dL) 148 H 158 H (75-99) mg/dL Microbiology - Last 24 Hours (Table) 02/06/19 13:08 Gram Stain - Preliminary Toe - Left First Wound Culture - Preliminary Staphylococcus aureus Strep agalactiae - (group b) Gram Neg Bacilli 02/07/19 06:39 Blood Culture - Preliminary Blood No Growth after 24 hours Assessment and Plan Assessment: -Hypertensive emergency -Acute on chronic systolic heart failure -Nonischemic cardiomyopathy -Elevated troponin, cardiology following. -Chronic foot infection, nonhealing left great toe with plantar wound, with cellulitis , left great toe osteomyelitis, MSSA per culture. -Diabetes mellitus, borderline, hemoglobin A1c 6.4. -Obesity, BMI 29.7 -Chronic daily marijuana use -Crohn's disease status post bowel resection -Noncompliant Plan: Continue on current medication regime ,monitoring and symptomatic treatment. PICC line ordered for tomorrow, IV antibiotics at discharge 6 weeks as per ID. Discharge planning in progress for tomorrow. Maintain supportive care, IV antibiotic therapy, local wound care/offloading shoes. The impression and plan of care has been dictated as directed. : I performed a history and examination of this patient, discussed the same with the dictator. I agree with the dictator's note ,documented as a scribe. Any additional findings or plans will be noted.
--- NOTE | 2019-02-09 20:12 | P.DS ---
Providers Date of admission: 02/06/19 14:09 Expected date of discharge: 02/09/19 Attending physician: Ascencion Beckwith Consults: 02/04/19 22:35 Consult Physician Routine Consulting Provider: Felipe Olguin Consult Reason/Comments: heart failure Do you want consulting provider notified?: Yes 02/05/19 11:15 Consult Physician Routine Consulting Provider: Aidee Zavala Consult Reason/Comments: foot wounds Do you want consulting provider notified?: Yes Primary care physician: [facility] Course: Final Diagnoses: -Hypertensive emergency -Acute on chronic systolic heart failure -Nonischemic cardiomyopathy -Elevated troponin, cardiology following. -Chronic foot infection, nonhealing left great toe with plantar wound, with cellulitis , left great toe osteomyelitis, MSSA, group B strep, anaerobic gram- positive cocci per culture. -Diabetes mellitus, borderline, hemoglobin A1c 6.4. -Obesity, BMI 29.7 -Chronic daily marijuana use -Crohn's disease status post bowel resection -Noncompliant Hospital course:This is a 43-year-old gentleman admitted with acute on chronic systolic heart failure, bilateral feet infection with small ulcers, hypertension and multiple other medical issues. Coreg initiated yesterday with MIKO inhibitor, Aldactone, Lasix IV push. Blood pressure better controlled today. Lasix converted to oral. ICD implantation being discussed if no improvement in LV with medical therapy maximized. Creatinine 0.92. Potassium 3.9, sodium 136. Afebrile. Evaluated by infectious disease, cultures obtained. Feet, pulse can ordered. 02/07/2019 patient lying flat in bed, with no respiratory distress, no shortness of breath. Denies chest pain, palpitations. Denies lightheadedness dizziness or focal deficits. Vital signs stable. Afebrile . Echo reporting severe global hypokinesia, EF 2025%, moderate left ventricular hypertrophy, mild pulmonary hypertension .evaluated by cardiology, maximizing medical therapy. Elevated CRP, cultures reporting staph aureus, blood cultures negative Maintained on IV antibiotics of Cefizox 1 as per infectious disease. Bone scan in progress 02/08/2019 maintained on IV antibiotics/local wound care as per infectious disease for osteomyelitis of left great toe, culture reporting MSSA .denies pain. Vital signs stable. Afebrile. Good diet intake with no abdominal pain, no nausea no vomiting no diarrhea. Denies chest pain, palpitations or shortness of breath. PICC line placed, authorization received further IV antibiotic therapy at discharge. Significant clinical improvement. Cleared by all consults for discharge. Patient is being discharged home in a stable condition with guarded prognosis. EXAM: GENERAL: Alert and oriented 3, no acute distress CARDIOVASCULAR: S1, S2 regular.. No murmur RESPIRATION: Bilateral Breath sounds diminished in the bases. No rhonchi, crackles or wheezes ABDOMEN: Soft, nontender . No guarding. no masses palpable. Bowel sounds heard. NERVOUS SYSTEM: No focal deficits. Microbiology 02/06/19 13:08 Toe - Left First Anaerobic Culture - Final Anaerobic Gm Negative Bacilli Anaerobic Gram Positive Cocci 02/07/19 06:39 Blood Blood Culture - Preliminary No Growth after 48 hours 02/06/19 13:08 Toe - Left First Gram Stain - Preliminary 02/06/19 13:08 Toe - Left First Wound Culture - Preliminary Staphylococcus aureus Strep agalactiae - (group b) Gram Neg Bacilli The impression and plan of care has been dictated as directed. : I performed a history and examination of this patient, discussed the same with the dictator. I agree with the dictator's note ,documented as a scribe. Any additional findings or plans will be noted. Patient Condition at Discharge: Stable Plan - Discharge Summary Discharge Rx Participant: Yes New Discharge Prescriptions: New Spironolactone [Aldactone] 25 mg PO DAILY #30 tab Carvedilol [Coreg] 6.25 mg PO BID-W/MEALS #60 tab Furosemide [Lasix] 40 mg PO DAILY #30 tab Famotidine [Pepcid] 20 mg PO BID #60 tab Lisinopril [Zestril] 5 mg PO DAILY #30 tab metroNIDAZOLE [Flagyl] 500 mg PO Q8HR #126 tab ceFAZolin [Kefzol] 2 gm IVP Q8HR #126 vial Discharge Medication List Carvedilol [Coreg] 6.25 mg PO BID-W/MEALS #60 tab 02/07/19 [Rx] Famotidine [Pepcid] 20 mg PO BID #60 tab 02/07/19 [Rx] Furosemide [Lasix] 40 mg PO DAILY #30 tab 02/07/19 [Rx] Lisinopril [Zestril] 5 mg PO DAILY #30 tab 02/07/19 [Rx] Spironolactone [Aldactone] 25 mg PO DAILY #30 tab 02/07/19 [Rx] ceFAZolin [Kefzol] 2 gm IVP Q8HR #126 vial 02/09/19 [Rx] metroNIDAZOLE [Flagyl] 500 mg PO Q8HR #126 tab 02/09/19 [Rx] Follow up Appointment(s)/Referral(s): Ascencion Beckwith MD [Primary Care Provider] - 02/27/19 9:45 am [facility], [NON-STAFF] - [facility],Infusion [NON-STAFF] - Aidee Zavala MD [STAFF PHYSICIAN] - 02/16/19 11:30 am ([facility]) Papo Downey MD [STAFF PHYSICIAN] - 02/16/19 4:00 pm Ambulatory/Diagnostic Orders: Basic Metabolic Panel [LAB.AMB] Location: None Selected C Reactive Protein [LAB.AMB] Location: None Selected Complete Blood Count w/diff [LAB.AMB] Time Frame: 3 Days, Location: None Selected Complete Blood Count w/diff [LAB.AMB] Location: None Selected Erythrocyte Sedimentation Rate [LAB.AMB] Location: None Selected Patient Instructions/Handouts: Heart Failure (DC) Activity/Diet/Wound Care/Special Instructions: [facility] will deliver IV antibiotics supplies tonight around 5pm. [facility] will come out tomorrow to initiate IV antibiotic therapy. Dr. Zavala sent the rx to [facility]. Patient will go on Cefazolin 2 gm every 8 hours for 6 weeks. Glucometer: Please call [employer] at [phone] to arrange glucometer. Your information has already been faxed there but you need to answer their questionnaire. Diet: Consistent carb, hemoglobin A1c 6.4 Accu-Cheks before meals and at bedtime, maintain log intake to follow-up visit with PCP for further recommendations Discharge Disposition: HOME SELF-CARE
== END 2019-02-09 18:14 | disposition home or self-care (01) | DRG 539 ==
LOC: EC 20:52 → 1SOBS 22:37 → OBSVTOIN 02-06 14:09 → 4SSUR 02-07 16:41
PROVIDERS: ADMIT Family Medicine; ATTEND Family Medicine
PROC: 02HV33Z Insertion of Infusion Device into Superior Vena Cava, Percutaneous Approach (ICD-10-PCS; principal; 2019-02-09 10:30)
DX: M86.172 Other acute osteomyelitis, left ankle and foot (principal); I50.23 Acute on chronic systolic (congestive) heart failure; I16.1 Hypertensive emergency; K50.90 Crohn's disease, unspecified, without complications; I42.0 Dilated cardiomyopathy; I11.0 Hypertensive heart disease with heart failure; I27.20 Pulmonary hypertension, unspecified; M50.20 Other cervical disc displacement, unspecified cervical region; I08.1 Rheumatic disorders of both mitral and tricuspid valves; L03.032 Cellulitis of left toe; L97.529 Non-pressure chronic ulcer of other part of left foot with unspecified severity; T50.906A Underdosing of unspecified drugs, medicaments and biological substances, initial encounter; E66.9 Obesity, unspecified; E78.5 Hyperlipidemia, unspecified; G47.33 Obstructive sleep apnea (adult) (pediatric); J45.909 Unspecified asthma, uncomplicated; K21.9 Gastro-esophageal reflux disease without esophagitis; B95.61 Methicillin susceptible Staphylococcus aureus infection as the cause of diseases classified elsewhere; R73.03 Prediabetes; F32.9 Major depressive disorder, single episode, unspecified; F41.9 Anxiety disorder, unspecified; R73.9 Hyperglycemia, unspecified; Z68.29 Body mass index [BMI] 29.0-29.9, adult; Z79.899 Other long term (current) drug therapy; Z90.49 Acquired absence of other specified parts of digestive tract; Z88.0 Allergy status to penicillin; Z82.49 Family history of ischemic heart disease and other diseases of the circulatory system; Z91.128 Patient's intentional underdosing of medication regimen for other reason; Z91.19 Patient's noncompliance with other medical treatment and regimen
CPT/HCPCS: 36415; 36573; 71046; 78315; 80048; 80053; 83036; 83690; 83735; 83880; 84132; 84484; 85025; 85379; 85610; 85652; 85730; 86140; 87040; 87070; 87075; 87077; 87186; 87205; 93005; 93306; 94760; 96374; 96375; 96376; 99285

== ENCOUNTER 2019-10-08 06:24 | Inpatient (IN) | payer OTHER ==
[2019-10-08] MEDS ORDERED: ONDANSETRON 4 MG/2 ML VIAL IVP STA (06:45)
[2019-10-08] MEDS ORDERED: SODIUM CHLORIDE 0.9% 1,000 ML IV STA ×2 (06:45)
[2019-10-08] MEDS ORDERED: MORPHINE SULFATE 4 MG/ML SYRINGE IV STA (06:45)
--- NOTE | 2019-10-08 06:52 | ED ---
Abdominal Pain HPI - General Source: patient, RN notes reviewed, old records reviewed Mode of arrival: ambulatory Limitations: no limitations <Juana Krishnan - Last Filed: 10/08/19 08:25> <Luz Marina Brantley - Last Filed: 10/10/19 01:59> - General Chief Complaint: Abdominal Pain Stated Complaint: Abdominal pain,vomiting Time Seen by Provider: 10/08/19 06:37 - History of Present Illness Initial Comments: Patient is a 44-year-old female who presents emergency department today with chief complaint of diffuse abdominal pain nausea and vomiting for the past 2 days. Patient relates that he has had a history of colon resection done at [facility] and revision completed by a Dr. Calzada in 2015. Patient reports that he feels the son is concern for possible bowel obstruction. Patient states that he's had no fevers or chills. He denies any chest pain or shortness of breath. Patient reports that he is having some loose stool. Denies any bloody emesis or bloody stool. (Juana Krishnan) - Related Data Home Medications Medication Instructions Recorded Confirmed Carvedilol [Coreg] 6.25 mg PO AC-BID 10/08/19 10/08/19 Previous Rx's Medication Instructions Recorded Furosemide [Lasix] 40 mg PO BID #180 tab 04/21/19 Lisinopril [Zestril] 5 mg PO DAILY #90 tab 04/21/19 Spironolactone [Aldactone] 25 mg PO DAILY #90 tab 04/21/19 Allergies Allergy/AdvReac Type Severity Reaction Status Date / Time Penicillins Allergy Unknown Verified 10/08/19 10:55 Childhood Review of Systems ROS Other: All systems not noted in ROS Statement are negative. <Juana Krishnan - Last Filed: 10/08/19 08:25> ROS Other: All systems not noted in ROS Statement are negative. <Luz Marina Brantley - Last Filed: 10/10/19 01:59> ROS Statement: Those systems with pertinent positive or pertinent negative responses have been documented in the HPI. Past Medical History Past Medical History: Asthma, Heart Failure, GERD/Reflux, GI Bleed, Hypertension Additional Past Medical History / Comment(s): Partial bowel obstruction secondary to adhesions, Crohn's, ileorectal anastomotic stricture, cervical pain-ruptured disc., ileus, enteritis History of Any Multi-Drug Resistant Organisms: None Reported Past Surgical History: Appendectomy, Bowel Resection, Hernia Repair Additional Past Surgical History / Comment(s): Lucio. bowel resection in 1993, l ysis of adhesions, partial omentectomy and repair of incisional hernia August [address] Calzada, decompressive colonoscopy in May [address] Calzada, EGD and multiple colonoscopies, Epidural injections to neck- last one on 04/2015. Past Anesthesia/Blood Transfusion Reactions: No Reported Reaction Additional Past Anesthesia/Blood Transfusion Reaction / Comment(s): Pt has never recieved blood. Past Psychological History: Anxiety, Depression Smoking Status: Never smoker Past Alcohol Use History: Rare Past Drug Use History: None Reported - Past Family History Father Family Medical History: Myocardial Infarction (NM) Additional Family Medical History / Comment(s): AT [age]GGE 54- HIS 4TH NM Mother Family Medical History: Coronary Artery Disease (CAD), Hypertension Additional Family Medical History / Comment(s): MOM IS AGE 63, HAS STENTS <Juana Krishnan - Last Filed: 10/08/19 08:25> General Exam Limitations: no limitations General appearance: alert, in no apparent distress Head exam: Present: atraumatic, normocephalic, normal inspection Eye exam: Present: normal appearance, PERRL, EOMI. Absent: scleral icterus, conjunctival injection, periorbital swelling ENT exam: Present: normal exam, mucous membranes moist Neck exam: Present: normal inspection. Absent: tenderness, meningismus, lymphadenopathy Respiratory exam: Present: normal lung sounds bilaterally. Absent: respiratory distress, wheezes, rales, rhonchi, stridor Cardiovascular Exam: Present: regular rate, normal rhythm, normal heart sounds. Absent: systolic murmur, diastolic murmur, rubs, gallop, clicks GI/Abdominal exam: Present: soft, tenderness (Left lower quadrant RLQ pain. ), normal bowel sounds. Absent: distended, guarding, rebound, rigid Extremities exam: Present: normal inspection, full ROM, normal capillary refill. Absent: tenderness, pedal edema, joint swelling, calf tenderness Back exam: Present: normal inspection Neurological exam: Present: alert, oriented X3, CN II-XII intact Psychiatric exam: Present: normal affect, normal mood Skin exam: Present: warm, dry, intact, normal color, other (wound on sole of R foot and L great toe, wrapped. ). Absent: rash <Juana Krishnan - Last Filed: 10/08/19 08:25> - General Exam Comments Initial Comments: 44-year-old . Alert and oriented 3. Patient appears in no significant distress. (AriellaJuana) Course Vital Signs 10/08/19 10/08/19 10/08/19 06:30 07:02 08:46 Temperature 98.3 F Pulse Rate 74 103 H 92 Pulse Rate [ Pulse Oximetery ] Respiratory 18 18 16 Rate Blood Pressure 150/111 142/94 165/109 Blood Pressure [Left Arm] O2 Sat by Pulse 98 98 95 Oximetry 10/08/19 10/08/19 10/08/19 11:02 12:00 13:57 Temperature 98.1 F Pulse Rate 90 95 85 Pulse Rate [ Pulse Oximetery ] Respiratory 18 18 18 Rate Blood Pressure 132/80 157/102 152/91 Blood Pressure [Left Arm] O2 Sat by Pulse 95 96 95 Oximetry 10/08/19 14:10 Temperature 97.6 F Pulse Rate Pulse Rate [ 97 Pulse Oximetery ] Respiratory 16 Rate Blood Pressure Blood Pressure 135/84 [Left Arm] O2 Sat by Pulse 95 Oximetry Medical Decision Making - Lab Data Result diagrams: 10/08/19 06:54 10/08/19 06:54 - Radiology Data Radiology results: report reviewed <Juana Krishnan - Last Filed: 10/08/19 08:25> - Lab Data Result diagrams: 10/09/19 05:45 10/09/19 05:45 <Luz Marina Brantley - Last Filed: 10/10/19 01:59> - Medical Decision Making This Patient is a 44-year-old male presents emergency department today for evaluation with concern for abdominal pain, nausea and vomiting for the past 3 days. History of Crohn's with bowel resection done at [facility] and had a second surgery by Dr. Calzada in 2014. Patient's abdomen is distended, clinical concern for bowel obstruction. Patient was started on IV fluids nausea meds. Patient's CBC does show evidence of elevated hematocrit and hemoglobin. Patient was informed of these results. He reports he has been told this in the past. Patient CMP is unremarkable. At this time Patient EDC was completed and shows evidence of high-grade her early complete bowel obstruction. Dr. Brantley discussed the case with Dr. Calzada who agrees to accept admission. He requests Patient be started on IV fluids pain medication and IV antibiotics. Due to the history of penicillin ALLERGY was started on Levaquin and Flagyl. They Dr. Calzada did request an NG tube however Patient is initially refusing this. (Juana Krishnan) Spoke with the patient in regards to his diagnosis and treatment plan. Discussed the recommendation by Dr. Calzada that we place an NG tube. Patient refused. Patient aware of the risks and benefits with placement of the tube and the recommendation from the surgeon that this be placed however the patient continued to say no to the procedure. Patient awaiting a bed on the floor. (Luz Marina Brantley) - Lab Data Lab Results 10/08/19 10/08/19 10/08/19 Range/Units 06:54 06:54 06:54 WBC 9.7 (3.8-10.6) k/uL RBC 6.40 H (4.30-5.90) m/uL Hgb 19.7 H* (13.0-17.5) gm/dL Hct 59.8 H* (39.0-53.0) % MCV 93.4 (80.0-100.0) fL MCH 30.8 (25.0-35.0) pg MCHC 33.0 (31.0-37.0) g/dL RDW 12.6 (11.5-15.5) % Plt Count 361 (150-450) k/uL Neutrophils % 63 % Lymphocytes % 23 % Monocytes % 9 % Eosinophils % 1 % Basophils % 0 % Neutrophils # 6.1 (1.3-7.7) k/uL Lymphocytes # 2.2 (1.0-4.8) k/uL Monocytes # 0.9 (0-1.0) k/uL Eosinophils # 0.1 (0-0.7) k/uL Basophils # 0.0 (0-0.2) k/uL PT (9.0-12.0) sec INR (<1.2) APTT (22.0-30.0) sec Sodium 135 L (137-145) mmol/L Potassium 4.6 (3.5-5.1) mmol/L Chloride 98 (98-107) mmol/L Carbon Dioxide 22 (22-30) mmol/L Anion Gap 15 mmol/L BUN 20 (9-20) mg/dL Creatinine 0.82 (0.66-1.25) mg/dL Est GFR (CKD-EPI)AfAm >90 (>60 ml/min/1.73 sqM) Est GFR (CKD-EPI)NonAf >90 (>60 ml/min/1.73 sqM) Glucose 232 H (74-99) mg/dL Plasma Lactic Acid Baldo 2.0 (0.7-2.0) mmol/L Calcium 10.1 (8.4-10.2) mg/dL Total Bilirubin 1.3 (0.2-1.3) mg/dL AST 40 (17-59) U/L ALT 42 (4-49) U/L Alkaline Phosphatase 125 (38-126) U/L Total Protein 9.3 H (6.3-8.2) g/dL Albumin 4.8 (3.5-5.0) g/dL Amylase 72 (30-110) U/L Lipase 53 (23-300) U/L 10/08/19 Range/Units 07:43 WBC (3.8-10.6) k/uL RBC (4.30-5.90) m/uL Hgb (13.0-17.5) gm/dL Hct (39.0-53.0) % MCV (80.0-100.0) fL MCH (25.0-35.0) pg MCHC (31.0-37.0) g/dL RDW (11.5-15.5) % Plt Count (150-450) k/uL Neutrophils % % Lymphocytes % % Monocytes % % Eosinophils % % Basophils % % Neutrophils # (1.3-7.7) k/uL Lymphocytes # (1.0-4.8) k/uL Monocytes # (0-1.0) k/uL Eosinophils # (0-0.7) k/uL Basophils # (0-0.2) k/uL PT 10.4 (9.0-12.0) sec INR 1.0 (<1.2) APTT 24.4 (22.0-30.0) sec Sodium (137-145) mmol/L Potassium (3.5-5.1) mmol/L Chloride (98-107) mmol/L Carbon Dioxide (22-30) mmol/L Anion Gap mmol/L BUN (9-20) mg/dL Creatinine (0.66-1.25) mg/dL Est GFR (CKD-EPI)AfAm (>60 ml/min/1.73 sqM) Est GFR (CKD-EPI)NonAf (>60 ml/min/1.73 sqM) Glucose (74-99) mg/dL Plasma Lactic Acid Baldo (0.7-2.0) mmol/L Calcium (8.4-10.2) mg/dL Total Bilirubin (0.2-1.3) mg/dL AST (17-59) U/L ALT (4-49) U/L Alkaline Phosphatase (38-126) U/L Total Protein (6.3-8.2) g/dL Albumin (3.5-5.0) g/dL Amylase (30-110) U/L Lipase (23-300) U/L - Radiology Data CT shows high-grade partial versus early complete small bowel instruction with transition point seen in the left low pelvis although air and fluid in the proximal small bowel are seen distally to this. Nonspecific enlarged portacaval lymph node a few prominent. Pancreatic lymph nodes, slightly enlarged from exam at 2017. (Juana Krishnan) Disposition Is patient prescribed a controlled substance at d/c from ED?: No Time of Disposition: 08:30 <Juana Krishnan - Last Filed: 10/08/19 08:25> <Luz Marina Brantley - Last Filed: 10/10/19 01:59> Clinical Impression: Small bowel obstruction Disposition: ADMITTED IP TO THIS HOSP Condition: Stable
[2019-10-08 07:14] LABS: ALT 42 U/L (4-49); AST 40 U/L (17-59); African American GFR (CKD) >90 (>60 ml/min/1.73 sqM); Albumin 4.8 g/dL (3.5-5.0); Alkaline Phosphatase 125 U/L (38-126); Amylase 72 U/L (30-110); Anion Gap 15 mmol/L; Blood Urea Nitrogen 20 mg/dL (9-20); Calcium 10.1 mg/dL (8.4-10.2); Carbon Dioxide 22 mmol/L (22-30); Chloride 98 mmol/L (98-107); Glucose 232 mg/dL (74-99); Non-African American GFR(CKD) >90 (>60 ml/min/1.73 sqM); Potassium 4.6 mmol/L (3.5-5.1); Sodium 135 mmol/L (137-145); Total Bilirubin 1.3 mg/dL (0.2-1.3); Total Protein 9.3 g/dL (6.3-8.2)
[2019-10-08 07:28] LABS: Basophils % (A) 0 %; Eosinophils # (A) 0.1 k/uL (0-0.7); Eosinophils % (A) 1 %; Lymphocytes # (A) 2.2 k/uL (1.0-4.8); Lymphocytes % (A) 23 %; MCH 30.8 pg (25.0-35.0); MCV 93.4 fL (80.0-100.0); Mean Platelet Volume 7.8; Monocytes # (A) 0.9 k/uL (0-1.0); Monocytes % (A) 9 %; Neutrophils # (A) 6.1 k/uL (1.3-7.7); Neutrophils % (A) 63 %; Platelet Count 361 k/uL (150-450); RDW 12.6 % (11.5-15.5); WBC 9.7 k/uL (3.8-10.6)
[2019-10-08 07:35] LABS: HCT 59.8 % (39.0-53.0); HGB 19.7 gm/dL (13.0-17.5)
[2019-10-08 08:09] LABS: Partial Thromboplastin Time 24.4 sec (22.0-30.0)
--- NOTE | 2019-10-08 08:10 | CT ---
EXAMINATION TYPE: CT abdomen pelvis w con DATE OF EXAM: 10/08/2019 COMPARISON: 04/04/2017 HISTORY: Abdominal pain with history of appendectomy, bowel resection and hernia repair CT DLP: 1600.2 mGycm Automated exposure control for dose reduction was used. TECHNIQUE: Helical acquisition of images was performed from the lung bases through the pelvis. CONTRAST: Performed without Oral Contrast and with IV Contrast, patient injected with 100 mL of Isovue 300. FINDINGS: LUNG BASES: Minimal bibasilar subsegmental atelectasis. Right hilar granulomas. Cardiomegaly. LIVER/GB: Hepatic parenchyma is diffusely hypoattenuated in comparison to that of the spleen, most co mmonly seen in hepatic steatosis. This finding limits evaluation for hepatic masses. No gross evidenc e of hepatic mass is seen. No intrahepatic biliary ductal dilatation. No radiopaque calculi in the ga llbladder on CT. PANCREAS: Mild pancreatic parenchymal atrophy. No ductal dilatation seen. SPLEEN: Punctate granulomas, benign. ADRENALS: No significant abnormality is seen. KIDNEYS: Kidneys enhance and excrete symmetrically without hydronephrosis. FREE AIR: No free air is visualized. ADENOPATHY: Prominent portacaval lymph node measures 1.3 cm. This appears similar to exam of 2017. F ew slightly prominent peripancreatic lymph nodes are slightly enlarged from the prior and are nonspec ific. These are marked on image 31. OSSEOUS STRUCTURES: Mild multilevel degenerative change of the spine BOWEL: As discussed on the prior there is an apparent total colectomy with anastomotic site of the r ectum and small bowel in the low pelvis. Air-fluid levels seen within the dilated bowel measuring up to 5.7 cm in the pelvis. Remainder of the small bowel is dilated, fluid-filled, and contains air-flui d levels in the mid abdomen. Few loops of small bowel in the right lateral abdomen are decompressed a nd transition point is noted in the left lower quadrant with a loop of small bowel distal to this con taining air and fluid. IMPRESSION: 1. HIGH-GRADE PARTIAL VERSUS EARLY COMPLETE SMALL BOWEL OBSTRUCTION WITH TRANSITION POINT SEEN IN THE LEFT LOW PELVIS ALTHOUGH AIR AND FLUID AND PROMINENT SMALL BOWEL THAT ARE SEEN DISTALLY TO THIS. 2. NONSPECIFIC ENLARGED PORTACAVAL LYMPH NODE AND FEW PROMINENT PERIPANCREATIC LYMPH NODES, SLIGHTLY ENLARGED FROM THE EXAM OF 2017.
[2019-10-08 08:12] LABS: Prothrombin Time 10.4 sec (9.0-12.0)
[2019-10-08] MEDS ORDERED: LEVOFLOXACIN 750MG-D5W PMX 750 MG in DEXTROSE/WATER 1 150ML.BAG IVPB STA (08:21)
[2019-10-08] MEDS ORDERED: metroNIDAZOLE-NS PMX 500 MG in SALINE 1 100ML.BAG IVPB STA (08:22)
[2019-10-08] MEDS ORDERED: HYDROmorphone 1 MG/ML 1 ML SYRINGE IVP STA ×2 (08:23→10:04)
[2019-10-08] MEDS ORDERED: ONDANSETRON 4 MG/2 ML VIAL IVP PRN (08:30)
[2019-10-08] MEDS ORDERED: NALOXONE 0.4 MG/ML 1 ML VIAL IV PRN (08:30)
[2019-10-08] MEDS ORDERED: IBUPROFEN 400 MG TAB PO PRN (08:30)
[2019-10-08] MEDS ORDERED: KETOROLAC 30 MG/ML 1 ML VIAL IVP PRN (08:30)
[2019-10-08] MEDS ORDERED: ACETAMINOPHEN TAB 325 MG TAB PO PRN (08:30)
[2019-10-08] MEDS ORDERED: hydrALAZINE HCL 20 MG/ML 1 ML VIAL IVP STA ×2 (09:03→13:22)
[2019-10-08] MEDS ORDERED: SODIUM CHLORIDE 0.9% 1,000 ML IV ONE (10:06)
--- NOTE | 2019-10-08 10:48 | P.GSHP ---
History of Present Illness H&P Date: 10/08/19 Chief Complaint: Small bowel obstruction Is a 44-year-old male who is admitted through the emergency room complaints of abdominal pain and distention. Patient describes abdominal distention and bloating and nausea and vomiting. Last 4 days. His CAT scan shows a fairly hig h-grade small bowel obstruction. Patient's previous history of colectomy and previous exploratory laparotomy for lysis of adhesions. Past Medical History Past Medical History: Asthma, Heart Failure, GERD/Reflux, GI Bleed, Hypertension Additional Past Medical History / Comment(s): Partial bowel obstruction secondary to adhesions, Crohn's, ileorectal anastomotic stricture, cervical pain-ruptured disc., ileus, enteritis History of Any Multi-Drug Resistant Organisms: None Reported Past Surgical History: Appendectomy, Bowel Resection, Hernia Repair Additional Past Surgical History / Comment(s): Lucio. bowel resection in 1993, lysis of adhesions, partial omentectomy and repair of incisional hernia August [address] Calzada, decompressive colonoscopy in May [address] Calzada, EGD and multiple colonoscopies, Epidural injections to neck- last one on 04/2015. Past Anesthesia/Blood Transfusion Reactions: No Reported Reaction Additional Past Anesthesia/Blood Transfusion Reaction / Comment(s): Pt has never recieved blood. Past Psychological History: Anxiety, Depression Smoking Status: Never smoker Past Alcohol Use History: Rare Past Drug Use History: None Reported - Past Family History Father Family Medical History: Myocardial Infarction (PR) Additional Family Medical History / Comment(s): AT [age]GGE 54- HIS 4TH PR Mother Family Medical History: Coronary Artery Disease (CAD), Hypertension Additional Family Medical History / Comment(s): MOM IS AGE 63, HAS STENTS Medications and Allergies Home Medications Medication Instructions Recorded Confirmed Type metroNIDAZOLE [Flagyl] 500 mg PO Q8HR #126 tab 02/09/19 04/18/19 Rx Famotidine [Pepcid] 20 mg PO DAILY 04/18/19 04/18/19 History cefTRIAXone [Rocephin] 2 gm IVPB DAILY 04/18/19 04/18/19 History Carvedilol [Coreg] 6.25 mg PO BID-W/MEALS #180 tab 04/21/19 Rx Furosemide [Lasix] 40 mg PO BID #180 tab 04/21/19 Rx Lisinopril [Zestril] 5 mg PO DAILY #90 tab 04/21/19 Rx Spironolactone [Aldactone] 25 mg PO DAILY #90 tab 04/21/19 Rx Allergies Allergy/AdvReac Type Severity Reaction Status Date / Time Penicillins Allergy Unknown Verified 10/08/19 06:36 Childhood Surgical - Exam Vital Signs Temp Pulse Resp BP Pulse Ox 98.3 F 74 18 150/111 98 10/08/19 06:30 10/08/19 06:30 10/08/19 06:30 10/08/19 06:30 10/08/19 06:30 - General well developed, well nourished, no distress - Eyes PERRL - ENT normal pinna - Neck no masses - Respiratory normal expansion - Cardiovascular Rhythm: regular - Abdomen Abdomen is distended. Abdomen is tender throughout. There is no rebound or guarding. Well-healed midline scar Abdomen: soft Results - Labs 10/08/19 06:54 10/08/19 06:54 Abnormal Lab Results - Last 24 Hours (Table) 10/08/19 10/08/19 Range/Units 06:54 06:54 RBC 6.40 H (4.30-5.90) m/uL Hgb 19.7 H* (13.0-17.5) gm/dL Hct 59.8 H* (39.0-53.0) % Sodium 135 L (137-145) mmol/L Glucose 232 H (74-99) mg/dL Total Protein 9.3 H (6.3-8.2) g/dL Diabetes panel 10/08/19 Range/Units 06:54 Sodium 135 L (137-145) mmol/L Potassium 4.6 (3.5-5.1) mmol/L Chloride 98 (98-107) mmol/L Carbon Dioxide 22 (22-30) mmol/L BUN 20 (9-20) mg/dL Creatinine 0.82 (0.66-1.25) mg/dL Glucose 232 H (74-99) mg/dL Calcium 10.1 (8.4-10.2) mg/dL AST 40 (17-59) U/L ALT 42 (4-49) U/L Alkaline Phosphatase 125 (38-126) U/L Total Protein 9.3 H (6.3-8.2) g/dL Albumin 4.8 (3.5-5.0) g/dL Calcium panel 10/08/19 Range/Units 06:54 Calcium 10.1 (8.4-10.2) mg/dL Albumin 4.8 (3.5-5.0) g/dL Pituitary panel 10/08/19 Range/Units 06:54 Sodium 135 L (137-145) mmol/L Potassium 4.6 (3.5-5.1) mmol/L Chloride 98 (98-107) mmol/L Carbon Dioxide 22 (22-30) mmol/L BUN 20 (9-20) mg/dL Creatinine 0.82 (0.66-1.25) mg/dL Glucose 232 H (74-99) mg/dL Calcium 10.1 (8.4-10.2) mg/dL Adrenal panel 10/08/19 Range/Units 06:54 Sodium 135 L (137-145) mmol/L Potassium 4.6 (3.5-5.1) mmol/L Chloride 98 (98-107) mmol/L Carbon Dioxide 22 (22-30) mmol/L BUN 20 (9-20) mg/dL Creatinine 0.82 (0.66-1.25) mg/dL Glucose 232 H (74-99) mg/dL Calcium 10.1 (8.4-10.2) mg/dL Total Bilirubin 1.3 (0.2-1.3) mg/dL AST 40 (17-59) U/L ALT 42 (4-49) U/L Alkaline Phosphatase 125 (38-126) U/L Total Protein 9.3 H (6.3-8.2) g/dL Albumin 4.8 (3.5-5.0) g/dL Assessment and Plan Assessment: Small bowel obstruction. Patient will receive nasogastric tube decompression. If his condition does not improve he'll undergo exploratory laparotomy with lysis of adhesion
[2019-10-08] MEDS: SODIUM CHLORIDE 0.9% 1,000 ML IV SCH ×2 (10:57→18:23)
[2019-10-08] MEDS: PANTOPRAZOLE 40 MG/10 ML VIAL IV SCH (10:59)
[2019-10-08] MEDS: HYDROmorphone 1 MG/ML 1 ML SYRINGE IVP PRN ×3 (14:47→23:26)
[2019-10-08] MEDS ORDERED: hydrALAZINE HCL 20 MG/ML 1 ML VIAL IVP PRN (16:02)
[2019-10-08] MEDS: CARVEDILOL 6.25 MG TAB PO SCH (18:21)
[2019-10-08] MEDS: FUROSEMIDE 40 MG TAB PO SCH (18:21)
--- NOTE | 2019-10-08 20:57 | XR ---
EXAMINATION TYPE: XR chest 1V portable DATE OF EXAM: 10/08/2019 COMPARISON: Prior chest x-ray 04/18/2019 HISTORY: NG tube placement TECHNIQUE: Single frontal view of the chest is obtained. FINDINGS: There is been interval placement of an NG tube. Distal tip of the tube is only overlying t he region of the distal thoracic esophagus. No evident pneumothorax. Heart is enlarged. Right hemidia phragm is elevated. No definite effusion or airspace disease. IMPRESSION: NG tube as described. A Red level critical message alert has been initiated for Sultana Robin MD via the [employer] System on 10/08/2019 7:25 PM. This message alert has been sent to Sultana Robin MD via the preferences provided by the clinician for the receipt of Radiology Critical Findings. Message ID [id number].
[2019-10-08 21:49] LABS: Glucose,Whole Blood 146 mg/dL (75-99)
--- NOTE | 2019-10-08 22:54 | CONS ---
CONSULTATION I am covering for Dr. Beckwith. DATE OF SERVICE: 10/08/2019 REASON FOR CONSULTATION: Advice regarding asthma, CHF and other medical issues requested by Dr. Beckwith. HISTORY OF PRESENT ILLNESS: This 44-year-old gentleman with a past history of asthma, CHF, diabetes, GERD, GI bleed, had a colon resection in [place], but subsequently and revision incisional hernia by Dr. Calzada in 2014. Currently the patient is complaining of abdominal distention and pain and the patient had features of partial small-bowel obstruction on the CT scan. The patient admitted to the hospital for further evaluation and treatment. Currently the patient is sedated at this time. The patient is on unable to give a detailed history currently and most history taken from my discussion with staff and review of the chart at this time. PAST MEDICAL HISTORY: History of asthma, diabetes mellitus, GERD, GI bleed, hypertension, history of anxiety, depression. MEDICATIONS: Prior to admission include home medications are: 1. Aldactone 25 mg daily. 2. Zestril 5 mg. 3. Lasix 40 mg b.i.d. 4. Coreg 6.25 mg b.i.d. ALLERGIES: PENICILLIN. Family history social history, review of systems could not be taken. Otherwise, per the chart history of myocardial infarction in the family and no history of smoking. PHYSICAL EXAM: Patient is stuporous after sedation and pain medications. The pulse is 100. Blood pressure 159/60. Respirations 19, temperature 97.5, pulse ox 96% on room air. HEENT is conjunctivae normal. NECK: No JVD. CARDIOVASCULAR: S1, S2. RESPIRATORY: Breath sounds diminished in the bases. A few scattered rhonchi and crackles. ABDOMEN: Soft, obese. Mild diffuse distention present. No ascites. No mass palpable. LEGS: No edema. No swelling. NERVOUS SYSTEM as mentioned earlier could not be examined. SKIN: No ulcers, rashes or bleeding. JOINTS: No active deforming arthropathy. LABS: WBC 9.7, hemoglobin 19.7, sodium 135. Other labs are noted. ASSESSMENT: 1. Abdominal pain with possible high-grade partial versus early complete small-bowel obstruction with transition point in the left lower pelvis. 2. Nonspecific enlarged portacaval lymph node. 3. Hyponatremia. 4. Increased hemoglobin polycythemia. 5. History of asthma. 6. History of congestive heart failure, ejection fraction unknown. 7. Diabetes mellitus type 2. 8. History of gastrointestinal bleed. 9. History of gastroesophageal reflux disease. 10.Hypertension. 11.History of partial small-bowel obstruction secondary to adhesions. 12.History of Crohn's disease. 13.History of ileorectal anastomosis and stricture. 14.History of degenerative joint disease. 15.History of anxiety, depression. 16.FULL CODE. RECOMMENDATIONS AND DISCUSSION: In this 44 -year-old gentleman who presented with multiple complex medical issues, we will monitor the patient closely, continue the current medications. I recommend a chest x-ray to rule out the possibility of active CHF. Otherwise, we will continue to monitor. Cautious hydration. Proton pump inhibitors. DVT prophylaxis. Resume the home medication once the patient is p.o., and we will follow the patient closely. Patient may be asked to follow with Dr. Beckwith after discharge. Thank you Dr. Calzada for letting us participate in the care of this patient. MMMARIAMAL / MICHELN: [id number] /
[2019-10-09] MEDS: HYDROmorphone 1 MG/ML 1 ML SYRINGE IVP PRN ×7 (02:30→22:49)
[2019-10-09] MEDS: SODIUM CHLORIDE 0.9% 1,000 ML IV SCH ×2 (02:34→15:05)
[2019-10-09 06:17] LABS: Basophils % (A) 0 %; Eosinophils # (A) 0.2 k/uL (0-0.7); Eosinophils % (A) 2 %; HCT 53.1 % (39.0-53.0); HGB 17.3 gm/dL (13.0-17.5); Lymphocytes # (A) 1.9 k/uL (1.0-4.8); Lymphocytes % (A) 23 %; MCH 30.7 pg (25.0-35.0); MCHC 32.5 g/dL (31.0-37.0); MCV 94.5 fL (80.0-100.0); Mean Platelet Volume 7.4; Monocytes % (A) 12 %; Neutrophils % (A) 61 %; Platelet Count 298 k/uL (150-450); RBC 5.63 m/uL (4.30-5.90); RDW 12.8 % (11.5-15.5); WBC 8.2 k/uL (3.8-10.6)
[2019-10-09 06:28] LABS: African American GFR (CKD) >90 (>60 ml/min/1.73 sqM); Anion Gap 11 mmol/L; Blood Urea Nitrogen 15 mg/dL (9-20); Calcium 8.7 mg/dL (8.4-10.2); Carbon Dioxide 21 mmol/L (22-30); Chloride 102 mmol/L (98-107); Glucose 145 mg/dL (74-99); Non-African American GFR(CKD) >90 (>60 ml/min/1.73 sqM); Potassium 4.1 mmol/L (3.5-5.1); Sodium 134 mmol/L (137-145)
[2019-10-09] MEDS: SPIRONOLACTONE 25 MG TAB PO SCH (08:21)
[2019-10-09] MEDS: FUROSEMIDE 40 MG TAB PO SCH ×2 (08:21→16:55)
[2019-10-09] MEDS: CARVEDILOL 6.25 MG TAB PO SCH ×2 (08:21→16:55)
[2019-10-09] MEDS: PANTOPRAZOLE 40 MG/10 ML VIAL IV SCH (08:21)
[2019-10-09] MEDS: LISINOPRIL 5 MG TAB PO SCH (08:21)
[2019-10-09 08:31] LABS: Glucose,Whole Blood 134 mg/dL (75-99)
--- NOTE | 2019-10-09 09:21 | XR ---
2 view abdomen HISTORY: Bowel obstruction 2 views the abdomen on [address] scan 10/08/2019 There are air-fluid levels without bowel distention consistent with patient's history of bowel obstru ction. There is no pneumoperitoneum. Postop changes are noted within the pelvis. The heart is enlarge d. IMPRESSION: Findings consistent with small bowel obstruction. Cardiomegaly.
--- NOTE | 2019-10-09 11:33 | P.PN ---
Progress Note - Text Progress Note Date: 10/09/19 The patient feels better today. He has had flatus and a small bowel movement. His nasogastric tube was removed last night axilla. On exam his vital signs are stable. His abdomen is soft. There is some mild tenderness. There is no rebound or guarding. Resolving small bowel structure. Patient will start on clear liquid diet.
[2019-10-09 11:52] LABS: Glucose,Whole Blood 125 mg/dL (75-99)
[2019-10-09 17:21] LABS: Glucose,Whole Blood 135 mg/dL (75-99)
--- NOTE | 2019-10-09 19:51 | PN ---
PROGRESS NOTE DATE OF SERVICE: 10/09/2019 This 44-year-old gentleman admitted with abdominal pain, possibly high-grade and partial small-bowel obstruction is being closely monitored. NG tube was removed, but the patient also had some bowel movements and a plain x-ray abdomen taken today which I reviewed personally showed some persistent dilatation of small intestine. CT scan has been noted. Surgery is following the patient closely and has recommended a clear liquid diet at this time for possible small intestine stricture. No chest pain. No palpitations. PAST MEDICAL HISTORY: Reviewed. REVIEW OF SYSTEMS: CARDIOVASCULAR SYSTEM: No angina or palpitations. Respiration no cough. GI no nausea. no dysuria. CURRENT MEDICATIONS: Reviewed and include: 1. Tylenol. 2. Coreg. 3. Lasix. 4. Apresoline. 5. Dilaudid. 6. Motrin. 7. Toradol. 8. Zestril. 9. Narcan. 10.Zofran. 11.Protonix. 12.Aldactone. 13.Doses reviewed. PHYSICAL EXAM: Patient is alert, oriented x3. Pulse 87. Blood pressure 111/69, respirations 16, temperature 97.4, pulse ox 98% on room air. HEENT is conjunctivae normal. Oral mucosa moist. NECK is no jugular venous distention. No carotid bruit. No lymph node enlargement. Cardiovascular systems: S1, S2. Respiration: Breath sounds diminished in the bases. A few rhonchi. No crackles. ABDOMEN: Soft. Mild diffuse distention. Nontender. LEGS are no edema. No swelling. Nervous system: No focal deficits. LABORATORY DATA: CBC within normal limits. Sodium 134. ASSESSMENT: 1. Abdominal pain with possible small bowel obstruction with transition point of the left lower pelvis in the previous CAT scan. 2. Nonspecific enlarged portacaval lymph node. 3. Hyponatremia. 4. Increased hemoglobin, polycythemia, present on admission, possibly secondary to dehydration. 5. History of asthma. 6. History of congestive heart failure ejection fraction unknown. 7. Diabetes type 2. 8. History of gastrointestinal bleed. 9. History of gastroesophageal reflux disease. 10.Hypertension. 11.History of partial small bowel obstruction secondary to adhesions. 12.History of Crohn's disease. 13.History of ileorectal anastomosis stricture. 14.History of degenerative joint disease. 15.History of anxiety, depression. 16.FULL CODE. RECOMMENDATIONS AND DISCUSSION: Recommend to continue current medication, continue to monitor. Symptomatic treatment. Otherwise at this time, continue with conservative line of treatment. Repeat labs. Abdominal x-ray noted. A chest x-ray was also reviewed. Otherwise, further recommendations to follow. The patient is also on empiric antibiotics. The patient also received a dose of empiric antibiotics also. We will continue to monitor. Further recommendations to follow. Closely follow with surgery. MMODL / IJN: [id number] /
--- NOTE | 2019-10-09 21:21 | CONS ---
CONSULTATION DATE OF SERVICE: 10/09/2019 REASON FOR CONSULTATION: Bilateral diabetic foot wound. HISTORY OF PRESENT ILLNESS: The patient is a 44-year-old male, well known to my service and this patient does follow with us in the [facility] for bilateral foot wound with a wound on the plantar aspect of the left big toe and on the plantar aspect of the right foot. The patient presented to the hospital. She complains of diffuse abdominal pain and vomiting that had been going on for about 2 days before she presented to the hospital. The patient describes the pain to be more of a colicky, at times sharp, almost 7 to 8/10 and no radiation. The patient has been nauseated. Did have multiple episodes of vomiting. Denies any diarrhea or constipation and no fever. With these symptoms, the patient was evaluated by the ER physician. On arrival to the ER, the patient has been afebrile and no fever has been recorded. The patient did have a normal white count and normal electrolytes. Liver enzymes are normal. Covid testing was negative. The patient did have a CT of abdomen and pelvis which shows high-grade partial versus early complete small-bowel obstruction with transition point seen in the left lower pelvis. The patient has been admitted to the hospital and has been treated medically for underlying bowel obstruction. I was asked to see the patient regarding his local wound care to his bilateral foot wounds. The patient currently denies any symptom as far as his foot wounds are concerned. Currently, left big toe wound is almost healed up. Right foot as mentioned, there was no pain. Overall drainage has decreased and current local wound care has been dressing. REVIEW OF SYSTEMS: Positive points have been mentioned in HPI. Other systems negative. PAST MEDICAL HISTORY: Heart failure, gastroesophageal reflux disease, GI bleed, hypertension and asthma. PAST SURGICAL HISTORY: Appendectomy bowel resection, hernia repair and multiple colonoscopies and debridement of the wound. SOCIAL HISTORY: Denies smoking. Rarely drinks. No drug use. FAMILY HISTORY: Father with history of [place]. Mother also history of hypertension and coronary artery disease. ALLERGIES: PENICILLIN. CURRENT MEDICATIONS: The patient is currently on Tylenol, Coreg, Lasix, hydralazine, Dilaudid, Motrin, Toradol, Zestril, Narcan, Zofran, Protonix, Aldactone. PHYSICAL EXAMINATION: Blood pressure 111/67 with a pulse of 87, temperature 97.4. He is 98% on room air. General description: The patient is a middle-aged male lying in bed in no distress. No tachypnea or accessory muscles of respiration use. HEENT: Examination shows no pallor or scleral icterus. Oral mucosa membranes dry. No pharyngeal erythema or thrush. NECK: Trachea central. No thyromegaly. LUNGS: Unlabored breathing and is clear to auscultation anteriorly. No wheeze or crackles. HEART S1, S2. Regular rate and rhythm. ABDOMEN: Soft. No tenderness. No guarding or rigidity. No organomegaly. EXTREMITIES: No edema of the feet. SKIN examination: No rashes or mass palpable. Examination of the left big toe plantar aspect: The wound is almost healed up. Minimal callus. The right foot plantar wound has decreased in size. No significant slough to the base, foul smelling drainage. NEUROLOGICAL: Patient is awake, alert, oriented x3. Mood and affect normal. LABS: Hemoglobin 17.1, white count 8.2, BUN of 15, creatinine 0.73. DIAGNOSTIC IMPRESSION/PLAN: 1. Patient with left big toe diabetic foot wound which is currently almost healed up to continue local wound care with dry protective dressing. 2. Right foot plantar diabetic foot wound with no cellulitis. Local wound care with packing of the wound to be changed every 48 hours. 3. The patient currently with no evidence of any active infection has hold on any systemic antibiotic therapy at this point. 4. Small bowel obstruction, being managed by surgery primary team and seems to have shown clinical improvement. Thank you for this consultation. Will follow this patient along with you. MMODL / IJN: [id number] /
[2019-10-09 21:27] LABS: Glucose,Whole Blood 115 mg/dL (75-99)
[2019-10-10] MEDS: HYDROmorphone 1 MG/ML 1 ML SYRINGE IVP PRN ×8 (01:29→22:38)
[2019-10-10] MEDS: SODIUM CHLORIDE 0.9% 1,000 ML IV SCH ×2 (01:30→10:33)
[2019-10-10 06:57] LABS: Basophils % (A) 0 %; Eosinophils # (A) 0.3 k/uL (0-0.7); Eosinophils % (A) 3 %; HCT 48.4 % (39.0-53.0); HGB 16.1 gm/dL (13.0-17.5); Lymphocytes # (A) 2.3 k/uL (1.0-4.8); Lymphocytes % (A) 27 %; MCH 31.5 pg (25.0-35.0); MCHC 33.3 g/dL (31.0-37.0); MCV 94.6 fL (80.0-100.0); Mean Platelet Volume 7.4; Monocytes # (A) 0.9 k/uL (0-1.0); Monocytes % (A) 11 %; Neutrophils # (A) 4.5 k/uL (1.3-7.7); Neutrophils % (A) 54 %; Platelet Count 252 k/uL (150-450); RBC 5.11 m/uL (4.30-5.90); RDW 12.9 % (11.5-15.5); WBC 8.3 k/uL (3.8-10.6)
[2019-10-10] MEDS: PANTOPRAZOLE 40 MG/10 ML VIAL IV SCH (07:02)
[2019-10-10] MEDS: LISINOPRIL 5 MG TAB PO SCH (07:03)
[2019-10-10] MEDS: CARVEDILOL 6.25 MG TAB PO SCH ×2 (07:03→17:03)
[2019-10-10 07:07] LABS: Glucose,Whole Blood 118 mg/dL (75-99)
[2019-10-10 07:12] LABS: African American GFR (CKD) >90 (>60 ml/min/1.73 sqM); Anion Gap 6 mmol/L; Blood Urea Nitrogen 12 mg/dL (9-20); Calcium 8.3 mg/dL (8.4-10.2); Carbon Dioxide 27 mmol/L (22-30); Chloride 100 mmol/L (98-107); Glucose 116 mg/dL (74-99); Non-African American GFR(CKD) >90 (>60 ml/min/1.73 sqM); Potassium 3.8 mmol/L (3.5-5.1); Sodium 133 mmol/L (137-145)
[2019-10-10] MEDS: FUROSEMIDE 40 MG TAB PO SCH ×2 (10:31→17:03)
[2019-10-10] MEDS: SPIRONOLACTONE 25 MG TAB PO SCH (10:31)
[2019-10-10] MEDS: diphenhydrAMINE 25 MG CAP PO PRN ×2 (10:59→17:25)
[2019-10-10 11:13] LABS: Glucose,Whole Blood 152 mg/dL (75-99)
--- NOTE | 2019-10-10 12:33 | P.PN ---
Subjective Progress Note Date: 10/10/19 CHIEF COMPLAINT: Small bowel obstruction HISTORY OF PRESENT ILLNESS: Patient examined at the bedside with Dr. Calzada. Patient reports passing flatus and having a bowel movement. Tolerating liquid diet. Requesting diet to be advanced to a regular diet PHYSICAL EXAM: VITAL SIGNS: Reviewed. GENERAL: Well-developed in no acute distress. HEENT: No sclera icterus. Extraocular movements grossly intact. Moist buccal mucosa. Head is atraumatic, normocephalic. ABDOMEN: Soft. Mildly distended. Nontender. NEUROLOGIC: Alert and oriented. Cranial nerves II through XII grossly intact. ASSESSMENT: 1. Small bowel obstruction PLAN: -Will advance diet to regular. If patient tolerates, anticipate discharge home tomorrow Nurse practitioner note has been reviewed by physician. Signing provider agrees with the documented findings, assessment, and plan of care. Objective - Vital Signs Vital signs: Vital Signs Temp 98 F 10/10/19 12:22 Pulse 81 10/10/19 12:22 Resp 16 10/10/19 12:22 BP 111/63 10/10/19 12:22 Pulse Ox 97 10/10/19 12:22 Intake & Output 10/09/19 10/10/19 10/10/19 18:59 06:59 18:59 Intake Total 2680 800 4050 Balance 2680 800 4050 Intake: Intake, IV Titration 7578 401 2586 Amount Sodium Chloride 0.9% 1, 8081 106 8335 000 ml @ 100 mls/hr IV . Q10H [facility] Rx#:[id number] Oral [id number] Other: Voiding Method Toilet Toilet Toilet # Voids 2 2 5 # Bowel Movements 1 1 1 - Labs CBC & Chem 7: 10/10/19 06:29 10/10/19 06:29 Labs: Abnormal Lab Results - Last 24 Hours (Table) 10/09/19 10/09/19 10/10/19 Range/Units 17:11 21:25 06:29 Sodium 133 L (137-145) mmol/L Glucose 116 H (74-99) mg/dL POC Glucose (mg/dL) 135 H 115 H (75-99) mg/dL Calcium 8.3 L (8.4-10.2) mg/dL 10/10/19 10/10/19 Range/Units 07:06 11:11 Sodium (137-145) mmol/L Glucose (74-99) mg/dL POC Glucose (mg/dL) 118 H 152 H (75-99) mg/dL Calcium (8.4-10.2) mg/dL Microbiology - Last 24 Hours (Table) 10/08/19 08:50 Blood Culture - Preliminary Blood No Growth after 48 hours
--- NOTE | 2019-10-10 15:44 | PN ---
PROGRESS NOTE DATE OF SERVICE: 10/10/2019 REASON FOR FOLLOWUP: Bilateral diabetic foot wounds. INTERVAL HISTORY: The patient is currently afebrile, has been breathing comfortably. The patient's abdominal pain is currently controlled. Denies any further nausea or vomiting. No chest pain, shortness of breath or cough pain to the bilateral diabetic foot wound areas. PHYSICAL EXAMINATION: Blood pressure 111/63 with a pulse of 81, temperature of 98. He is 97% on room air. General description is a middle-aged male lying in bed in no distress. RESPIRATORY SYSTEM: Unlabored breathing. Clear to auscultation anteriorly. HEART: S1, S2. Regular rate and rhythm. ABDOMEN: Soft. No tenderness. Foot wounds are currently dressed up. No obvious drainage on the dressing. LABS: Hemoglobin is 16.1, white count 8.3, BUN of 12, creatinine 0.70. Blood culture has been negative. DIAGNOSTIC IMPRESSION AND PLAN: Patient with bilateral diabetic foot wounds with no evidence of any cellulitis. Left big toe is almost healed up. Continue with dry protective dressing along with a plus to the right foot plantar wound. No need for any systemic antibiotic therapy. Continue supportive care. MMODL / IJN: [id number] /
[2019-10-10 17:04] LABS: Glucose,Whole Blood 136 mg/dL (75-99)
--- NOTE | 2019-10-10 20:14 | PN ---
PROGRESS NOTE DATE OF SERVICE: 10/10/2019 This 44-year-old gentleman who was admitted with abdominal pain with possible small- bowel obstruction is being closely monitored at this time. The patient is being closely followed by Surgery. Infectious Disease is also following the patient. The patient also had diabetic foot ulcers. Currently the patient is on a regular diet. No chest pain. No palpitations. No fever. PHYSICAL EXAMINATION: Alert and oriented x3. Pulse 81, blood pressure 111/63, respirations 16, temperature 98 degrees, pulse ox 97% on room air. HEENT: Conjunctivae normal. NECK: No jugular venous distention. CARDIOVASCULAR SYSTEM: S1, S2 muffled. RESPIRATORY SYSTEM: Breath sounds diminished at the bases. A few scattered rhonchi. ABDOMEN: Soft, obese. Mild diffuse discomfort. No guarding or rigidity. No mass palpable. No ascites. LEGS: No edema. No swelling. NERVOUS SYSTEM: No focal deficit. LABS: CBC within normal limits. Sodium 133, glucose 118. Calcium is 8.3. ASSESSMENT: 1. Abdominal pain with possible small bowel obstruction with transition point in the left lower part on the previous CT scan, improving. 2. Nonspecific enlarged portocaval lymph node. 3. Hyponatremia. 4. Increased hemoglobin, polycythemia, present on admission, possibly secondary to dehydration. 5. History of asthma. 6. History of congestive heart failure; ejection fraction unknown. 7. Diabetes mellitus, type 2. 8. History of gastrointestinal bleed. 9. History of gastroesophageal reflux disease. 10.Hypertension. 11.History of partial small bowel obstruction secondary to adhesion. 12.History of Crohn's disease. 13.History of ileorectal anastomosis and stricture. 14.History of degenerative joint disease. 15.History of anxiety, depression. 16.FULL CODE. RECOMMENDATIONS AND DISCUSSION: I recommend to continue current medications, continue with the monitoring, symptomatic treatment. Continue with the diet per Surgery. Increase ambulation. Pain medications. Closely monitor. Guarded prognosis. Further recommendations to follow. Resume the home medications. MMODL / IJN: [id number] /
[2019-10-10 20:21] LABS: Glucose,Whole Blood 125 mg/dL (75-99)
[2019-10-11] MEDS: diphenhydrAMINE 25 MG CAP PO PRN (03:14)
[2019-10-11 07:03] LABS: Glucose,Whole Blood 149 mg/dL (75-99)
[2019-10-11] MEDS: HYDROmorphone 1 MG/ML 1 ML SYRINGE IVP PRN ×3 (08:09→15:09)
[2019-10-11] MEDS: CARVEDILOL 6.25 MG TAB PO SCH (08:13)
[2019-10-11] MEDS: PANTOPRAZOLE 40 MG/10 ML VIAL IV SCH (08:14)
[2019-10-11] MEDS: FUROSEMIDE 40 MG TAB PO SCH (08:14)
[2019-10-11] MEDS: LISINOPRIL 5 MG TAB PO SCH (08:14)
[2019-10-11] MEDS: SPIRONOLACTONE 25 MG TAB PO SCH (08:14)
[2019-10-11 08:49] LABS: Basophils % (A) 0 %; Eosinophils # (A) 0.3 k/uL (0-0.7); Eosinophils % (A) 4 %; HGB 16.1 gm/dL (13.0-17.5); Lymphocytes # (A) 1.6 k/uL (1.0-4.8); Lymphocytes % (A) 25 %; MCH 31.8 pg (25.0-35.0); MCHC 33.6 g/dL (31.0-37.0); MCV 94.8 fL (80.0-100.0); Mean Platelet Volume 7.6; Monocytes # (A) 0.6 k/uL (0-1.0); Monocytes % (A) 10 %; Neutrophils % (A) 59 %; Platelet Count 254 k/uL (150-450); RBC 5.06 m/uL (4.30-5.90); RDW 12.6 % (11.5-15.5); WBC 6.7 k/uL (3.8-10.6)
[2019-10-11 09:02] LABS: African American GFR (CKD) >90 (>60 ml/min/1.73 sqM); Anion Gap 8 mmol/L; Blood Urea Nitrogen 11 mg/dL (9-20); Calcium 8.5 mg/dL (8.4-10.2); Carbon Dioxide 25 mmol/L (22-30); Chloride 103 mmol/L (98-107); Glucose 192 mg/dL (74-99); Non-African American GFR(CKD) >90 (>60 ml/min/1.73 sqM); Potassium 3.6 mmol/L (3.5-5.1); Sodium 136 mmol/L (137-145)
--- NOTE | 2019-10-11 09:14 | XR ---
EXAMINATION TYPE: XR chest 1V portable DATE OF EXAM: 10/11/2019 COMPARISON: 10/08/2019 HISTORY: Pain TECHNIQUE: Single frontal view of the chest is obtained. FINDINGS: Heart is enlarged. There is subsegmental consolidation and small effusion or pleural thick ening. No pneumothorax. No overt failure. NG tube is been removed. Coarsened interstitium noted. IMPRESSION: 1. Right lower lobe infiltrate with small effusion. 2. Cardiomegaly. 3. Coarsened interstitium could be on the basis of a limited inspiration rather than interstitial pne umonitis or venous congestion.
--- NOTE | 2019-10-11 10:36 | P.PN ---
<Nova Gastelum - Last Filed: 10/11/19 10:34> Subjective Progress Note Date: 10/11/19 CHIEF COMPLAINT: Small bowel obstruction HISTORY OF PRESENT ILLNESS: Patient examined at the bedside. Patient is tolerating regular diet without nausea or vomiting. He reports passing flatus. States he had a bowel movement yesterday. Vital signs are stable. PHYSICAL EXAM: VITAL SIGNS: Reviewed. GENERAL: Well-developed in no acute distress. HEENT: No sclera icterus. Extraocular movements grossly intact. Moist buccal mucosa. Head is atraumatic, normocephalic. ABDOMEN: Soft. Mildly distended. Nontender. NEUROLOGIC: Alert and oriented. Cranial nerves II through XII grossly intact. ASSESSMENT: 1. Small bowel obstruction PLAN: Continue regular diet Patient will be reevaluated by Dr. Calzada this afternoon. Possible discharge home later today. Nurse practitioner note has been reviewed by physician. Signing provider agrees with the documented findings, assessment, and plan of care. Objective - Vital Signs Vital signs: Vital Signs Temp 98.6 F 10/11/19 04:45 Pulse 77 10/11/19 04:45 Resp 16 10/11/19 04:45 BP 122/72 10/11/19 04:45 Pulse Ox 96 10/11/19 04:45 Intake & Output 10/10/19 10/11/19 10/11/19 18:59 06:59 18:59 Intake Total 4050 505 Balance 4050 505 Intake: IV 25 ivfluids 25 Intake, IV Titration 1200 Amount Sodium Chloride 0.9% 1, 1200 000 ml @ 100 mls/hr IV . Q10H [facility] Rx#:[id number] Oral 2850 480 Other: Voiding Method Toilet Toilet Toilet # Voids 2 2 # Bowel Movements 1 1 - Labs CBC & Chem 7: 10/11/19 08:25 10/11/19 08:25 Labs: Abnormal Lab Results - Last 24 Hours (Table) 10/10/19 10/10/19 10/10/19 Range/Units 11:11 17:03 20:19 Sodium (137-145) mmol/L Glucose (74-99) mg/dL POC Glucose (mg/dL) 152 H 136 H 125 H (75-99) mg/dL 10/11/19 10/11/19 Range/Units 07:02 08:25 Sodium 136 L (137-145) mmol/L Glucose 192 H (74-99) mg/dL POC Glucose (mg/dL) 149 H (75-99) mg/dL Microbiology - Last 24 Hours (Table) 10/08/19 08:50 Blood Culture - Preliminary Blood No Growth after 48 hours <Da Calzada - Last Filed: 10/11/19 16:39> Objective - Vital Signs Vital signs: Vital Signs Temp 97.9 F 10/11/19 12:04 Pulse 74 10/11/19 12:04 Resp 18 10/11/19 12:04 BP 127/80 10/11/19 12:04 Pulse Ox 100 10/11/19 12:04 Intake & Output 10/10/19 10/11/19 10/11/19 18:59 06:59 18:59 Intake Total 4050 505 600 Balance 4050 505 600 Intake: IV 25 ivfluids 25 Intake, IV Titration 1200 Amount Sodium Chloride 0.9% 1, 1200 000 ml @ 100 mls/hr IV . Q10H [facility] Rx#:[id number] Oral 2850 480 600 Other: Voiding Method Toilet Toilet Toilet # Voids 2 2 2 # Bowel Movements 1 1 - Labs CBC & Chem 7: 10/11/19 08:25 10/11/19 08:25 Labs: Abnormal Lab Results - Last 24 Hours (Table) 10/10/19 10/10/19 10/11/19 Range/Units 17:03 20:19 07:02 Sodium (137-145) mmol/L Glucose (74-99) mg/dL POC Glucose (mg/dL) 136 H 125 H 149 H (75-99) mg/dL 10/11/19 10/11/19 Range/Units 08:25 11:20 Sodium 136 L (137-145) mmol/L Glucose 192 H (74-99) mg/dL POC Glucose (mg/dL) 154 H (75-99) mg/dL Microbiology - Last 24 Hours (Table) 10/08/19 08:50 Blood Culture - Preliminary Blood No Growth after 72 hours Assessment and Plan Assessment: Patient feels well. He is tolerating diet. His abdominal pain is minimal. He will be discharged home today. He'll follow up in one week.
[2019-10-11 11:21] LABS: Glucose,Whole Blood 154 mg/dL (75-99)
[2019-10-11 12:05] VITALS: BP 127/80; PULSE 74; RESP 18; TEMP 97.9
--- NOTE | 2019-10-11 16:23 | PN ---
PROGRESS NOTE DATE OF SERVICE: 10/11/2019 REASON FOR FOLLOWUP: Bilateral diabetic foot wound. INTERVAL HISTORY: The patient is currently afebrile, the patient is breathing comfortably. No further nausea, vomiting. No chest pain, shortness of breath or cough. Abdominal pain is currently controlled, patient denies pain to the foot wound area. PHYSICAL EXAMINATION: Blood pressure is 127/80 with a pulse of 74, temperature 97.9, he is 100% on room air. General description is a middle-aged male, lying in bed in no distress. RESPIRATORY SYSTEM: Unlabored breathing, clear to auscultation anteriorly. HEART: S1, S2. Regular rate and rhythm. ABDOMEN: Soft. No tenderness. Right foot wound with no significant slough tissue, surrounding redness or any drainage. LABS: Hemoglobin 16.2, white count of 6.7, creatinine 0.71. DIAGNOSTIC IMPRESSION AND PLAN: 1. Patient with right diabetic foot wound with no evidence of any cellulitis. Local wound care to continue with the dressing, offloading and follow up in the [facility] tomorrow for a total contact cast. 2. Patient with abnormal x-ray with right lower lobe infiltrate, possible atelectasis. Clinically not behaving as pneumonia. Will hold on any systemic antibiotic therapy at this point. MMODL / IJN: [id number] /
--- NOTE | 2019-10-11 22:57 | PN ---
PROGRESS NOTE DATE OF SERVICE: 10/11/2019 This 44-year-old gentleman who was admitted with abdominal pain and possible small- bowel obstruction is being closely monitored at this time. The patient also had a nonspecific enlarged portacaval lymph node. Surgery is following the patient closely. No chest pain. No palpitations. No fever. The most recent chest x-ray was reviewed. PHYSICAL EXAMINATION: Alert and oriented x3. Pulse 77, blood pressure 122/72, respirations 16, temperature 98.7, pulse ox 96% on room air. HEENT: Conjunctivae normal. NECK: No jugular venous distention. CARDIOVASCULAR SYSTEM: S1, S2 muffled. RESPIRATORY SYSTEM: Breath sounds diminished at the bases. No rhonchi. No crackles. ABDOMEN: Soft. Slight distention present. Nontender. No mass palpable. NERVOUS SYSTEM: No focal deficit. LABS: CBC within normal limits. Sodium 136. Glucose noted. ASSESSMENT: 1. Abdominal pain with possible partial small bowel obstruction, on conservative line of management, improving. 2. Nonspecific enlarged portacaval lymph node. 3. Hyponatremia. 4. Increased hemoglobin secondary to dehydration, present on admission possibly. 5. History of asthma. 6. History of congestive heart failure; ejection fraction unknown. 7. Diabetes mellitus, type 2. 8. History of gastrointestinal bleed. 9. History of gastroesophageal reflux disease. 10.Hypertension. 11.History of partial small bowel obstruction secondary to adhesions. 12.History of Crohn's disease. 13.History of ileorectal anastomosis and stricture. 14.History of degenerative joint disease. 15.History of anxiety, depression. 16.FULL CODE. RECOMMENDATIONS AND DISCUSSION: I recommend to continue current medications, continue symptomatic treatment. Otherwise, resume the home medications. Probably discharge home if okay with Surgery. Closely follow with Dr. Beckwith in the outpatient setting. MMODL / IJN: [id number] /
== END 2019-10-11 19:32 | disposition home or self-care (01) | DRG 389 ==
LOC: EC 06:24 → 5NMEDONC 08:31
PROVIDERS: ADMIT Surgery; ATTEND Surgery
PROC: 0D9670Z Drainage of Stomach with Drainage Device, Via Natural or Artificial Opening (ICD-10-PCS; principal; 2019-10-08)
DX: K56.600 Partial intestinal obstruction, unspecified as to cause (principal); E87.1 Hypo-osmolality and hyponatremia; J98.11 Atelectasis; K50.90 Crohn's disease, unspecified, without complications; Z20.828 Contact with and (suspected) exposure to other viral communicable diseases; L97.511 Non-pressure chronic ulcer of other part of right foot limited to breakdown of skin; L97.521 Non-pressure chronic ulcer of other part of left foot limited to breakdown of skin; I50.9 Heart failure, unspecified; E11.621 Type 2 diabetes mellitus with foot ulcer; I11.0 Hypertensive heart disease with heart failure; K21.9 Gastro-esophageal reflux disease without esophagitis; J45.909 Unspecified asthma, uncomplicated; M50.80 Other cervical disc disorders, unspecified cervical region; F41.9 Anxiety disorder, unspecified; F32.9 Major depressive disorder, single episode, unspecified; D75.1 Secondary polycythemia; M19.90 Unspecified osteoarthritis, unspecified site; E86.0 Dehydration; Z79.899 Other long term (current) drug therapy; Z90.49 Acquired absence of other specified parts of digestive tract; Z87.19 Personal history of other diseases of the digestive system; Z98.890 Other specified postprocedural states; Z88.0 Allergy status to penicillin; Z82.49 Family history of ischemic heart disease and other diseases of the circulatory system
CPT/HCPCS: 36415; 71045; 74019; 74177; 80048; 80053; 82150; 83605; 83690; 85025; 85610; 85730; 87040; 87635; 96361; 96365; 96366; 96367; 96375; 96376; 99285

== ENCOUNTER → 2020-03-01 | Day surgery (SDC) | payer OTHER | LOC: CATHCVL 16:45 | PROVIDERS: ATTEND Internal Medicine Infectious Disease | DX: E11.621 Type 2 diabetes mellitus with foot ulcer (principal); L97.519 Non-pressure chronic ulcer of other part of right foot with unspecified severity; L97.526 Non-pressure chronic ulcer of other part of left foot with bone involvement without evidence of necrosis; I10 Essential (primary) hypertension; F41.8 Other specified anxiety disorders; K50.90 Crohn's disease, unspecified, without complications; G89.29 Other chronic pain; M54.9 Dorsalgia, unspecified; T36.96XA Underdosing of unspecified systemic antibiotic, initial encounter; Z91.19 Patient's noncompliance with other medical treatment and regimen; Z86.19 Personal history of other infectious and parasitic diseases; Z86.14 Personal history of Methicillin resistant Staphylococcus aureus infection; M50.80 Other cervical disc disorders, unspecified cervical region; Z90.49 Acquired absence of other specified parts of digestive tract; Z98.890 Other specified postprocedural states; Z88.0 Allergy status to penicillin; Z79.899 Other long term (current) drug therapy; Z79.2 Long term (current) use of antibiotics; Z79.4 Long term (current) use of insulin | CPT/HCPCS: 36410; 76937; C1751 ==

== ENCOUNTER 2020-07-12 17:32 | Emergency (ER) | payer OTHER ==
[2020-07-12] MEDS ORDERED: diphenhydrAMINE 50 MG/ML 1 ML VIAL IVP STA (18:46)
[2020-07-12] MEDS ORDERED: methylPREDNISolone SOD SUCCI 125 MG/2 ML VIAL IV STA (18:46)
[2020-07-12] MEDS ORDERED: HYDROmorphone 1 MG/ML 1 ML SYRINGE IVP STA (19:01)
--- NOTE | 2020-07-12 19:05 | ED ---
Skin/Abscess/FB HPI - General Chief complaint: Skin/Abscess/Foreign Body Stated complaint: Rash on leg Time Seen by Provider: 07/12/20 18:35 Source: patient, RN notes reviewed Mode of arrival: ambulatory - History of Present Illness Initial comments: Patient is a 44-year-old male with extensive past medical history that shows up to the ER complaining of bilateral lower extremity rash that is traveling up. He noted that he quit taking his medications 3 days ago and the rash started about 2 days ago. He noted that he did not come into contact with any new environmental substances or change in his detergent or household chemicals. He noted that the rash is not itchy but is painful and has had several blisters. - Related Data Home Medications Medication Instructions Recorded Confirmed carvediloL [Coreg] 6.25 mg PO AC-BID 10/08/19 10/08/19 Previous Rx's Medication Instructions Recorded Furosemide [Lasix] 40 mg PO BID #180 tab 04/21/19 Spironolactone [Aldactone] 25 mg PO DAILY #90 tab 04/21/19 lisinopriL [Zestril] 5 mg PO DAILY #90 tab 04/21/19 Ibuprofen 800 mg PO Q8H 10 Days #30 tab 07/12/20 Sulfamethox-Tmp 800-160Mg [Bactrim 1 each PO Q12HR #20 tab 07/12/20 Ds] predniSONE 10 mg PO DAILY #35 tab 07/12/20 Allergies Allergy/AdvReac Type Severity Reaction Status Date / Time Penicillins Allergy Unknown Verified 07/12/20 17:45 Childhood Review of Systems ROS Statement: Those systems with pertinent positive or pertinent negative responses have been documented in the HPI. ROS Other: All systems not noted in ROS Statement are negative. Past Medical History Past Medical History: Asthma, Heart Failure, Diabetes Mellitus, GERD/Reflux, GI Bleed, Hypertension Additional Past Medical History / Comment(s): Partial bowel obstruction secondary to adhesions, Crohn's, ileorectal anastomotic stricture, cervical pain-ruptured disc., ileus, enteritis History of Any Multi-Drug Resistant Organisms: MRSA Past Surgical History: Appendectomy, Bowel Resection, Hernia Repair Additional Past Surgical History / Comment(s): Lucio. bowel resection in 1993, lysis of adhesions, partial omentectomy and repair of incisional hernia August [address] Calzada, decompressive colonoscopy in May [address] Calzada, EGD and multiple colonoscopies, Epidural injections to neck- last one on 04/2015. Past Anesthesia/Blood Transfusion Reactions: No Reported Reaction Additional Past Anesthesia/Blood Transfusion Reaction / Comment(s): Pt has never recieved blood. Past Psychological History: Anxiety, Depression Smoking Status: Never smoker Past Alcohol Use History: Rare Past Drug Use History: None Reported - Past Family History Father Family Medical History: Myocardial Infarction ([place]) Additional Family Medical History / Comment(s): at age 54- his 4TH [place] Mother Family Medical History: Coronary Artery Disease (CAD), Hypertension Additional Family Medical History / Comment(s): MOM IS AGE 63, HAS STENTS General Exam General appearance: alert, in no apparent distress Head exam: Present: atraumatic, normocephalic, normal inspection Eye exam: Present: normal appearance, PERRL, EOMI. Absent: scleral icterus, conjunctival injection, periorbital swelling ENT exam: Present: normal exam, mucous membranes moist Neck exam: Present: normal inspection. Absent: tenderness, meningismus, lymphadenopathy Respiratory exam: Present: normal lung sounds bilaterally. Absent: respiratory distress, wheezes, rales, rhonchi, stridor Cardiovascular Exam: Present: regular rate, normal rhythm, normal heart sounds. Absent: systolic murmur, diastolic murmur, rubs, gallop, clicks GI/Abdominal exam: Present: soft, normal bowel sounds. Absent: distended, tenderness, guarding, rebound, rigid Extremities exam: Present: normal inspection, full ROM, normal capillary refill. Absent: tenderness, pedal edema, joint swelling, calf tenderness Neurological exam: Present: alert, oriented X3, CN II-XII intact Psychiatric exam: Present: normal affect, normal mood Skin exam: Present: warm, dry, intact, normal color, rash (I lateral lower extremities, several blisters the bottle, one unpopped on the back of the right leg.) Course Vital Signs 07/12/20 07/12/20 17:43 19:00 Temperature 97.9 F Pulse Rate 112 H Respiratory 22 20 Rate Blood Pressure 218/127 O2 Sat by Pulse 99 Oximetry Medical Decision Making - Medical Decision Making 44-year-old male complaining of painful rash to bilateral lower extremity is. Basic labs, steroid injection, topical steroid, Benadryl ordered. 1 mg of Dilaudid ordered initially, patient still complaining of pain. 2 mg of morphine ordered. The patient's blood pressure was elevated so 20 mg of labetalol was ordered. Case discussed with Dr. Funes, - Lab Data Result diagrams: 07/12/20 20:37 07/12/20 20:37 Lab Results 07/12/20 07/12/20 Range/Units 20:37 20:37 WBC 13.6 H (3.8-10.6) k/uL RBC 5.24 (4.30-5.90) m/uL Hgb 16.3 (13.0-17.5) gm/dL Hct 47.7 (39.0-53.0) % MCV 91.1 (80.0-100.0) fL MCH 31.1 (25.0-35.0) pg MCHC 34.2 (31.0-37.0) g/dL RDW 13.0 (11.5-15.5) % Plt Count 329 (150-450) k/uL MPV 7.2 Neutrophils % 83 % Lymphocytes % 10 % Monocytes % 5 % Eosinophils % 2 % Basophils % 0 % Neutrophils # 11.3 H (1.3-7.7) k/uL Lymphocytes # 1.3 (1.0-4.8) k/uL Monocytes # 0.6 (0-1.0) k/uL Eosinophils # 0.3 (0-0.7) k/uL Basophils # 0.1 (0-0.2) k/uL Sodium 136 L (137-145) mmol/L Potassium 4.3 (3.5-5.1) mmol/L Chloride 103 (98-107) mmol/L Carbon Dioxide 25 (22-30) mmol/L Anion Gap 8 mmol/L BUN 14 (9-20) mg/dL Creatinine 0.73 (0.66-1.25) mg/dL Est GFR (CKD-EPI)AfAm >90 (>60 ml/min/1.73 sqM) Est GFR (CKD-EPI)NonAf >90 (>60 ml/min/1.73 sqM) Glucose 142 H (74-99) mg/dL Calcium 9.6 (8.4-10.2) mg/dL Total Bilirubin 0.7 (0.2-1.3) mg/dL AST 28 (17-59) U/L ALT 28 (4-49) U/L Alkaline Phosphatase 91 (38-126) U/L Total Protein 8.0 (6.3-8.2) g/dL Albumin 4.3 (3.5-5.0) g/dL Disposition Clinical Impression: Rash, Vasculitis Disposition: HOME SELF-CARE Condition: Stable Instructions (If sedation given, give patient instructions): Dermatitis (ED) Additional Instructions: Please return to the Emergency Department if symptoms worsen or any other concerns. Take medications as directed. Follow-up with primary 1-2 days. Strongly suggest follow-up with dermatology as soon as possible. Is patient prescribed a controlled substance at d/c from ED?: No Referrals: Ascencion Beckwith MD [Primary Care Provider] - 1-2 days Time of Disposition: 21:39
[2020-07-12] MEDS ORDERED: MORPHINE SULFATE 2 MG/ML SYRINGE IVP ONE (20:37)
[2020-07-12 20:51] LABS: Basophils # (A) 0.1 k/uL (0-0.2); Basophils % (A) 0 %; Eosinophils # (A) 0.3 k/uL (0-0.7); Eosinophils % (A) 2 %; HCT 47.7 % (39.0-53.0); HGB 16.3 gm/dL (13.0-17.5); Lymphocytes # (A) 1.3 k/uL (1.0-4.8); Lymphocytes % (A) 10 %; MCH 31.1 pg (25.0-35.0); MCHC 34.2 g/dL (31.0-37.0); MCV 91.1 fL (80.0-100.0); Mean Platelet Volume 7.2; Monocytes # (A) 0.6 k/uL (0-1.0); Monocytes % (A) 5 %; Neutrophils # (A) 11.3 k/uL (1.3-7.7); Neutrophils % (A) 83 %; Platelet Count 329 k/uL (150-450); RBC 5.24 m/uL (4.30-5.90); WBC 13.6 k/uL (3.8-10.6)
[2020-07-12] MEDS ORDERED: CLOBETASOL PROP 0.05% CR 15GM TOPICAL SCH (21:00)
[2020-07-12 21:02] LABS: ALT 28 U/L (4-49); AST 28 U/L (17-59); African American GFR (CKD) >90 (>60 ml/min/1.73 sqM); Albumin 4.3 g/dL (3.5-5.0); Alkaline Phosphatase 91 U/L (38-126); Anion Gap 8 mmol/L; Blood Urea Nitrogen 14 mg/dL (9-20); Calcium 9.6 mg/dL (8.4-10.2); Carbon Dioxide 25 mmol/L (22-30); Chloride 103 mmol/L (98-107); Glucose 142 mg/dL (74-99); Non-African American GFR(CKD) >90 (>60 ml/min/1.73 sqM); Potassium 4.3 mmol/L (3.5-5.1); Sodium 136 mmol/L (137-145); Total Bilirubin 0.7 mg/dL (0.2-1.3)
[2020-07-12] MEDS ORDERED: LABETALOL 5 MG/ML VIAL MDV IVP STA (21:26)
[2020-07-12 22:48] VITALS: BP 169/90; PULSE 98; RESP 20; TEMP 99.9
== END 2020-07-12 22:48 | disposition home or self-care (01) ==
LOC: EC 17:32
DX: L95.9 Vasculitis limited to the skin, unspecified (principal); R21 Rash and other nonspecific skin eruption; I11.0 Hypertensive heart disease with heart failure; I50.9 Heart failure, unspecified; Z79.899 Other long term (current) drug therapy; Z88.0 Allergy status to penicillin
CPT/HCPCS: 80053; 85652; 85025; 99283; 96374; 96375 ×4; J1200; J2930; J2270; J1170

== ENCOUNTER 2021-04-19 03:34 | Emergency (ER) | payer OTHER ==
[2021-04-19 03:54] VITALS: BP 130/80; PULSE 113; RESP 22; TEMP 101
[2021-04-19] MEDS ORDERED: MAG HYDROX/AL HYDROX/SIMETH 30 ML, LIDOCAINE VISCOUS 30 ML, diphenhydrAMINE ELIXIR 75 M... PO STA ×4 (06:19)
[2021-04-19] MEDS ORDERED: valACYclovir 500 MG TAB PO STA (06:21)
[2021-04-19] MEDS ORDERED: valACYclovir HCL 1,000 MG TABLET PO STA (06:22)
[2021-04-19] MEDS ORDERED: IBUPROFEN 600 MG TAB PO STA (06:22)
[2021-04-19] MEDS ORDERED: ACETAMINOPHEN TAB 500 MG TAB PO STA (06:22)
--- NOTE | 2021-04-19 06:25 | ED ---
General Adult HPI - General Chief complaint: ENT Stated complaint: Dental Pain, Time Seen by Provider: 04/19/21 06:01 Source: patient, RN notes reviewed Mode of arrival: ambulatory Limitations: no limitations - History of Present Illness Initial comments: 45-year-old male presents emergency Department chief complaint of sores in his mouth. Patient states started a few days ago. Patient states initially dialysis [id number]. Patient states he stepped on a rash on his hands or feet. Patient states that he is a known diabetic denies any history of COPD or HIV. Patient states that they're painful sores on his gums, tongue region. He states he is able to drink fluids it is painful to eat at times. Is not taking any recent Tylenol Motrin he did not note any fever until today which brought him in the emergency department. - Related Data Home Medications Medication Instructions Recorded Confirmed carvediloL [Coreg] 6.25 mg PO AC-BID 10/08/19 10/08/19 Previous Rx's Medication Instructions Recorded Furosemide [Lasix] 40 mg PO BID #180 tab 04/21/19 Spironolactone [Aldactone] 25 mg PO DAILY #90 tab 04/21/19 lisinopriL [Zestril] 5 mg PO DAILY #90 tab 04/21/19 Ibuprofen 800 mg PO Q8H 10 Days #30 tab 07/12/20 Sulfamethox-Tmp 800-160Mg [Bactrim 1 each PO Q12HR #20 tab 07/12/20 Ds] predniSONE 10 mg PO DAILY #35 tab 07/12/20 valACYclovir HCL [Valtrex] 1,000 mg PO Q8HR #21 tab 04/19/21 Allergies Allergy/AdvReac Type Severity Reaction Status Date / Time Penicillins Allergy Unknown Verified 04/19/21 03:54 Childhood Review of Systems ROS Statement: Those systems with pertinent positive or pertinent negative responses have been documented in the HPI. ROS Other: All systems not noted in ROS Statement are negative. Past Medical History Past Medical History: Asthma, Heart Failure, Diabetes Mellitus, GERD/Reflux, GI Bleed, Hypertension Additional Past Medical History / Comment(s): Partial bowel obstruction secondary to adhesions, Crohn's, ileorectal anastomotic stricture, cervical pain-ruptured disc., ileus, enteritis History of Any Multi-Drug Resistant Organisms: MRSA Past Surgical History: Appendectomy, Bowel Resection, Hernia Repair Additional Past Surgical History / Comment(s): Lucio. bowel resection in 1993, lysis of adhesions, partial omentectomy and repair of incisional hernia August [address] Calzada, decompressive colonoscopy in May [address] Calzada, EGD and multiple colonoscopies, Epidural injections to neck- last one on 04/2015. Past Anesthesia/Blood Transfusion Reactions: No Reported Reaction Additional Past Anesthesia/Blood Transfusion Reaction / Comment(s): Pt has never recieved blood. Past Psychological History: Anxiety, Depression Smoking Status: Never smoker Past Alcohol Use History: Rare Past Drug Use History: None Reported - Past Family History Father Family Medical History: Myocardial Infarction ([place]) Additional Family Medical History / Comment(s): at age 54- his 4TH [place] Mother Family Medical History: Coronary Artery Disease (CAD), Hypertension Additional Family Medical History / Comment(s): MOM IS AGE 63, HAS STENTS General Exam Limitations: no limitations General appearance: alert, in no apparent distress Head exam: Present: atraumatic, normocephalic, normal inspection Eye exam: Present: normal appearance, PERRL, EOMI. Absent: scleral icterus, conjunctival injection, periorbital swelling ENT exam: Present: mucous membranes moist, TM's normal bilaterally. Absent: normal exam, normal oropharynx (Sore throat the gumline, tongue without swelling patient has good moisture in the mouth, swallowing secretions well) Neck exam: Present: normal inspection, full ROM. Absent: tenderness, meningismus, lymphadenopathy Respiratory exam: Present: normal lung sounds bilaterally. Absent: respiratory distress, wheezes, rales, rhonchi, stridor Cardiovascular Exam: Present: normal rhythm, tachycardia, normal heart sounds. Absent: systolic murmur, diastolic murmur, rubs, gallop, clicks Course Vital Signs 04/19/21 03:50 Temperature 101 F H Pulse Rate 113 H Respiratory 22 Rate Blood Pressure 130/80 O2 Sat by Pulse 98 Oximetry Medical Decision Making - Medical Decision Making Patient appears to have gingivostomatitis. Patient has no other source for fever, well-appearing at this time. Patient discharged in stable condition return parameters discussed. Patient agrees to plan. Patient states that he will follow-up on Wednesday morning. - Lab Data Lab Results 04/19/21 Range/Units 04:07 Coronavirus (PCR) Not Detected (Not Detectd) Disposition Clinical Impression: Gingivostomatitis Disposition: HOME SELF-CARE Condition: Stable Instructions (If sedation given, give patient instructions): Gingivostomatitis (ED) Additional Instructions: Use Genaro's solution 3 times daily as needed. Please return to the Emergency Department if symptoms worsen or any other concerns. Prescriptions: valACYclovir HCL [Valtrex] 1,000 mg PO Q8HR #21 tab Is patient prescribed a controlled substance at d/c from ED?: No Referrals: Ascencion Beckwith MD [Primary Care Provider] - 1-2 days Time of Disposition: 06:24
== END 2021-04-19 07:10 | disposition home or self-care (01) ==
LOC: EC 03:34
DX: K05.10 Chronic gingivitis, plaque induced (principal); E11.9 Type 2 diabetes mellitus without complications; I11.0 Hypertensive heart disease with heart failure; I50.9 Heart failure, unspecified; J45.909 Unspecified asthma, uncomplicated; K21.9 Gastro-esophageal reflux disease without esophagitis; Z79.52 Long term (current) use of systemic steroids; Z79.1 Long term (current) use of non-steroidal anti-inflammatories (NSAID); Z79.899 Other long term (current) drug therapy; Z88.0 Allergy status to penicillin
CPT/HCPCS: 87635; 99283

== ENCOUNTER 2023-08-09 09:28 | Inpatient (IN) | payer OTHER ==
--- NOTE | 2023-08-09 09:46 | ED ---
General Adult HPI - General Chief complaint: Abdominal Pain Stated complaint: Bowel Obstruction Time Seen by Provider: 08/09/23 09:30 Source: patient, EMS, RN notes reviewed, old records reviewed Mode of arrival: EMS Limitations: no limitations - History of Present Illness Initial comments: This is a 47-year-old male who presents to the emergency department complaining that he has nausea vomiting and abdominal pain. Patient states he has had a complete colectomy because of ulcerative colitis in the past. Patient states he is also had bowel obstructions and that is what this feels like. Patient comes to us from the snf. Patient states he has not had any bowel movement or passed any gas since yesterday. Patient states he vomited multiple times and he continues to be nauseous and have abdominal pain. Patient Nuys any fever chills or cough or patient has chest pain difficulty breathing shortness of breath. Patient Nuys any back pain. - Related Data Home Medications Medication Instructions Recorded Confirmed carvediloL [Coreg] 6.25 mg PO AC-BID 10/08/19 10/08/19 Previous Rx's Medication Instructions Recorded Furosemide [Lasix] 40 mg PO BID #180 tab 04/21/19 Spironolactone [Aldactone] 25 mg PO DAILY #90 tab 04/21/19 lisinopriL [Zestril] 5 mg PO DAILY #90 tab 04/21/19 Ibuprofen 800 mg PO Q8H 10 Days #30 tab 07/12/20 Sulfamethox-Tmp 800-160Mg [Bactrim 1 each PO Q12HR #20 tab 07/12/20 Ds] predniSONE 10 mg PO DAILY #35 tab 07/12/20 valACYclovir HCL [Valtrex] 1,000 mg PO Q8HR #21 tab 04/19/21 Allergies Allergy/AdvReac Type Severity Reaction Status Date / Time Penicillins Allergy Unknown Verified 08/09/23 11:15 Childhood Review of Systems ROS Statement: Those systems with pertinent positive or pertinent negative responses have been documented in the HPI. ROS Other: All systems not noted in ROS Statement are negative. Past Medical History Past Medical History: Diabetes Mellitus, Hyperlipidemia Additional Past Medical History / Comment(s): CHF, Chrons History of Any Multi-Drug Resistant Organisms: MRSA Date of last positivie culture/infection: 04/2023 Additional Past Surgical History / Comment(s): toe amputation, large intestine removed Past Psychological History: Anxiety, Depression Smoking Status: Never smoker Past Alcohol Use History: None Reported Past Drug Use History: None Reported - Past Family History Father Family Medical History: Myocardial Infarction ([place]) Additional Family Medical History / Comment(s): at age 54- his 4TH [place] Mother Family Medical History: Coronary Artery Disease (CAD), Hypertension Additional Family Medical History / Comment(s): MOM IS AGE 63, HAS STENTS General Exam - General Exam Comments Initial Comments: GENERAL: Patient is well-developed and well-nourished. Patient is nontoxic and well- hydrated and is in mild distress. ENT: Neck is soft and supple. No significant lymphadenopathy is noted. Oropharynx is clear. Moist mucous membranes. Neck has full range of motion without eliciting any pain. EYES: The sclera were anicteric and conjunctiva were pink and moist. Extraocular movements were intact and pupils were equal round and reactive to light. Eyelids were unremarkable. PULMONARY: Unlabored respirations. Good breath sounds bilaterally. No audible rales rhonchi or wheezing was noted. CARDIOVASCULAR: There is a regular rate and rhythm without any murmurs gallops or rubs. ABDOMEN: Abdomen is mildly distended and diffusely moderately tender SKIN: Skin is clear with no lesions or rashes and otherwise unremarkable. NEUROLOGIC: Patient is alert and oriented x3. Cranial nerves II through XII are grossly intact. Motor and sensory are also intact. Normal speech, volume and content. Symmetrical smile. MUSCULOSKELETAL: Normal extremities with adequate strength and full range of motion. LYMPHATICS: No significant lymphadenopathy is noted PSYCHIATRIC: Normal psychiatric evaluation. Limitations: no limitations Course Vital Signs 08/09/23 09:31 Temperature 98.2 F Pulse Rate 94 Respiratory 18 Rate Blood Pressure 133/95 O2 Sat by Pulse 96 Oximetry Medical Decision Making - Medical Decision Making Was pt. sent in by a medical professional or institution (, PA, HOME INSPECTOR, urgent care, hospital, or jail...) When possible be specific @ -The snf sent the patient to be evaluated Did you speak to anyone other than the patient for history (EMS, parent, family, police, friend...)? What history was obtained from this source @ -No Did you review nursing and triage notes (agree or disagree)? Why? @ -I reviewed and agree with nursing and triage notes Were old charts reviewed (outside hosp., previous admission, EMS record, old EKG, old radiological studies, urgent care reports/EKG's, jail records)? Report findings @ -I reviewed prior charts and prior lab work on this patient Differential Diagnosis (chest pain, altered mental status, abdominal pain women, abdominal pain men, vaginal bleeding, weakness, fever, dyspnea, syncope, headache, dizziness, GI bleed, back pain, seizure, CVA, palpatations, mental health, musculoskeletal)? @ -Differential Abdominal Pain Men: Appendicitis, cholecystitis, diverticulosis, ischemic bowel, pancreatitis, hepatitis, UTI, gastroenteritis, AAA, incarcerated hernia, bowel obstruction, constipation, inflammatory bowel, hepatitis, peptic ulcer disease, splenic infarction, perforated viscus, testicular torsion, this is not meant to be an all-inclusive list EKG interpreted by me (3pts min.). @ -As above X-rays interpreted by me (1pt min.). @ -None done CT interpreted by me (1pt min.). @ -CT scan of the abdomen shows a complete colectomy and dilated bowel loops consistent with a partial small bowel obstruction U/S interpreted by me (1pt. min.). @ -None done What testing was considered but not performed or refused? (CT, X-rays, U/S, labs)? Why? @ -None What meds were considered but not given or refused? Why? @ -None Did you discuss the management of the patient with other professionals (pro fessionals i.e. , PA, HOME INSPECTOR, lab, RT, psych nurse, social work coordinator, lithographic proofer, teacher, network security officer, case management coordinator)? Give summary @ -Patient will be [facility] to [facility] whom I spoke with and they were in agreement. I consulted surgery Was smoking cessation discussed for >3mins.? @ -No Was critical care preformed (if so, how long)? @ -No Were there social determinants of health that impacted care today? How? (Homelessness, low income, unemployed, alcoholism, drug addiction, tra nsportation, low edu. Level, literacy, decrease access to med. care, snf, rehab)? @ -No Was there de-escalation of care discussed even if they declined (Discuss DNR or withdrawal of care, Hospice)? DNR status @ -No What co-morbidities impacted this encounter? (DM, HTN, Smoking, COPD, CAD, Cancer, CVA, ARF, Chemo, Hep., AIDS, mental health diagnosis, sleep apnea, morbid obesity)? @ -None Was patient admitted / discharged? Hospital course, mention meds given and route, prescriptions, significant lab abnormalities, going to OR and other pertinent info. @ -Patient was given pain medication as well as nausea medication. Patient also had an NG placed. I spoke with [facility] hospitalist 8 years admit the patient admit the patient wrote admitting orders Undiagnosed new problem with uncertain prognosis? @ -No Drug Therapy requiring intensive monitoring for toxicity (Heparin, Nitro, Insu clint, Cardizem)? @ -No Were any procedures done? @ -No Diagnosis/symptom? @ -Partial small bowel obstruction Acute, or Chronic, or Acute on Chronic? @ -Acute Uncomplicated (without systemic symptoms) or Complicated (systemic symptoms)? @ -Complicated Side effects of treatment? @ -No Exacerbation, Progression, or Severe Exacerbation? @ -No Poses a threat to life or bodily function? How? (Chest pain, [place], [place], pneumonia, PE, COPD, DKA, ARF, appy, cholecystitis, CVA, Diverticulitis, Homicidal, Suicid al, threat to staff... and all critical care pts) @ -Yes this could lead to dehydration and/or possible bowel. - Lab Data Result diagrams: 08/09/23 09:52 08/09/23 11:39 Lab Results 08/09/23 08/09/23 08/09/23 Range/Units 09:52 09:52 11:39 WBC 11.9 H (3.8-10.6) k/uL RBC 5.41 (4.30-5.90) m/uL Hgb 17.0 (13.0-17.5) gm/dL Hct 48.0 (39.0-53.0) % MCV 88.7 (80.0-100.0) fL MCH 31.5 (25.0-35.0) pg MCHC 35.5 (31.0-37.0) g/dL RDW 13.5 (11.5-15.5) % Plt Count 295 (150-450) k/uL MPV 9.9 Neutrophils % 85 % Lymphocytes % 5 % Monocytes % 8 % Eosinophils % 0 % Basophils % 0 % Neutrophils # 10.2 H (1.3-7.7) k/uL Lymphocytes # 0.6 L (1.0-4.8) k/uL Monocytes # 1.0 (0-1.0) k/uL Eosinophils # 0.0 (0-0.7) k/uL Basophils # 0.0 (0-0.2) k/uL Sodium 138 137 (137-145) mmol/L Potassium 3.3 L 4.2 (3.5-5.1) mmol/L Chloride 114 H 102 (98-107) mmol/L Carbon Dioxide 15 L 25 (22-30) mmol/L Anion Gap 9 10 mmol/L BUN 12 15 (9-20) mg/dL Creatinine 0.37 L 0.59 L (0.66-1.25) mg/dL Est GFR (CKD-EPI)AfAm >90 >90 (>60 ml/min/1.73 sqM) Est GFR (CKD-EPI)NonAf >90 >90 (>60 ml/min/1.73 sqM) Glucose 207 H 236 H (74-99) mg/dL Calcium 6.5 L 9.0 (8.4-10.2) mg/dL Total Bilirubin 1.1 1.0 (0.2-1.3) mg/dL AST 34 28 (17-59) U/L ALT 21 27 (4-49) U/L Alkaline Phosphatase 59 84 (38-126) U/L Total Protein 5.6 L 7.0 (6.3-8.2) g/dL Albumin 2.7 L 3.8 (3.5-5.0) g/dL Amylase 39 (30-110) U/L Lipase 17 L (23-300) U/L Disposition Clinical Impression: Partial small bowel obstruction Disposition: ADMITTED IP TO THIS HOSP Referrals: None,Stated [Primary Care Provider] - 1-2 days Time of Disposition: 12:54
[2023-08-09] MEDS: ONDANSETRON 4 MG/2 ML VIAL IVP STA (10:09)
[2023-08-09] MEDS: HYDROmorphone 0.5 MG/0.5 ML SYRINGE IVP STA (10:09)
[2023-08-09] MEDS: SODIUM CHLORIDE 0.9% 1,000 ML IV STA (10:14)
[2023-08-09 10:37] LABS: ALT 21 U/L (4-49); AST 34 U/L (17-59); African American GFR (CKD) >90 (>60 ml/min/1.73 sqM); Albumin 2.7 g/dL (3.5-5.0); Alkaline Phosphatase 59 U/L (38-126); Amylase 39 U/L (30-110); Anion Gap 9 mmol/L; Blood Urea Nitrogen 12 mg/dL (9-20); Calcium 6.5 mg/dL (8.4-10.2); Carbon Dioxide 15 mmol/L (22-30); Chloride 114 mmol/L (98-107); Glucose 207 mg/dL (74-99); Lipase 17 U/L (23-300); Non-African American GFR(CKD) >90 (>60 ml/min/1.73 sqM); Sodium 138 mmol/L (137-145); Total Bilirubin 1.1 mg/dL (0.2-1.3); Total Protein 5.6 g/dL (6.3-8.2)
[2023-08-09 10:38] LABS: Potassium 3.3 mmol/L (3.5-5.1)
[2023-08-09 11:00] LABS: Basophils % (A) 0 %; Eosinophils % (A) 0 %; Lymphocytes # (A) 0.6 k/uL (1.0-4.8); Lymphocytes % (A) 5 %; MCH 31.5 pg (25.0-35.0); MCHC 35.5 g/dL (31.0-37.0); MCV 88.7 fL (80.0-100.0); Mean Platelet Volume 9.9; Monocytes % (A) 8 %; Neutrophils # (A) 10.2 k/uL (1.3-7.7); Neutrophils % (A) 85 %; Platelet Count 295 k/uL (150-450); RBC 5.41 m/uL (4.30-5.90); RDW 13.5 % (11.5-15.5); WBC 11.9 k/uL (3.8-10.6)
--- NOTE | 2023-08-09 12:12 | CT ---
EXAMINATION TYPE: CT abdomen pelvis w con CT DLP: 1322.5 mGycm, Automated exposure control for dose reduction was used. DATE OF EXAM: 08/09/2023 11:21 AM COMPARISON: CT 10/08/2019 CLINICAL INDICATION:Male, 47 years old with history of Bowel obstruction; Vomiting, pain, history of bowel obstruction TECHNIQUE: Axial CT of the abdomen and pelvis. Sagittal and coronal reformats were created on a [employer] workstation. Contrast used:100 mL of Isovue 300 with IV Contrast, (none if empty) Oral contrast used: without Oral Contrast (none if empty) FINDINGS: LOWER CHEST: Heart is moderately enlarged. Mild bibasilar atelectasis. Tiny nodule right lung base. ABDOMEN LIVER: Decreased parenchymal attenuation consistent with mild steatosis. No evidence of mass. Portal veins are enhancing.. GALLBLADDER AND BILE DUCTS: Unremarkable gallbladder. No biliary ductal dilatation. PANCREAS: Fatty infiltrated without acute finding SPLEEN: Scattered calcified granulomas. ADRENAL GLANDS: Unremarkable. KIDNEYS AND URETERS: Kidneys enhance symmetrically. No evidence of hydronephrosis or visible renal ca lculus. The ureters are unremarkable. PELVIS BLADDER: Unremarkable REPRODUCTIVE: Unremarkable prostate. ABDOMEN & PELVIS STOMACH AND BOWEL: Stomach, duodenum, proximal small bowel are unremarkable. Bowel becomes progressiv richie more dilated and fluid-filled continuing distally reaching up to about 5.4 cm diameter in the rig ht abdomen. Slightly narrowed appearance of the bowel lumen slightly inferior to this, could be due t o partial obstruction from stenosis or adhesion, thereafter the bowel is again dilated and contains f ecalized contents in the right upper pelvis with a diameter of up to 5.4 cm. Lumen then again narrows before a gain widening with a dilated short segment of bowel seen measuring up to 5.8 cm across, with fecalize d contents. Distal to this, the lumen again narrows suggesting possible stenosis and/or adhesions. Sh ort segment with fecalized contents is then followed by essentially nondistended small bowel coursing into the left lower abdomen with some scattered fecalized contents noted. There is small bowel anast omosis seen in the mid to lower abdomen with nondilated bowel on both sides. Eventually within the pe lvis there appears to be anastomosis with remaining rectosigmoid colon which appears stool-filled but not particularly distended. Additional postoperative changes with hyperdense material seen along thi s colonic segment extending to very near the anal level. PERITONEUM/RETROPERITONEUM: No evidence of pneumoperitoneum. No significant drainable ascites is se en. Haziness of the mesentery mostly in the right abdomen suggesting edema, and there is scattered in terloop fluid seen. VASCULATURE: Mild calcification of the aorta and branches. No evidence of AAA. LYMPH NODES: No enlarged lymph nodes by CT criteria. SOFT TISSUE/ABDOMINAL WALL: There is scarring along the anterior abdominal wall close to midline. A c ouple of tiny foci of fat-containing hernias are suggested along this. Some bowel loops are relativel y closely opposed to the anterior abdominal wall, and adhesions are considered. Small to moderate-siz ed left and small right fat-containing inguinal hernias. MUSCULOSKELETAL: No acute osseous abnormality. Minimal degenerative changes. IMPRESSION: 1. Status post subtotal colectomy, with apparent small bowel/colonic anastomosis connecting to a rec tosigmoid colonic remnant. 2. Multiple dilated loops of small bowel with air-fluid levels suggesting high-grade partial small b owel obstruction, possibly related to adhesions in multiple locations, as described above.
[2023-08-09 12:40] LABS: ALT 27 U/L (4-49); AST 28 U/L (17-59); African American GFR (CKD) >90 (>60 ml/min/1.73 sqM); Albumin 3.8 g/dL (3.5-5.0); Alkaline Phosphatase 84 U/L (38-126); Anion Gap 10 mmol/L; Blood Urea Nitrogen 15 mg/dL (9-20); Carbon Dioxide 25 mmol/L (22-30); Chloride 102 mmol/L (98-107); Glucose 236 mg/dL (74-99); Non-African American GFR(CKD) >90 (>60 ml/min/1.73 sqM); Potassium 4.2 mmol/L (3.5-5.1); Sodium 137 mmol/L (137-145)
[2023-08-09] MEDS: SODIUM CHLORIDE 0.9% 1,000 ML IV ONE (13:12)
[2023-08-09] MEDS: HYDROmorphone 0.5 MG/0.5 ML SYRINGE IVP PRN (13:12)
[2023-08-09] MEDS ORDERED: NALOXONE 0.4 MG/ML 1 ML VIAL IV PRN (13:13)
[2023-08-09] MEDS ORDERED: ACETAMINOPHEN IV (For NPO) 1,000 MG in EMPTY BAG 1 BAG IVPB PRN (13:15)
[2023-08-09] MEDS: SODIUM CHLORIDE 0.9% 1,000 ML IV SCH (13:17)
[2023-08-09] MEDS ORDERED: DEXTROSE 50% SYRINGE 50 ML IVP PRN ×2 (13:34)
--- NOTE | 2023-08-09 13:35 | P.HPIM ---
History of Present Illness H&P Date: 08/09/23 Chief Complaint: Abdominal pain * 47-year-old gentleman with past medical history significant for chronic congestive heart failure systolic dysfunction ejection fraction 25%, n onischemic cardiomyopathy, gastroesophageal reflux disease, inflammatory bowel disease history of gastrointestinal bleed, hypertension, asthma presents to the emergency department with complaints of episode of nausea, vomiting and abdominal pain. Patient does have history of bowel surgery and had previous episodes of bowel obstruction seen by general surgery. Patient states his symptoms are similar to when he had a bowel obstruction last time. Patient comes in from intermediate. Patient is a has not had a bowel movement in the last 24 hours or has passed gas. While in ER patient vomited multiple times and continues to be nauseous. Workup in ER including CBC which showed WBC count of 11.9 hemoglobin 17 platelet count of 295, serum chemistry showed sodium 138 potassium 3.3 carbon dioxide 15 BUN 12 creatinine 0.37 * Liver profile obtained showed ALT of 21 AST 34 bilirubin 1.1 total protein 5.6 and mild 39 lipase 17 albumin 2.7 * Workup initiated in ER included CT abdomen pelvis which showed subtotal colectomy with areas of apparent small bowel/colonic anastomosis connected to rectosigmoid colon recommended. Multiple dilated bowel loops noted with air- fluid levels high-grade small bowel obstruction noted intra-abdominal additions noted * Patient to be admitted to medical floor with consultations from general surgery nasogastric tube ordered REVIEW OF SYSTEMS: Nausea, vomiting, abdominal pain CONSTITUTIONAL: No fever, no malaise, no fatigue. HEENT: No recent visual problems or hearing problems. Denied any sore throat. CARDIOVASCULAR: No chest pain, orthopnea, PND, no palpitations, no syncope. PULMONARY: No shortness of breath, no cough, no hemoptysis. GASTROINTESTINAL: Nausea, vomiting, abdominal pain NEUROLOGICAL: No headaches, no weakness, no numbness. HEMATOLOGICAL: Denies any bleeding or petechiae. GENITOURINARY: Denies any burning micturition, frequency, or urgency. MUSCULOSKELETAL/RHEUMATOLOGICAL: Denies any joint pain, swelling, or any muscle pain. ENDOCRINE: Denies any polyuria or polydipsia. PHYSICAL EXAMINATION: GENERAL: The patient is alert and oriented x3, ill appearance, nasogastric tube in place HEENT: Pupils are round and equally reacting to light. EOMI.= CARDIOVASCULAR: S1 and S2 present. No murmurs, rubs, or gallops. PULMONARY: Chest is clear to auscultation, no wheezing or crackles. ABDOMEN: Distended, no guarding no rigidity hypoactive bowel sounds MUSCULOSKELETAL: No joint swelling or deformity. EXTREMITIES: No cyanosis, clubbing, or pedal edema. NEUROLOGICAL: Gross neurological examination did not reveal any focal deficits. SKIN: No rashes. Past Medical History Past Medical History: Diabetes Mellitus, Hyperlipidemia Additional Past Medical History / Comment(s): CHF, Chrons History of Any Multi-Drug Resistant Organisms: MRSA Date of last positivie culture/infection: 04/2023 Past Surgical History: Appendectomy, Bowel Resection, Hernia Repair Additional Past Surgical History / Comment(s): toe amputation, large intestine removed Past Anesthesia/Blood Transfusion Reactions: No Reported Reaction Additional Past Anesthesia/Blood Transfusion Reaction / Comment(s): Pt has never recieved blood. Past Psychological History: Anxiety, Depression Smoking Status: Never smoker Past Alcohol Use History: None Reported Past Drug Use History: None Reported - Past Family History Father Family Medical History: Myocardial Infarction ([place]) Additional Family Medical History / Comment(s): at age 54- his 4TH [place] Mother Family Medical History: Coronary Artery Disease (CAD), Hypertension Additional Family Medical History / Comment(s): MOM IS AGE 63, HAS STENTS Medications and Allergies Home Medications Medication Instructions Recorded Confirmed Type Furosemide [Lasix] 40 mg PO BID #180 tab 04/21/19 10/08/19 Rx Spironolactone [Aldactone] 25 mg PO DAILY #90 tab 04/21/19 10/08/19 Rx lisinopriL [Zestril] 5 mg PO DAILY #90 tab 04/21/19 10/08/19 Rx carvediloL [Coreg] 6.25 mg PO AC-BID 10/08/19 10/08/19 History Ibuprofen 800 mg PO Q8H 10 Days #30 tab 07/12/20 Rx Sulfamethox-Tmp 800-160Mg [Bactrim 1 each PO Q12HR #20 tab 07/12/20 Rx Ds] predniSONE 10 mg PO DAILY #35 tab 07/12/20 Rx valACYclovir HCL [Valtrex] 1,000 mg PO Q8HR #21 tab 04/19/21 Rx Allergies Allergy/AdvReac Type Severity Reaction Status Date / Time Penicillins Allergy Unknown Verified 08/09/23 11:15 Childhood Physical Exam Vitals: Vital Signs Temp Pulse Resp BP Pulse Ox 08/09/23 13:10 94 18 134/84 97 08/09/23 09:31 98.2 F 94 18 133/95 96 Intake and Output 08/08/23 08/09/23 08/09/23 22:59 06:59 14:59 Other: Weight 99.79 kg Results CBC & Chem 7: 08/09/23 09:52 08/09/23 11:39 Labs: Abnormal Lab Results - Last 24 Hours (Table) 08/09/23 08/09/23 08/09/23 Range/Units 09:52 09:52 11:39 WBC 11.9 H (3.8-10.6) k/uL Neutrophils # 10.2 H (1.3-7.7) k/uL Lymphocytes # 0.6 L (1.0-4.8) k/uL Potassium 3.3 L (3.5-5.1) mmol/L Chloride 114 H (98-107) mmol/L Carbon Dioxide 15 L (22-30) mmol/L Creatinine 0.37 L 0.59 L (0.66-1.25) mg/dL Glucose 207 H 236 H (74-99) mg/dL Calcium 6.5 L (8.4-10.2) mg/dL Total Protein 5.6 L (6.3-8.2) g/dL Albumin 2.7 L (3.5-5.0) g/dL Lipase 17 L (23-300) U/L Thrombosis Risk Factor Assmnt - DVT/VTE Prophylaxis DVT/VTE Prophylaxis: Mechanical Prophylaxis ordered Assessment and Plan Assessment: Assessment and plan * Bowel obstruction with history of intra-abdominal surgery * Chronic congestive heart failure with ejection fraction 25% not in exacerbation * Diabetes mellitus type II * History of diabetic foot ulcer * History of inflammatory bowel disease with intra-abdominal surgery with history of intra-abdominal adhesions * History of anxiety and depression * In regards to bowel obstruction continue patient n.p.o., general surgery consulted, IV fluids ordered, as needed Zofran ordered continue pain management nasogastric tube to suction * In regards to congestive heart failure, continue to monitor intake and output continue with fluid resuscitation * In regards to history of inflammatory bowel disease, continue to monitor started on IV antibiotics ciprofloxacin and Flagyl * Medication review pending patient remains n.p.o. secondary to bowel obstru ction * Regards to diabetes mellitus, continue patient on every 4 hours glucose checks and correctional insulin, Lantus on hold to avoid hypoglycemia * Status is full code Time with Patient: Greater than 30
--- NOTE | 2023-08-09 13:45 | XR ---
EXAMINATION TYPE: XR chest 1V confirm line [facility] DATE OF EXAM: 08/09/2023 COMPARISON: 10/11/2019 HISTORY: Pain TECHNIQUE: Single frontal view of the chest is obtained. FINDINGS: Heart is enlarged and there is an NG tube. No overt failure or pneumothorax. Pleural-based thickening similar to prior exam. No new consolidation. Osseous structures stable. IMPRESSION: Stable cardiomegaly.
[2023-08-09] MEDS: CIPROFLOXACIN/DEXTROSE PMX 400 MG in DEXTROSE/WATER 1 200ML.BAG IVPB ONE (14:36)
[2023-08-09 14:39] LABS: Glucose,Whole Blood 133 mg/dL (70-110)
[2023-08-09] MEDS: INSULIN ASPART (NovoLOG) 100 UNIT/ML VIAL SQ SCH (15:11)
[2023-08-09 16:31] LABS: Glucose,Whole Blood 149 mg/dL (70-110)
[2023-08-09] MEDS: HYDROmorphone 1 MG/ML 1 ML SYRINGE IVP PRN (16:42)
[2023-08-09] MEDS: metroNIDAZOLE-NS PMX 500 MG in SALINE 1 100ML.BAG IVPB SCH (16:48)
[2023-08-09 20:06] LABS: Glucose,Whole Blood 135 mg/dL (70-110)
[2023-08-09] MEDS: CIPROFLOXACIN/DEXTROSE PMX 400 MG in DEXTROSE/WATER 1 200ML.BAG IVPB SCH (23:44)
[2023-08-10 00:12] LABS: Glucose,Whole Blood 150 mg/dL (70-110)
[2023-08-10] MEDS: ONDANSETRON 4 MG/2 ML VIAL IVP PRN (01:33)
[2023-08-10 05:37] LABS: Glucose,Whole Blood 141 mg/dL (70-110)
[2023-08-10 08:31] LABS: Basophils # (A) 0.03 X 10*3/uL (0.00-0.10); Basophils % (A) 0.3 %; Eosinophils % (A) 1.1 %; HCT 43.9 % (39.6-50.0); HGB 14.8 g/dL (13.0-17.0); Lymphocytes # (A) 1.43 X 10*3/uL (0.90-5.00); Lymphocytes % (A) 16.2 %; MCH 30.1 pg (27.0-32.0); MCHC 33.7 g/dL (32.0-37.0); MCV 89.4 FL (80.0-97.0); Mean Platelet Volume 10.8 FL (9.5-12.2); Monocytes % (A) 13.6 %; NRBC Per 100 WBC 0 X 10*3/uL (0.00-0.01); Neutrophils # (A) 6.04 X 10*3/uL (1.80-7.70); Neutrophils % (A) 68.6 %; Platelet Count 250 X 10*3/uL (140-440); RBC 4.91 X 10*6/uL (4.40-5.60); RDW 13.3 % (11.5-14.5); WBC 8.82 X 10*3/uL (4.50-10.00)
[2023-08-10 08:46] LABS: BUN/Creat Ratio 17.75 Ratio (12.00-20.00); Blood Urea Nitrogen 14.2 mg/dL (9.0-27.0); Carbon Dioxide 25.9 mmol/L (21.6-31.8); Chloride 104 mmol/L (96-109); Glucose 147 mg/dL (70-110); Sodium 139 mmol/L (135-145)
[2023-08-10 09:46] LABS: Glucose,Whole Blood 131 mg/dL (70-110)
[2023-08-10] MEDS: SODIUM CHLORIDE 0.9% 1,000 ML IV SCH ×2 (10:57→11:02)
[2023-08-10] MEDS ORDERED: ALBUTEROL NEBULIZED 2.5 MG/3 ML INHALATION PRN (12:00)
--- NOTE | 2023-08-10 12:02 | P.PN ---
Subjective Progress Note Date: 08/10/23 * 47-year-old gentleman with past medical history significant for chronic congestive heart failure systolic dysfunction ejection fraction 25%, nonischemic cardiomyopathy, gastroesophageal reflux disease, inflammatory bowel disease history of gastrointestinal bleed, hypertension, asthma presents to the emergency department with complaints of episode of nausea, vomiting and abdominal pain. Patient does have history of bowel surgery and had previous episodes of bowel obstruction seen by general surgery. Patient states his symptoms are similar to when he had a bowel obstruction last time. Patient comes in from skilled nursing. Patient is a has not had a bowel movement in the last 24 hours or has passed gas. While in ER patient vomited multiple times and continues to be nauseous. Workup in ER including CBC which showed WBC count of 11.9 hemoglobin 17 platelet count of 295, serum chemistry showed sodium 138 potassium 3.3 carbon dioxide 15 BUN 12 creatinine 0.37 * Liver profile obtained showed ALT of 21 AST 34 bilirubin 1.1 total protein 5.6 and mild 39 lipase 17 albumin 2.7 * Workup initiated in ER included CT abdomen pelvis which showed subtotal colectomy with areas of apparent small bowel/colonic anastomosis connected to rectosigmoid colon recommended. Multiple dilated bowel loops noted with air- fluid levels high-grade small bowel obstruction noted intra-abdominal additions noted * Patient to be admitted to medical floor with consultations from general surgery nasogastric tube ordered * 08/10/23 : Patient seen and evaluated bedside, nasogastric tube in place, patient does complain of abdominal distention however pain has improved. Continue to remain n.p.o. x-ray KUB ordered REVIEW OF SYSTEMS: Nausea, vomiting, abdominal pain slight improvement CONSTITUTIONAL: No fever, no malaise, no fatigue. HEENT: No recent visual problems or hearing problems. Denied any sore throat. CARDIOVASCULAR: No chest pain, orthopnea, PND, no palpitations, no syncope. PULMONARY: No shortness of breath, no cough, no hemoptysis. GASTROINTESTINAL: Nausea, vomiting, abdominal pain slight improvement NEUROLOGICAL: No headaches, no weakness, no numbness. HEMATOLOGICAL: Denies any bleeding or petechiae. GENITOURINARY: Denies any burning micturition, frequency, or urgency. MUSCULOSKELETAL/RHEUMATOLOGICAL: Denies any joint pain, swelling, or any muscle pain. ENDOCRINE: Denies any polyuria or polydipsia. PHYSICAL EXAMINATION: GENERAL: The patient is alert and oriented x3, ill appearance, nasogastric tube in place HEENT: Pupils are round and equally reacting to light. EOMI. CARDIOVASCULAR: S1 and S2 present. No murmurs, rubs, or gallops. PULMONARY: Chest is clear to auscultation, no wheezing or crackles. ABDOMEN: Distended, no guarding no rigidity hypoactive bowel sounds MUSCULOSKELETAL: No joint swelling or deformity. EXTREMITIES: No cyanosis, clubbing, or pedal edema. NEUROLOGICAL: Gross neurological examination did not reveal any focal deficits. SKIN: No rashes. Assessment and plan * Bowel obstruction with history of intra-abdominal surgery * Chronic congestive heart failure with ejection fraction 25% not in exacerbation * Diabetes mellitus type II * History of diabetic foot ulcer * History of inflammatory bowel disease with intra-abdominal surgery with history of intra-abdominal adhesions * History of anxiety and depression * In regards to bowel obstruction continue patient n.p.o., general surgery consulted, IV fluids ordered, as needed Zofran ordered continue pain management nasogastric tube to suction * In regards to congestive heart failure with reduced ejection fraction, continue to monitor intake and output continue with fluid resuscitation due to n.p.o., monitor intake and output, Entresto and Lasix on hold * In regards to history of inflammatory bowel disease, continue to monitor started on IV antibiotics ciprofloxacin and Flagyl day 2 * Medication review pending patient remains n.p.o. secondary to bowel obstruction * Regards to diabetes mellitus, continue patient on every 4 hours glucose checks and correctional insulin, Lantus on hold to avoid hypoglycemia * Status is full code Objective - Vital Signs Vital signs: Vital Signs Temp 98.4 F 08/10/23 07:17 Pulse 91 08/10/23 07:17 Resp 18 08/10/23 07:17 BP 147/82 08/10/23 07:17 Pulse Ox 93 L 08/10/23 07:17 FiO2 Intake & Output 08/09/23 08/10/23 08/10/23 18:59 06:59 18:59 Intake Total 325 Balance 325 Weight 99.79 kg 99 kg Intake: Intake, IV Titration 325 Amount Sodium Chloride 0.9% 1, 225 000 ml @ 75 mls/hr IV . [id number] ONE Rx#:[id number] metroNIDAZOLE-NS PMX 500 100 mg In Saline 1 100ml.bag @ 100 mls/hr IVPB Q8H [facility] Rx#:[id number] Other: Voiding Method Toilet # Voids 4 - Labs CBC & Chem 7: 08/10/23 04:47 08/10/23 04:47 Labs: Abnormal Lab Results - Last 24 Hours (Table) 08/09/23 08/09/23 08/09/23 Range/Units 09:52 09:52 11:39 WBC 11.9 H (3.8-10.6) k/uL Neutrophils # 10.2 H (1.3-7.7) k/uL Lymphocytes # 0.6 L (1.0-4.8) k/uL Monocytes # (0.20-1.00) X 10*3/uL Potassium 3.3 L (3.5-5.1) mmol/L Chloride 114 H (98-107) mmol/L Carbon Dioxide 15 L (22-30) mmol/L Creatinine 0.37 L 0.59 L (0.66-1.25) mg/dL Glucose 207 H 236 H (74-99) mg/dL POC Glucose (mg/dL) (70-110) mg/dL Hemoglobin A1c (<=6.0) % Calcium 6.5 L (8.4-10.2) mg/dL C-Reactive Protein (0.00-0.80) mg/dL Total Protein 5.6 L (6.3-8.2) g/dL Albumin 2.7 L (3.5-5.0) g/dL Lipase 17 L (23-300) U/L Procalcitonin (0.02-0.09) ng/mL 08/09/23 08/09/23 08/09/23 Range/Units 14:36 16:30 20:05 WBC (3.8-10.6) k/uL Neutrophils # (1.3-7.7) k/uL Lymphocytes # (1.0-4.8) k/uL Monocytes # (0.20-1.00) X 10*3/uL Potassium (3.5-5.1) mmol/L Chloride (98-107) mmol/L Carbon Dioxide (22-30) mmol/L Creatinine (0.66-1.25) mg/dL Glucose (74-99) mg/dL POC Glucose (mg/dL) 133 H 149 H 135 H (70-110) mg/dL Hemoglobin A1c (<=6.0) % Calcium (8.4-10.2) mg/dL C-Reactive Protein (0.00-0.80) mg/dL Total Protein (6.3-8.2) g/dL Albumin (3.5-5.0) g/dL Lipase (23-300) U/L Procalcitonin (0.02-0.09) ng/mL 08/10/23 08/10/23 08/10/23 Range/Units 00:11 04:47 04:47 WBC (3.8-10.6) k/uL Neutrophils # (1.3-7.7) k/uL Lymphocytes # (1.0-4.8) k/uL Monocytes # (0.20-1.00) X 10*3/uL Potassium (3.5-5.1) mmol/L Chloride (98-107) mmol/L Carbon Dioxide (22-30) mmol/L Creatinine (0.66-1.25) mg/dL Glucose (74-99) mg/dL POC Glucose (mg/dL) 150 H (70-110) mg/dL Hemoglobin A1c 9.0 H (<=6.0) % Calcium (8.4-10.2) mg/dL C-Reactive Protein (0.00-0.80) mg/dL Total Protein (6.3-8.2) g/dL Albumin (3.5-5.0) g/dL Lipase (23-300) U/L Procalcitonin 0.11 H (0.02-0.09) ng/mL 08/10/23 08/10/23 08/10/23 Range/Units 04:47 04:47 05:35 WBC (3.8-10.6) k/uL Neutrophils # (1.3-7.7) k/uL Lymphocytes # (1.0-4.8) k/uL Monocytes # 1.20 H (0.20-1.00) X 10*3/uL Potassium (3.5-5.1) mmol/L Chloride (98-107) mmol/L Carbon Dioxide (22-30) mmol/L Creatinine (0.66-1.25) mg/dL Glucose 147 H (74-99) mg/dL POC Glucose (mg/dL) 141 H (70-110) mg/dL Hemoglobin A1c (<=6.0) % Calcium (8.4-10.2) mg/dL C-Reactive Protein 3.80 H (0.00-0.80) mg/dL Total Protein (6.3-8.2) g/dL Albumin (3.5-5.0) g/dL Lipase (23-300) U/L Procalcitonin (0.02-0.09) ng/mL
--- NOTE | 2023-08-10 12:51 | XR ---
EXAMINATION TYPE: XR KUB portable DATE OF EXAM: 08/10/2023 COMPARISON: NONE HISTORY: Follow-up bowel obstruction TECHNIQUE: One view abdominal series FINDINGS: NG tube again noted with elevated right hemidiaphragm and basilar consolidation. Remains dilated bowel loops in the mid and left abdomen. Surgical sutures in the pelvis. Arthropathy of the hips and degenerative change of the spine. No suspicious calcifications. IMPRESSION: 1. Persistent nonspecific abdomen with dilated bowel loops seen in the left abdomen. Bowel obstructio n in the differential diagnosis.
[2023-08-10 13:38] LABS: Glucose,Whole Blood 134 mg/dL (70-110)
--- NOTE | 2023-08-10 13:42 | P.GSCN ---
History of Present Illness Consult date: 08/10/23 History of present illness: CHIEF COMPLAINT: Abdominal pain HISTORY OF PRESENT ILLNESS: This is a 47-year-old male with a known history of ulcerative colitis with complete colectomy in 1993 at [facility]. He also has had history of small bowel obstructions and in 2014 required lysis of adhesions. His last bowel obstruction was 3 years ago and treated conserva tively. Patient was brought from the [facility] to the ER. Patient continues to have abdominal pain across the lower abdomen. He was vomiting yesterday. He is distended. He reports more pain on the right side of the abdomen. CT scan abdomen pelvis did report a high-grade partial small bowel obstruction secondary to he adhesions in multiple locations. He has NG tube in place. PAST MEDICAL HISTORY: Diabetes, hyperlipidemia, ulcerative colitis PAST SURGICAL HISTORY: Complete colectomy, lysis of adhesions MEDICATIONS: See below ALLERGIES: See below SOCIAL HISTORY: No illicit drug use. REVIEW OF SYSTEMS: CONSTITUTIONAL: Denies fever or chills. HEENT: Denies blurred vision, vision changes, or eye pain. Denies hemoptysis CARDIOVASCULAR: Denies chest pain or pressure. RESPIRATORY: No shortness of breath. GASTROINTESTINAL: See HPI for pertinent findings HEMATOLOGIC: Denies bleeding disorders. GENITOURINARY: Denies any blood in urine or increased urinary frequency. SKIN: Denies pruitis. Denies rash. PHYSICAL EXAM: VITAL SIGNS: Reviewed GENERAL: Well-developed in no acute distress. HEENT: No sclera icterus. Extraocular movements grossly intact. Moist buccal mucosa. Head is atraumatic, normocephalic. No nasal drainage. ABDOMEN: Distended. Tenderness to palpation right side abdomen has a old midline scar NEUROLOGIC: Alert and oriented. Cranial nerves II through XII grossly intact. LABORATORY DATA: WBC 11.9 down to 8.82 Hgb 14.8 platelets 250 Sodium is 139 potassium is 4.0 creatinine 0.8 glucose 134 Hemoglobin A1c 9.0 IMAGING: CT scan abdomen and pelvis reports status post subtotal colectomy with apparent small bowel/colonic anastomosis connecting to a rectum and sigmoid colonic remnant. Multiple dilated loops of small bowel with air-fluid levels suggesting high-grade partial small bowel obstruction possibly related to adhesions in multiple locations ASSESSMENT: 1. High-grade partial small bowel obstruction likely related to adhesions 2. Prior history of subtotal colectomy for ulcerative colitis 3. History of small bowel obstructions PLAN: -Continue NG tube for decompression -Keep patient n.p.o. -Increase IV fluids to 100 mL/h -Repeat abdominal x-ray in a.m. Physician Electrical Controls Assembler note has been reviewed by physician. Signing provider agrees with the documented findings, assessment, and plan of care. Past Medical History Past Medical History: Diabetes Mellitus, Hyperlipidemia Additional Past Medical History / Comment(s): CHF, Chrons History of Any Multi-Drug Resistant Organisms: MRSA Year Discovered:: 04/2023 MDRO Source:: * Past Surgical History: Appendectomy, Bowel Resection, Hernia Repair Additional Past Surgical History / Comment(s): toe amputation, large intestine removed Past Anesthesia/Blood Transfusion Reactions: No Reported Reaction Additional Past Anesthesia/Blood Transfusion Reaction / Comm: Pt has never recieved blood. Past Psychological History: Anxiety, Depression Additional Psychological History / Comment(s): PT lives with his Mom and a 20 yr old son and an 21 year old son. Pt is independent. He drives a car. Smoking Status: Never smoker Past Alcohol Use History: None Reported Past Drug Use History: None Reported Additional Drug Use History / Comment(s): . - Past Family History Father Family Medical History: Myocardial Infarction ([place]) Additional Family Medical History / Comment(s): at age 54- his 4TH [place] Mother Family Medical History: Coronary Artery Disease (CAD), Hypertension Additional Family Medical History / Comment(s): MOM IS AGE 63, HAS STENTS Medications and Allergies Home Medications Medication Instructions Recorded Confirmed Type Albuterol Nebulized [Ventolin 2.5 mg INHALATION RT-TID PRN 08/09/23 08/09/23 History Nebulized] Atorvastatin [Lipitor] 20 mg PO HS 08/09/23 08/09/23 History Cetaphil Moisturizing Lotion 1 applic TOPICAL BID 08/09/23 08/09/23 History Ciclesonide [Alvesco] 1 puff INHALATION RT-BID 08/09/23 08/09/23 History Dicyclomine [Bentyl] 20 mg PO BID PRN 08/09/23 08/09/23 History Furosemide [Lasix] 20 mg PO DAILY 08/09/23 08/09/23 History Insulin Glargine-Yfgn [Semglee 22 unit SQ HS 08/09/23 08/09/23 History (Yfgn) Pen] Insulin Regular, Human [NovoLIN R] See Protocol SQ ACHS 08/09/23 08/09/23 History KETOROLAC (30 mg/mL) [TORADOL (30 30 mg IM ONETIME 08/09/23 08/09/23 History mg/mL)] Magnesium Hydroxide [Milk of 1,200 mg PO BID PRN 08/09/23 08/09/23 History Magnesia] Montelukast [Singulair] 10 mg PO HS 08/09/23 08/09/23 History Ondansetron [Zofran] 4 mg PO BID PRN 08/09/23 08/09/23 History Sacubitril/Valsartan [Entresto 24 1 tab PO BID 08/09/23 08/09/23 History mg-26 mg Tablet] Allergies Allergy/AdvReac Type Severity Reaction Status Date / Time Penicillins Allergy Unknown Verified 08/09/23 11:15 Childhood Surgical - Exam Vital Signs Temp Pulse Resp BP Pulse Ox 98.2 F 94 18 133/95 96 08/09/23 09:31 08/09/23 09:31 08/09/23 09:31 08/09/23 09:31 08/09/23 09:31 Results - Labs 08/10/23 04:47 08/10/23 04:47 Abnormal Lab Results - Last 24 Hours (Table) 08/09/23 08/09/23 08/09/23 Range/Units 09:52 09:52 11:39 WBC 11.9 H (3.8-10.6) k/uL Neutrophils # 10.2 H (1.3-7.7) k/uL Lymphocytes # 0.6 L (1.0-4.8) k/uL Monocytes # (0.20-1.00) X 10*3/uL Potassium 3.3 L (3.5-5.1) mmol/L Chloride 114 H (98-107) mmol/L Carbon Dioxide 15 L (22-30) mmol/L Creatinine 0.37 L 0.59 L (0.66-1.25) mg/dL Glucose 207 H 236 H (74-99) mg/dL POC Glucose (mg/dL) (70-110) mg/dL Hemoglobin A1c (<=6.0) % Calcium 6.5 L (8.4-10.2) mg/dL C-Reactive Protein (0.00-0.80) mg/dL Total Protein 5.6 L (6.3-8.2) g/dL Albumin 2.7 L (3.5-5.0) g/dL Lipase 17 L (23-300) U/L Procalcitonin (0.02-0.09) ng/mL 08/09/23 08/09/23 08/09/23 Range/Units 14:36 16:30 20:05 WBC (3.8-10.6) k/uL Neutrophils # (1.3-7.7) k/uL Lymphocytes # (1.0-4.8) k/uL Monocytes # (0.20-1.00) X 10*3/uL Potassium (3.5-5.1) mmol/L Chloride (98-107) mmol/L Carbon Dioxide (22-30) mmol/L Creatinine (0.66-1.25) mg/dL Glucose (74-99) mg/dL POC Glucose (mg/dL) 133 H 149 H 135 H (70-110) mg/dL Hemoglobin A1c (<=6.0) % Calcium (8.4-10.2) mg/dL C-Reactive Protein (0.00-0.80) mg/dL Total Protein (6.3-8.2) g/dL Albumin (3.5-5.0) g/dL Lipase (23-300) U/L Procalcitonin (0.02-0.09) ng/mL 08/10/23 08/10/23 08/10/23 Range/Units 00:11 04:47 04:47 WBC (3.8-10.6) k/uL Neutrophils # (1.3-7.7) k/uL Lymphocytes # (1.0-4.8) k/uL Monocytes # (0.20-1.00) X 10*3/uL Potassium (3.5-5.1) mmol/L Chloride (98-107) mmol/L Carbon Dioxide (22-30) mmol/L Creatinine (0.66-1.25) mg/dL Glucose (74-99) mg/dL POC Glucose (mg/dL) 150 H (70-110) mg/dL Hemoglobin A1c 9.0 H (<=6.0) % Calcium (8.4-10.2) mg/dL C-Reactive Protein (0.00-0.80) mg/dL Total Protein (6.3-8.2) g/dL Albumin (3.5-5.0) g/dL Lipase (23-300) U/L Procalcitonin 0.11 H (0.02-0.09) ng/mL 08/10/23 08/10/23 08/10/23 Range/Units 04:47 04:47 05:35 WBC (3.8-10.6) k/uL Neutrophils # (1.3-7.7) k/uL Lymphocytes # (1.0-4.8) k/uL Monocytes # 1.20 H (0.20-1.00) X 10*3/uL Potassium (3.5-5.1) mmol/L Chloride (98-107) mmol/L Carbon Dioxide (22-30) mmol/L Creatinine (0.66-1.25) mg/dL Glucose 147 H (74-99) mg/dL POC Glucose (mg/dL) 141 H (70-110) mg/dL Hemoglobin A1c (<=6.0) % Calcium (8.4-10.2) mg/dL C-Reactive Protein 3.80 H (0.00-0.80) mg/dL Total Protein (6.3-8.2) g/dL Albumin (3.5-5.0) g/dL Lipase (23-300) U/L Procalcitonin (0.02-0.09) ng/mL 08/10/23 Range/Units 09:44 WBC (3.8-10.6) k/uL Neutrophils # (1.3-7.7) k/uL Lymphocytes # (1.0-4.8) k/uL Monocytes # (0.20-1.00) X 10*3/uL Potassium (3.5-5.1) mmol/L Chloride (98-107) mmol/L Carbon Dioxide (22-30) mmol/L Creatinine (0.66-1.25) mg/dL Glucose (74-99) mg/dL POC Glucose (mg/dL) 131 H (70-110) mg/dL Hemoglobin A1c (<=6.0) % Calcium (8.4-10.2) mg/dL C-Reactive Protein (0.00-0.80) mg/dL Total Protein (6.3-8.2) g/dL Albumin (3.5-5.0) g/dL Lipase (23-300) U/L Procalcitonin (0.02-0.09) ng/mL Diabetes panel 08/09/23 08/09/23 08/10/23 Range/Units 09:52 11:39 04:47 Sodium 138 137 (137-145) mmol/L Potassium 3.3 L 4.2 (3.5-5.1) mmol/L Chloride 114 H 102 (98-107) mmol/L Carbon Dioxide 15 L 25 (22-30) mmol/L BUN 12 15 (9-20) mg/dL Creatinine 0.37 L 0.59 L (0.66-1.25) mg/dL Glucose 207 H 236 H (74-99) mg/dL Hemoglobin A1c 9.0 H (<=6.0) % Calcium 6.5 L 9.0 (8.4-10.2) mg/dL AST 34 28 (17-59) U/L ALT 21 27 (4-49) U/L Alkaline Phosphatase 59 84 (38-126) U/L Total Protein 5.6 L 7.0 (6.3-8.2) g/dL Albumin 2.7 L 3.8 (3.5-5.0) g/dL 08/10/23 Range/Units 04:47 Sodium 139 (137-145) mmol/L Potassium 4.0 (3.5-5.1) mmol/L Chloride 104 (98-107) mmol/L Carbon Dioxide 25.9 (22-30) mmol/L BUN 14.2 (9-20) mg/dL Creatinine 0.8 (0.66-1.25) mg/dL Glucose 147 H (74-99) mg/dL Hemoglobin A1c (<=6.0) % Calcium 9.0 (8.4-10.2) mg/dL AST (17-59) U/L ALT (4-49) U/L Alkaline Phosphatase (38-126) U/L Total Protein (6.3-8.2) g/dL Albumin (3.5-5.0) g/dL Calcium panel 08/09/23 08/09/23 08/10/23 Range/Units 09:52 11:39 04:47 Calcium 6.5 L 9.0 9.0 (8.4-10.2) mg/dL Albumin 2.7 L 3.8 (3.5-5.0) g/dL Pituitary panel 08/09/23 08/09/23 08/10/23 Range/Units 09:52 11:39 04:47 Sodium 138 137 139 (137-145) mmol/L Potassium 3.3 L 4.2 4.0 (3.5-5.1) mmol/L Chloride 114 H 102 104 (98-107) mmol/L Carbon Dioxide 15 L 25 25.9 (22-30) mmol/L BUN 12 15 14.2 (9-20) mg/dL Creatinine 0.37 L 0.59 L 0.8 (0.66-1.25) mg/dL Glucose 207 H 236 H 147 H (74-99) mg/dL Calcium 6.5 L 9.0 9.0 (8.4-10.2) mg/dL Adrenal panel 08/09/23 08/09/23 08/10/23 Range/Units 09:52 11:39 04:47 Sodium 138 137 139 (137-145) mmol/L Potassium 3.3 L 4.2 4.0 (3.5-5.1) mmol/L Chloride 114 H 102 104 (98-107) mmol/L Carbon Dioxide 15 L 25 25.9 (22-30) mmol/L BUN 12 15 14.2 (9-20) mg/dL Creatinine 0.37 L 0.59 L 0.8 (0.66-1.25) mg/dL Glucose 207 H 236 H 147 H (74-99) mg/dL Calcium 6.5 L 9.0 9.0 (8.4-10.2) mg/dL Total Bilirubin 1.1 1.0 (0.2-1.3) mg/dL AST 34 28 (17-59) U/L ALT 21 27 (4-49) U/L Alkaline Phosphatase 59 84 (38-126) U/L Total Protein 5.6 L 7.0 (6.3-8.2) g/dL Albumin 2.7 L 3.8 (3.5-5.0) g/dL
[2023-08-10 16:59] LABS: Glucose,Whole Blood 116 mg/dL (70-110)
[2023-08-10 20:09] LABS: Glucose,Whole Blood 105 mg/dL (70-110)
[2023-08-10] MEDS: INSULIN ASPART (NovoLOG) 100 UNIT/ML VIAL SQ SCH (20:45)
[2023-08-10] MEDS: FLUTICASONE 110 MCG INHALER INHALATION SCH (22:18)
[2023-08-10 23:53] LABS: Glucose,Whole Blood 106 mg/dL (70-110)
[2023-08-11 03:50] LABS: Glucose,Whole Blood 112 mg/dL (70-110)
--- NOTE | 2023-08-11 07:52 | XR ---
EXAMINATION TYPE: XR abdomen 2V DATE OF EXAM: 08/11/2023 COMPARISON: 08/10/2023 HISTORY: Pain TECHNIQUE: One view abdominal series FINDINGS: Multiple dilated bowel loops are again noted. Air-fluid level noted in the left abdomen. Curvature of the spine noted. Osseous structures otherwise stable. Postsurgical changes pelvis. No suspicious raman cifications. IMPRESSION: 1. Persistent dilated bowel loops with air fluid level correlation for bowel obstruction.
[2023-08-11 08:24] LABS: HCT 39.9 % (39.6-50.0); HGB 13.3 g/dL (13.0-17.0); MCHC 33.3 g/dL (32.0-37.0); MCV 90.1 FL (80.0-97.0); Mean Platelet Volume 10.7 FL (9.5-12.2); NRBC Per 100 WBC 0 X 10*3/uL (0.00-0.01); Platelet Count 225 X 10*3/uL (140-440); RBC 4.43 X 10*6/uL (4.40-5.60); RDW 13.3 % (11.5-14.5); WBC 9.32 X 10*3/uL (4.50-10.00)
[2023-08-11 08:29] LABS: Glucose,Whole Blood 90 mg/dL (70-110)
[2023-08-11 08:51] LABS: BUN/Creat Ratio 16.38 Ratio (12.00-20.00); Blood Urea Nitrogen 13.1 mg/dL (9.0-27.0); Carbon Dioxide 25.8 mmol/L (21.6-31.8); Chloride 104 mmol/L (96-109); Glucose 106 mg/dL (70-110); Magnesium 2.1 mg/dL (1.5-2.4); Potassium 3.7 mmol/L (3.5-5.5); Sodium 141 mmol/L (135-145)
[2023-08-11 11:47] LABS: Glucose,Whole Blood 102 mg/dL (70-110)
--- NOTE | 2023-08-11 12:23 | P.PN ---
Subjective Progress Note Date: 08/11/23 * 47-year-old gentleman with past medical history significant for chronic congestive heart failure systolic dysfunction ejection fraction 25%, nonischemic cardiomyopathy, gastroesophageal reflux disease, inflammatory bowel disease history of gastrointestinal bleed, hypertension, asthma presents to the emergency department with complaints of episode of nausea, vomiting and abdominal pain. Patient does have history of bowel surgery and had previous episodes of bowel obstruction seen by general surgery. Patient states his symptoms are similar to when he had a bowel obstruction last time. [facility] from [facility]. Patient is a has not had a bowel movement in the last 24 hours or has passed gas. While in ER patient vomited multiple times and continues to be nauseous. Workup in ER including CBC which showed WBC count of 11.9 hemoglobin 17 platelet count of 295, serum chemistry showed sodium 138 potassium 3.3 carbon dioxide 15 BUN 12 creatinine 0.37 * Liver profile obtained showed ALT of 21 AST 34 bilirubin 1.1 total protein 5.6 and mild 39 lipase 17 albumin 2.7 * Workup initiated in ER included CT abdomen pelvis which showed subtotal colectomy with areas of apparent small bowel/colonic anastomosis connected to rectosigmoid colon recommended. Multiple dilated bowel loops noted with air- fluid levels high-grade small bowel obstruction noted intra-abdominal additions noted * Patient to be admitted to medical floor with consultations from general surgery nasogastric tube ordered * 08/10/23 : Patient seen and evaluated bedside, nasogastric tube in place, patient does complain of abdominal distention however pain has improved. Continue to remain n.p.o. x-ray KUB ordered * 08/11/2023: Patient seen and evaluated bedside, followed by general surgery, CBC and basic metabolic panel reviewed, x-ray abdomen shows persistent bowel obstruction, patient took out nasogastric tube and does not want another one placed. General surgery team made aware patient understand the risk of aspiration and decompensation. Patient states abdominal pain has improved REVIEW OF SYSTEMS: Nausea, vomiting resolved, abdominal pain IMPROVED CONSTITUTIONAL: No fever, no malaise, no fatigue. HEENT: No recent visual problems or hearing problems. Denied any sore throat. CARDIOVASCULAR: No chest pain, orthopnea, PND, no palpitations, no syncope. PULMONARY: No shortness of breath, no cough, no hemoptysis. GASTROINTESTINAL: Nausea, vomiting resolved, abdominal pain IMPROVED NEUROLOGICAL: No headaches, no weakness, no numbness. HEMATOLOGICAL: Denies any bleeding or petechiae. GENITOURINARY: Denies any burning micturition, frequency, or urgency. MUSCULOSKELETAL/RHEUMATOLOGICAL: Denies any joint pain, swelling, or any muscle pain. ENDOCRINE: Denies any polyuria or polydipsia. PHYSICAL EXAMINATION: GENERAL: The patient is alert and oriented x3, ill appearance, nasogastric tube REMOVED HEENT: Pupils are round and equally reacting to light. EOMI. CARDIOVASCULAR: S1 and S2 present. No murmurs, rubs, or gallops. PULMONARY: Chest is clear to auscultation, no wheezing or crackles. ABDOMEN: Distended, soft, no guarding bowel sounds improved MUSCULOSKELETAL: No joint swelling or deformity. EXTREMITIES: No cyanosis, clubbing, or pedal edema. NEUROLOGICAL: Gross neurological examination did not reveal any focal deficits. SKIN: No rashes. Assessment and plan * Bowel obstruction with history of intra-abdominal surgery * Chronic congestive heart failure with ejection fraction 25% not in exacerbation * Diabetes mellitus type II * History of diabetic foot ulcer * History of inflammatory bowel disease with intra-abdominal surgery with history of intra-abdominal adhesions * History of anxiety and depression * In regards to bowel obstruction continue patient n.p.o.,>> will advance to ice chips and see how he does general surgery consulted, IV fluids ordered, as needed Zofran ordered , nasogastric tube removed patient refusing another 1 understand the consequences that he can decompensate and aspirate * In regards to congestive heart failure with reduced ejection fraction, continue to monitor intake and output continue with fluid resuscitation due to n.p.o/normal intake, monitor intake and output, Entresto and Lasix on hold * In regards to history of inflammatory bowel disease, continue to monitor started on IV antibiotics ciprofloxacin and Flagyl day 2 * Regards to diabetes mellitus, continue patient on every 4 hours glucose checks and correctional insulin, Lantus on hold to avoid hypoglycemia * Code Status is full code Objective - Vital Signs Vital signs: Vital Signs Temp 98.4 F 08/11/23 06:35 Pulse 71 08/11/23 06:35 Resp 17 08/11/23 06:35 BP 113/63 08/11/23 06:35 Pulse Ox 94 L 08/11/23 06:35 FiO2 Intake & Output 08/10/23 08/11/23 08/11/23 18:59 06:59 18:59 Intake Total 1500 Output Total 300 Balance 1200 Weight 99.6 kg Intake: Intake, IV Titration 1500 Amount Ciprofloxacin/Dextrose 200 Pmx 400 mg In Dextrose/ Water 1 200ml.bag @ 200 mls/hr IVPB BID@0000,1200 [facility] [place] Rx#:[id number] Sodium Chloride 0.9% 1, 1200 000 ml @ 100 mls/hr IV . Q10H [facility] Rx#:[id number] metroNIDAZOLE-NS PMX 500 100 mg In Saline 1 100ml.bag @ 100 mls/hr IVPB Q8H [facility] Rx#:[id number] Output: Gastric Drainage 300 Other: Voiding Method Toilet Toilet # Voids 1 2 1 # Bowel Movements 1 2 1 - Labs CBC & Chem 7: 08/11/23 04:55 08/11/23 04:55 Labs: Abnormal Lab Results - Last 24 Hours (Table) 08/10/23 08/10/23 08/11/23 Range/Units 13:36 16:57 03:49 POC Glucose (mg/dL) 134 H 116 H 112 H (70-110) mg/dL Microbiology - Last 24 Hours (Table) 08/09/23 14:15 Blood Culture - Preliminary Blood 08/09/23 14:00 Blood Culture - Preliminary Blood
[2023-08-11 14:02] VITALS: BMI 29.7
[2023-08-11] MEDS: HYDROcodone/APAP 7.5-325MG 1 EACH TAB PO PRN (15:20)
--- NOTE | 2023-08-11 16:00 | P.PN ---
Subjective Progress Note Date: 08/11/23 CHIEF COMPLAINT: Small bowel obstruction HISTORY OF PRESENT ILLNESS: Patient is having bowel movements and flatus. He pulled out his NG tube. He is asking for something to eat. He reports his pain is improving. But had still rated his pain about a 7 out of 10. Abdominal x- ray did report persistent dilated bowel loops. X-rays were reviewed with Dr. Calzada. WBC 9.32 Patient seen and examined with Dr. Calzada PHYSICAL EXAM: VITAL SIGNS: Reviewed. GENERAL: Well-developed in no acute distress. HEENT: No sclera icterus. Extraocular movements grossly intact. Moist buccal mucosa. Head is atraumatic, normocephalic. ABDOMEN: Soft. Decreased abdominal distention. Mild tenderness with palpation to the right of the abdomen NEUROLOGIC: Alert and oriented. Cranial nerves II through XII grossly intact. ASSESSMENT: 1. High-grade partial small bowel obstruction likely related to adhesions 2. Prior history of subtotal colectomy for ulcerative colitis 3. History of small bowel obstructions PLAN: -Advance diet to clear liquids -Encourage patient to ambulate -Discontinue the Dilaudid -[place] added for oral pain medication Physician Pumper Helper note has been reviewed by physician. Signing provider agrees with the documented findings, assessment, and plan of care. Objective - Vital Signs Vital signs: Vital Signs Temp 98.4 F 08/11/23 14:00 Pulse 67 08/11/23 14:00 Resp 17 08/11/23 14:00 BP 143/82 08/11/23 14:00 Pulse Ox 98 08/11/23 14:00 FiO2 Intake & Output 08/10/23 08/11/23 08/11/23 18:59 06:59 18:59 Intake Total 1500 Output Total 300 Balance 1200 Weight 99.6 kg 99.6 kg Intake: Intake, IV Titration 1500 Amount Ciprofloxacin/Dextrose 200 Pmx 400 mg In Dextrose/ Water 1 200ml.bag @ 200 mls/hr IVPB BID@0000,1200 [facility] Rx#:[id number] Sodium Chloride 0.9% 1, 1200 000 ml @ 100 mls/hr IV . Q10H [facility] Rx#:[id number] metroNIDAZOLE-NS PMX 500 100 mg In Saline 1 100ml.bag @ 100 mls/hr IVPB Q8H [facility] Rx#:[id number] Output: Gastric Drainage 300 Other: Voiding Method Toilet Toilet # Voids 1 2 1 # Bowel Movements 1 2 1 - Labs CBC & Chem 7: 08/11/23 04:55 08/11/23 04:55 Labs: Abnormal Lab Results - Last 24 Hours (Table) 08/10/23 08/11/23 Range/Units 16:57 03:49 POC Glucose (mg/dL) 116 H 112 H (70-110) mg/dL Microbiology - Last 24 Hours (Table) 08/09/23 14:15 Blood Culture - Preliminary Blood 08/09/23 14:00 Blood Culture - Preliminary Blood
[2023-08-11 16:26] LABS: Glucose,Whole Blood 158 mg/dL (70-110)
[2023-08-11 20:19] LABS: Glucose,Whole Blood 113 mg/dL (70-110)
[2023-08-11 23:43] LABS: Glucose,Whole Blood 112 mg/dL (70-110)
[2023-08-12 03:50] LABS: Glucose,Whole Blood 207 mg/dL (70-110)
[2023-08-12 08:00] LABS: Glucose,Whole Blood 101 mg/dL (70-110)
[2023-08-12 08:42] LABS: HCT 41.2 % (39.6-50.0); HGB 14.2 g/dL (13.0-17.0); MCH 30.2 pg (27.0-32.0); MCHC 34.5 g/dL (32.0-37.0); MCV 87.7 FL (80.0-97.0); Mean Platelet Volume 10.5 FL (9.5-12.2); NRBC Per 100 WBC 0 X 10*3/uL (0.00-0.01); Platelet Count 232 X 10*3/uL (140-440); WBC 7.64 X 10*3/uL (4.50-10.00)
[2023-08-12 09:01] LABS: Magnesium 2.2 mg/dL (1.5-2.4); Phosphorus 3.3 mg/dL (2.4-5.1)
[2023-08-12 09:03] LABS: BUN/Creat Ratio 13.43 Ratio (12.00-20.00); Blood Urea Nitrogen 9.4 mg/dL (9.0-27.0); Calcium 8.8 mg/dL (8.7-10.3); Carbon Dioxide 24.7 mmol/L (21.6-31.8); Chloride 102 mmol/L (96-109); Glucose 172 mg/dL (70-110); Potassium 3.5 mmol/L (3.5-5.5); Sodium 137 mmol/L (135-145)
--- NOTE | 2023-08-12 11:54 | XR ---
EXAMINATION TYPE: XR KUB DATE OF EXAM: 08/12/2023 COMPARISON: 08/11/2023, 01/10/2020 HISTORY: Pain TECHNIQUE: One view abdominal series FINDINGS: Multiple dilated bowel loops are again noted. Air-fluid level noted in the left abdomen. Curvature of the spine noted. Osseous structures otherwise stable. Postsurgical changes pelvis. No suspicious raman cifications. IMPRESSION: 1. Persistent dilated bowel loops with air fluid level correlation for bowel obstruction.
[2023-08-12 12:07] LABS: Glucose,Whole Blood 130 mg/dL (70-110)
--- NOTE | 2023-08-12 12:14 | P.PN ---
Subjective Progress Note Date: 08/12/23 * 47-year-old gentleman with past medical history significant for chronic congestive heart failure systolic dysfunction ejection fraction 25%, nonischemic cardiomyopathy, gastroesophageal reflux disease, inflammatory bowel disease history of gastrointestinal bleed, hypertension, asthma presents to the emergency department with complaints of episode of nausea, vomiting and abdominal pain. Patient does have history of bowel surgery and had previous episodes of bowel obstruction seen by general surgery. Patient states his symptoms are similar to when he had a bowel obstruction last time. Patient comes in from nursing home. Patient is a has not had a bowel movement in the last 24 hours or has passed gas. While in ER patient vomited multiple times and continues to be nauseous. Workup in ER including CBC which showed WBC count of 11.9 hemoglobin 17 platelet count of 295, serum chemistry showed sodium 138 potassium 3.3 carbon dioxide 15 BUN 12 creatinine 0.37 * Liver profile obtained showed ALT of 21 AST 34 bilirubin 1.1 total protein 5.6 and mild 39 lipase 17 albumin 2.7 * Workup initiated in ER included CT abdomen pelvis which showed subtotal colectomy with areas of apparent small bowel/colonic anastomosis connected to rectosigmoid colon recommended. Multiple dilated bowel loops noted with air- fluid levels high-grade small bowel obstruction noted intra-abdominal additions noted * Patient to be admitted to medical floor with consultations from general surgery nasogastric tube ordered * 08/10/23 : Patient seen and evaluated bedside, nasogastric tube in place, patient does complain of abdominal distention however pain has improved. Continue to remain n.p.o. x-ray KUB ordered * 08/11/2023: Patient seen and evaluated bedside, followed by general surgery, CBC and basic metabolic panel reviewed, x-ray abdomen shows persistent bowel obstruction, patient took out nasogastric tube and does not want another one placed. General surgery team made aware patient understand the risk of aspiration and decompensation. Patient states abdominal pain has improved * 08/12/23: Patient seen and evaluated bedside, patient diet has been advanced to full liquid, follow-up x-ray ordered as well. Patient had been adamantly refusing nasogastric tube in case his bowel obstruction does not improve. IV antibiotics ciprofloxacin and Flagyl discontinued as well. Diet to be advanced to full liquid, potential discharge home within the next 24 hours. Patient has been released from nursing home as well. REVIEW OF SYSTEMS: Nausea, vomiting resolved, abdominal pain IMPROVED CONSTITUTIONAL: No fever, no malaise, no fatigue. HEENT: No recent visual problems or hearing problems. Denied any sore throat. CARDIOVASCULAR: No chest pain, orthopnea, PND, no palpitations, no syncope. PULMONARY: No shortness of breath, no cough, no hemoptysis. GASTROINTESTINAL: Nausea, vomiting resolved, abdominal pain IMPROVED NEUROLOGICAL: No headaches, no weakness, no numbness. HEMATOLOGICAL: Denies any bleeding or petechiae. GENITOURINARY: Denies any burning micturition, frequency, or urgency. MUSCULOSKELETAL/RHEUMATOLOGICAL: Denies any joint pain, swelling, or any muscle pain. ENDOCRINE: Denies any polyuria or polydipsia. PHYSICAL EXAMINATION: GENERAL: The patient is alert and oriented x3, ill appearance, nasogastric tube REMOVED HEENT: Pupils are round and equally reacting to light. EOMI. CARDIOVASCULAR: S1 and S2 present. No murmurs, rubs, or gallops. PULMONARY: Chest is clear to auscultation, no wheezing or crackles. ABDOMEN: Distended, soft, no guarding bowel sounds improved MUSCULOSKELETAL: No joint swelling or deformity. EXTREMITIES: No cyanosis, clubbing, or pedal edema. NEUROLOGICAL: Gross neurological examination did not reveal any focal deficits. SKIN: No rashes. Assessment and plan * Bowel obstruction with history of intra-abdominal surgery * Chronic congestive heart failure with ejection fraction 25% not in exacerbation * Diabetes mellitus type II * History of diabetic foot ulcer * History of inflammatory bowel disease with intra-abdominal surgery with history of intra-abdominal adhesions * History of anxiety and depression * In regards to bowel obstruction , nasogastric tube removed 08/11/23 >> patient refusing another 1 understand the consequences that he can decompensate and aspirate, diet advanced to full liquid, follow-up x-ray KUB ordered * In regards to congestive heart failure with reduced ejection fraction, continue to monitor intake and output, minimal oral intake Entresto and Lasix on hold. IV fluid discontinued * In regards to history of inflammatory bowel disease, continue to monitor started on IV antibiotics ciprofloxacin and Flagyl day 3, discontinued, white cell count normal * Regards to diabetes mellitus, Accu-Cheks, continue correctional insulin, blood glucose 101. Electrolytes reviewed potassium and magnesium within normal limits, Phos were within normal limits * Code Status is full code Objective - Vital Signs Vital signs: Vital Signs Temp 97.6 F 03/28/24 07:05 Pulse 61 08/12/23 07:05 Resp 18 08/12/23 07:05 BP 126/55 08/12/23 07:05 Pulse Ox 97 08/12/23 07:05 FiO2 Intake & Output 08/11/23 08/12/23 08/12/23 18:59 06:59 18:59 Weight 99.6 kg 100.3 kg Other: Voiding Method Toilet Toilet Toilet # Voids 1 5 # Bowel Movements 1 5 - Labs CBC & Chem 7: 08/12/23 05:26 08/12/23 05:26 Labs: Abnormal Lab Results - Last 24 Hours (Table) 08/11/23 08/11/23 08/11/23 Range/Units 16:24 20:17 23:42 Glucose (70-110) mg/dL POC Glucose (mg/dL) 158 H 113 H 112 H (70-110) mg/dL 08/12/23 08/12/23 Range/Units 03:49 05:26 Glucose 172 H (70-110) mg/dL POC Glucose (mg/dL) 207 H (70-110) mg/dL Microbiology - Last 24 Hours (Table) 08/09/23 14:15 Blood Culture - Preliminary Blood 08/09/23 14:00 Blood Culture - Preliminary Blood
--- NOTE | 2023-08-12 12:43 | P.PN ---
Subjective Progress Note Date: 08/12/23 Patient states he feels better. He states he feels normal. He is having bowel movements. He has no abdominal pain. On exam vital signs appear stable. Abdomen is soft. Patient will have his diet advanced. He is stable for discharge from a surgical standpoint. Objective - Vital Signs Vital signs: Vital Signs Temp 97.6 F 08/12/23 07:05 Pulse 61 08/12/23 07:05 Resp 18 08/12/23 07:05 BP 126/55 08/12/23 07:05 Pulse Ox 97 08/12/23 07:05 FiO2 Intake & Output 08/11/23 08/12/23 08/12/23 18:59 06:59 18:59 Weight 99.6 kg 100.3 kg Other: Voiding Method Toilet Toilet Toilet # Voids 1 5 # Bowel Movements 1 5 - Labs CBC & Chem 7: 08/12/23 05:26 08/12/23 05:26 Labs: Abnormal Lab Results - Last 24 Hours (Table) 08/11/23 08/11/23 08/11/23 Range/Units 16:24 20:17 23:42 Glucose (70-110) mg/dL POC Glucose (mg/dL) 158 H 113 H 112 H (70-110) mg/dL 08/12/23 08/12/23 08/12/23 Range/Units 03:49 05:26 12:06 Glucose 172 H (70-110) mg/dL POC Glucose (mg/dL) 207 H 130 H (70-110) mg/dL Microbiology - Last 24 Hours (Table) 08/09/23 14:15 Blood Culture - Preliminary Blood 08/09/23 14:00 Blood Culture - Preliminary Blood
[2023-08-12 16:26] LABS: Glucose,Whole Blood 213 mg/dL (70-110)
[2023-08-12 19:58] LABS: Glucose,Whole Blood 161 mg/dL (70-110)
[2023-08-12 23:51] LABS: Glucose,Whole Blood 202 mg/dL (70-110)
[2023-08-13 04:00] LABS: Glucose,Whole Blood 138 mg/dL (70-110)
[2023-08-13 08:26] VITALS: BP 169/93; PULSE 87; RESP 15; TEMP 98.6
[2023-08-13 11:19] LABS: HCT 44.2 % (39.6-50.0); HGB 15.1 g/dL (13.0-17.0); MCH 30.6 pg (27.0-32.0); MCHC 34.2 g/dL (32.0-37.0); MCV 89.7 FL (80.0-97.0); Mean Platelet Volume 10.6 FL (9.5-12.2); NRBC Per 100 WBC 0 X 10*3/uL (0.00-0.01); Platelet Count 293 X 10*3/uL (140-440); RBC 4.93 X 10*6/uL (4.40-5.60); WBC 7.83 X 10*3/uL (4.50-10.00)
[2023-08-13 11:23] LABS: Glucose,Whole Blood 174 mg/dL (70-110)
[2023-08-13 11:29] LABS: BUN/Creat Ratio 16.11 Ratio (12.00-20.00); Blood Urea Nitrogen 14.5 mg/dL (9.0-27.0); Calcium 9.2 mg/dL (8.7-10.3); Carbon Dioxide 22.3 mmol/L (21.6-31.8); Chloride 104 mmol/L (96-109); Glucose 200 mg/dL (70-110); Potassium 3.5 mmol/L (3.5-5.5); Sodium 140 mmol/L (135-145)
[2023-08-13] MEDS: INSULIN ASPART (NovoLOG) 100 UNIT/ML VIAL SQ SCH (12:20)
[2023-08-13] MEDS: SACUBITRIL/VALSARTAN 24 MG-26 MG TABLET PO SCH (13:22)
== END 2023-08-13 13:50 | disposition home or self-care (01) | DRG 247 ==
LOC: EC 09:28 → MERGE 09:28 → 4SSUR 12:55
PROVIDERS: ADMIT Internal Medicine; ATTEND Internal Medicine
PROC: 0D9670Z Drainage of Stomach with Drainage Device, Via Natural or Artificial Opening (ICD-10-PCS; principal; 2023-08-09)
DX: K56.50 Intestinal adhesions [bands], unspecified as to partial versus complete obstruction (principal); E11.9 Type 2 diabetes mellitus without complications; E78.5 Hyperlipidemia, unspecified; F32.A Depression, unspecified; F41.9 Anxiety disorder, unspecified; I11.0 Hypertensive heart disease with heart failure; J45.909 Unspecified asthma, uncomplicated; I42.8 Other cardiomyopathies; I50.22 Chronic systolic (congestive) heart failure; K50.90 Crohn's disease, unspecified, without complications; Z90.49 Acquired absence of other specified parts of digestive tract; Z89.429 Acquired absence of other toe(s), unspecified side; Z86.14 Personal history of Methicillin resistant Staphylococcus aureus infection; K21.9 Gastro-esophageal reflux disease without esophagitis; Z88.0 Allergy status to penicillin; Z79.4 Long term (current) use of insulin; Z79.899 Other long term (current) drug therapy; Z82.49 Family history of ischemic heart disease and other diseases of the circulatory system
CPT/HCPCS: 36415; 74018; 74019; 74177; 80048; 80053; 82150; 83036; 83690; 83735; 84100; 84145; 85025; 85027; 86140; 87040; 94640; 96361; 96365; 96375; 96376; 99285